=== PATIENT | male | born 1965 | race Caucasian/White ===

== ENCOUNTER 2019-12-24 10:10 | Observation (INO) ==
--- NOTE | 2019-12-24 10:23 | Emergency Department Note ---
Impression & Plan Unstable angina, Chest pain, exertional ED Provider Note NAME: AMEYA ARREOLA AGE: 53 SEX: M : 1965 ARRIVES VIA: Walk-In INFORMANT: Patient ED PROVIDER(S): Khurram Shin DO CHIEF COMPLAINT: Chest pain HPI: Patient is a 53-year-old gentleman with a past medical history of diabetes, hypertension, hyperlipidemia, obesity and multiple family members with MIs including a sister in her 40s who presented to the PCPs office today. He was having exertional chest pain which has been going off and on for the past 2 weeks. He associates this with shortness of breath and sweating. Yesterday he was raking the leaves and this occurred. It resolved with rest. He notes it is getting worse. No pain today. PCP referred him in for unstable angina. Denies any headache, change in vision, nausea vomiting or diarrhea. No dysuria urgency or frequency. When he gets the chest pain he describes as a tightness on the left side of his chest. Pain is currently a 0 out of 10. ROS: See above HPI for pertinent positives & negatives. A total of 10 systems reviewed and were otherwise negative. PAST MEDICAL HISTORY:See Below PAST SURGICAL HISTORY:See Below FAMILY HISTORY:See Below SOCIAL HISTORY:See Below HOME MEDICATIONS:See Below ALLERGIES:See Below VITALS:See Below PHYSICAL EXAMINATION: GENERAL: Sitting up in bed, alert, obese, nontoxic EYE EXAM: normal conjunctiva. OROPHARYNX: no exudate, no erythema, lips, buccal mucosa, and tongue normal and mucous membranes are moist LUNGS: Clear to auscultation. Normal chest wall mechanics HEART: no murmurs, S1 normal and S2 normal ABDOMEN: abdomen soft, non-tender, normo-active bowel sounds, no masses, no jennyfer ound or guarding. BACK: Back is symmetrical on inspection and there is no deformity, no midline tenderness, no CVA tenderness. SKIN: no rashes and no bruising UPPER EXTREMITIES: upper extremities are grossly normal. LOWER EXTREMITIES: No pitting edema. No calf are equal bilateral NEURO EXAM: Normal sensorium, cranial nerves II-XII grossly intact, normal speech, no gross weakness of arms, no gross weakness of legs. MEDICAL DECISION MAKING: Patient is a 53-year-old male with past medical history of diabetes, hypertension, hyperlipidemia and strong family history of CAD the presents ER for exertional chest pain and shortness of breath which has been worsening for the past 2 weeks. Left chest pain was yesterday while raking leaves. IV was status post orders obtained. He was referred in by PCP for unstable angina. Labs show no significant leukocytosis or anemia. INR was unremarkable. D-dimer was elevated CT angio of the chest shows no obvious PEs but was a poor study. BMP along with LFTs bilirubin troponin was negative. Lipase was unremarkable. EKG was nondiagnostic. He was given aspirin. Discussed with the hospitalist and updated bedside admitted for further work-up. Triage Nursing notes reviewed. Prior medical records reviewed Vital Signs: reviewed and remarkable for HTN and tachy Differential diagnosis: Differential diagnoses includes but is not limited to acute coronary syndrome, myocardial infarction, pericarditis, pulmonary embolus, aortic dissection, pneumonia, pneumothorax, musculoskeletal, shingles, esophageal. ER treatment provided: See below Diagnostics interpreted by me: ECG: Sinus tachycardia rate of 104 Normal axis No PVCs Normal QTC Cardiac Monitoring: An order was placed for continuous cardiac monitoring. The monitor shows a rate of 100 with sinus rhythm. Laboratory studies: As stated above and show below. Imaging studies: CT angio of the chest was unremarkable Portable AP upright 1 view of the chest shows no focal infiltrate or pneumothorax Consultation(s): Discussed with the hospitalist for further evaluation ED COURSE: Procedures: none Critical Care: None Past Med/Surg History Medical History Asthma Chronic lower back pain Diabetes 1.5, managed as type 2 Gout HTN (hypertension) Hyperlipidemia Insomnia Obesity (BMI 30-39.9) Restless leg syndrome Surgical History H/O hernia repair as a baby History of bilateral knee replacement (~2013) History of left hip replacement (~2018) Family History Father Heart disease Mother Heart disease Grandfather No problems noted. Grandfather (Maternal) Lung cancer Grandmother (Maternal) Lung cancer Grandfather (Paternal) Myocardial infarction Denies family history of Ovarian cancer Prostate cancer Breast cancer Colorectal cancer Social History Smoking Status: Never smoker Cigarettes Per Day: 1 can a week; Second Hand Exposure: No; Do You Dip or Chew Tobacco: Yes; Tobacco Cessation Education Requested by Patient: No Hx Alcohol Use: Yes Alcohol type: hard liquor Alcohol type Comment: 1 drink 4-5 times weekly Hx Substance Use: No Preferred Language: Yi Communication Ability: Effective Visual Impairment: Limited Hearing Ability: Normal Correctional Lieutenant Required: No Beliefs That Will Affect Care: None marital status: Current Living Situation: Family current occupational status: disabled 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, 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 How many Children do You have: 2 How many Children do You have Comment: 25 and 24 Other Information That Helps Us Care for You: No Feels Safe at Home: Yes Safety Concerns: Feels Safe At This Time Childhood Exposure to Second-Hand Smoke: Yes caffeine: Yes Dental Care, Regularly: Yes Physical Activity Frequency: Does not Exercise Seatbelt Use: always Sunscreen Use: Yes Assistive Devices: Glasses Allergies Allergies Allergy/AdvReac Type Severity Reaction Status Date / Time No Known Allergies Verified 12/24/19 12:06 Home Meds Home Medications Medication Instructions Recorded Confirmed cholecalciferol (vitamin D3) 50 50 mcg PO QAM 07/29/19 12/24/19 mcg (2,000 unit) capsule insulin glargine 100 unit/mL (3 15 units SQ QAM ml 07/29/19 12/24/19 mL) subcutaneous pen albuterol sulfate 90 mcg/actuation See Rx Instructions INH QID PRN g 11/26/19 12/24/19 aerosol inhaler allopurinol 300 mg PO QAM 12/24/19 12/24/19 atorvastatin 40 mg PO HS 12/24/19 12/24/19 duloxetine 60 mg PO QAM 12/24/19 12/24/19 fluticasone propion-salmeterol 1 inh INHALATION BID 12/24/19 12/24/19 [Wixela Inhub] lisinopril 40 mg PO QAM 12/24/19 12/24/19 ropinirole [Requip] 0.25 mg PO QAM 12/24/19 12/24/19 Previous Rx's Medication Instructions Recorded celecoxib 100 mg capsule 100 mg PO BID #180 cap 10/31/19 glipizide 10 mg tablet 10 mg PO BID #180 tab 10/31/19 trazodone 50 mg tablet 50 mg PO .qhs #30 tab 11/26/19 metformin 850 mg tablet 850 mg PO TID #270 tab 12/24/19 oxycodone-acetaminophen 5 mg-325 1 tab PO TID PRN 30 Days #90 tab 12/24/19 mg tablet Results & Data (ED) Vital Signs Vital Signs - 24 hr 12/24/19 10:15 12/24/19 10:32 12/24/19 11:33 Temperature 37.3 C Temperature Source Oral Pulse Rate 112 H Pulse Rate [Left Finger] 104 H Respiratory Rate 22 20 Respiratory Effort / Characteristics Non-Labored Respiratory Depth Normal Blood Pressure 146/80 H Blood Pressure [Left Arm] 94/35 L Blood Pressure Mean 102 Blood Pressure Mean [Left Arm] 54 Blood Pressure Position Sitting Pulse Oximetry 96 97 96 Oxygen Delivery Method Room Air Room Air Room Air Sepsis Recent Fever Within 48 Hours No Sepsis New/Unexplained Change in Mental Status No Sepsis Action Taken by Nursing No Action Required 12/24/19 12:46 Temperature Temperature Source Pulse Rate Pulse Rate [Left Finger] 101 H Respiratory Rate 20 Respiratory Effort / Characteristics Respiratory Depth Blood Pressure Blood Pressure [Left Arm] 138/79 Blood Pressure Mean Blood Pressure Mean [Left Arm] 98 Blood Pressure Position Pulse Oximetry 98 Oxygen Delivery Method Room Air Sepsis Recent Fever Within 48 Hours Sepsis New/Unexplained Change in Mental Status Sepsis Action Taken by Nursing Laboratory Data Result diagrams: 12/24/19 10:30 12/24/19 10:30 Lab Results 12/24/19 12/24/19 12/24/19 Range/Units 10:30 10:30 10:30 WBC 6.35 (4.8-10.8) K/uL RBC 3.78 L (4.7-6.1) M/uL Hgb 12.2 L (14.0-18.0) g/dL Hct 37.6 L (42-52) % MCV 99.5 (80-100) fL MCH 32.3 (25-34) pg MCHC 32.4 (32-36) g/dL RDW Std Deviation 50.4 H (36.4-46.3) fL RDW Coeff of Sunny 14.2 (11.5-14.5) % Plt Count 143 (130-400) K/uL MPV 11.1 H (7.4-10.4) fL Immature Gran % (Auto) 0.5 % Neut % (Auto) 61.4 % Lymph % (Auto) 25.0 % [place] % (Auto) 7.9 % Eos % (Auto) 4.9 % Baso % (Auto) 0.3 % Neut # (Auto) 3.90 (1.4-6.5) K/uL Lymph # (Auto) 1.59 (1.2-3.4) K/uL [place] # (Auto) 0.50 (0.11-0.59) K/uL Eos # (Auto) 0.31 (0-0.5) K/uL Baso # (Auto) 0.02 (0-0.2) K/uL Immature Gran # (Auto) 0.03 H (0.00-0.02) K/uL PT 10.4 (9.0-12.0) Seconds INR 1.0 (0.9-1.1) APTT 25.6 (21.0-31.0) Seconds PTT Ratio 0.9 D-Dimer 1360 H* (0-500) ug/L FEU Sodium 138 (136-145) mmol/L Potassium 4.5 (3.5-5.1) mmol/L Chloride 103 (98-107) mmol/L Carbon Dioxide 29 (21-32) mmol/L Anion Gap 6.0 (3-11) BUN 17 (7-18) mg/dl Creatinine 1.24 (0.6-1.4) mg/dl Est Cr Clr Drug Dosing 109.2 ml/min Est GFR ( Amer) 75.9 Est GFR (Non-Af Amer) 65.5 BUN/Creatinine Ratio 13.8 (10-20) Glucose 175 H (70-99) mg/dl Calcium 8.8 (8.5-10.1) mg/dl Total Bilirubin 0.4 (0.2-1) mg/dl AST 21 (15-37) U/L ALT 33 (12-78) U/L Alkaline Phosphatase 105 (45-117) U/L Troponin I < 0.015 (0-0.045) ng/ml Total Protein 6.8 (6.4-8.2) gm/dl Albumin 3.4 (3.4-5.0) gm/dl Globulin 3.4 (2.5-4.0) gm/dl Albumin/Globulin Ratio 1.0 (0.9-2) Lipase 66 L (73-393) U/L Administered Medications Ceftriaxone Sodium 2,000 mg/ (Dextrose) 70 mls @ 100 mls/hr IV Q24H [facility]; Protocol Stop: 12/31/19 15:59 Last Admin: 12/24/19 15:58 Dose: 100 mls/hr Documented by: [id number] Discontinued Medications Aspirin (Aspirin Chew 324 Mg) 324 mg PO NOW STA Stop: 12/24/19 10:31 Last Admin: 12/24/19 10:36 Dose: 324 mg Documented by: [id number] Ioversol (Optiray 320 125ml) 120 ml IV ONCE ONE Stop: 12/24/19 11:28 Last Admin: 12/24/19 11:27 Dose: 120 ml Documented by: [id number] Discharge Plan Visit Data Chief Complaint: Cardiac Assessment Stated Complaint: CHEST PAIN x COUPLE WEEKS,SWEATING,SOB ED Provider: Khurram Shin Discharge Problem: Unstable angina, Chest pain, exertional Patient Disposition: Admitted As Inpatient Discharge Instructions Interventions: ED Discharge Assessment Last Done: 12/24/19 14:08
[2019-12-24] MEDS ORDERED: ASPIRIN CHEW 324 MG PO STA (10:30)
[2019-12-24 10:40] LABS: Basophils # (auto) 0.02 K/uL (0-0.2); Basophils % (auto) 0.3 %; Eosinophils # (auto) 0.31 K/uL (0-0.5); Eosinophils % (auto) 4.9 %; Hematocrit (blood only) 37.6 % (42-52); Hemoglobin 12.2 g/dL (14.0-18.0); Immature Granulocytes # (auto) 0.03 K/uL (0.00-0.02); Immature Granulocytes % (auto) 0.5 %; Lymphocytes # (auto) 1.59 K/uL (1.2-3.4); Mean Corpuscular Hemoglobin 32.3 pg (25-34); Mean Corpuscular Hgb Conc 32.4 g/dL (32-36); Mean Corpuscular Volume 99.5 fL (80-100); Mean Platelet Volume 11.1 fL (7.4-10.4); Monocytes % (auto) 7.9 %; Neutrophils % (auto) 61.4 %; Platelet Count 143 K/uL (130-400); RDW Coefficient of Variation 14.2 % (11.5-14.5); RDW Standard Deviation 50.4 fL (36.4-46.3); Red Blood Count 3.78 M/uL (4.7-6.1); White Blood Count 6.35 K/uL (4.8-10.8)
--- NOTE | 2019-12-24 10:42 | XRay Report ---
XR chest 1V portable HISTORY: Atypical Chest Pain COMPARISON: Chest 08/26/2010. FINDINGS: No pneumothorax. No pleural effusions. The heart is mildly enlarged. This remains unchanged . No new focal lung consolidations to suggest pneumonia. No evidence for pulmonary edema. Old, healed left clavicle fracture. IMPRESSION: Stable mild cardiomegaly. No acute process within the chest. ACT 112: Negative or not required by law. Electronically signed by: Wm Nguyen M.D. 12/24/2019 10:41 AM
[2019-12-24 11:01] LABS: Alanine Aminotransferase 33 U/L (12-78); Albumin Level 3.4 gm/dl (3.4-5.0); Aspartate Aminotransferase 21 U/L (15-37); BUN Creatinine Ratio 13.8 (10-20); Blood Urea Nitrogen 17 mg/dl (7-18); Calcium 8.8 mg/dl (8.5-10.1); Carbon Dioxide 29 mmol/L (21-32); Chloride 103 mmol/L (98-107); Creatinine Clr Calc Pharmacy 109.2 ml/min; Est GFR (African American) 75.9; Est GFR (Non-African American) 65.5; Glucose 175 mg/dl (70-99); Lipase 66 U/L (73-393); Partial Thromboplastin Ratio 0.9; Partial Thromboplastin Time 25.6 Seconds (21.0-31.0); Potassium 4.5 mmol/L (3.5-5.1); Prothrombin Time 10.4 Seconds (9.0-12.0); Sodium 138 mmol/L (136-145)
[2019-12-24 11:04] LABS: D Dimer 1360 ug/L FEU (0-500)
[2019-12-24 11:06] LABS: Alkaline Phosphatase 105 U/L (45-117); Bilirubin,Total 0.4 mg/dl (0.2-1); Globulin 3.4 gm/dl (2.5-4.0); Total Protein 6.8 gm/dl (6.4-8.2); Troponin I < 0.015 ng/ml (0-0.045)
[2019-12-24] MEDS ORDERED: OPTIRAY 320 125ml IV ONE (11:27)
--- NOTE | 2019-12-24 11:52 | CT Scan Report ---
CT ANGIOGRAM OF THE CHEST CLINICAL HISTORY: Shortness of breath. Positive d-dimer. COMPARISON STUDY: No previous studies for comparison. TECHNIQUE: Following the IV administration of 120 mL of Optiray-320, CT angiogram of the thorax was p erformed from the thoracic inlet to the lung bases utilizing the pulmonary embolus protocol. Images a re reviewed in the axial, sagittal, and coronal planes. IV contrast was administered without complica tion. MIP imaging was performed. A dose lowering technique was utilized adhering to the principles o f ALARA. CT DOSE: 1216.58 mGy.cm FINDINGS: There is an 11 mm left lobe thyroid nodule. No pathologically enlarged axillary mediastinal or hilar lymph nodes were visualized. There was no evidence of thoracic aortic dilatation. There is suboptimal pulmonary to opacification during part to the patient's large body habitus. There are no pulmonary artery filling defects to indicate acute pulmonary embolism. If there is a strong c linical suspicion of the presence of acute pulmonary embolism, correlation with leg ultrasonography s hould be performed No pleural effusions are visualized. There is no acute parenchymal consolidation. There is a 5 mm pleural-based left apical pulmonary nodu le. There are scattered areas of presumed atelectasis. There are no areas of parenchymal consolidatio n to indicate a pneumonia. There is mild respiratory motion artifact. There are old right-sided rib fractures. IMPRESSION: 1. Suboptimal pulmonary arterial opacification, but no findings to indicate acute pulmonary embolism. Correlation with leg ultrasonography should be considered as deemed clinically appropriate 2. No evidence of focal pulmonary consolidation. 3. 5 mm pleural-based left apical pulmonary nodule. No further follow-up is indicated in a low-risk p atient. ACT 112: Negative or not required by law. Electronically signed by: Seven Mckeon M.D. 12/24/2019 11:51 AM
--- NOTE | 2019-12-24 13:03 | History & Physical Report ---
Date of Service December 24, 2019 Assessment & Plan (1) Unstable angina: Many risk factors exertional chest pain concerning for unstable angina. Heart healthy diet. ASA 324mg PO given in ER. Continue aspirin 81mg PO daily (he should continue this for primary prophylaxis regardless of cardiac workup. Start metoprolol 25mg PO BID Continue lisinopril 40 mg p.o. daily. Continue atorvastatin 40 mg p.o. at bedtime (recent lipid panel 5 days ago, no need to repeat this). Consult cardiology. Will defer dobutamine stress echo vs. cardiac cath decision to cardiology. (2) Left leg cellulitis: No WBC, fever or chills however immunosuppressed with T2DM. Follow up blood cultures Start Ceftriaxone 2g IV daily after blood cultures taken US left lower extremity venous doppler to r/o DVT (3) Hyperlipidemia: Triglycerides 353, LDL 33 (12/19/2019) - no need to repeat this Continue atorvastatin 40 mg p.o. at bedtime (4) HTN (hypertension): Continue lisinopril 40 mg p.o. every morning. Add metoprolol for antianginal effect as above and monitor blood pressure. (5) Diabetes 1.5, managed as type 2: HbA1c 7.1 (12/19/2019) - no need to repeat this T2DM diet Hold Metformin and glipizide during inpatient stay. Reports taking his usual Lantus 15 units this morning. Due to holding his oral medication above we will increase Lantus to 15 units twice daily with NovoLog sliding scale for correction and carb coverage (6) Gout: No acute flare. Continue allopurinol 300 mg daily. (7) Restless leg syndrome: Continue ropinirole 0.25 mg p.o. at bedtime. (8) Asthma: No acute exacerbation is suspected Continue Wixela Inhub 1 inhalation twice daily for hospital formulary equivalent if patient does not have access to exam Albuterol as needed for wheezing or shortness of breath (9) Chronic lumbar radiculopathy: Continue duloxetine 60 mg p.o. every morning (10) Insomnia: Continue trazodone 50 mg p.o. at bedtime (11) DVT prophylaxis: Lovenox 40 mg twice daily (hold prior to cardiac cath if this is planned for the morning) Admission and Anticipated Discharge Date Admission Date: 12/24/2019 History of Present Illness Chief Complaint: Chest tightness and shortness of breath on exertion Primary Care Provider: Cal Escobar, Wisam Copeland is a 83-year-old male with type 2 diabetes, hyperlipidemia, hypertension who presents to the ER with shortness of breath and chest tightness on exertion over last 3 weeks. He does note his daughter's wedding was approximately 3 weeks ago and his stress levels have been significantly high recently. The chest tightness and shortness of breath have come on intermittently and are not significantly worse now than 3 weeks ago however he had a significant episode yesterday with raking leaves which he discussed with his primary care physician and recommended he come to the ER for further evaluation. Associated diaphoresis. No nausea. Reports chest tightness problem a severity of pain on the left side of his anterior chest wall, no worse on palpation or inspiration, no relief with albuterol inhaler, no radiation (although difficult to tell with his multiple chronic joint pains). Despite his multiple risk factors he does not take an aspirin daily. He reports a remote stress test in the past but not within the last year. He has a significant family history of cardiovascular disease with his sister having a heart attack in her 40s and both parents having heart attacks in their 50s. Allergies Allergy/AdvReac Type Severity Reaction Status Date / Time No Known Allergies Verified 12/24/19 12:06 Home Medications Home Medications Medication Instructions Recorded Confirmed Type cholecalciferol (vitamin D3) 50 50 mcg PO QAM 07/29/19 12/24/19 History mcg (2,000 unit) capsule insulin glargine 100 unit/mL (3 15 units SQ QAM ml 07/29/19 12/24/19 History mL) subcutaneous pen celecoxib 100 mg capsule 100 mg PO BID #180 cap 10/31/19 12/24/19 Rx glipizide 10 mg tablet 10 mg PO BID #180 tab 10/31/19 12/24/19 Rx albuterol sulfate 90 mcg/actuation See Rx Instructions INH QID PRN g 11/26/19 12/24/19 History aerosol inhaler trazodone 50 mg tablet 50 mg PO .qhs #30 tab 11/26/19 12/24/19 Rx allopurinol 300 mg PO QAM 12/24/19 12/24/19 History atorvastatin 40 mg PO HS 12/24/19 12/24/19 History duloxetine 60 mg PO QAM 12/24/19 12/24/19 History fluticasone propion-salmeterol 1 inh INHALATION BID 12/24/19 12/24/19 History [Wixela Inhub] lisinopril 40 mg PO QAM 12/24/19 12/24/19 History metformin 850 mg tablet 850 mg PO TID #270 tab 12/24/19 12/24/19 Rx oxycodone-acetaminophen 5 mg-325 1 tab PO TID PRN 30 Days #90 tab 12/24/19 12/24/19 Rx mg tablet ropinirole [Requip] 0.25 mg PO QAM 12/24/19 12/24/19 History Past Med/Surg History Medical History Asthma Chronic lower back pain Diabetes 1.5, managed as type 2 Gout HTN (hypertension) Hyperlipidemia Insomnia Obesity (BMI 30-39.9) Restless leg syndrome Surgical History H/O hernia repair as a baby History of bilateral knee replacement (~2013) History of left hip replacement (~2017) Family History Father Heart disease Mother Heart disease Grandfather No problems noted. Grandfather (Maternal) Lung cancer Grandmother (Maternal) Lung cancer Grandfather (Paternal) Myocardial infarction Denies family history of Ovarian cancer Prostate cancer Breast cancer Colorectal cancer Social History Smoking Status: Never smoker Cigarettes Per Day: 1 can a week; Second Hand Exposure: No; Do You Dip or Chew Tobacco: Yes; Tobacco Cessation Education Requested by Patient: No Hx Alcohol Use: Yes Alcohol type: hard liquor Alcohol type Comment: 1 drink 4-5 times weekly Hx Substance Use: No Preferred Language: Maori Communication Ability: Effective Visual Impairment: Limited Hearing Ability: Normal Vehicle Monitor Technician Required: No Beliefs That Will Affect Care: None marital status: Current Living Situation: Family current occupational status: disabled 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, 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 Physical Exam Constitutional: well developed and + morbidly obese; + not well nourished and no acute distress Eyes: + anicteric sclerae; normal pupil size ENMT: Ears: no external ear abnormality Nose: no external nose abnormality Neck: trachea midline Respiratory: normal respiratory effort, lungs clear to auscultation Cardiovascular: Rate/Rhythm: regular rate and regular rhythm Heart Sounds: no murmur Vessels: dorsalis pedis pulses present and radial pulses present; no JVD Extremities: normal capillary refill and + pedal edema (1+ left lower extremity to knee, trace right lower extremity and ankle) Gastrointestinal (Abdomen): normal bowel sounds, soft, nontender, no hepatosplenomegaly Musculoskeletal: no cyanosis or clubbing, extremities motor strength 5/5 Skin: Multiple scabbed and open circular wounds 1mm=7mm. Mild surrounding erythema and papular rash surrounding all wounds. Significant bright erythema with associated swelling/warmth around distal medial, left extremity weakness. Neurologic: moves all extremities and awake; no focal motor deficits and not confused Speech / Cognition: normal speech Motor/Sensory: + sensory deficit (Bilateral lower extremity below knees); no tremor and no pronator drift Psychiatric: A+Ox3, euthymic affect Results & Data Results & Data ([facility]) Vital Signs (Past 12 Hours) Vital Signs Temp Pulse Pulse Resp BP BP Pulse Ox 12/24/19 12:46 101 H 20 138/79 98 12/24/19 11:33 104 H 20 94/35 L 96 12/24/19 10:32 97 12/24/19 10:15 37.3 C 112 H 22 146/80 H 96 Diagnostic Findings XR chest 1V portable IMPRESSION: Stable mild cardiomegaly. No acute process within the chest. CT ANGIOGRAM OF THE CHEST IMPRESSION: 1. Suboptimal pulmonary arterial opacification, but no findings to indicate acute pulmonary embolism. Correlation with leg ultrasonography should be considered as deemed clinically appropriate 2. No evidence of focal pulmonary consolidation. 3. 5 mm pleural-based left apical pulmonary nodule. No further follow-up is sunni cated in a low-risk patient. ECG Indication: chest pain Rate (beats per minute): 104 Rhythm: sinus tachycardia Comparison ECG Date: from (August 26, 2010) Change: no significant change Code Status & VTE Plan Code Status Full VTE Prophylaxis Plan VTE Prophylaxis will be ordered: Yes PG Care Time/CCT Total # of Minutes Spent Total Time Spent with Patient: Total time spent is greater than 50% in coordination of care (as documented) at patient's floor/unit and/or counseling patient: Coding Level of Care Code 18155 OBS Care - Level 3 Diagnoses Unstable angina I20.0 Left leg cellulitis L03.116 Hyperlipidemia E78.5 HTN (hypertension) I10 Diabetes 1.5, managed as type 2 E13.9 Gout M10.9 Restless leg syndrome G25.81 Asthma J45.909 Chronic lumbar radiculopathy M54.16 Insomnia G47.00 DVT prophylaxis Z29.9
[2019-12-24] MEDS ORDERED: GLUCOSE 40% GEL 15 GM TUBE PO PRN (14:43)
[2019-12-24] MEDS ORDERED: ACETAMINOPHEN 325 MG TAB PO PRN (14:43)
[2019-12-24] MEDS ORDERED: NITROGLYCERIN SL 0.4 MG/TAB TAB SL PRN (14:43)
[2019-12-24] MEDS ORDERED: DEXTROSE 50% 50 ML SYRINGE IV PRN (14:43)
[2019-12-24] MEDS ORDERED: GLUCAGON FOR INJ 1 MG VIAL SQ PRN (14:43)
[2019-12-24] MEDS ORDERED: CARBOHYDRATES FOR HYPOGLYCEMIA PO PRN (14:43)
[2019-12-24] MEDS ORDERED: GLUCOSE 10 TABS/TUBE PO PRN (14:43)
[2019-12-24] MEDS ORDERED: ALBUTEROL HFA 8 GM INHALER INH PRN (14:43)
[2019-12-24] MEDS: cefTRIAXone SODIUM 2,000 MG in DEXTROSE 5% 50 ML IV SCH (15:58)
[2019-12-24] MEDS: INSULIN ASPART 100 UNITS/ML 3 ML PEN SC SCH ×2 (17:05→21:37)
--- NOTE | 2019-12-24 18:35 | Ultrasound Report ---
US venous doppler LE LT HISTORY: 53 years-old Male r/o DVT acute pain and swelling of the left lower extremity COMPARISON: None TECHNIQUE: Multiple real-time sonographic images of the left lower extremity deep venous structures w ere obtained assessing grayscale appearance, color and spectral flow FINDINGS: Normal flow, compressibility, phasicity and augmentation of the left lower extremity deep venous stru ctures. IMPRESSION: No sonographic evidence of deep venous thrombosis. ACT 112: Negative or not required by law. The above report was generated using voice recognition software. It may contain grammatical, syntax o r spelling errors. Electronically signed by: Campbell Sloan M.D. 12/24/2019 6:34 PM
--- NOTE | 2019-12-24 19:11 | Cardiology Consultation ---
Date of Consultation December 24, 2019 Assessment & Plan (1) Exertional angina: (2) HTN (hypertension): (3) Hyperlipidemia: (4) Sinus tachycardia: (5) Murmur: ASSESSMENT/PLAN: 1. Exertional angina: His symptoms are concerning for angina, especially given his multiple risk factors for CAD. Symptoms are an abrupt manager of change the past few weeks and preceding that, had decreased exercise tolerance in general. We discussed evaluation possibilities such as stress testing versus cardiac catheterization. It is not unreasonable to proceed straight to cardiac catheterization given his high risk for CAD. He strongly prefers to proceed straight to cardiac catheterization. Risks and benefits were discussed with him in detail. He was made aware that CT surgery is not available at this facility. Would first like to undergo echocardiogram. He has blood cultures pending. Because he is chest pain-free, there is no urgency for coronary angiography at this time. Will continue to follow to help coordinate timing of cardiac catheterization. 2. Sinus tachycardia: He has had sinus tachycardia on outpatient visits as well. He was started on beta-abraham by primary service. Monitor closely given his history of asthma although he denies hospitalizations for asthma exacerbation. 3. Hypertension: Blood pressure elevated. Continue home medications. Beta- abraham started by primary service. 4. Dyslipidemia: Continue high-intensity statin therapy. LDL well controlled. 5. Murmur: Echocardiogram ordered to evaluate for valvular abnormalities. 6. Disposition: Cardiology will continue to follow. Plan of care discussed with Dr. Holm of the primary hospitalist service. Highly complex medical issues for which cardiac catheterization was considered and pending. Thank you for allowing me to participate in the care of your patient. Please call for any other questions or concerns. Sincerely, Yonatan Bennett M.D. History of Present Illness Reason for Consultation: Angina Requesting Physician: Kiel Holm MD Attending Physician: Kiel Holm MD History of Present Illness Mr. Copeland is a pleasant 53-year-old gentleman with history significant for hypertension, dyslipidemia, type 2 diabetes, and family history of CAD. He was hospitalized earlier today (12/24/2019) for chest discomfort concerning for unstable angina. Over the past few months, he has noted decreased exercise tolerance. His daughter got on 12/07/2019 and the week prior to that, he was more active than usual, helping get ready for the wedding including arranging tables and chairs. With this, he was experiencing chest discomfort described as a left-sided chest discomfort that would radiate to the center of his chest. It felt like a pulled muscle. It would typically resolve within 20-30 minutes of rest. Symptoms occurred only with exertion and they were associated with shortness of breath and diaphoresis. The symptoms were new to him and progressed throughout that week. After the wedding, he continues to experience the symptoms but not quite as often, admitting that he has not been as active as well. His most recent episode was yesterday when he was raking wet leaves in his yd. Symptoms resolved within 20 minutes. He is currently chest pain-free. He also has chronic dyspnea with exertion but the shortness of breath that he experienced with his chest discomfort was much worse than usual. He denies orthopnea, syncope, near-syncope, palpitations, edema, or bleeding such as melena, hematochezia, or hematuria. He has chronic back issues and because of this, he states that he has decreased feeling in his arms and legs. He states that his back pain is due to crushed vertebrae. He is being treated for cellulitis by the primary service due to erythema of his left lower extremity. He admits that he has dry skin on his legs and will commonly use a knife or straight blade to remove the dry skin. More recently however he used a serrated blade and has multiple healing superficial wounds which appear to be healing on his bilateral lower extremities. With his mild erythema of his left leg, he has not had any noted fevers and WBC is normal. Review of systems: As above and also admits to chronic diarrhea. Review of systems otherwise negative/unremarkable. Family history: Father had PCI in his 70s and follows with Dr. Marinelli. Mother had PCI near the age of 70 [address] Marinelli. Sister had PCI in her 40s. Paternal grandfather with NE at the age of 40. Social history: Denies tobacco abuse. 1-2 alcoholic beverages per day. No drugs. He lives with his mother and father. His mother is a retired nurse from Labor and delivery at [employer]. He has 2 daughters. He has grandchildren. He is . 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 He was unaccompanied. Allergies Allergy/AdvReac Type Severity Reaction Status Date / Time No Known Allergies Verified 12/24/19 12:06 Home Medications Home Medications Medication Instructions Recorded Confirmed Type cholecalciferol (vitamin D3) 50 50 mcg PO QAM 07/29/19 12/24/19 History mcg (2,000 unit) capsule insulin glargine 100 unit/mL (3 15 units SQ QAM ml 07/29/19 12/24/19 History mL) subcutaneous pen celecoxib 100 mg capsule 100 mg PO BID #180 cap 10/31/19 12/24/19 Rx glipizide 10 mg tablet 10 mg PO BID #180 tab 10/31/19 12/24/19 Rx albuterol sulfate 90 mcg/actuation See Rx Instructions INH QID PRN g 11/26/19 12/24/19 History aerosol inhaler trazodone 50 mg tablet 50 mg PO .qhs #30 tab 11/26/19 12/24/19 Rx allopurinol 300 mg PO QAM 12/24/19 12/24/19 History atorvastatin 40 mg PO HS 12/24/19 12/24/19 History duloxetine 60 mg PO QAM 12/24/19 12/24/19 History fluticasone propion-salmeterol 1 inh INHALATION BID 12/24/19 12/24/19 History [Wixela Inhub] lisinopril 40 mg PO QAM 12/24/19 12/24/19 History metformin 850 mg tablet 850 mg PO TID #270 tab 12/24/19 12/24/19 Rx oxycodone-acetaminophen 5 mg-325 1 tab PO TID PRN 30 Days #90 tab 12/24/19 12/24/19 Rx mg tablet ropinirole [Requip] 0.25 mg PO QAM 12/24/19 12/24/19 History Patient History Medical History Asthma Chronic lower back pain Diabetes 1.5, managed as type 2 Gout HTN (hypertension) Hyperlipidemia Insomnia Obesity (BMI 30-39.9) Restless leg syndrome Surgical History H/O hernia repair as a baby History of bilateral knee replacement (~2013) History of left hip replacement (~2017) Family History Father Heart disease Mother Heart disease Grandfather No problems noted. Grandfather (Maternal) Lung cancer Grandmother (Maternal) Lung cancer Grandfather (Paternal) Myocardial infarction Denies family history of Ovarian cancer Prostate cancer Breast cancer Colorectal cancer Social History Smoking Status: Never smoker Cigarettes Per Day: 1 can a week; Second Hand Exposure: No; Do You Dip or Chew Tobacco: Yes; Tobacco Cessation Education Requested by Patient: No Hx Alcohol Use: Yes Alcohol type: hard liquor Alcohol type Comment: 1 drink 4-5 times weekly Hx Substance Use: No Preferred Language: Barbadian Communication Ability: Effective Visual Impairment: Limited Hearing Ability: Normal Quality Control Director Required: No Beliefs That Will Affect Care: None marital status: Current Living Situation: Family current occupational status: disabled 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 Alert and oriented. HEENT: Anicteric sclera. Neck: Thick neck. No bruits. Normal carotid upstrokes bilaterally. Cardiac: PMI was nondisplaced. No ventricular heave. Regular rate and rhythm. Normal S1-S2. 2/6 mid-peaking systolic ejection murmur. No rubs, or gallops. Pulmonary: Clear to auscultation bilaterally without wheezes, rales, or rhonchi. Abdomen: Obese. Soft, nontender, nondistended, with normoactive bowel sounds. No bruits noted. Extremities: 2+ radial pulses bilaterally. 2+ posterior tibialis pulses bilaterally. Trace bilateral lower extremity edema. Erythema left lower extremity (not hot). No cyanosis. Psychiatric: Affect appears appropriate. Results & Data ([facility]) Vital Signs (Past 12 Hours) Vital Signs Temp Pulse Pulse Resp BP BP BP 12/24/19 15:43 36.8 C 98 H 17 143/88 H 12/24/19 14:43 37 C 99 H 20 133/75 12/24/19 13:58 101 H 18 150/79 H 12/24/19 12:46 101 H 20 138/79 12/24/19 11:33 104 H 20 94/35 L 12/24/19 10:32 12/24/19 10:15 37.3 C 112 H 22 146/80 H Pulse Ox 12/24/19 15:43 96 12/24/19 14:43 94 12/24/19 13:58 96 12/24/19 12:46 98 12/24/19 11:33 96 12/24/19 10:32 97 12/24/19 10:15 96 Laboratory Results Laboratory Results - last 24 hr 12/24/19 12/24/19 12/24/19 10:30 10:30 10:30 WBC 6.35 RBC 3.78 L Hgb 12.2 L Hct 37.6 L MCV 99.5 MCH 32.3 MCHC 32.4 RDW Std Deviation 50.4 H RDW Coeff of Sunny 14.2 Plt Count 143 MPV 11.1 H Immature Gran % (Auto) 0.5 Neut % (Auto) 61.4 Lymph % (Auto) 25.0 [place] % (Auto) 7.9 Eos % (Auto) 4.9 Baso % (Auto) 0.3 Neut # (Auto) 3.90 Lymph # (Auto) 1.59 [place] # (Auto) 0.50 Eos # (Auto) 0.31 Baso # (Auto) 0.02 Immature Gran # (Auto) 0.03 H PT 10.4 INR 1.0 APTT 25.6 PTT Ratio 0.9 D-Dimer 1360 H* Sodium 138 Potassium 4.5 Chloride 103 Carbon Dioxide 29 Anion Gap 6.0 BUN 17 Creatinine 1.24 Est Cr Clr Drug Dosing 109.2 Est GFR ( Amer) 75.9 Est GFR (Non-Af Amer) 65.5 BUN/Creatinine Ratio 13.8 Glucose 175 H POC Glucose Calcium 8.8 Total Bilirubin 0.4 AST 21 ALT 33 Alkaline Phosphatase 105 Troponin I < 0.015 Total Protein 6.8 Albumin 3.4 Globulin 3.4 Albumin/Globulin Ratio 1.0 Lipase 66 L 12/24/19 16:53 WBC RBC Hgb Hct MCV MCH MCHC RDW Std Deviation RDW Coeff of Sunny Plt Count MPV Immature Gran % (Auto) Neut % (Auto) Lymph % (Auto) [place] % (Auto) Eos % (Auto) Baso % (Auto) Neut # (Auto) Lymph # (Auto) [place] # (Auto) Eos # (Auto) Baso # (Auto) Immature Gran # (Auto) PT INR APTT PTT Ratio D-Dimer Sodium Potassium Chloride Carbon Dioxide Anion Gap BUN Creatinine Est Cr Clr Drug Dosing Est GFR ( Amer) Est GFR (Non-Af Amer) BUN/Creatinine Ratio Glucose POC Glucose 143 H Calcium Total Bilirubin AST ALT Alkaline Phosphatase Troponin I Total Protein Albumin Globulin Albumin/Globulin Ratio Lipase Diagnostic Findings Telemetry personally reviewed: Sinus rhythm. No arrhythmia. ECG personally reviewed: ECG 12/24/2019: Sinus tachycardia 104 beats per minute. CTA chest 12/24/2019: No findings to indicate acute PE. No focal pulmonary consolidation. 5 mm pleural based left apical pulmonary nodule. No follow-up necessary per Radiology. Venous Doppler 12/24/2019: No DVT of left leg. Medications Administered Current Inpatient Medications Acetaminophen (Acetaminophen 325 Mg Tab) 650 mg PO Q4H PRN PRN Reason: Pain or Fever Stop: 01/23/20 14:42 Albuterol (Albuterol Hfa 8 Gm Inhaler) 2 puffs INH QID PRN PRN Reason: shortness of breath or wheezing Stop: 01/23/20 14:42 Allopurinol (Allopurinol 300 Mg Tab) 300 mg PO QAM [facility] Stop: 01/24/20 08:59 Aspirin (Aspirin 81 Mg Ectab) 81 mg PO QAM [facility] Stop: 01/24/20 08:59 Atorvastatin Calcium (Atorvastatin 40 Mg Tab) 40 mg PO HS [facility] Stop: 01/23/20 20:59 Dextrose (Dextrose 50% 50 Ml Syringe) 25 - 50 ml IV UD PRN; Protocol PRN Reason: Hypoglycemia Protocol Stop: 01/23/20 14:42 Duloxetine HCl (Duloxetine Hcl 60 Mg Cap) 60 mg PO QAM [facility] Stop: 01/24/20 08:59 Enoxaparin Sodium (Enoxaparin Inj 40 Mg/0.4 Ml Syr) 40 mg SQ BID [facility] Stop: 01/23/20 20:59 Fluticasone/Vilanterol (Fluticasone/Vilanterol 100/25mcg 14 Puffs/Inhaler) 1 puffs INH DAILY [facility]; Protocol Stop: 01/24/20 08:59 Glucagon (Glucagon For Inj 1 Mg Vial) 1 mg SQ UD PRN; Protocol PRN Reason: Hypoglycemia Protocol Stop: 01/23/20 14:42 Glucose (Glucose 10 Tabs/Tube) 4 - 8 tabs PO UD PRN; Protocol PRN Reason: Hypoglycemia Protocol Stop: 01/23/20 14:42 Glucose (Glucose 40% Gel 15 Gm Tube) 15 - 30 gm PO UD PRN; Protocol PRN Reason: Hypoglycemia Protocol Stop: 01/23/20 14:42 Ceftriaxone Sodium 2,000 mg/ (Dextrose) 70 mls @ 100 mls/hr IV Q24H [facility]; Protocol Stop: 12/31/19 15:59 Last Infusion: 12/24/19 17:01 Dose: Infused Documented by: Insulin Aspart (Insulin Aspart 100 Units/Ml 3 Ml Pen) 0 units SC ACHS [facility] Stop: 01/23/20 16:29 Last Admin: 12/24/19 17:05 Dose: 9 units Documented by: Insulin Glargine (Insulin Glargine Solostar 100 Units/Ml 3 Ml Pen) 15 units SC BID [facility] Stop: 01/23/20 20:59 Lisinopril (Lisinopril 40 Mg Tab) 40 mg PO QAM [facility] Stop: 01/24/20 08:59 Metoprolol Tartrate (Metoprolol Tartrate 25 Mg Tab) 25 mg PO BID [facility] Stop: 01/23/20 20:59 Miscellaneous (Carbohydrates For Hypoglycemia ) 15 - 30 gm PO UD PRN PRN Reason: Hypoglycemia Protocol Stop: 01/23/20 14:42 Nitroglycerin (Nitroglycerin Sl 0.4 Mg/Tab Tab) 0.4 mg SL UD PRN PRN Reason: Chest Pain Stop: 01/23/20 14:42 Oxycodone/Acetaminophen (Oxycodone/Acetaminophen 5mg/325mg Tab) 1 tab PO TID PRN PRN Reason: pain Stop: 01/07/20 14:42 Ropinirole HCl (Ropinirole Hcl 0.25 Mg Tablet) 0.25 mg PO HS [facility] Stop: 01/23/20 20:59 Trazodone HCl (Trazodone Hcl 50 Mg Tab) 50 mg PO HS [facility] Stop: 01/23/20 20:59 Vitamin D (Cholecalciferol 1,000 Units 25 Mcg Tab) 2,000 units PO QAM [facility] Stop: 01/24/20 08:59 PG Care Time/CCT Total # of Minutes Spent Total Time Spent with Patient: Total time spent is greater than 50% in coordination of care (as documented) at patient's floor/unit and/or counseling patient: Coding Level of Care Code 85504 Initial Inpt Care Lvl 3 Diagnoses Exertional angina I20.8 HTN (hypertension) I10 Hyperlipidemia E78.5 Sinus tachycardia R00.0 Murmur R01.1
[2019-12-24] MEDS: INSULIN GLARGINE SOLOSTAR 100 UNITS/ML 3 ML PEN SC SCH ×2 (21:32→22:03)
[2019-12-24] MEDS: METOPROLOL TARTRATE 25 MG TAB PO SCH (21:36)
[2019-12-24] MEDS: ATORVASTATIN 40 MG TAB PO SCH (21:36)
[2019-12-24] MEDS: rOPINIRole HCL 0.25 MG TABLET PO SCH (21:36)
[2019-12-24] MEDS: ENOXAPARIN INJ 40 MG/0.4 ML SYR SQ SCH (21:36)
[2019-12-24] MEDS: traZODone HCL 50 MG TAB PO SCH (22:03)
[2019-12-25] MEDS: oxyCODONE/ACETAMINOPHEN 5mg/325mg TAB PO PRN ×3 (01:04→21:52)
--- NOTE | 2019-12-25 06:07 | Electrocardiogram Report ---
Test Reason : Blood Pressure : / mmHG Vent. Rate : 104 BPM Atrial Rate : 104 BPM P-R Int : 172 ms QRS Dur : 090 ms QT Int : 376 ms P-R-T Axes : 068 074 053 degrees QTc Int : 494 ms Sinus tachycardia Otherwise normal ECG When compared with ECG of 26-AUG-2010 13:51, No significant change was found Confirmed by Freddy Bennett ([id number]) on 12/25/2019 6:07:35 AM Referred By: REFERRED SELF Confirmed By:Freddy Bennett
[2019-12-25 06:22] LABS: Basophils # (auto) 0.05 K/uL (0-0.2); Basophils % (auto) 0.8 %; Eosinophils # (auto) 0.33 K/uL (0-0.5); Hematocrit (blood only) 37.1 % (42-52); Hemoglobin 11.9 g/dL (14.0-18.0); Immature Granulocytes # (auto) 0.02 K/uL (0.00-0.02); Immature Granulocytes % (auto) 0.3 %; Lymphocytes # (auto) 1.59 K/uL (1.2-3.4); Lymphocytes % (auto) 24.3 %; Mean Corpuscular Hemoglobin 32.6 pg (25-34); Mean Corpuscular Hgb Conc 32.1 g/dL (32-36); Mean Corpuscular Volume 101.6 fL (80-100); Mean Platelet Volume 11.5 fL (7.4-10.4); Monocytes # (auto) 0.44 K/uL (0.11-0.59); Monocytes % (auto) 6.7 %; Neutrophils # (auto) 4.11 K/uL (1.4-6.5); Neutrophils % (auto) 62.9 %; Platelet Count 153 K/uL (130-400); RDW Coefficient of Variation 14.2 % (11.5-14.5); RDW Standard Deviation 51.7 fL (36.4-46.3); Red Blood Count 3.65 M/uL (4.7-6.1); White Blood Count 6.54 K/uL (4.8-10.8)
[2019-12-25 06:55] LABS: BUN Creatinine Ratio 15.6 (10-20); Blood Urea Nitrogen 20 mg/dl (7-18); Calcium 8.5 mg/dl (8.5-10.1); Carbon Dioxide 31 mmol/L (21-32); Chloride 103 mmol/L (98-107); Creatinine Clr Calc Pharmacy 105.9 ml/min; Est GFR (African American) 73.7; Est GFR (Non-African American) 63.6; Glucose 169 mg/dl (70-99); Potassium 5.1 mmol/L (3.5-5.1); Sodium 137 mmol/L (136-145)
[2019-12-25 06:59] LABS: Troponin I < 0.015 ng/ml (0-0.045)
[2019-12-25] MEDS: CHOLECALCIFEROL 1,000 UNITS 25 MCG TAB PO SCH (08:11)
[2019-12-25] MEDS: ASPIRIN 81 MG ECTAB PO SCH (08:12)
[2019-12-25] MEDS: METOPROLOL TARTRATE 25 MG TAB PO SCH ×2 (08:12→21:37)
[2019-12-25] MEDS: lisinopril 40 MG TAB PO SCH (08:12)
[2019-12-25] MEDS: ENOXAPARIN INJ 40 MG/0.4 ML SYR SQ SCH ×2 (08:13→21:38)
[2019-12-25] MEDS: allopurinoL 300 MG TAB PO SCH (08:13)
[2019-12-25] MEDS: DULoxetine HCL 60 MG CAP PO SCH (08:13)
[2019-12-25] MEDS: FLUTICASONE/VILANTEROL 100/25MCG 14 PUFFS/INHALER INH SCH (08:14)
[2019-12-25] MEDS: INSULIN GLARGINE SOLOSTAR 100 UNITS/ML 3 ML PEN SC SCH ×2 (08:15→21:39)
[2019-12-25] MEDS: INSULIN ASPART 100 UNITS/ML 3 ML PEN SC SCH ×4 (08:16→21:38)
--- NOTE | 2019-12-25 10:48 | XCELERA ---
[id number]
--- NOTE | 2019-12-25 15:21 | Cardiology Progress Note ---
Date of Service December 25, 2019 Assessment & Plan (1) Exertional angina: (2) HTN (hypertension): (3) Hyperlipidemia: (4) Sinus tachycardia: (5) Aortic stenosis: ASSESSMENT/PLAN: 1. Angina: Presenting symptoms were concerning for angina. No further angina while hospitalized. Given elevated risk for CAD and concerning symptoms, with patient's strong preference to undergo angiography, cardiac catheterization will be performed. The risks and benefits had been discussed with him yesterday. Unfortunately, he ate on his own accord this morning in the cathead operator is not available at this time due to other scheduled cases. There is no urgency. NPO after midnight and cardiac catheterization will be performed tomorrow. COVID19 testing is pending. Continue aspirin, beta-abraham, statin therapy. 2. Hypertension: Blood pressure was initially elevated but now better controlled. Continue current regimen. 3. Dyslipidemia: Continue high-intensity statin therapy. LDL was well controlled. 4. Sinus tachycardia: Chronic issue. Heart rate has improved on metoprolol. 5. Aortic stenosis: Discussed the diagnosis. Non severe. Follow over time. 6. Disposition: Cardiology will continue to follow. NPO after midnight. Patient care communicated with Dr. Truong of the primary hospitalist service. Admission and Anticipated Discharge Date Admission Date: December 24, 2019 Subjective The patient was seen earlier today. He denies any chest discomfort, shortness of breath, orthopnea, syncope, near-syncope, palpitations, or edema. His mother was seated at the bedside. He had no particular complaints other than he wanted to eat. He was made NPO for possible cardiac catheterization. Because of a small breakfast that he was given this morning, he decided to walk to the [employer] machine and purchased a candy bar which he consumed mid morning. Review of systems: As above. Physical Exam Physical Exam: Gen.: No acute distress. Alert and oriented. HEENT: Anicteric sclera. Neck: Thick neck. Cardiac: PMI was nonpalpable. No ventricular heave. Regular rate and rhythm. Normal S1-S2. 2/6 early to mid peaking systolic ejection murmur. No rubs, or gallops. Pulmonary: Clear to auscultation bilaterally without wheezes, rales, or rhonchi. Abdomen: Obese. Soft, nontender, nondistended, with normoactive bowel sounds. No bruits noted. Extremities: 2+ radial pulses bilaterally. 2+ posterior tibialis pulses bilaterally. Trace bilateral lower extremity edema. No cyanosis. Psychiatric: Affect appears appropriate. Results & Data ([facility]) Vital Signs (Past 12 Hours) Vital Signs Temp Pulse Resp BP BP Pulse Ox 12/25/19 11:15 36.5 C 82 18 133/79 96 12/25/19 07:40 36.5 C 88 20 133/92 98 12/25/19 04:00 36.7 C 84 18 114/69 96 Laboratory Results Laboratory Results - last 24 hr 12/24/19 12/24/19 12/24/19 16:53 18:49 20:47 WBC RBC Hgb Hct MCV MCH MCHC RDW Std Deviation RDW Coeff of Sunny Plt Count MPV Immature Gran % (Auto) Neut % (Auto) Lymph % (Auto) [place] % (Auto) Eos % (Auto) Baso % (Auto) Neut # (Auto) Lymph # (Auto) [place] # (Auto) Eos # (Auto) Baso # (Auto) Immature Gran # (Auto) Sodium Potassium Chloride Carbon Dioxide Anion Gap BUN Creatinine Est Cr Clr Drug Dosing Est GFR ( Amer) Est GFR (Non-Af Amer) BUN/Creatinine Ratio Glucose POC Glucose 143 H 130 H Calcium Troponin I < 0.015 12/25/19 12/25/19 12/25/19 05:34 05:34 07:38 WBC 6.54 RBC 3.65 L Hgb 11.9 L Hct 37.1 L MCV 101.6 H MCH 32.6 MCHC 32.1 RDW Std Deviation 51.7 H RDW Coeff of Sunny 14.2 Plt Count 153 MPV 11.5 H Immature Gran % (Auto) 0.3 Neut % (Auto) 62.9 Lymph % (Auto) 24.3 [place] % (Auto) 6.7 Eos % (Auto) 5.0 Baso % (Auto) 0.8 Neut # (Auto) 4.11 Lymph # (Auto) 1.59 [place] # (Auto) 0.44 Eos # (Auto) 0.33 Baso # (Auto) 0.05 Immature Gran # (Auto) 0.02 Sodium 137 Potassium 5.1 Chloride 103 Carbon Dioxide 31 Anion Gap 3.0 BUN 20 H Creatinine 1.27 Est Cr Clr Drug Dosing 105.9 Est GFR ( Amer) 73.7 Est GFR (Non-Af Amer) 63.6 BUN/Creatinine Ratio 15.6 Glucose 169 H POC Glucose 171 H Calcium 8.5 Troponin I < 0.015 12/25/19 11:13 WBC RBC Hgb Hct MCV MCH MCHC RDW Std Deviation RDW Coeff of Sunny Plt Count MPV Immature Gran % (Auto) Neut % (Auto) Lymph % (Auto) [place] % (Auto) Eos % (Auto) Baso % (Auto) Neut # (Auto) Lymph # (Auto) [place] # (Auto) Eos # (Auto) Baso # (Auto) Immature Gran # (Auto) Sodium Potassium Chloride Carbon Dioxide Anion Gap BUN Creatinine Est Cr Clr Drug Dosing Est GFR ( Amer) Est GFR (Non-Af Amer) BUN/Creatinine Ratio Glucose POC Glucose 203 H Calcium Troponin I Diagnostic Findings Telemetry personally reviewed: Sinus rhythm. No arrhythmia. Echo 12/25/2019: Mildly dilated LV with normal systolic function. EF 65-70%. Normal wall motion. No LVH. Mild left atrial dilation. Mild . Severe MAC. Normal RVSP. Medications Administered Current Inpatient Medications Acetaminophen (Acetaminophen 325 Mg Tab) 650 mg PO Q4H PRN PRN Reason: Pain or Fever Stop: 01/23/20 14:42 Albuterol (Albuterol Hfa 8 Gm Inhaler) 2 puffs INH QID PRN PRN Reason: shortness of breath or wheezing Stop: 01/23/20 14:42 Allopurinol ([facility] 300 Mg Tab) [facility] [place] Stop: 01/24/20 08:59 Last Admin: 12/25/19 08:13 Dose: 300 mg Documented by: Aspirin (Aspirin 81 Mg Ectab) [facility] [place] Stop: 01/24/20 08:59 Last Admin: 12/25/19 08:12 Dose: 81 mg Documented by: Atorvastatin Calcium (Atorvastatin 40 Mg Tab) 40 mg PO [facility] Stop: 01/23/20 20:59 Last Admin: 12/24/19 21:36 Dose: 40 mg Documented by: Dextrose (Dextrose 50% 50 Ml Syringe) 25 - 50 ml IV UD PRN; Protocol PRN Reason: Hypoglycemia Protocol Stop: 01/23/20 14:42 Duloxetine HCl (Duloxetine Hcl 60 Mg Cap) 60 [facility] [place] Stop: 01/24/20 08:59 Last Admin: 12/25/19 08:13 Dose: 60 mg Documented by: Enoxaparin Sodium (Enoxaparin Inj 40 Mg/0.4 Ml Syr) 40 mg SQ BID [facility] Stop: 01/23/20 20:59 Last Admin: 12/25/19 08:13 Dose: 40 mg Documented by: Fluticasone/Vilanterol (Fluticasone/Vilanterol 100/25mcg 14 Puffs/Inhaler) 1 puffs INH DAILY [facility]; Protocol Stop: 01/24/20 08:59 Last Admin: 12/25/19 08:14 Dose: 1 puffs Documented by: Glucagon (Glucagon For Inj 1 Mg Vial) 1 mg SQ UD PRN; Protocol PRN Reason: Hypoglycemia Protocol Stop: 01/23/20 14:42 Glucose (Glucose 10 Tabs/Tube) 4 - 8 tabs PO UD PRN; Protocol PRN Reason: Hypoglycemia Protocol Stop: 01/23/20 14:42 Glucose (Glucose 40% Gel 15 Gm Tube) 15 - 30 gm PO UD PRN; Protocol PRN Reason: Hypoglycemia Protocol Stop: 01/23/20 14:42 Ceftriaxone Sodium 2,000 mg/ (Dextrose) 70 mls @ 100 mls/hr IV Q24H [facility]; Protocol Stop: 12/31/19 15:59 Last Infusion: 12/24/19 17:01 Dose: Infused Documented by: Insulin Aspart (Insulin Aspart 100 Units/Ml 3 Ml Pen) 0 units SC ACHS [facility] Stop: 01/23/20 16:29 Last Admin: 12/25/19 13:37 Dose: 10 units Documented by: Insulin Glargine (Insulin Glargine Solostar 100 Units/Ml 3 Ml Pen) 15 units SC BID [facility] Stop: 01/23/20 20:59 Last Admin: 12/25/19 08:15 Dose: 15 units Documented by: Lisinopril (Lisinopril 40 Mg Tab) 40 mg PO QAM [facility] Stop: 01/24/20 08:59 Last Admin: 12/25/19 08:12 Dose: 40 mg Documented by: Metoprolol Tartrate (Metoprolol Tartrate 25 Mg Tab) 25 mg PO BID [facility] Stop: 01/23/20 20:59 Last Admin: 12/25/19 08:12 Dose: 25 mg Documented by: Miscellaneous (Carbohydrates For Hypoglycemia ) 15 - 30 gm PO UD PRN PRN Reason: Hypoglycemia Protocol Stop: 01/23/20 14:42 Nitroglycerin (Nitroglycerin Sl 0.4 Mg/Tab Tab) 0.4 mg SL UD PRN PRN Reason: Chest Pain Stop: 01/23/20 14:42 Oxycodone/Acetaminophen (Oxycodone/Acetaminophen 5mg/325mg Tab) 1 tab PO TID PRN PRN Reason: pain Stop: 01/07/20 14:42 Last Admin: 12/25/19 01:04 Dose: 1 tab Documented by: Ropinirole HCl (Ropinirole Hcl 0.25 Mg Tablet) 0.25 mg PO HS [facility] Stop: 01/23/20 20:59 Last Admin: 12/24/19 21:36 Dose: 0.25 mg Documented by: Trazodone HCl (Trazodone Hcl 50 Mg Tab) 50 mg PO HS [facility] Stop: 01/23/20 20:59 Last Admin: 12/24/19 22:03 Dose: 50 mg Documented by: Vitamin D (Cholecalciferol 1,000 Units 25 Mcg Tab) 2,[facility] [place] Stop: 01/24/20 08:59 Last Admin: 12/25/19 08:11 Dose: 2,000 units Documented by: PG Care Time/CCT Total # of Minutes Spent Total Time Spent with Patient: Total time spent is greater than 50% in coordination of care (as documented) at patient's floor/unit and/or counseling patient: Coding Level of Care Code 85068 Subseq Hosp Care Lvl 3 Diagnoses Exertional angina I20.8 HTN (hypertension) I10 Hyperlipidemia E78.5 Sinus tachycardia R00.0 Aortic stenosis I35.0
[2019-12-25] MEDS: cefTRIAXone SODIUM 2,000 MG in DEXTROSE 5% 50 ML IV SCH (16:44)
--- NOTE | 2019-12-25 18:57 | Hospitalist Progress Note ---
Date of Service December 25, 2019 Assessment & Plan (1) Unstable angina: Many risk factors exertional chest pain concerning for unstable angina. Heart healthy diet. Continue aspirin 81mg PO daily (he should continue this for primary prophylaxis regardless of cardiac workup. Start metoprolol 25mg PO BID, HR and BP tolerating well Continue lisinopril 40 mg p.o. daily. Continue atorvastatin 40 mg p.o. at bedtime (recent lipid panel 5 days ago, no need to repeat this). Consult cardiology -- plan for left heart catheterization tomorrow morning, NPO after midnight (2) Left leg cellulitis: No WBC, fever or chills however immunosuppressed with T2DM. Follow up blood cultures Start Ceftriaxone 2g IV daily after blood cultures taken US left lower extremity venous doppler -- no DVT no evidence of Cellulitis, stop rocephin, this is ruled out (3) Hyperlipidemia: Triglycerides 353, LDL 33 (12/19/2019) - no need to repeat this Continue atorvastatin 40 mg p.o. at bedtime (4) HTN (hypertension): Continue lisinopril 40 mg p.o. every morning. Add metoprolol for antianginal effect as above and monitor blood pressure. HR and BP tolerating well (5) Diabetes 1.5, managed as type 2: HbA1c 7.1 (12/19/2019) - no need to repeat this T2DM diet Hold Metformin and glipizide during inpatient stay. Reports taking his usual Lantus 15 units this morning. Due to holding his oral medication above we will increase Lantus to 15 units twice daily with NovoLog sliding scale for correction and carb coverage (6) Gout: No acute flare. Continue allopurinol 300 mg daily. (7) Restless leg syndrome: Continue ropinirole 0.25 mg p.o. at bedtime. (8) Asthma: No acute exacerbation is suspected Continue Wixela Inhub 1 inhalation twice daily for hospital formulary equivalent if patient does not have access to exam Albuterol as needed for wheezing or shortness of breath (9) Chronic lumbar radiculopathy: Continue duloxetine 60 mg p.o. every morning (10) Insomnia: Continue trazodone 50 mg p.o. at bedtime (11) DVT prophylaxis: Lovenox 40 mg twice daily (hold prior to cardiac cath if this is planned for the morning) Admission and Anticipated Discharge Date Admission Date: December 24, 2019 Subjective patient doing okay, no further chest pain discussed going for heart cath, he is in agreement discussed with Dr. Bennett, no room in schedule today, will plan for [facility] tomorrow no fever/chills, no dyspnea, no cough, no abdominal pain, no N/V/D reviewed labs, troponin is negative, BMP stable Review of Systems Review of Systems: All systems reviewed & are unremarkable except as noted in Subjective Physical Exam Constitutional: WD/WN, vitals as above + obese; no acute distress Neck: trachea midline, no thyromegaly + thick neck Respiratory: normal respiratory effort, lungs clear to auscultation Cardiovascular: RRR, no murmur, no edema Gastrointestinal (Abdomen): normal bowel sounds, soft, nontender, no hepatosplenomegaly Musculoskeletal: no cyanosis or clubbing, extremities motor strength 5/5 Skin: no rashes, warm and dry + dry skin and + excoriations (left lower leg, no erythema, no cellulitis) Neurologic: patellar DTR's 2+ bilat, sensation intact and PERRL, EOMI, accommodation nl, no face palsy, no dysarthria Psychiatric: A+Ox3, euthymic affect Lymphatic: no cervical or axillary lymphadenopathy Results & Data Results & Data ([facility]) Vital Signs (Past 12 Hours) Vital Signs Temp Pulse Resp BP BP Pulse Ox 12/25/19 15:13 36.7 C 97 H 18 135/77 96 12/25/19 11:15 36.5 C 82 18 133/79 96 12/25/19 07:40 36.5 C 88 20 133/92 98 Laboratory Results Laboratory Results - last 24 hr 12/24/19 12/24/19 12/25/19 18:49 20:47 05:34 WBC 6.54 RBC 3.65 L Hgb 11.9 L Hct 37.1 L MCV 101.6 H MCH 32.6 MCHC 32.1 RDW Std Deviation 51.7 H RDW Coeff of Sunny 14.2 Plt Count 153 MPV 11.5 H Immature Gran % (Auto) 0.3 Neut % (Auto) 62.9 Lymph % (Auto) 24.3 Price % (Auto) 6.7 Eos % (Auto) 5.0 Baso % (Auto) 0.8 Neut # (Auto) 4.11 Lymph # (Auto) 1.59 Price # (Auto) 0.44 Eos # (Auto) 0.33 Baso # (Auto) 0.05 Immature Gran # (Auto) 0.02 Sodium Potassium Chloride Carbon Dioxide Anion Gap BUN Creatinine Est Cr Clr Drug Dosing Est GFR ( Amer) Est GFR (Non-Af Amer) BUN/Creatinine Ratio Glucose POC Glucose 130 H Calcium Troponin I < 0.015 COVID-19 Eval Order SARS-CoV-2, RNA, NAAT 12/25/19 12/25/19 12/25/19 05:34 07:38 11:13 WBC RBC Hgb Hct MCV MCH MCHC RDW Std Deviation RDW Coeff of Sunny Plt Count MPV Immature Gran % (Auto) Neut % (Auto) Lymph % (Auto) Price % (Auto) Eos % (Auto) Baso % (Auto) Neut # (Auto) Lymph # (Auto) Price # (Auto) Eos # (Auto) Baso # (Auto) Immature Gran # (Auto) Sodium 137 Potassium 5.1 Chloride 103 Carbon Dioxide 31 Anion Gap 3.0 BUN 20 H Creatinine 1.27 Est Cr Clr Drug Dosing 105.9 Est GFR ( Amer) 73.7 Est GFR (Non-Af Amer) 63.6 BUN/Creatinine Ratio 15.6 Glucose 169 H POC Glucose 171 H 203 H Calcium 8.5 Troponin I < 0.015 COVID-19 Eval Order SARS-CoV-2, RNA, NAAT 12/25/19 12/25/19 12/25/19 16:15 16:20 16:20 WBC RBC Hgb Hct MCV MCH MCHC RDW Std Deviation RDW Coeff of Sunny Plt Count MPV Immature Gran % (Auto) Neut % (Auto) Lymph % (Auto) Price % (Auto) Eos % (Auto) Baso % (Auto) Neut # (Auto) Lymph # (Auto) Price # (Auto) Eos # (Auto) Baso # (Auto) Immature Gran # (Auto) Sodium Potassium Chloride Carbon Dioxide Anion Gap BUN Creatinine Est Cr Clr Drug Dosing Est GFR ( Amer) Est GFR (Non-Af Amer) BUN/Creatinine Ratio Glucose POC Glucose 176 H Calcium Troponin I COVID-19 Eval [facility] SARS-CoV-2, RNA, NAAT NEGATIVE Medications Administered Current Inpatient Medications Acetaminophen (Acetaminophen 325 Mg Tab) 650 mg PO Q4H PRN PRN Reason: Pain or Fever Stop: 01/23/20 14:42 Albuterol (Albuterol Hfa 8 Gm Inhaler) 2 puffs INH QID PRN PRN Reason: shortness of breath or wheezing Stop: 01/23/20 14:42 Allopurinol (Allopurinol 300 Mg Tab) 300 mg PO QAM [facility] Stop: 01/24/20 08:59 Last Admin: 12/25/19 08:13 Dose: 300 mg Documented by: Aspirin (Aspirin 81 Mg Ectab) 81 mg PO QAM [facility] Stop: 01/24/20 08:59 Last Admin: 12/25/19 08:12 Dose: 81 mg Documented by: Atorvastatin Calcium (Atorvastatin 40 Mg Tab) 40 mg PO HS [facility] Stop: 01/23/20 20:59 Last Admin: 12/24/19 21:36 Dose: 40 mg Documented by: Dextrose (Dextrose 50% 50 Ml Syringe) 25 - 50 ml IV UD PRN; Protocol PRN Reason: Hypoglycemia Protocol Stop: 01/23/20 14:42 Duloxetine HCl (Duloxetine Hcl 60 Mg Cap) 60 mg PO QAM [facility] Stop: 01/24/20 08:59 Last Admin: 12/25/19 08:13 Dose: 60 mg Documented by: Enoxaparin Sodium (Enoxaparin Inj 40 Mg/0.4 Ml Syr) 40 mg SQ BID [facility] Stop: 01/23/20 20:59 Last Admin: 12/25/19 08:13 Dose: 40 mg Documented by: Fluticasone/Vilanterol (Fluticasone/Vilanterol 100/25mcg 14 Puffs/Inhaler) 1 puffs INH DAILY [facility]; Protocol Stop: 01/24/20 08:59 Last Admin: 12/25/19 08:14 Dose: 1 puffs Documented by: Glucagon (Glucagon For Inj 1 Mg Vial) 1 mg SQ UD PRN; Protocol PRN Reason: Hypoglycemia Protocol Stop: 01/23/20 14:42 Glucose (Glucose 10 Tabs/Tube) 4 - 8 tabs PO UD PRN; Protocol PRN Reason: Hypoglycemia Protocol Stop: 01/23/20 14:42 Glucose (Glucose 40% Gel 15 Gm Tube) 15 - 30 gm PO UD PRN; Protocol PRN Reason: Hypoglycemia Protocol Stop: 01/23/20 14:42 Ceftriaxone Sodium 2,000 mg/ (Dextrose) 70 mls @ 100 mls/hr IV Q24H [facility]; Protocol Stop: 12/31/19 15:59 Last Infusion: 12/25/19 17:41 Dose: Infused Documented by: Insulin Aspart (Insulin Aspart 100 Units/Ml 3 Ml Pen) 0 units SC ACHS [facility] Stop: 01/23/20 16:29 Last Admin: 12/25/19 16:44 Dose: 9 units Documented by: Insulin Glargine (Insulin Glargine Solostar 100 Units/Ml 3 Ml Pen) 15 units SC BID [facility] Stop: 01/23/20 20:59 Last Admin: 12/25/19 08:15 Dose: 15 units Documented by: Lisinopril (Lisinopril 40 Mg Tab) 40 mg PO QAM [facility] Stop: 01/24/20 08:59 Last Admin: 12/25/19 08:12 Dose: 40 mg Documented by: Metoprolol Tartrate (Metoprolol Tartrate 25 Mg Tab) 25 mg PO BID [facility] Stop: 01/23/20 20:59 Last Admin: 12/25/19 08:12 Dose: 25 mg Documented by: Miscellaneous (Carbohydrates For Hypoglycemia ) 15 - 30 gm PO UD PRN PRN Reason: Hypoglycemia Protocol Stop: 01/23/20 14:42 Nitroglycerin (Nitroglycerin Sl 0.4 Mg/Tab Tab) 0.4 mg SL UD PRN PRN Reason: Chest Pain Stop: 01/23/20 14:42 Oxycodone/Acetaminophen (Oxycodone/Acetaminophen 5mg/325mg Tab) 1 tab PO TID PRN PRN Reason: pain Stop: 01/07/20 14:42 Last Admin: 12/25/19 16:19 Dose: 1 tab Documented by: Ropinirole HCl (Ropinirole Hcl 0.25 Mg Tablet) 0.25 mg PO HS [facility] Stop: 01/23/20 20:59 Last Admin: 12/24/19 21:36 Dose: 0.25 mg Documented by: Trazodone HCl (Trazodone Hcl 50 Mg Tab) 50 mg PO HS [facility] Stop: 01/23/20 20:59 Last Admin: 12/24/19 22:03 Dose: 50 mg Documented by: Vitamin D (Cholecalciferol 1,000 Units 25 Mcg Tab) 2,000 units PO QAM [facility] Stop: 01/24/20 08:59 Last Admin: 12/25/19 08:11 Dose: 2,000 units Documented by: PG Care Time/CCT Total # of Minutes Spent Total Time Spent with Patient: Total time spent is greater than 50% in coordination of care (as documented) at patient's floor/unit and/or counseling patient: Coding Level of Care Code 58241 Subseq Hosp Care Lvl 2 Diagnoses Unstable angina I20.0 Left leg cellulitis L03.116 Hyperlipidemia E78.5 HTN (hypertension) I10 Diabetes 1.5, managed as type 2 E13.9 Gout M10.9 Restless leg syndrome G25.81 Asthma J45.909 Chronic lumbar radiculopathy M54.16 Insomnia G47.00 DVT prophylaxis Z29.9
[2019-12-25] MEDS: rOPINIRole HCL 0.25 MG TABLET PO SCH (21:37)
[2019-12-25] MEDS: ATORVASTATIN 40 MG TAB PO SCH (21:37)
[2019-12-25] MEDS: traZODone HCL 50 MG TAB PO SCH (21:52)
[2019-12-26] MEDS: INSULIN ASPART 100 UNITS/ML 3 ML PEN SC SCH ×4 (07:39→22:23)
[2019-12-26] MEDS ORDERED: ASPIRIN 81 MG CHEW ONE (07:54)
[2019-12-26] MEDS ORDERED: fentaNYL citrate 100 MCG/2 ML VIAL ONE ×3 (08:12→09:45)
[2019-12-26] MEDS ORDERED: HEPARIN (PORCINE) 1000 UNIT/ML 10 ML (CATH LAB USE ONLY) ONE ×2 (08:12→09:35)
[2019-12-26] MEDS ORDERED: niCARdipine HCL INJ 2.5 MG/ML 10 ML AMP ONE (08:12)
[2019-12-26] MEDS ORDERED: MIDAZOLAM HCL 1 MG/ML 2ML VIAL ONE ×3 (08:12→09:36)
[2019-12-26] MEDS ORDERED: NITROGLYCERIN/D5W 100MCG/ML 20ML SYR ONE (08:13)
--- NOTE | 2019-12-26 08:14 | Pre Anesthesia Assessment ---
Date of Service December 26, 2019 Pre Sedation Assessment Vital Signs Temp Pulse Pulse Resp BP BP Pulse Ox 12/26/19 07:24 36.8 C 83 18 136/96 94 12/26/19 07:18 83 12/26/19 03:07 36.7 C 77 18 136/90 96 12/26/19 00:20 36.5 C 85 16 154/87 H 96 12/25/19 19:34 36.5 C 81 14 155/84 H 96 12/25/19 15:13 36.7 C 97 H 18 135/77 96 12/25/19 11:15 36.5 C 82 18 133/79 96 Cardiovascular + murmur Respiratory normal respiratory effort, lungs clear to auscultation Pre-Sedation Airway Assessment Smoking Status: Never smoker Mallampati Class: III ASA: ASA3 NPO Status Date of Last Intake of Fluids: 12/25/19 Time of Last Intake of Fluids: 22:30 Date of Last Intake of Solid Food: 12/25/19 Time of Last Intake of Solid Foods: 22:30 Procedure Planning Contraindications for Sedation: none Current Medications Reviewed: Yes Notes The planned sedation has been discussed with the patient. Informed Consent was obtained. I have identified the patient, determined the appropriateness of sedation and have assessed the patient immediately prior to the procedure. All medicine(s) and interventions are by my order.
--- NOTE | 2019-12-26 08:57 | Cardiac Catheterization ---
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 Status Clinical evaluation leading to the procedure CAD Presenation: Stable angina Anginal Classification: CCS III Heart Failure: No Cardiogenic Shock within 24 Hours: No Cardiac Arrest within 24 Hours: No Imaging Studies Past 6 Months: Yes Stress Studies Past 6 Months: No Standard Exercise Test: No Stress Echocardiogram: No Stress Testing w/SPECT MPI: No Cardiac CTA: No Coronary Anatomy Dominant: Right Left Ventricular Angiography EF (%): n/a Diagnostic Physicians Name: Freddy Bennett MD Status: Elective Closure Device Percutaneous Entry Location: Radial Closure Device: Radial Band Recommendations: PCI without planned CABG Cardiac Cath Procedure Full Procedure Date December 26, 2019 Pre-Procedure Diagnosis Pre-Procedure Diagnosis: Angina AUC Score AUC Score: 7 Post-Procedure Diagnosis Post-Procedure Diagnosis: Severe CAD and Elevated Intracardiac Pressures Procedure(s) Performed Procedure(s) Performed: Coronary Angiography and Left Heart Cath [employer] Operations Manager Freddy Bennett MD Screen Roller(s) Kelsey Kaye Estimated Blood Loss Estimated Blood Loss: < 25 ml Medication(s) Medication(s): Fentanyl, Heparin, Lidocaine 1%, Nicardipine and Versed Summary of Findings Procedures: 1. Coronary angiography 2. Left heart catheterization 3. Moderate sedation Coronary angiography: 1. Left main coronary artery: LMCA is large in caliber. No CAD. 2. Left anterior descending: LAD is a large-caliber vessel proximally to mid vessel. Proximal LAD 30% followed by 50 to 70% stenosis. Distal LAD 50 to 70% (small caliber). OSCAR-3 flow. Large D1 without significant CAD.. 3. Circumflex: Circumflex is large in caliber proximally and continues distally as a small AV groove vessel. Large OM1. No significant CAD. 4. Right coronary artery: RCA is large and dominant. Proximal RCA 20%. Mid RCA 20%. Distal RCA 80 to 90% with OSCAR-[address] branch and large PDA without significant CAD. 5. Ramus intermedius: Small caliber ramus vessel without significant CAD. Left heart catheterization: 1. Left ventriculography was not performed. 2. Mild aortic stenosis. Peak to peak gradient across the aortic valve was 10 to 15 mmHg. 3. Moderately elevated LVEDP; LVEDP 24 mmHg. Moderate sedation: 1. Sedation start time: 8:30 AM 2. Sedation end time: Impression: 1. Severe CAD involving the distal RCA. 2. Moderate to severe CAD involving the LAD. 3. Otherwise, nonobstructive CAD. 4. Moderately elevated left-sided filling pressure. 5. Mild aortic stenosis. Plan: 1. Dr. Jara of interventional cardiology was asked to review images and plans on performing PCI of distal RCA with consideration of FFR of proximal LAD. 2. Continue risk factor modification. Hemodynamics Rest Ao:: 139/87 Final Ao: 145/83 LV: 152/8/24 Recommendations Recommendations: PCI without planned CABG Specimens Specimens: None Radiation Exposure (mGy) 1333 mGy. Fluoro time 5.4 min. Contrast (mls) 60 ml Procedural Complication(s) None Disposition remains in manager laboratory for PCI I attest to the content of the Intraoperative Record and any orders documented therein. Any exceptions are noted below. [facility] Card Cath Procedure Codes Cardiac Catheterization Procedure 1: Cardiovascular Cath Procedures: 17400 Coronaries and LHC (+/-LV) Moderate Sedation Procedure 1: Sedation/Anesthesia: 50698 Mod Sedation by the same physician;Init15 Min Child Age 5 & Up Procedure 2: Sedation/Anesthesia: 26465 Mod Sedation by the same physician; Ea [id number] Minutes PG Care Time/CCT Total # of Minutes Spent Total Time Spent with Patient: Total time spent is greater than 50% in coordination of care (as documented) at patient's floor/unit and/or counseling patient:
[2019-12-26] MEDS ORDERED: ADENOSINE IV SOLN 3 MG/ML 20 ML VIAL IV ONE (09:16)
[2019-12-26] MEDS ORDERED: CLOPIDOGREL BISULFATE 300 MG TAB ONE (10:09)
--- NOTE | 2019-12-26 10:22 | Post Anesthesia Assessment ---
Date of Service December 26, 2019 Post Sedation Assessment Vital Signs Temp Pulse Pulse Resp BP BP Pulse Ox 12/26/19 07:24 98.2 F 83 18 136/96 94 12/26/19 07:18 83 12/26/19 03:07 98.1 F 77 18 136/90 96 12/26/19 00:20 97.7 F 85 16 154/87 H 96 12/25/19 19:34 97.7 F 81 14 155/84 H 96 12/25/19 15:13 98.1 F 97 H 18 135/77 96 12/25/19 11:15 97.7 F 82 18 133/79 96 Recovery Score Activity: Moves 4 extremities Respiration: Deep Breath/Cough Circulation: +/-20% PreAnes Value Consciousness: Fully Awake Oxygen Saturation: O2 needed for >90% Discharge Sedation Level of Care: Fast Track Phase II Post Sedation Plan On clinical assessment, the patient appears to have tolerated the sedation without complications. Patient is recovering as anticipated. Patient will continue to be monitored by nursing and may be discharged when sedation discharge criteria are met per below protocol. Upon Completions of procedure up to 15 minutes continue every 5 minute vital signs and the P.A.R. score; then discharge to a Phase I or Fast Track to Phase II per the following guidelines: * Discharge Patient to appropriate Phase II area if PAR is 8 or greater or return to pre- procedure baseline. The post - procedure orders will be as directed. * If PAR score is less than 8 or not return to pre-procedure baseline then patient will follow Phase I monitoring till PAR is reached for Phase II. The Phase I may be done in procedure room or may call to secure a Phase I area. * If naloxone or flumazenil are used for reversal, hold in Phase I for continued monitoring from when last reversal dose was given for a minimum of 60 minutes or longer pending the nurse and/or physician discretion of patient condition before discharge to Phase II. Please call the Sedation Physician to re-evaluate and complete post-note for discharge to Phase II area. Do NOT discharge from procedure sedation or Phase 1 until post- sedation evaluation note is complete by procedure /sedation MD Sedation Discharge Instructions to be given to the patient at discharge to home.
--- NOTE | 2019-12-26 10:31 | Cardiac Catheterization ---
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 Cardiac Status Clinical evaluation leading to the procedure CAD Presenation: Unstable angina Anginal Classification: CCS III Heart Failure: No Cardiogenic Shock within 24 Hours: No Cardiac Arrest within 24 Hours: No Imaging Studies Past 6 Months: Yes Stress Studies Past 6 Months: No Diagnostic Physicians Name: Mark Jara MD Closure Device Percutaneous Entry Location: Radial Recommendations: PCI without planned CABG PCI Indication: Unstable Angina Lesion Segment Name: Distal RCA Culprit Artery: Yes Stenosis Prior to Rx (%): 90 Chronic Total Occlusion: No IVUS: No FFR: No Pre-Procedure OSCAR Flow: 3 Previously Treated Lesion: No Lesion Complexity: Non-High/Non-C Lesion Length (mm): 12 Thrombus Present: No Bifurcation Lesion: No Guidewire Across Lesion: Stenosis Post-Procedure (%): 0 Post-Procedure OSCAR Flow: 3 Devices(s) Deployed: No Yes Lesion #2 Segment Name: proximal LAD Culprit Artery: No Stenosis Prior to Rx (%): 70 Chronic Total Occlusion: No IVUS: Yes FFR: Yes Ratio: less than or equal to 0.75% Pre-Procedure OSCAR Flow: 3 Previously Treated Lesion: No Lesion Complexity: Non-High/Non-C Lesion Length (mm): 20 Thrombus Present: No Bifurcation Lesion: No Guidewire Across Lesion: Yes Stenosis Post-Procedure (%): 0 Post-Procedure OSCAR Flow: 3 Devices(s) Deployed: Yes Intraprocedure Events Significant Disection: No Perforation: No Cardiac Cath Procedure Full Procedure Date December 26, 2019 Pre-Procedure Diagnosis Pre-Procedure Diagnosis: Angina AUC Score AUC Score: 7 Post-Procedure Diagnosis Post-Procedure Diagnosis: Severe CAD and Successful PCI Procedure(s) Performed Procedure(s) Performed: Coronary Angiography, Drug Eluting Stent, IVUS and Fractional Flow [place] Insecticide Supervisor Mark Jara MD Lockstitch Collar Setter(s) Kelsey Kaye Estimated Blood Loss Estimated Blood Loss: < 25 ml Medication(s) Medication(s): Adenosine, Clopidogrel, Fentanyl, Heparin, Lidocaine 1%, Nicardipine, Nitroglycerin and Versed Summary of Findings Indication: Unstable angina Access: 6 Fr right radial artery Catheters: Ikari left 3.5 guide Findings: For full details of patient's coronary angiography please see cath report dictated by Dr. Bennett. Briefly, patient found to have multivessel coronary artery disease with a 90% distal RCA stenosis and a 60 to 70% proximal LAD stenosis Decision to proceed with PCI of RCA and FFR of LAD. -- PCI -- Antithrombotic therapy: Heparin, clopidogrel Procedure: RCA cannulated with IKari left 3.5 guide BMW wire passed across lesion into distal vessel Distal RCA lesion predilated with 2.5 compliant balloon Dilated lesion stented with 3.5 x 18 mm [place] drug-eluting stent Stent post-dilated with 3.75 noncompliant balloon IC vasodilators administered for spasm Post procedure OSCAR 3 flow, stent well expanded with minimal residual stenosis and no apparent cardiac complications. Ikari guide then used to cannulate left main BMW wire placed into distal LAD ACIST FFR catheter placed into mid LAD Pd/Pa 0.88 FFR 0.72 IVUS used to assess length of disease, extent of calcification and for PCI planning. Noted to have severe diffuse disease extending from first septal back to ostium of LAD with mild to moderate circumferential calcium. Proximal LAD stented from ostium with 3.0 x 22 mm Tony AMIRAH Stent postdilated with 3.5 NC IC vasodilators administered for spasm Post procedure OSCAR 3 flow, stent well expanded with minimal residual stenosis and no apparent cardiac complications. Residual disease in small distal LAD. Arterial Closure: TR band Summary: 1. Severe multivessel coronary artery disease -90% distal RCA 60 to 70% proximal to mid LAD (FFR 0.72) 2. Successful PCI of distal RCA with single drug-eluting stent (3.5 x 18 mm [place]; postdilated with 3.75 NC). 3. Successful PCI of proximal LAD with single drug-eluting stent (3.0 x 22 mm Tony; postdilated with 3.5 NC). Recommendations: To PCU for continued monitoring Loaded with clopidogrel 600 mg in Die Inspector Continue dual-antiplatelet therapy for at least 1 year Continue statin, and ASCVD risk factor modification Consult cardiac Rehab Hemodynamics Rest Ao:: 155/91/120 Final Ao: 145/84/113 LV: -- Recommendations Recommendations: PCI without planned CABG Specimens Specimens: None Radiation Exposure (mGy) 4586 Contrast (mls) 160 Fluids (cc crystalloids) Fluids (cc crystalloids): 280 Drains Drains: none Anesthesia moderate Procedural Complication(s) None Disposition PCU I attest to the content of the Intraoperative Record and any orders documented therein. Any exceptions are noted below. [facility] Card Cath Procedure Codes Cardiac Catheterization Procedure 1: Cardiovascular Cath Procedures: 07259 (Doppler) Pressure Wire Therapeutic Services & Ancillary Proc Procedure 1: Cardiovascular Tx and Anc Procedures: 25833 IV Ultrasound (Coronary or Graft) Moderate Sedation Procedure 1: Sedation/Anesthesia: 38581 Mod Sedation by the same physician; Ea [id number] Minutes Stenting Procedure 1: Cardiovascular Stent Procedures: 86964 Perc transcatheter placement of intracoronary stent(s), with ang Procedure 2: Cardiovascular Stent Procedures: 65471 Ea addl branch of a major coronary artery PG Care Time/CCT Total # of Minutes Spent Total Time Spent with Patient: Total time spent is greater than 50% in coordination of care (as documented) at patient's floor/unit and/or counseling patient:
[2019-12-26] MEDS: METOPROLOL TARTRATE 25 MG TAB PO SCH ×2 (11:19→20:41)
[2019-12-26] MEDS: ENOXAPARIN INJ 40 MG/0.4 ML SYR SQ SCH ×2 (11:20→20:39)
[2019-12-26] MEDS: allopurinoL 300 MG TAB PO SCH (11:20)
[2019-12-26] MEDS: lisinopril 40 MG TAB PO SCH (11:20)
[2019-12-26] MEDS: DULoxetine HCL 60 MG CAP PO SCH (11:20)
[2019-12-26] MEDS: ASPIRIN 81 MG ECTAB PO SCH (11:20)
[2019-12-26] MEDS: FLUTICASONE/VILANTEROL 100/25MCG 14 PUFFS/INHALER INH SCH (11:21)
[2019-12-26] MEDS: CHOLECALCIFEROL 1,000 UNITS 25 MCG TAB PO SCH (11:21)
[2019-12-26] MEDS: INSULIN GLARGINE SOLOSTAR 100 UNITS/ML 3 ML PEN SC SCH ×2 (11:22→20:20)
[2019-12-26] MEDS: oxyCODONE/ACETAMINOPHEN 5mg/325mg TAB PO PRN (11:28)
[2019-12-26] MEDS ORDERED: LORazepam 1 MG/2 ML VIAL IV PRN (13:30)
[2019-12-26] MEDS ORDERED: GABAPENTIN 1200MG ALCOHOL WITHDRAWAL LOAD PO ONE (13:30)
[2019-12-26] MEDS ORDERED: LORazepam 1 MG TAB PO PRN (13:30)
--- NOTE | 2019-12-26 13:35 | Hospitalist Progress Note ---
Date of Service December 26, 2019 Assessment & Plan (1) CAD (coronary artery disease): severe disease in RCA and proximal LAD, drug eluting stents placed on 12/25 tolerated well, vitals stable continue Lipitor 40mg daily, lisinopril, metoprolol on DAPT for a year with aspirin 81mg and Plavix 75mg daily likely for discharge tomorrow (2) S/P coronary artery stent placement: DAPT with aspirin and Plavix Lipitor 40mg daily (3) Unstable angina: Many risk factors exertional chest pain concerning for unstable angina. heart cath on 12/25 with severe disease in RCA and proximal LAD explaining symptoms (4) Hyperlipidemia: Triglycerides 353, LDL 33 (12/19/2019) - no need to repeat this Continue atorvastatin 40 mg p.o. at bedtime (5) Alcohol abuse: drinks half a bottle of whiskey a day no signs of withdrawal, three days out from last drink will add Gabapentin taper and Ativan withdrawal protocol (6) HTN (hypertension): Continue lisinopril 40 mg p.o. every morning. Add metoprolol for antianginal effect as above and monitor blood pressure. HR and BP tolerating well (7) Diabetes 1.5, managed as type 2: HbA1c 7.1 (12/19/2019) - no need to repeat this T2DM diet Hold Metformin and glipizide during inpatient stay. Due to holding his oral medication above we will increase Lantus to 15 units twice daily with NovoLog sliding scale for correction and carb coverage (8) Gout: No acute flare. Continue allopurinol 300 mg daily. (9) Restless leg syndrome: Continue ropinirole 0.25 mg p.o. at bedtime. (10) Asthma: No acute exacerbation is suspected Continue Wixela Inhub 1 inhalation twice daily for hospital formulary equivalent if patient does not have access to exam Albuterol as needed for wheezing or shortness of breath (11) Chronic lumbar radiculopathy: Continue duloxetine 60 mg p.o. every morning (12) Insomnia: Continue trazodone 50 mg p.o. at bedtime (13) Aortic stenosis: (14) DVT prophylaxis: Lovenox 40 mg twice daily (hold prior to cardiac cath if this is planned for the morning) Admission and Anticipated Discharge Date Admission Date: December 24, 2019 Subjective patient had heart cath today, with severe disease in RCA and proximal LAD received AMIRAH to both vessels tolerated well, no chest pain, no dyspnea, no fever/chills he admits to drinking heavily, whiskey every day, no withdrawal symptoms currently discussed with cardiology, appreciate their input Review of Systems Review of Systems: All systems reviewed & are unremarkable except as noted in Subjective Constitutional: no fever, no chills, no sweats, no fatigue and no weakness Respiratory: no cough and no dyspnea Cardiovascular: no chest pain, no syncope and no edema Gastrointestinal: no abdominal pain, no nausea, no vomiting, no constipation and no diarrhea/loose stools Physical Exam Constitutional: WD/WN, vitals as above + obese; no acute distress Neck: trachea midline, no thyromegaly + thick neck Respiratory: normal respiratory effort, lungs clear to auscultation Cardiovascular: RRR, no murmur, no edema Gastrointestinal (Abdomen): normal bowel sounds, soft, nontender, no hepatosplenomegaly Musculoskeletal: no cyanosis or clubbing, extremities motor strength 5/5 Skin: no rashes, warm and dry + dry skin and + excoriations (left lower leg, no erythema, no cellulitis) Neurologic: patellar DTR's 2+ bilat, sensation intact and PERRL, EOMI, accommodation nl, no face palsy, no dysarthria Psychiatric: A+Ox3, euthymic affect Lymphatic: no cervical or axillary lymphadenopathy Results & Data Results & Data ([facility]) Vital Signs (Past 12 Hours) Vital Signs Temp Pulse Pulse Resp BP BP BP 12/26/19 11:30 85 19 142/80 H 12/26/19 11:15 84 20 116/73 12/26/19 11:00 85 16 124/71 12/26/19 10:45 83 18 159/75 H 12/26/19 10:42 12/26/19 10:41 149/74 H 12/26/19 10:35 85 18 174/97 H 12/26/19 10:20 86 18 149/102 H 12/26/19 07:24 36.8 C 83 18 136/96 12/26/19 07:23 136/96 12/26/19 07:18 83 12/26/19 07:15 87 13 12/26/19 07:10 87 14 12/26/19 06:45 82 18 12/26/19 06:30 82 19 12/26/19 06:15 82 18 12/26/19 06:01 91 H 21 12/26/19 05:30 80 18 12/26/19 05:15 87 15 12/26/19 05:00 82 20 12/26/19 04:45 80 17 12/26/19 04:30 84 17 12/26/19 04:15 80 15 12/26/19 04:00 81 20 12/26/19 03:45 80 29 H 12/26/19 03:30 81 28 H 12/26/19 03:16 93 H 19 12/26/19 03:07 36.7 C 77 18 136/90 12/26/19 03:06 80 15 136/90 12/26/19 03:00 78 17 12/26/19 02:45 80 17 12/26/19 02:30 89 13 12/26/19 02:15 80 19 12/26/19 02:00 81 18 12/26/19 01:45 79 19 Pulse Ox 12/26/19 11:30 12/26/19 11:15 97 12/26/19 11:00 97 12/26/19 10:45 97 12/26/19 10:42 97 12/26/19 10:41 97 12/26/19 10:35 96 12/26/19 10:20 96 12/26/19 07:24 94 12/26/19 07:23 95 12/26/19 07:18 12/26/19 07:15 12/26/19 07:10 12/26/19 06:45 12/26/19 06:30 12/26/19 06:15 12/26/19 06:01 12/26/19 05:30 12/26/19 05:15 12/26/19 05:00 12/26/19 04:45 12/26/19 04:30 12/26/19 04:15 12/26/19 04:00 12/26/19 03:45 12/26/19 03:30 12/26/19 03:16 12/26/19 03:07 96 12/26/19 03:06 12/26/19 03:00 12/26/19 02:45 12/26/19 02:30 12/26/19 02:15 12/26/19 02:00 12/26/19 01:45 Laboratory Results Laboratory Results - last 24 hr 12/26/19 12/26/19 12/26/19 07:22 09:32 09:48 Activ Coag Time Kaolin 186 H 219 H POC Glucose 126 H Folate 12/26/19 12/26/19 12/26/19 11:25 13:50 16:14 Activ Coag Time Kaolin POC Glucose 144 H 124 H Folate 18.01 12/26/19 20:18 Activ Coag Time Kaolin POC Glucose 137 H Folate Medications Administered Current Inpatient Medications Acetaminophen (Acetaminophen 325 Mg Tab) 650 mg PO Q4H PRN PRN Reason: Pain or Fever Stop: 01/23/20 14:42 Albuterol (Albuterol Hfa 8 Gm Inhaler) 2 puffs INH QID PRN PRN Reason: shortness of breath or wheezing Stop: 01/23/20 14:42 Allopurinol (Allopurinol 300 Mg Tab) [address] [facility] Stop: 01/24/20 08:59 Last Admin: 12/26/19 11:20 Dose: 300 mg Documented by: Aspirin (Aspirin 81 Mg Ectab) [address] [facility] Stop: 01/24/20 08:59 Last Admin: 12/26/19 11:20 Dose: 81 mg Documented by: Atorvastatin Calcium (Atorvastatin 40 Mg Tab) 40 mg PO [facility] Stop: 01/23/20 20:59 Last Admin: 12/26/19 20:41 Dose: 40 mg Documented by: Clopidogrel Bisulfate (Clopidogrel Bisulfate 75 Mg Tab) [address] [facility] Stop: 01/26/20 08:59 Dextrose (Dextrose 50% 50 Ml Syringe) 25 - 50 ml IV UD PRN; Protocol PRN Reason: Hypoglycemia Protocol Stop: 01/23/20 14:42 Duloxetine HCl (Duloxetine Hcl 60 Mg Cap) [address] [facility] Stop: 01/24/20 08:59 Last Admin: 12/26/19 11:20 Dose: 60 mg Documented by: Enoxaparin Sodium (Enoxaparin Inj 40 Mg/0.4 Ml Syr) 40 mg SQ BID [facility] Stop: 01/23/20 20:59 Last Admin: 12/26/19 20:39 Dose: 40 mg Documented by: Fluticasone/Vilanterol (Fluticasone/Vilanterol 100/25mcg 14 Puffs/Inhaler) 1 puffs INH DAILY [facility]; Protocol Stop: 01/24/20 08:59 Last Admin: 12/26/19 11:21 Dose: 1 puffs Documented by: Gabapentin (Gabapentin 600 Mg Tab) 600 mg PO BID@0600,2000 [facility] Stop: 12/27/19 06:01 Last Admin: 12/26/19 19:48 Dose: 600 mg Documented by: Gabapentin (Gabapentin 600 Mg Tab) 600 mg PO Q8H [facility] Stop: 12/28/19 06:01 Gabapentin (Gabapentin 600 Mg Tab) 600 mg PO Q12H [facility] Stop: 12/29/19 06:01 Gabapentin (Gabapentin 600 Mg Tab) 600 mg PO Q24H [facility] Stop: 12/30/19 06:01 Glucagon (Glucagon For Inj 1 Mg Vial) 1 mg SQ UD PRN; Protocol PRN Reason: Hypoglycemia Protocol Stop: 01/23/20 14:42 Glucose (Glucose 10 Tabs/Tube) 4 - 8 tabs PO UD PRN; Protocol PRN Reason: Hypoglycemia Protocol Stop: 01/23/20 14:42 Glucose (Glucose 40% Gel 15 Gm Tube) 15 - 30 gm PO UD PRN; Protocol PRN Reason: Hypoglycemia Protocol Stop: 01/23/20 14:42 Lorazepam (Ativan) 1 mg in 2 mls @ 2 mls/min IV ONE PRN; Protocol PRN Reason: EtoH Withdrawal AWSS 6-10 Stop: 01/25/20 13:29 Insulin Aspart (Insulin Aspart 100 Units/Ml 3 Ml Pen) 0 units SC ACHS [facility] Stop: 01/23/20 16:29 Last Admin: 12/26/19 16:46 Dose: 11 units Documented by: Insulin Glargine (Insulin Glargine Solostar 100 Units/Ml 3 Ml Pen) 15 units SC BID [facility] Stop: 01/23/20 20:59 Last Admin: 12/26/19 20:20 Dose: 15 units Documented by: Lisinopril (Lisinopril 40 Mg Tab) 40 mg PO QAM [facility] Stop: 01/24/20 08:59 Last Admin: 12/26/19 11:20 Dose: 40 mg Documented by: Lorazepam (Lorazepam 1 Mg Tab) 1 mg PO ONE PRN; Protocol PRN Reason: EtoH Withdrawal AWSS 6-10 Metoprolol Tartrate (Metoprolol Tartrate 25 Mg Tab) 25 mg PO BID [facility] Stop: 01/23/20 20:59 Last Admin: 12/26/19 20:41 Dose: 25 mg Documented by: Miscellaneous (Carbohydrates For Hypoglycemia ) 15 - 30 gm PO UD PRN PRN Reason: Hypoglycemia Protocol Stop: 01/23/20 14:42 Nitroglycerin (Nitroglycerin Sl 0.4 Mg/Tab Tab) 0.4 mg SL UD PRN PRN Reason: Chest Pain Stop: 01/23/20 14:42 Oxycodone/Acetaminophen (Oxycodone/Acetaminophen 5mg/325mg Tab) 1 tab PO TID PRN PRN Reason: pain Stop: 01/07/20 14:42 Last Admin: 12/26/19 11:28 Dose: 1 tab Documented by: Ropinirole HCl (Ropinirole Hcl 0.25 Mg Tablet) 0.25 mg PO HS [facility] Stop: 01/23/20 20:59 Last Admin: 12/26/19 20:41 Dose: 0.25 mg Documented by: Trazodone HCl (Trazodone Hcl 50 Mg Tab) 50 mg PO HS [facility] Stop: 01/23/20 20:59 Last Admin: 12/26/19 20:44 Dose: 50 mg Documented by: Vitamin D (Cholecalciferol 1,000 Units 25 Mcg Tab) 2,000 units PO QAM [facility] Stop: 01/24/20 08:59 Last Admin: 12/26/19 11:21 Dose: 2,000 units Documented by: PG Care Time/CCT Total # of Minutes Spent Total Time Spent with Patient: Total time spent is greater than 50% in coordination of care (as documented) at patient's floor/unit and/or counseling patient: Coding Level of Care Code 46166 Subseq Hosp Care Lvl 3 Diagnoses CAD (coronary artery disease) I25.10 S/P coronary artery stent placement Z95.5 Unstable angina I20.0 Hyperlipidemia E78.5 Alcohol abuse F10.10 HTN (hypertension) I10 Diabetes 1.5, managed as type 2 E13.9 Gout M10.9 Restless leg syndrome G25.81 Asthma J45.909 Chronic lumbar radiculopathy M54.16 Insomnia G47.00 Aortic stenosis I35.0 DVT prophylaxis Z29.9
[2019-12-26] MEDS ORDERED: GABAPENTIN 600 MG TAB PO ONE (14:00)
--- NOTE | 2019-12-26 14:23 | Cardiology Progress Note ---
Date of Service December 26, 2019 Assessment & Plan (1) CAD (coronary artery disease): (2) S/P coronary artery stent placement: (3) Aortic stenosis: (4) HTN (hypertension): (5) Hyperlipidemia: (6) SOB (shortness of breath) on exertion: ASSESSMENT/PLAN: 1. CAD s/p LAD and RCA PCI: No further angina. Continue aspirin 81 mg daily indefinitely. Continue Plavix 75 mg daily. Continue beta-abraham. Continue high-intensity statin therapy. Consider cardiac rehab. 2. Dyspnea with exertion: Hopefully this improves following PCI. LVEDP was moderately elevated. Will give Lasix 40 mg IV x1. Exam difficult in regards to volume status. 3. Aortic stenosis: Non severe, appearing mild on echo and left heart catheterization. Monitor over time. Discussed once again with patient and family as they did have questions. 4. Hypertension: Blood pressure has been normotensive to mildly hypertensive. Continue current regimen. Lasix ordered as above. 5. Dyslipidemia: Continue high-intensity statin therapy. 6. Disposition: Probable discharge from a cardiac perspective tomorrow, barring any issues for night. Follow-up in cardiology office in 1-2 weeks. Cardiology office will be contacted to make this appointment prior to discharge. Admission and Anticipated Discharge Date Admission Date: December 24, 2019 Subjective Patient was seen earlier this morning and then after cardiac catheterization. He denies angina, shortness of breath, syncope, near-syncope, palpitations, or edema. He was found to have severe CAD involving the RCA and LAD. He underwent PCI tolerated the procedure well. He was alone in his hospital room. Review of systems: As above. Physical Exam Physical Exam: Gen.: No acute distress. Alert and oriented. HEENT: Anicteric sclera. Neck: Thick neck. Cardiac: PMI was nonpalpable. No ventricular heave. Regular. No ectopy. Normal S1-S2. 2/6 early to mid peaking systolic ejection murmur. No rubs, or gallops. Pulmonary: Clear to auscultation bilaterally without wheezes, rales, or rhonchi. Abdomen: Obese. Soft, nontender, nondistended, with normoactive bowel sounds. No bruits noted. Extremities: 2+ radial pulses bilaterally. Right radial cath site was clean, dry, and intact without erythema or discharge. 2+ posterior tibialis pulses bilaterally. Trace bilateral lower extremity edema. No cyanosis. Psychiatric: Affect appears appropriate. Results & Data ([facility]) Vital Signs (Past 12 Hours) Vital Signs Temp Pulse Pulse Resp BP BP BP 12/26/19 11:30 85 19 142/80 H 12/26/19 11:15 84 20 116/73 12/26/19 11:00 85 16 124/71 12/26/19 10:45 83 18 159/75 H 12/26/19 10:42 12/26/19 10:41 149/74 H 12/26/19 10:35 85 18 174/97 H 12/26/19 10:20 86 18 149/102 H 12/26/19 07:24 36.8 C 83 18 136/96 12/26/19 07:23 136/96 12/26/19 07:18 83 12/26/19 07:15 87 13 12/26/19 07:10 87 14 12/26/19 06:45 82 18 12/26/19 06:30 82 19 12/26/19 06:15 82 18 12/26/19 06:01 91 H 21 12/26/19 05:30 80 18 12/26/19 05:15 87 15 12/26/19 05:00 82 20 12/26/19 04:45 80 17 12/26/19 04:30 84 17 12/26/19 04:15 80 15 12/26/19 04:00 81 20 12/26/19 03:45 80 29 H 12/26/19 03:30 81 28 H 12/26/19 03:16 93 H 19 12/26/19 03:07 36.7 C 77 18 136/90 12/26/19 03:06 80 15 136/90 12/26/19 03:00 78 17 12/26/19 02:45 80 17 12/26/19 02:30 89 13 Pulse Ox 12/26/19 11:30 12/26/19 11:15 97 12/26/19 11:00 97 12/26/19 10:45 97 12/26/19 10:42 97 12/26/19 10:41 97 12/26/19 10:35 96 12/26/19 10:20 96 12/26/19 07:24 94 12/26/19 07:23 95 12/26/19 07:18 12/26/19 07:15 12/26/19 07:10 12/26/19 06:45 12/26/19 06:30 12/26/19 06:15 12/26/19 06:01 12/26/19 05:30 12/26/19 05:15 12/26/19 05:00 12/26/19 04:45 12/26/19 04:30 12/26/19 04:15 12/26/19 04:00 12/26/19 03:45 12/26/19 03:30 12/26/19 03:16 12/26/19 03:07 96 12/26/19 03:06 12/26/19 03:00 12/26/19 02:45 12/26/19 02:30 Intake & Output 12/24/19 12/25/19 12/26/19 12/27/19 06:59 06:59 06:59 06:59 Intake Total 1320 / 1320 470 / 470 400 / 400 Output Total 1525 / 1525 701 / 701 700 / 700 Balance -205 / -205 -231 / -231 -300 / -300 Weight 158.2 kg 157.2 kg Laboratory Results Laboratory Results - last 24 hr 12/25/19 12/26/19 12/26/19 20:42 07:22 09:32 Activ Coag Time Kaolin 186 H POC Glucose 133 H 126 H Folate 12/26/19 12/26/19 12/26/19 09:48 11:25 13:50 Activ Coag Time Kaolin 219 H POC Glucose 144 H Folate 18.01 12/26/19 16:14 Activ Coag Time Kaolin POC Glucose 124 H Folate Diagnostic Findings Coronary angiography: 1. Left main coronary artery: LMCA is large in caliber. No CAD. 2. Left anterior descending: LAD is a large-caliber vessel proximally to mid vessel. Proximal LAD 30% followed by 50 to 70% stenosis. Distal LAD 50 to 70% (small caliber). OSCAR-3 flow. Large D1 without significant CAD.. 3. Circumflex: Circumflex is large in caliber proximally and continues distally as a small AV groove vessel. Large OM1. No significant CAD. 4. Right coronary artery: RCA is large and dominant. Proximal RCA 20%. Mid RCA 20%. Distal RCA 80 to 90% with OSCAR-[address] branch and large PDA without significant CAD. 5. Ramus intermedius: Small caliber ramus vessel without significant CAD. Left heart catheterization: 1. Left ventriculography was not performed. 2. Mild aortic stenosis. Peak to peak gradient across the aortic valve was 10 to 15 mmHg. 3. Moderately elevated LVEDP; LVEDP 24 mmHg. Interventional Summary: 1. Severe multivessel coronary artery disease -90% distal RCA 60 to 70% proximal to mid LAD (FFR 0.72) 2. Successful PCI of distal RCA with single drug-eluting stent (3.5 x 18 mm On yx; postdilated with 3.75 NC). 3. Successful PCI of proximal LAD with single drug-eluting stent (3.0 x 22 mm Tony; postdilated with 3.5 NC). Medications Administered Current Inpatient Medications Acetaminophen (Acetaminophen 325 Mg Tab) 650 mg PO Q4H PRN PRN Reason: Pain or Fever Stop: 01/23/20 14:42 Albuterol (Albuterol Hfa 8 Gm Inhaler) 2 puffs INH QID PRN PRN Reason: shortness of breath or wheezing Stop: 01/23/20 14:42 Allopurinol (Allopurinol 300 Mg Tab) 300 mg PO QAM [facility] Stop: 01/24/20 08:59 Last Admin: 12/26/19 11:20 Dose: 300 mg Documented by: Aspirin (Aspirin 81 Mg Ectab) 81 mg PO QAM [facility] Stop: 01/24/20 08:59 Last Admin: 12/26/19 11:20 Dose: 81 mg Documented by: Atorvastatin Calcium (Atorvastatin 40 Mg Tab) 40 mg PO HS [facility] Stop: 01/23/20 20:59 Last Admin: 12/25/19 21:37 Dose: 40 mg Documented by: Clopidogrel Bisulfate (Clopidogrel Bisulfate 75 Mg Tab) 75 mg PO QAM [facility] Stop: 01/26/20 08:59 Dextrose (Dextrose 50% 50 Ml Syringe) 25 - 50 ml IV UD PRN; Protocol PRN Reason: Hypoglycemia Protocol Stop: 01/23/20 14:42 Duloxetine HCl (Duloxetine Hcl 60 Mg Cap) 60 mg PO QAM [facility] Stop: 01/24/20 08:59 Last Admin: 12/26/19 11:20 Dose: 60 mg Documented by: Enoxaparin Sodium (Enoxaparin Inj 40 Mg/0.4 Ml Syr) 40 mg SQ BID [facility] Stop: 01/23/20 20:59 Last Admin: 12/26/19 11:20 Dose: Not Given Documented by: Fluticasone/Vilanterol (Fluticasone/Vilanterol 100/25mcg 14 Puffs/Inhaler) 1 puffs INH DAILY [facility]; Protocol Stop: 01/24/20 08:59 Last Admin: 12/26/19 11:21 Dose: 1 puffs Documented by: Gabapentin (Gabapentin 600 Mg Tab) 600 mg PO BID@0600,2000 [facility] Stop: 12/27/19 06:01 Gabapentin (Gabapentin 600 Mg Tab) 600 mg PO Q8H [facility] Stop: 12/28/19 06:01 Gabapentin (Gabapentin 600 Mg Tab) 600 mg PO Q12H [facility] Stop: 12/29/19 06:01 Gabapentin (Gabapentin 600 Mg Tab) 600 mg PO Q24H [facility] Stop: 12/30/19 06:01 Glucagon (Glucagon For Inj 1 Mg Vial) 1 mg SQ UD PRN; Protocol PRN Reason: Hypoglycemia Protocol Stop: 01/23/20 14:42 Glucose (Glucose 10 Tabs/Tube) 4 - 8 tabs PO UD PRN; Protocol PRN Reason: Hypoglycemia Protocol Stop: 01/23/20 14:42 Glucose (Glucose 40% Gel 15 Gm Tube) 15 - 30 gm PO UD PRN; Protocol PRN Reason: Hypoglycemia Protocol Stop: 01/23/20 14:42 Lorazepam (Ativan) 1 mg in 2 mls @ 2 mls/min IV ONE PRN; Protocol PRN Reason: EtoH Withdrawal AWSS 6-10 Stop: 01/25/20 13:29 Insulin Aspart (Insulin Aspart 100 Units/Ml 3 Ml Pen) 0 units SC ACHS [facility] Stop: 01/23/20 16:29 Last Admin: 12/26/19 16:46 Dose: 11 units Documented by: Insulin Glargine (Insulin Glargine Solostar 100 Units/Ml 3 Ml Pen) 15 units SC BID [facility] Stop: 01/23/20 20:59 Last Admin: 12/26/19 11:22 Dose: 15 units Documented by: Lisinopril (Lisinopril 40 Mg Tab) 40 mg PO QAM [facility] Stop: 01/24/20 08:59 Last Admin: 12/26/19 11:20 Dose: 40 mg Documented by: Lorazepam (Lorazepam 1 Mg Tab) 1 mg PO ONE PRN; Protocol PRN Reason: EtoH Withdrawal AWSS 6-10 Metoprolol Tartrate (Metoprolol Tartrate 25 Mg Tab) 25 mg PO BID [facility] Stop: 01/23/20 20:59 Last Admin: 12/26/19 11:19 Dose: 25 mg Documented by: Miscellaneous (Carbohydrates For Hypoglycemia ) 15 - 30 gm PO UD PRN PRN Reason: Hypoglycemia Protocol Stop: 01/23/20 14:42 Nitroglycerin (Nitroglycerin Sl 0.4 Mg/Tab Tab) 0.4 mg SL UD PRN PRN Reason: Chest Pain Stop: 01/23/20 14:42 Oxycodone/Acetaminophen (Oxycodone/Acetaminophen 5mg/325mg Tab) 1 tab PO TID PRN PRN Reason: pain Stop: 01/07/20 14:42 Last Admin: 12/26/19 11:28 Dose: 1 tab Documented by: Ropinirole HCl (Ropinirole Hcl 0.25 Mg Tablet) 0.25 mg PO [facility] Stop: 01/23/20 20:59 Last Admin: 12/25/19 21:37 Dose: 0.25 mg Documented by: Trazodone HCl (Trazodone Hcl 50 Mg Tab) 50 mg PO [facility] Stop: 01/23/20 20:59 Last Admin: 12/25/19 21:52 Dose: 50 mg Documented by: Vitamin D (Cholecalciferol 1,000 Units 25 Mcg Tab) 2,000 units PO QAM [facility] Stop: 01/24/20 08:59 Last Admin: 12/26/19 11:21 Dose: 2,000 units Documented by: PG Care Time/CCT Total # of Minutes Spent Total Time Spent with Patient: Total time spent is greater than 50% in coordination of care (as documented) at patient's floor/unit and/or counseling patient: Coding Level of Care Code 21101 Subseq Hosp Care Lvl 3 Diagnoses CAD (coronary artery disease) I25.10 S/P coronary artery stent placement Z95.5 Aortic stenosis I35.0 HTN (hypertension) I10 Hyperlipidemia E78.5 SOB (shortness of breath) on exertion R06.02
[2019-12-26] MEDS ORDERED: FUROSEMIDE 40 MG in SYRINGE 0 ML IV ONE (19:00)
[2019-12-26] MEDS: GABAPENTIN 600 MG TAB PO SCH (19:48)
[2019-12-26] MEDS: ATORVASTATIN 40 MG TAB PO SCH (20:41)
[2019-12-26] MEDS: rOPINIRole HCL 0.25 MG TABLET PO SCH (20:41)
[2019-12-26] MEDS: traZODone HCL 50 MG TAB PO SCH (20:44)
[2019-12-27] MEDS: oxyCODONE/ACETAMINOPHEN 5mg/325mg TAB PO PRN ×2 (00:50→08:44)
--- NOTE | 2019-12-27 05:19 | Electrocardiogram Report ---
Test Reason : Blood Pressure : / mmHG Vent. Rate : 085 BPM Atrial Rate : 085 BPM P-R Int : 196 ms QRS Dur : 094 ms QT Int : 404 ms P-R-T Axes : 069 076 079 degrees QTc Int : 480 ms Normal sinus rhythm Prolonged QT Abnormal ECG When compared with ECG of 24-DEC-2019 10:19, No significant change was found Confirmed by Freddy Bennett ([id number] on 12/27/2019 5:19:36 AM Referred By: REFERRED SELF Confirmed By:Freddy Bennett
[2019-12-27] MEDS: GABAPENTIN 600 MG TAB PO SCH (05:39)
[2019-12-27] MEDS: ASPIRIN 81 MG ECTAB PO SCH (08:27)
[2019-12-27] MEDS: METOPROLOL TARTRATE 25 MG TAB PO SCH (08:27)
[2019-12-27] MEDS: allopurinoL 300 MG TAB PO SCH (08:27)
[2019-12-27] MEDS: CHOLECALCIFEROL 1,000 UNITS 25 MCG TAB PO SCH (08:28)
[2019-12-27] MEDS: lisinopril 40 MG TAB PO SCH (08:28)
[2019-12-27] MEDS: ENOXAPARIN INJ 40 MG/0.4 ML SYR SQ SCH (08:28)
[2019-12-27] MEDS: DULoxetine HCL 60 MG CAP PO SCH (08:28)
[2019-12-27] MEDS: INSULIN GLARGINE SOLOSTAR 100 UNITS/ML 3 ML PEN SC SCH (08:29)
[2019-12-27] MEDS: INSULIN ASPART 100 UNITS/ML 3 ML PEN SC SCH (08:30)
[2019-12-27] MEDS: FLUTICASONE/VILANTEROL 100/25MCG 14 PUFFS/INHALER INH SCH (08:33)
[2019-12-27] MEDS ORDERED: CLOPIDOGREL BISULFATE 75 MG TAB PO SCH (09:00)
--- NOTE | 2019-12-27 10:07 | Discharge Summary ---
Date of Service December 27, 2019 Admission HPI Per Admitting Provider Wisam Copeland is a 83-year-old male with type 2 diabetes, hyperlipidemia, hypertension who presents to the ER with shortness of breath and chest tightness on exertion over last 3 weeks. He does note his daughter's wedding was approximately 3 weeks ago and his stress levels have been significantly high recently. The chest tightness and shortness of breath have come on intermittently and are not significantly worse now than 3 weeks ago however he had a significant episode yesterday with raking leaves which he discussed with his primary care physician and recommended he come to the ER for further evaluation. Associated diaphoresis. No nausea. Reports chest tightness problem a severity of pain on the left side of his anterior chest wall, no worse on palpation or inspiration, no relief with albuterol inhaler, no radiation (although difficult to tell with his multiple chronic joint pains). Despite his multiple risk factors he does not take an aspirin daily. He reports a remote stress test in the past but not within the last year. He has a significant family history of cardiovascular disease with his sister having a heart attack in her 40s and both parents having heart attacks in their 50s. Principal Diagnosis Unstable angina due to severe coronary disease Discharge Exam Constitutional WD/WN, vitals as above + obese; no acute distress Neck trachea midline, no thyromegaly + thick neck Respiratory normal respiratory effort, lungs clear to auscultation Cardiovascular RRR, no murmur, no edema Gastrointestinal (Abdomen) normal bowel sounds, soft, nontender, no hepatosplenomegaly Musculoskeletal no cyanosis or clubbing, extremities motor strength 5/5 Skin no rashes, warm and dry + dry skin and + excoriations (left lower leg, no erythema, no cellulitis) Neurologic patellar DTR's 2+ bilat, sensation intact and PERRL, EOMI, accommodation nl, no face palsy, no dysarthria Psychiatric A+Ox3, euthymic affect Lymphatic no cervical or axillary lymphadenopathy Discharge Data Allergies Allergy/AdvReac Type Severity Reaction Status Date / Time No Known Allergies Verified 12/24/19 12:06 Consultations 12/24/19 12:11 ED Decision to Admit Stat 12/24/19 14:43 Consult Cardiology Routine 12/26/19 10:20 Consult Cardiac Rehabilitation Routine Procedures Performed Operation Date: 12/26/19 08:00 Actual Procedures p Cath, Left with Cors and Vent - Freddy W. Sabrina, MD s Cineradiography w/Routine Exam - Freddy Bennett MD s Drug Eluting Stent SGl Vessel - Benji Jara MD s Drug Eluting Stent each ADDTL Vessel - Benji Jara MD s Fraction Flow [place] SGL Ves - Benji Jara MD s IVUS Coronary Single Vessel - Benji Jara MD Ordered Studies 12/24/19 11:04 CT angio chest PE protocol Stat 12/24/19 14:43 US venous doppler LE LT Stat 12/26/19 07:39 CL Cath Imgs for PACS use only Routine 12/26/19 10:59 CL IVUS Coronary Single Vessel Routine Hospital Course (1) CAD (coronary artery disease): severe disease in RCA and proximal LAD, drug eluting stents placed on 12/25 tolerated well, vitals stable continue Lipitor 40mg daily, lisinopril, metoprolol on DAPT for a year with aspirin 81mg and Plavix 75mg daily no chest pain today, ambulated in the halls, several laps, no angina, no dyspnea will follow up with Dr. Bennett in a few weeks (2) S/P coronary artery stent placement: DAPT with aspirin and Plavix Lipitor 40mg daily (3) Unstable angina: Many risk factors exertional chest pain concerning for unstable angina. heart cath on 12/25 with severe disease in RCA and proximal LAD explaining symptoms (4) Hyperlipidemia: Triglycerides 353, LDL 33 (12/19/2019) - no need to repeat this Continue atorvastatin 40 mg p.o. at bedtime (5) Alcohol abuse: drinks half a bottle of whiskey a day no signs of withdrawal, three days out from last drink will add Gabapentin taper and Ativan withdrawal protocol while here (6) HTN (hypertension): Continue lisinopril 40 mg p.o. every morning. Add metoprolol for antianginal effect as above and monitor blood pressure. HR and BP tolerating well (7) Diabetes 1.5, managed as type 2: HbA1c 7.1 (12/19/2019) - no need to repeat this T2DM diet Hold Metformin and glipizide during inpatient stay. resume on discharge (8) Gout: No acute flare. Continue allopurinol 300 mg daily. (9) Restless leg syndrome: Continue ropinirole 0.25 mg p.o. at bedtime. (10) Asthma: No acute exacerbation is suspected Continue Wixela Inhub 1 inhalation twice daily for hospital formulary equivalent if patient does not have access to exam Albuterol as needed for wheezing or shortness of breath (11) Chronic lumbar radiculopathy: Continue duloxetine 60 mg p.o. every morning (12) Insomnia: Continue trazodone 50 mg p.o. at bedtime (13) Aortic stenosis: Total Time Total Time Spent Total Time Spent (In Minutes): 32 minutes Total Time Includes: Examination of the Patient, Discharge Planning, Medication Reconciliation and Communication With Other Providers (Dr. Bennett) Discharge Plan Discharge Items Patient Disposition: Home - Self-Care Reason For Visit: SHORTNESS OF BREATH/CHEST PAIN R/O PA Discharge Diagnosis: Severe coronary disease status post drug eluting stent to the right coronary artery and left anterior descending artery Hypertension Dyslipidemia Alcohol abuse Activity: Per Instructions section Lifting: None Bathing: No limitations Sexual Activity: Wait until after follow-up appointment Exercise/Sports: Wait until after follow-up appointment Driving/Machine Use: Resume 1 day after discharge Weightbearing: Full weightbearing Non-emergency contact: Primary Care Provider and Wel[employer] Apprentice Combination Call non-emergency contact if: you have any medication questions and your symptoms worsen Follow-up/Referrals: Freddy Bennett MD [Physician] - 01/10/20 9:15 am Cal Escobar DO [Primary Care Provider] - (next week) Diet: Carb Consistent or DM2 and Heart Healthy Addtl Attending Provider Instructions: Medications: - ASPIRIN: 81mg daily, take every day to keep stent open - PLAVIX: 75mg daily, take every day to keep stent open, will need to take this for one year - METOPROLOL: 25mg twice a day, this reduces strain on heart by controlling blood pressure and heart rate - NITROGLYCERIN: sublingual tablet, take as needed for chest pain/pressure, can take every 15 minutes as needed, if you need three doses and still have pain, go to emergency room ACTIVITY RECOMMENDATIONS: Excess manipulation of the wrist should be avoided for the next 24-48 hours. * No lifting over 2 pounds (approximately a 1/2 gallon of milk) with the utilized arm for 24 hours. * No strenuous activity such as bowling or tennis for 3 days. * Keep the site of the procedure covered with a bandage for 24 hours. *You may shower the day after the procedure. Do not take a tub bath or submerge the puncture site in water for the next 3 days. *Do not operate any motorized equipment for 3 days. SPECIAL CARE INSTRUCTIONS: The site may be slightly bruised and sore following your procedure. Should any of the following occur, contact the Dr. who performed your procedure. 1. Redness/inflammation, swelling, chills, or fever, or colored drainage at procedure site within 3-7 days after your procedure. 2. Coldness, discoloration, ongoing numbness, severe pain, or swelling. Expect mild tingling of hand and tenderness at the puncture site for up to three days. If this persists beyond three days, or other symptoms develop, notify the Dr. who performed your procedure. BLEEDING: If the procedure site on your wrist begins to bleed, do not panic 1. Place 1 or 2 fingers firmly just slightly above the insertion site to stop the bleeding. You may be able to feel your pulse as you hold pressure. 2. Lift your finger after 5 minutes to see if the bleeding has stopped. 3. Once the bleeding has stopped, gently wipe the wrist area clean with a bandage. * If the bleeding from your wrist does not stop after 10 minutes, or if there is a large amount of bleeding or spurting, call 911 (do not drive yourself to the hospital). SKIN IRRITATION: * You may experience some redness and/or swelling in the area where radiation was administered. If any skin irritation occurs, please contact your family physician. FOLLOW UP VISIT: 1. Follow up in Dr. Bennett's office in 1-2 weeks. ([phone]). Pending Studies at Discharge: No Stand-Alone Forms: [employer], Smoking Cessation Medications and DC Order Prescriptions: New clopidogrel 75 mg Tablet 75 mg PO QAM 30 Days Qty: 30 RF: 4 aspirin 81 mg Tablet,Delayed Release (Dr/Ec) 81 mg PO QAM 30 Days Qty: 30 RF: 4 nitroglycerin [Nitrostat] 0.4 mg Tablet, Sublingual 0.4 mg sublingual UD PRN (Reason: chest pain) 30 Days Qty: 60 RF: 1 metoprolol tartrate 25 mg Tablet 25 mg PO BID 30 Days Qty: 60 RF: 4 Continued glipizide 10 mg tablet 10 mg PO BID Qty: 180 RF: 1 metformin 850 mg tablet 850 mg PO TID Qty: 270 RF: 3 Lantus Solostar U-100 Insulin 100 unit/mL (3 mL) insulin pen 15 units SQ QAM RF: 0 cholecalciferol (vitamin D3) 50 mcg (2,000 unit) capsule 50 mcg PO QAM RF: 0 albuterol sulfate [Proventil HFA] 90 mcg/actuation HFA aerosol inhaler See Rx Instructions INH QID PRN (Reason: shortness of breath or wheezing) RF: 0 trazodone 50 mg tablet 50 mg PO .qhs Qty: 30 RF: 2 oxycodone-acetaminophen 5-325 mg tablet 1 tab PO TID PRN (Reason: pain) 30 Days Qty: 90 RF: 0 atorvastatin 40 mg tablet 40 mg PO HS RF: 0 ropinirole [Requip] 0.25 mg tablet 0.25 mg PO QAM RF: 0 allopurinol 300 mg tablet 300 mg PO QAM RF: 0 fluticasone propion-salmeterol [Wixela Inhub] 100-50 mcg/dose blister with device 1 inh inhalation BID RF: 0 lisinopril 40 mg tablet 40 mg PO QAM RF: 0 duloxetine 60 mg capsule,delayed release(DR/EC) 60 mg PO QAM RF: 0 Discontinued celecoxib 100 mg capsule 100 mg PO BID Qty: 180 RF: 1 Discharge Orders: Discharge Order (Routine); Ordered 12/27/19 Ordered By: Matias Truong Admission Data Admit Date/Time: 12/24/19 13:14 Attending Provider: Matias Truong Admit Provider: Kiel Holm Primary Care Provider: Cal Escobar Other Providers: Kiel Holm ; Freddy Bennett Other Interventions: Discharge Summary Assessment (RN) Last Done: 12/27/19 11:19 Coding Level of Care Code D/C Day Management >30 mins Diagnoses CAD (coronary artery disease) I25.10 S/P coronary artery stent placement Z95.5 Unstable angina I20.0 Hyperlipidemia E78.5 Alcohol abuse F10.10 HTN (hypertension) I10 Diabetes 1.5, managed as type 2 E13.9 Gout M10.9 Restless leg syndrome G25.81 Asthma J45.909 Chronic lumbar radiculopathy M54.16 Insomnia G47.00 Aortic stenosis I35.0
--- NOTE | 2019-12-27 11:23 | Cardiology Progress Note ---
Date of Service December 27, 2019 Assessment & Plan (1) CAD (coronary artery disease): (2) HTN (hypertension): (3) Hyperlipidemia: (4) Aortic stenosis: (5) S/P coronary artery stent placement: ASSESSMENT/PLAN: 1. CAD s/p LAD and RCA PCI: He has had no further angina following PCI and geovany athing has improved. Continue aspirin and Plavix. Continue beta abraham and high intensity statin therapy. Recommend cardiac rehab. 2. Dyspnea with exertion: His breathing has greatly improved following PCI and with diuresis. 3. Aortic stenosis: Mild on echo and left heart cath. Can monitor over time. 4. Hypertension: BP is elevated. Recommend increasing his metoprolol to 50 mg BID upon discharge for better BP control. 5. Dyslipidemia: Continue high intensity statin therapy. 6. Disposition: Safe for discharge from a cardiac standpoint. He is scheduled outpatient follow-up in the office on 01/10/20. Admission and Anticipated Discharge Date Admission Date: December 24, 2019 Subjective He is feeling well this morning. He ambulated 2 laps around the hallway today. His breathing has greatly improved; he states that his breathing is the best that it has been in the last 1-2 years. He chest pain, lightheadedness, or edema. Review of Systems Review of Systems: All systems reviewed & are unremarkable except as noted in Subjective Physical Exam Physical Exam: Constitutional: Alert, oriented, in no acute distress HEENT: Head is atraumatic and normocephalic. EOMs intact. Sclera non-icteric. Face is symmetric. No perioral cyanosis. Mucous membranes moist Neck: Supple, no appreciable JVD but difficult exam Pulmonary: Normal respiratory effort, clear to auscultation throughout Cardiac: Regular rate and rhythm, normal S1 and S2, no gallops, no rubs, 2/6 systolic murmur Extremities: No edema. No clubbing or cyanosis. Pulses intact Abdomen: Normal bowel sounds, soft, non-tender, no abdominal masses palpated Skin: Normal skin color, turgor, and pigmentation. No rash or skin lesions Neurological: Oriented to person, place, and time Results & Data ([facility]) Vital Signs (Past 12 Hours) Vital Signs Temp Pulse Pulse Resp BP Pulse Ox 12/27/19 07:30 97.5 F L 77 18 148/89 H 96 12/27/19 07:24 81 12/27/19 05:26 87 12/27/19 04:00 98.8 F 77 20 148/81 H 96 12/26/19 23:38 98.1 F 80 19 126/82 96 PG Care Time/CCT Total # of Minutes Spent Total Time Spent with Patient: Total time spent is greater than 50% in coordination of care (as documented) at patient's floor/unit and/or counseling patient: Coding Level of Care Code 33812 Subseq Hosp Care Lvl 3 Diagnoses CAD (coronary artery disease) I25.10 HTN (hypertension) I10 Hyperlipidemia E78.5 Aortic stenosis I35.0 S/P coronary artery stent placement Z95.5
[2019-12-27] MEDS ORDERED: GABAPENTIN 600 MG TAB PO SCH (14:00)
[2019-12-28] MEDS ORDERED: GABAPENTIN 600 MG TAB PO SCH (18:00)
[2019-12-30] MEDS ORDERED: GABAPENTIN 600 MG TAB PO SCH (06:00)
== END 2019-12-27 11:52 | disposition home or self-care (01) ==
LOC: 2E 10:10 → ED 10:10 → SUATTDRO 13:14 → 2E 14:08 → 2W 12-27 05:25

== ENCOUNTER 2022-07-12 15:38 | Inpatient (IN) ==
[2022-07-12] MEDS ORDERED: cefTRIAXone SODIUM 2,000 MG/70 ML BAG IV STA (15:57)
[2022-07-12] MEDS ORDERED: KETOROLAC TROMETHAMINE 15 MG/ML VIAL IV ONE (15:57)
--- NOTE | 2022-07-12 16:01 | Emergency Department Note ---
Impression & Plan Cellulitis, ADAM (acute kidney injury), Leukocytosis ED Provider Note NAME: AMEYA ARREOLA AGE: 56 SEX: M : 1965 ARRIVES VIA: Ambulance INFORMANT: Patient ED PROVIDER(S): Khurram Shin DO CHIEF COMPLAINT: left leg redness and knee pain HPI: Patient is a 56-year-old male with past medical history of uncontrolled diabetes, hypertension, CAD, aortic stenosis, and alcohol abuse who presents the ER as he could not get out of bed this morning. He consequently slid down in bed and was unable to get up off the floor. He denies hitting his head or neck pain. no chest pain or shortness of breath. He admits to redness on the left leg which is present for the past 3 days. He has an open wound which has been present for about a week as well. He denies any dysuria, urgency, or frequency. He notes that he did slide out of bed as he was having trouble getting up. He did not hit his head and is very adamant. He is having left knee pain and swelling which has been present for 24 hours. He does not believe he fell and hit the knee. PAST MEDICAL HISTORY:See Below PAST SURGICAL HISTORY:See Below FAMILY HISTORY:See Below SOCIAL HISTORY:See Below HOME MEDICATIONS:See Below ALLERGIES:See Below VITALS:See Below PHYSICAL EXAMINATION: GENERAL: Sitting up in bed, alert, obese, chronically ill-appearing, disheveled EYE EXAM: normal conjunctiva. HEAD: NC/AT OROPHARYNX: no exudate, no erythema, lips, buccal mucosa, and tongue normal and mucous membranes are moist NECK: supple, no nuchal rigidity, no adenopathy, non-tender LUNGS: Clear to auscultation. Normal chest wall mechanics HEART: no murmurs, S1 normal and S2 normal ABDOMEN: abdomen soft, non-tender, normo-active bowel sounds, no masses, no rebound or guarding. UPPER EXTREMITIES: upper extremities are grossly normal. LOWER EXTREMITIES: Flexion-extension of the right knee hip and ankle intact. Left hip without tenderness but fair amount of prepatellar swelling and tenderness. Erythema circumferentially from the left ankle tracking up to the mid enciso with streaking going up to the left groin. Pitting edema in the left leg. Left calf larger than right. Unable to appreciate DP and PT on the left. NEURO EXAM: Normal sensorium, cranial nerves II-XII grossly intact, normal speech, no gross weakness of arms, no gross weakness of legs. MEDICAL DECISION MAKING: Patient is a 56-year-old male who presents ER for above-stated complaint. IV was established blood work was obtained. External records were reviewed. Labs show leukocytosis of 20,000. Mild anemia 11.6 consistent with previous. BMP with hyponatremia at 123. Creatinine at 2.1 up from baseline of about 1. Lipase was normal. LFTs were unremarkable. Bilirubin was normal. Alcohol negative. COVID-negative. CK slightly up at 1100. Patient was given 2 L of IV fluids. Blood pressure slightly marginal. He was given IV Rocephin and IV vancomycin. Blood pressures did respond. He was updated bedside discussed with hospitalist admitted for further work-up. Discussed with vascular who recommends no anticoagulation at this time as well as patient has flow in the AT and PT which is present. Triage Nursing notes reviewed. Limited review of prior medical records performed Vital Signs: reviewed and remarkable for no significant abnormalities Differential diagnosis: Cellulitis, abscess, MRSA infection, DVT, necrotizing fasciitis, dermatitis, drug eruption, allergic reaction, as well as other pathologies. ER treatment provided: See below Diagnostics interpreted by me include EKG and cardiac monitoring as listed below: -Cardiac Monitoring: An order was placed for continuous cardiac monitoring. The monitor shows a rate of 90 with sinus rhythm. -ECG: Sinus rhythm rate of 101 Normal axis No PVCs QTc 446 -Laboratory studies:Interpreted by me as stated above in MDM and shown below. Imaging studies: Xrays: As interpreted by me: X-ray of the left knee shows no acute fracture CTs show: none Venous duplex shows no DVT Arterial Doppler shows no flow in the mid to proximal portion of the popliteal artery Consultation(s): Discussed with Dr. Rendon for further management and evaluation Discussed with Dr. Mcmanus he notes at this time no need to anticoagulate as well as AT and PT flow which they do. Procedures:none Critical Care: None Past Med/Surg History Medical History (Updated 07/12/22 @ 20:34 by Khurram Shin DO) Aortic stenosis Asthma inhaler daily/prn CAD (coronary artery disease) Chronic lower back pain Diabetes mellitus, type 2 Diabetic neuropathy Exertional angina Gout HTN (hypertension) Hyperlipidemia Insomnia Morbid obesity with BMI of 40.0-44.9, adult Osteoarthritis Restless leg syndrome Sinus tachycardia Sleep apnea mild; no device SOB (shortness of breath) on exertion Vitamin D deficiency Surgical History H/O hernia repair as a baby History of cardiac cath 12/26/19 @ [facility] with 2 stents placed History of colonoscopy 06/2021, poor prep per report History of ear surgery History of esophagogastroduodenoscopy (EGD) 07/2021 History of left hip replacement (~2018) History of total left knee replacement (TKR) History of total right knee replacement (TKR) History of wisdom tooth extraction S/P coronary artery stent placement 2 stents placed 12/26/19 @ [facility] Family History Father Heart disease Mother Heart disease Diabetes Grandfather No problems noted. Grandfather (Maternal) Lung cancer Grandmother (Maternal) Lung cancer Grandfather (Paternal) Myocardial infarction Grandmother (Paternal) Stroke Other No family history of adverse response to anesthesia Denies family history of Ovarian cancer Prostate cancer Breast cancer Colorectal cancer Social History Smoking Status: Current every day smoker Tobacco Type: Smokeless Tobacco (Dip or Chew) Cigarettes Per Day: 1 can a week; Second Hand Exposure: No; Do You Dip or Chew Tobacco: Yes; Hx Alcohol Use: Yes Alcohol type: hard liquor Alcohol type Comment: 1 drink 4-5 times weekly Hx Substance Use: No Preferred Language: Spanish Communication Ability: Effective Visual Impairment: Limited Hearing Ability: Normal Business Economist Required: No Beliefs That Will Affect Care: None marital status: Current Living Situation: Parent current occupational status: disabled 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, 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 How many Children do You have: 2 How many Children do You have Comment: 25 and 24 Feels Safe at Home: Yes Childhood Exposure to Second-Hand Smoke: Yes Diet: regular caffeine: Yes Dental Care, Regularly: Yes Physical Activity Frequency: Does not Exercise Seatbelt Use: always Sunscreen Use: Yes Assistive Devices: Glasses Allergies Allergies Allergy/AdvReac Type Severity Reaction Status Date / Time Enivronmental Allergy itchy Uncoded 07/12/22 21:15 eyes, sneeze Home Meds Home Medications Medication Instructions Recorded Confirmed cholecalciferol (vitamin D3) 50 50 mcg PO QAM 07/29/19 07/12/22 mcg (2,000 unit) capsule lisinopril 20 mg tablet 20 mg PO DAILY 04/14/22 07/12/22 fluticasone 100 mcg-salmeterol 50 1 inh inhalation BID shortness of 04/21/22 07/12/22 mcg/dose blistr powdr for breath inhalation (Wixela Inhub) allopurinol 300 mg tablet 300 mg PO QAM 07/12/22 07/12/22 hydrochlorothiazide 12.5 mg tablet 12.5 mg PO DAILY 07/12/22 07/12/22 ropinirole 1 mg tablet 1 mg PO QPM 07/12/22 07/12/22 Previous Rx's Medication Instructions Recorded aspirin 81 mg tablet,delayed 81 mg PO QAM 30 days #30 tabs 12/27/19 release metformin 1,000 mg tablet 1,000 mg PO BID #180 tabs 08/06/21 atorvastatin 80 mg tablet 80 mg PO QAM #90 tabs 12/17/21 nitroglycerin 0.4 mg sublingual 0.4 mg sublingual UD PRN chest 02/23/22 tablet (Nitrostat) pain 30 days #60 tabs glipizide 5 mg tablet 5 mg PO QPM #90 tabs 04/21/22 trazodone 50 mg tablet 100 mg PO HS insomnia #180 tabs 04/28/22 duloxetine 60 mg capsule,delayed 60 mg PO QAM #90 caps 05/03/22 release insulin glargine 100 unit/mL (3 15 unit (0.15 mL) subcut QAM #15 mL 05/03/22 mL) subcutaneous pen (Lantus Solostar U-100 Insulin) famotidine 20 mg tablet 20 mg PO BID PRN heartburn 90 days 05/13/22 #180 tabs tirzepatide 5 mg/0.5 mL 5 mg (0.5 mL) subcut WK #2 mL 05/16/22 subcutaneous pen injector (Ramirez) oxycodone-acetaminophen 5 mg-325 1 tab PO BID PRN pain 30 days #60 06/02/22 mg tablet tabs albuterol sulfate 90 mcg/actuation See Rx Instructions inhalation QID 07/02/22 aerosol inhaler (Proventil HFA) PRN shortness of breath or wheezing #18 grams metoprolol tartrate 50 mg tablet 50 mg PO BID #180 tabs 07/04/22 Results & Data (ED) Vital Signs Vital Signs - 24 hr 07/12/22 15:47 07/12/22 16:17 07/12/22 16:17 Temperature 36.8 C Temperature Source Oral Pulse Rate 98 H 92 H 97 H Pulse Rate [Apical] Pulse Rhythm Regular Regular Pulse Strength Normal Respiratory Rate 20 Respiratory Effort / Characteristics Non-Labored Spontaneous Respiratory Depth Normal Respiratory Pattern Regular Blood Pressure 112/74 Blood Pressure [Right Arm] Blood Pressure Mean 86 Blood Pressure Mean [Right Arm] Pulse Oximetry 92 98 Oxygen Delivery Method Room Air Room Air Sepsis Recent Fever Within 48 Hours No Sepsis New/Unexplained Change in Mental Status No Sepsis Action Taken by Nursing No Action Required 07/12/22 17:00 07/12/22 19:05 07/12/22 19:09 Temperature Temperature Source Pulse Rate 95 H Pulse Rate [Apical] 84 80 Pulse Rhythm Pulse Strength Respiratory Rate 24 20 Respiratory Effort / Characteristics Respiratory Depth Respiratory Pattern Blood Pressure 97/58 L Blood Pressure [Right Arm] 78/50 L 96/53 L Blood Pressure Mean 71 Blood Pressure Mean [Right Arm] 59 67 Pulse Oximetry 97 95 Oxygen Delivery Method Room Air Sepsis Recent Fever Within 48 Hours Sepsis New/Unexplained Change in Mental Status Sepsis Action Taken by Nursing 07/12/22 19:45 07/12/22 19:48 07/12/22 21:00 Temperature Temperature Source Pulse Rate 91 H Pulse Rate [Apical] 92 H 94 H Pulse Rhythm Pulse Strength Respiratory Rate 20 20 Respiratory Effort / Characteristics Respiratory Depth Respiratory Pattern Blood Pressure Blood Pressure [Right Arm] 103/61 118/63 Blood Pressure Mean Blood Pressure Mean [Right Arm] 75 81 Pulse Oximetry 94 Oxygen Delivery Method Room Air Sepsis Recent Fever Within 48 Hours Sepsis New/Unexplained Change in Mental Status Sepsis Action Taken by Nursing Laboratory Data 07/12/22 16:35 07/12/22 16:35 Lab Results 07/12/22 07/12/22 07/12/22 Range/Units 16:15 16:35 16:35 WBC 20.62 H (4.8-10.8) K/ul RBC 3.75 L (4.70-6.10) M/uL Hgb 11.6 L (14.0-18.0) g/dl Hct 34.6 L (42.0-52.0) % MCV 92.3 (80.0-100.0) fL MCH 30.9 (25.0-34.0) pg MCHC 33.5 (32.0-36.0) g/dL RDW Std Deviation 45.2 (36.4-46.3) fL RDW Coeff of Sunny 13.3 (11.5-14.5) % Plt Count 279 (130-400) K/uL MPV 11.6 (9.4-12.4) fL Immature Gran % (Auto) 1.6 % Neut % (Auto) 91.8 % Lymph % (Auto) 1.6 % [place] % (Auto) 4.6 % Eos % (Auto) 0.0 % Baso % (Auto) 0.4 % Neut # (Auto) 18.93 H (1.40-6.50) K/uL Lymph # (Auto) 0.33 L (1.2-3.4) K/uL [place] # (Auto) 0.95 H (0.11-0.59) K/uL Eos # (Auto) 0.00 (0-0.50) K/uL Baso # (Auto) 0.08 (0-0.2) K/uL Immature Gran # (Auto) 0.33 H (0.01-0.20) K/uL Dohle Bodies 1+ Sodium 123 L (136-145) mmol/L Potassium 5.1 (3.5-5.1) mmol/L Chloride 88 L (98-107) mmol/L Carbon Dioxide 24 (21-32) mmol/L Anion Gap 11 (3-11) BUN 55 H (6-23) mg/dl Creatinine 2.13 H (0.6-1.4) mg/dl Est Cr Clr Drug Dosing 58.3 ml/min Est GFR ( Amer) 38.6 ml/min Est GFR (Non-Af Amer) 33.3 ml/min BUN/Creatinine Ratio 25.8 H (10-20) Glucose 100 H (70-99(Fasting)) mg/dl Calcium 8.6 (8.6-10.3) mg/dl Magnesium 1.7 (1.7-2.4) mg/dl Total Bilirubin 1.0 (0.2-1.0) mg/dl AST 46 H (13-39) U/L ALT 16 (7-52) U/L Alkaline Phosphatase 150 H (34-104) U/L Total Creatine Kinase 1164 H (30-223) U/L Total Protein 8.0 (6.0-8.3) gm/dl Albumin 2.8 L (3.4-5.0) gm/dl Globulin 5.2 H (2.5-4.0) gm/dl Albumin/Globulin Ratio 0.5 L (0.9-2) Lipase 27 (11-82) U/L Ethyl Alcohol mg/dL (<10.0) mg/dl SARS-CoV-2, RNA, NAAT NEGATIVE (NEGATIVE) 07/12/22 Range/Units 19:30 WBC (4.8-10.8) K/ul RBC (4.70-6.10) M/uL Hgb (14.0-18.0) g/dl Hct (42.0-52.0) % MCV (80.0-100.0) fL MCH (25.0-34.0) pg MCHC (32.0-36.0) g/dL RDW Std Deviation (36.4-46.3) fL RDW Coeff of Sunny (11.5-14.5) % Plt Count (130-400) K/uL MPV (9.4-12.4) fL Immature Gran % (Auto) % Neut % (Auto) % Lymph % (Auto) % [place] % (Auto) % Eos % (Auto) % Baso % (Auto) % Neut # (Auto) (1.40-6.50) K/uL Lymph # (Auto) (1.2-3.4) K/uL [place] # (Auto) (0.11-0.59) K/uL Eos # (Auto) (0-0.50) K/uL Baso # (Auto) (0-0.2) K/uL Immature Gran # (Auto) (0.01-0.20) K/uL Dohle Bodies Sodium (136-145) mmol/L Potassium (3.5-5.1) mmol/L Chloride (98-107) mmol/L Carbon Dioxide (21-32) mmol/L Anion Gap (3-11) BUN (6-23) mg/dl Creatinine (0.6-1.4) mg/dl Est Cr Clr Drug Dosing ml/min Est GFR ( Amer) ml/min Est GFR (Non-Af Amer) ml/min BUN/Creatinine Ratio (10-20) Glucose (70-99(Fasting)) mg/dl Calcium (8.6-10.3) mg/dl Magnesium (1.7-2.4) mg/dl Total Bilirubin (0.2-1.0) mg/dl AST (13-39) U/L ALT (7-52) U/L Alkaline Phosphatase (34-104) U/L Total Creatine Kinase (30-223) U/L Total Protein (6.0-8.3) gm/dl Albumin (3.4-5.0) gm/dl Globulin (2.5-4.0) gm/dl Albumin/Globulin Ratio (0.9-2) Lipase (11-82) U/L Ethyl Alcohol mg/dL < 10.0 (<10.0) mg/dl SARS-CoV-2, RNA, NAAT (NEGATIVE) Administered Medications Sodium Chloride (Nss 1000ml) 1,000 mls @ 150 mls/hr IV .Q6H40M ELVIS Stop: 08/11/22 21:29 Last Admin: 07/12/22 22:00 Dose: 150 mls/hr Documented By: YURI Discontinued Medications Ceftriaxone Sodium (Rocephin) 2,000 mg in 70 mls @ 140 mls/hr IV NOW STA Stop: 07/12/22 16:26 Last Infusion: 07/12/22 18:01 Dose: 0 mls/hr Documented By: Admin: 07/12/22 16:42 Dose: 140 mls/hr Documented By: ANGELA Vancomycin HCl 2,750 mg/ (Sodium Chloride) 555 mls @ 200 mls/hr IV NOW ONE Stop: 07/12/22 20:43 Last Admin: 07/12/22 20:37 Dose: 200 mls/hr Documented By: BALWINDER Sodium Chloride (Nss 1000ml) 2,000 mls @ 999 mls/hr IV .Q2H1M ONE Stop: 07/12/22 20:17 Last Infusion: 07/12/22 21:02 Dose: 0 mls/hr Documented By: Admin: 07/12/22 19:00 Dose: 999 mls/hr Documented By: YURI Ketorolac Tromethamine (Ketorolac Tromethamine 15 Mg/Ml Vial) 15 mg IV NOW ONE Stop: 07/12/22 15:58 Last Admin: 07/12/22 16:42 Dose: 15 mg Documented By: ANGELA Imaging Data Radiologist's Impression: Knee X-Ray 07/12/22 15:55 LEFT KNEE 3 VIEWS CLINICAL HISTORY: Left knee pain. FINDINGS: AP, crosstable lateral, and sunrise views of the left knee are compared to study dated 07/29/2009. The skeletal structures are osteopenic. No fracture is seen. A left knee arthroplasty is in near anatomic alignment. There has been undersurface remodeling of the patella. No periprosthetic lucency is seen. There is a joint effusion. Soft tissue swelling seen around the knee. Tiny joint bodies are suspected posteriorly. There is atherosclerotic calcification of the popliteal artery. IMPRESSION: 1. Soft tissue swelling and joint effusion with no acute bony abnormality identified. 2. A left knee arthroplasty is in near anatomic alignment. Electronically signed by: Ambrose Lopez M.D. 07/12/2022 5:32 PM Venous Doppler Study 07/12/22 15:55 ULTRASOUND LEFT LOWER EXTREMITY VENOUS CLINICAL HISTORY: Left leg pain and swelling. COMPARISON STUDY: Left lower extremity venous ultrasound dated 12/24/2019. TECHNIQUE: Real-time, grayscale, and color Doppler sonography of the deep veins of the left lower extremity was performed from the inguinal crease to the calf. Compression and augmentation were utilized. FINDINGS: There is no sonographic evidence of deep venous thrombosis identified in the left lower extremity. The common femoral, superficial femoral, and p opliteal veins are patent and normally compressible. The greater saphenous vein and the profunda femoris vein at the junction with the common femoral vein are clear. The visualized calf veins are patent. Soft tissue edema is noted in the left leg. IMPRESSION: There is no sonographic evidence of deep venous thrombosis identified in the left lower extremity. ACT 112: Negative or not required by law. Electronically signed by: Ambrose Lopez M.D. 07/12/2022 6:43 PM Duplex Scan Lower Extremity Artery 07/12/22 16:23 ULTRASOUND LEFT LOWER EXTREMITY ARTERIAL CLINICAL HISTORY: Left leg swelling. Diminished pulses. COMPARISON STUDY: No priors. TECHNIQUE: Real-time grayscale and color Doppler sonography of the arteries of the left lower extremity is performed from the inguinal crease to the foot. Ankle-brachial indices were not assessed on this portable examination. FINDINGS: Atherosclerotic plaque and irregularity is seen throughout the arteries of the left lower extremity. There are biphasic arterial waveforms in the common femoral artery with velocities measuring up to 86 cm/s. The profunda femoris artery is patent with velocities measuring up to 50 cm/s. There are biphasic to triphasic waveforms throughout the superficial femoral artery with velocities measuring up to 138 cm/s. There are biphasic waveforms in the popliteal artery with velocities measuring up to 95 cm/s. There is two-vessel runoff to the foot. Biphasic waveforms are seen throughout the calf arteries. The anterior tibial and posterior tibial arteries are patent with velocities measuring up to 66 cm/s. The dorsalis pedis artery is patent with velocities measuring up to 63 cm/s. The proximal to mid portions of the peroneal artery are not visualized. The distal peroneal artery is patent with velocities measuring up to 42 cm/s. Soft tissue edema is present in the left leg. IMPRESSION: 1. No flow is shown within the proximal to midportion of the peroneal artery. This may be occluded. 2. The remaining arteries of the left lower extremity are patent. 3. No elevated velocities are seen to suggest high-grade stenosis. Dictated: 07/12/2022 6:44 PM Transcribed: 07/12/2022 7:01 PM Tawanda [id number] [email or web address] [id number] Electronically signed by: Ambrose Lopez M.D. 07/12/2022 7:29 PM Foot X-Ray 07/12/22 21:18 LEFT FOOT 2 VIEWS CLINICAL HISTORY: Left foot infection. FINDINGS: AP and lateral views of the left foot are obtained. No prior studies are available for comparison at the time of dictation. The skeletal structures are heterogeneously osteopenic. No acute fracture seen. Moderate osteoarthritic change is seen throughout the foot, greatest at the first metatarsophalangeal joint and at the tarsometatarsal articulations. An os trigonum and an os navicu carolyn are incidentally noted. Suspect chronic posttraumatic deformity of the distal tibia and fibula. Degenerative spurring is seen along the dorsal aspect of the tarsal bones. No bony erosion or periostitis is identified. Soft tissue edema is present throughout the foot. No radiodense foreign body is identified. IMPRESSION: 1. Soft tissue swelling with no acute bony abnormality identified. 2. Osteopenia and arthritic change as above. Electronically signed by: Ambrose Lopez M.D. 07/12/2022 10:07 PM Discharge Plan Visit Data Chief Complaint: Fall ED Provider: Khurram Shin Discharge Problem: Cellulitis, ADAM (acute kidney injury), Leukocytosis Forms Stand Alone Forms: [facility] Prescriptions Prescriptions: No Action metformin 1,000 mg tablet 1,000 mg PO BID Qty: 180 3RF atorvastatin 80 mg tablet 80 mg PO QAM Qty: 90 3RF nitroglycerin [Nitrostat] 0.4 mg tablet, sublingual 0.4 mg sublingual UD PRN (Reason: chest pain) 30 Days Qty: 60 1RF trazodone 50 mg tablet 100 mg PO HS Qty: 180 3RF insulin glargine [Lantus Solostar U-100 Insulin] 100 unit/mL (3 mL) insulin p en 15 unit SQ QAM Qty: 15 2RF duloxetine 60 mg capsule,delayed release(DR/EC) 60 mg PO QAM Qty: 90 3RF famotidine 20 mg tablet 20 mg PO BID PRN (Reason: heartburn) 90 Days Qty: 180 3RF Mounjaro 5 mg/0.5 mL pen injector 5 mg subcut WK Qty: 2 1RF Rx Instructions: Replaces TrulicityEvery monday. Ran out oxycodone-acetaminophen 5-325 mg tablet 1 tab PO BID PRN (Reason: pain) 30 Days Qty: 60 0RF Rx Instructions: ONGOING THERAPY CAL ESCOBAR DO KARLENE# [id number] albuterol sulfate [Proventil HFA] 90 mcg/actuation HFA aerosol inhaler See Rx Instructions INH QID PRN (Reason: shortness of breath or wheezing) Qty: 18 5RF Rx Instructions: 2-3 inhalation four times daily PRN; metoprolol tartrate 50 mg tablet 50 mg PO BID Qty: 180 3RF cholecalciferol (vitamin D3) 50 mcg (2,000 unit) capsule 50 mcg PO QAM fluticasone propion-salmeterol [Wixela Inhub] 100-50 mcg/dose blister with device 1 inh inhalation BID glipizide 5 mg tablet 5 mg PO QPM Qty: 90 1RF Rx Instructions: before dinner lisinopril 20 mg tablet 20 mg PO DAILY aspirin 81 mg Tablet,Delayed Release (Dr/Ec) 81 mg PO QAM 30 Days Qty: 30 4RF ropinirole 1 mg tablet 1 mg PO QPM allopurinol 300 mg tablet 300 mg PO QAM Rx Instructions: TAKE 1 TABLET BY MOUTH EVERY MORNING hydrochlorothiazide 12.5 mg tablet 12.5 mg PO DAILY Referrals Referrals: Cal Escobar, [Primary Care Provider] -
[2022-07-12 17:31] LABS: Hematocrit (blood only) 34.6 % (42.0-52.0); Hemoglobin 11.6 g/dl (14.0-18.0); Mean Corpuscular Hemoglobin 30.9 pg (25.0-34.0); Mean Corpuscular Hgb Conc 33.5 g/dL (32.0-36.0); Mean Corpuscular Volume 92.3 fL (80.0-100.0); Mean Platelet Volume 11.6 fL (9.4-12.4); Platelet Count 279 K/uL (130-400); RDW Coefficient of Variation 13.3 % (11.5-14.5); RDW Standard Deviation 45.2 fL (36.4-46.3); Red Blood Count 3.75 M/uL (4.70-6.10); White Blood Count 20.62 K/ul (4.8-10.8)
--- NOTE | 2022-07-12 17:34 | XRay Report ---
LEFT KNEE 3 VIEWS CLINICAL HISTORY: Left knee pain. FINDINGS: AP, crosstable lateral, and sunrise views of the left knee are compared to study dated 2009. The skeletal structures are osteopenic. No fracture is seen. A left knee arthroplasty is in wale r anatomic alignment. There has been undersurface remodeling of the patella. No periprosthetic lucenc y is seen. There is a joint effusion. Soft tissue swelling seen around the knee. Tiny joint bodies ar e suspected posteriorly. There is atherosclerotic calcification of the popliteal artery. IMPRESSION: 1. Soft tissue swelling and joint effusion with no acute bony abnormality identified. 2. A left knee arthroplasty is in near anatomic alignment. Electronically signed by: Ambrose Lopez M.D. 07/12/2022 5:32 PM
[2022-07-12 17:51] LABS: Basophils # (auto) 0.08 K/uL (0-0.2); Basophils % (auto) 0.4 %; Dohle Bodies 1+; Immature Granulocytes # (auto) 0.33 K/uL (0.01-0.20); Immature Granulocytes % (auto) 1.6 %; Lymphocytes # (auto) 0.33 K/uL (1.2-3.4); Lymphocytes % (auto) 1.6 %; Monocytes # (auto) 0.95 K/uL (0.11-0.59); Monocytes % (auto) 4.6 %; Neutrophils # (auto) 18.93 K/uL (1.40-6.50); Neutrophils % (auto) 91.8 %
[2022-07-12 17:53] LABS: Albumin Globulin Ratio 0.5 (0.9-2); Albumin Level 2.8 gm/dl (3.4-5.0); BUN Creatinine Ratio 25.8 (10-20); Calcium 8.6 mg/dl (8.6-10.3); Creatinine Clr Calc Pharmacy 58.3 ml/min; Est GFR (African American) 38.6 ml/min; Est GFR (Non-African American) 33.3 ml/min; Globulin 5.2 gm/dl (2.5-4.0); Potassium 5.1 mmol/L (3.5-5.1)
[2022-07-12] MEDS ORDERED: VANCOMYCIN HCL 2,750 MG in SODIUM CHLORIDE 0.9% 500 ML IV ONE (17:57)
[2022-07-12] MEDS ORDERED: VANCOMYCIN CONSULT ACTIVE PRN ×2 (17:57→22:13)
[2022-07-12] MEDS ORDERED: SODIUM CHLORIDE 0.9% 1000ML 2,000 ML IV ONE (18:17)
--- NOTE | 2022-07-12 18:46 | Ultrasound Report ---
ULTRASOUND LEFT LOWER EXTREMITY VENOUS CLINICAL HISTORY: Left leg pain and swelling. COMPARISON STUDY: Left lower extremity venous ultrasound dated 12/24/2019. TECHNIQUE: Real-time, grayscale, and color Doppler sonography of the deep veins of the left lower ext remity was performed from the inguinal crease to the calf. Compression and augmentation were utilized . FINDINGS: There is no sonographic evidence of deep venous thrombosis identified in the left lower ext remity. The common femoral, superficial femoral, and popliteal veins are patent and normally compress ible. The greater saphenous vein and the profunda femoris vein at the junction with the common femora l vein are clear. The visualized calf veins are patent. Soft tissue edema is noted in the left leg. IMPRESSION: There is no sonographic evidence of deep venous thrombosis identified in the left lower e xtremity. ACT 112: Negative or not required by law. Electronically signed by: Ambrose Lopez M.D. 07/12/2022 6:43 PM
--- NOTE | 2022-07-12 18:55 | History & Physical Report ---
Date of Service July 12, 2022 Assessment & Plan (1) Cellulitis: (2) ADAM (acute kidney injury): (3) Leukocytosis: (4) Restless leg syndrome: (5) Splenomegaly: (6) Hepatic steatosis: (7) Uncontrolled hypertension: (8) Proteinuria due to type 2 diabetes mellitus: (9) HTN (hypertension): (10) CAD (coronary artery disease): (11) Aortic stenosis: Plan Wisam Copeland is a 56 year old male with past medical history of T2DM, diabetic neuropathy, obesity, asthma, HTN, Alcohol Use Disorder, CAD, hepatic steatosis, left knee arthroplasty who presented to the ED with left knee pain and inability to ambulate. Left Lower Extremity Cellulitis, Sepsis -Etiology possibly secondary to left plantar surface wound -Currently meeting SIRS criteria with HR >90 and WBC >12k -L Knee XR: soft tissue swelling/joint effusion -Will consult Ortho, appreciate recommendations -Duplex L LE Arterial Scan: "No flow is shown within the proximal to midportion of the peroneal artery. This may be occluded." -Distal portion of peroneal artery with good flow, per Dr. Mcmanus no need for anticoagulation with the above finding -LE Duplex: negative for DVT -WBC 20.62 with left shift, tachycardic, afebrile -Will order CRP. Repeat CBC in a.m. -Order Plain film L Foot XR to help rule out osteomyelitis -Received Vancomycin, Ceftriaxone in ED -Blood culture deferred as pt already received antibiotics -Continue antibiotic coverage with: Zosyn and Vancomycin -Will order MRSA nares Facial Cellulitis -Will order head CT to rule out periorbital cellulitis, mucormycoses -Per patient symptoms have improved, but still erythematous Rhabdomyolysis -CK 1164 -Recheck CK in a.m. -Start IV NSS at 150mL/hr -UA ordered Acute Kidney Injury -Cr 2.13, BUN 55 -Suspect secondary to hypovolemia from poor PO intake and ongoing diarrhea -IVF as above -Renal dosing of medications Electrolyte Abnormalities: Hyponatremia -Na 123 on admission -Suspect due to hypovolemia as above -Monitor BMP daily -Urine random creatinine, sodium ordered Type 2 Diabetes Mellitus -Home meds include Mounjaro, Glipizide, Metformin, Insulin -Most recent A1C: 7.8% -Sliding scale insulin while admitted Alcohol Use Disorder -Patient reports 2+ drinks per day of hard liquor, last drink 2 days ago -No prior history of withdrawal -AWSS at risk Hypertension -Hold home Lisinopril due to ADAM -Normotensive/hypotensive on admission Hyperlipidemia -Holding home statin Insomnia -Continue home Trazodone Restless Leg Syndrome -Continue home Ropinirole Diabetic Neuropathy/Chronic Pain -Continue home Duloxetine, Percocet Gout -Continue home Allopurinol, renally adjusted Diet: Carb consistent DVT Prophylaxis: Heparin 5000u q8h Dispo: Med/Surg Code Status: Full Code History of Present Illness Primary Care Provider: Cal Escobar DO Wisam Copeland is a 56 year old male with past medical history of T2DM, diabetic neuropathy, obesity, asthma, HTN, Alcohol Use Disorder, CAD, hepatic steatosis, left knee arthroplasty who presented to the ED with left knee pain and inability to ambulate. He tried to get out of his bed overnight to get a drink of water but was unable to stand up/get back into bed due to the knee pain. He sat on the floor for approximately 12 hours until his parents (whom he lives with) returned home. He recalls that about 1 week ago he started having redness and swelling around his face, neck, and eyelids (+inner eye discharge)- painful but denies itchiness. This lasted for several days but then improved. Around the time his facial symptoms started to resolve, he began having left knee pain, swelling and redness. The redness also extended to his left foot- he notes that about 2 weeks ago he slipped and cut the bottom of his left foot. Since that injury he has had some drainage (pus, blood), but does not feel pain in that area due to his diabetic neuropathy. He states that he has had "fluid drained" from his left knee in the past and feels that if the fluid decreased his pain would improve. Since the onset of his symptoms, Wisam has had a decreased appetite and is eating only about 1/3 of the volume of food he would typically eat. Due to his limited mobility secondary to his pain, he also has had decreased fluid intake. Patient endorses diarrhea x5 days as well, denies blood or change in stool color. He has a history of alcohol use disorder, typically drinks at least 2 "generous" glasses of whiskey/bourbon per night, although has been drinking "less" in the past few days due to his symptoms. States that his last drink was 2 days ago and denies any history of withdrawal. He denies any chest pain, shortness of breath, dizziness/lightheadedness. Allergies Allergy/AdvReac Type Severity Reaction Status Date / Time Enivronmental Allergy itchy Uncoded 07/12/22 21:15 eyes, sneeze Home Medications Medication Instructions Recorded Confirmed Type cholecalciferol (vitamin D3) 50 50 mcg PO QAM 07/29/19 07/12/22 History mcg (2,000 unit) capsule aspirin 81 mg tablet,delayed 81 mg PO QAM 30 days #30 tabs 12/27/19 07/12/22 Rx release metformin 1,000 mg tablet 1,000 mg PO BID #180 tabs 08/06/21 07/12/22 Rx atorvastatin 80 mg tablet 80 mg PO QAM #90 tabs 12/17/21 07/12/22 Rx nitroglycerin 0.4 mg sublingual 0.4 mg sublingual UD PRN chest 02/23/22 07/12/22 Rx tablet (Nitrostat) pain 30 days #60 tabs lisinopril 20 mg tablet 20 mg PO DAILY 04/14/22 07/12/22 History fluticasone 100 mcg-salmeterol 50 1 inh inhalation BID shortness of 04/21/22 07/12/22 History mcg/dose blistr powdr for breath inhalation (Wixela Inhub) glipizide 5 mg tablet 5 mg PO QPM #90 tabs 04/21/22 07/12/22 Rx trazodone 50 mg tablet 100 mg PO HS insomnia #180 tabs 04/28/22 07/12/22 Rx duloxetine 60 mg capsule,delayed 60 mg PO QAM #90 caps 05/03/22 07/12/22 Rx release insulin glargine 100 unit/mL (3 15 unit (0.15 mL) subcut QAM #15 mL 05/03/22 07/12/22 Rx mL) subcutaneous pen (Lantus Solostar U-100 Insulin) famotidine 20 mg tablet 20 mg PO BID PRN heartburn 90 days 05/13/22 07/12/22 Rx #180 tabs tirzepatide 5 mg/0.5 mL 5 mg (0.5 mL) subcut WK #2 mL 05/16/22 07/12/22 Rx subcutaneous pen injector (Ramirez) oxycodone-acetaminophen 5 mg-325 1 tab PO BID PRN pain 30 days #60 06/02/22 07/12/22 Rx mg tablet tabs albuterol sulfate 90 mcg/actuation See Rx Instructions inhalation QID 07/02/22 07/12/22 Rx aerosol inhaler (Proventil HFA) PRN shortness of breath or wheezing #18 grams metoprolol tartrate 50 mg tablet 50 mg PO BID #180 tabs 07/04/22 07/12/22 Rx allopurinol 300 mg tablet 300 mg PO QAM 07/12/22 07/12/22 History hydrochlorothiazide 12.5 mg tablet 12.5 mg PO DAILY 07/12/22 07/12/22 History ropinirole 1 mg tablet 1 mg PO QPM 07/12/22 07/12/22 History Past Med/Surg History Medical History (Updated 07/12/22 @ 20:34 by Khurram Shin DO) Aortic stenosis Asthma inhaler daily/prn CAD (coronary artery disease) Chronic lower back pain Diabetes mellitus, type 2 Diabetic neuropathy Exertional angina Gout HTN (hypertension) Hyperlipidemia Insomnia Morbid obesity with BMI of 40.0-44.9, adult Osteoarthritis Restless leg syndrome Sinus tachycardia Sleep apnea mild; no device SOB (shortness of breath) on exertion Vitamin D deficiency Surgical History H/O hernia repair as a baby History of cardiac cath 12/26/19 @ [facility] with 2 stents placed History of colonoscopy 06/2021, poor prep per report History of ear surgery History of esophagogastroduodenoscopy (EGD) 07/2021 History of left hip replacement (~2018) History of total left knee replacement (TKR) History of total right knee replacement (TKR) History of wisdom tooth extraction S/P coronary artery stent placement 2 stents placed 12/26/19 @ [facility] Family History Father Heart disease Mother Heart disease Diabetes Grandfather No problems noted. Grandfather (Maternal) Lung cancer Grandmother (Maternal) Lung cancer Grandfather (Paternal) Myocardial infarction Grandmother (Paternal) Stroke Other No family history of adverse response to anesthesia Denies family history of Ovarian cancer Prostate cancer Breast cancer Colorectal cancer Social History Smoking Status: Never smoker Tobacco Type: Smokeless Tobacco (Dip or Chew) Cigarettes Per Day: 1 can a week; Second Hand Exposure: No; Do You Dip or Chew Tobacco: Yes; Hx Alcohol Use: Yes Alcohol type: beer, wine and hard liquor Alcohol type Comment: 1 drink 4-5 times weekly Hx Substance Use: No Preferred Language: American Communication Ability: Effective Visual Impairment: Limited Hearing Ability: Normal Corner Bead Operator Required: No Beliefs That Will Affect Care: None marital status: Current Living Situation: Family current occupational status: disabled 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 PEERLA. ENMT: Erythema diffusely across face, some peeling of skin. Neck: trachea midline, no thyromegaly Respiratory: normal respiratory effort; no respiratory distress Anterior lung de souza clear to auscultation bilaterally. Cardiovascular: Rate/Rhythm: regular rhythm and + tachycardic Gastrointestinal (Abdomen): Inspection/Auscultation: abdomen normal to inspection and normal bowel sounds Percussion/Palpation: abdomen soft; abdomen nontender Musculoskeletal: Tenderness of left knee to light touch, effusion of left knee. Skin: Erythema extending from left knee to foot. 3in wound of left plantar surface, no visible drainage. Clear weeping fluid from between 2nd and 3rd digits. +2 pitting edema of left lower extremity, decreased dorsalis pedis pulse of left LE . Neurologic: moves all extremities Decreased sensation to touch, pain, proprioception of bilateral lower extremities below knees. Psychiatric: A+Ox3, euthymic affect Results & Data Results & Data Vital Signs (Past 12 Hours) Vital Signs Temp Pulse Resp BP Pulse Ox O2 Del Method 07/12/22 17:00 95 H 24 97/58 L 97 07/12/22 16:17 97 H 07/12/22 16:17 92 H 98 Room Air 07/12/22 15:47 36.8 C 98 H 20 112/74 92 Room Air Laboratory Results 07/12/22 07/12/22 07/12/22 Range/Units 16:35 16:35 16:15 WBC 20.62 H (4.8-10.8) K/ul RBC 3.75 L (4.70-6.10) M/uL Hgb 11.6 L (14.0-18.0) g/dl Hct 34.6 L (42.0-52.0) % MCV 92.3 (80.0-100.0) fL MCH 30.9 (25.0-34.0) pg MCHC 33.5 (32.0-36.0) g/dL RDW Std Deviation 45.2 (36.4-46.3) fL RDW Coeff of Sunny 13.3 (11.5-14.5) % Plt Count 279 (130-400) K/uL MPV 11.6 (9.4-12.4) fL Immature Gran % (Auto) 1.6 % Neut % (Auto) 91.8 % Lymph % (Auto) 1.6 % [place] % (Auto) 4.6 % Eos % (Auto) 0.0 % Baso % (Auto) 0.4 % Neut # (Auto) 18.93 H (1.40-6.50) K/uL Lymph # (Auto) 0.33 L (1.2-3.4) K/uL [place] # (Auto) 0.95 H (0.11-0.59) K/uL Eos # (Auto) 0.00 (0-0.50) K/uL Baso # (Auto) 0.08 (0-0.2) K/uL Immature Gran # (Auto) 0.33 H (0.01-0.20) K/uL Dohle Bodies 1+ Sodium 123 L (136-145) mmol/L Potassium 5.1 (3.5-5.1) mmol/L Chloride 88 L (98-107) mmol/L Carbon Dioxide 24 (21-32) mmol/L Anion Gap 11 (3-11) BUN 55 H (6-23) mg/dl Creatinine 2.13 H (0.6-1.4) mg/dl Est Cr Clr Drug Dosing 58.3 ml/min Est GFR ( Amer) 38.6 ml/min Est GFR (Non-Af Amer) 33.3 ml/min BUN/Creatinine Ratio 25.8 H (10-20) Glucose 100 H (70-99(Fasting)) mg/dl Calcium 8.6 (8.6-10.3) mg/dl Total Bilirubin 1.0 (0.2-1.0) mg/dl AST 46 H (13-39) U/L ALT 16 (7-52) U/L Alkaline Phosphatase 150 H (34-104) U/L Total Creatine Kinase 1164 H (30-223) U/L Total Protein 8.0 (6.0-8.3) gm/dl Albumin 2.8 L (3.4-5.0) gm/dl Globulin 5.2 H (2.5-4.0) gm/dl Albumin/Globulin Ratio 0.5 L (0.9-2) Lipase 27 (11-82) U/L SARS-CoV-2, RNA, NAAT NEGATIVE (NEGATIVE) Diagnostic Findings Knee X-Ray 07/12/22 15:55 LEFT KNEE 3 VIEWS CLINICAL HISTORY: Left knee pain. FINDINGS: AP, crosstable lateral, and sunrise views of the left knee are compared to study dated 07/29/2009. The skeletal structures are osteopenic. No fracture is seen. A left knee arthroplasty is in near anatomic alignment. There has been undersurface remodeling of the patella. No periprosthetic lucency is seen. There is a joint effusion. Soft tissue swelling seen around the knee. Tiny joint bodies are suspected posteriorly. There is atherosclerotic calcification of the popliteal artery. IMPRESSION: 1. Soft tissue swelling and joint effusion with no acute bony abnormality identified. 2. A left knee arthroplasty is in near anatomic alignment. Electronically signed by: Ambrose Lopez M.D. 07/12/2022 5:32 PM Venous Doppler Study 07/12/22 15:55 ULTRASOUND LEFT LOWER EXTREMITY VENOUS CLINICAL HISTORY: Left leg pain and swelling. COMPARISON STUDY: Left lower extremity venous ultrasound dated 12/24/2019. TECHNIQUE: Real-time, grayscale, and color Doppler sonography of the deep veins of the left lower extremity was performed from the inguinal crease to the calf. Compression and augmentation were utilized. FINDINGS: There is no sonographic evidence of deep venous thrombosis identified in the left lower extremity. The common femoral, superficial femoral, and popliteal veins are patent and normally compressible. The greater saphenous vein and the profunda femoris vein at the junction with the common femoral vein are clear. The visualized calf veins are patent. Soft tissue edema is noted in the left leg. IMPRESSION: There is no sonographic evidence of deep venous thrombosis identified in the left lower extremity. ACT 112: Negative or not required by law. Electronically signed by: Ambrose Lopez M.D. 07/12/2022 6:43 PM Duplex Scan Lower Extremity Artery 07/12/22 16:23 ULTRASOUND LEFT LOWER EXTREMITY ARTERIAL CLINICAL HISTORY: Left leg swelling. Diminished pulses. COMPARISON STUDY: No priors. TECHNIQUE: Real-time grayscale and color Doppler sonography of the arteries of the left lower extremity is performed from the inguinal crease to the foot. Ankle-brachial indices were not assessed on this portable examination. FINDINGS: Atherosclerotic plaque and irregularity is seen throughout the arteries of the left lower extremity. There are biphasic arterial waveforms in the common femoral artery with velocities measuring up to 86 cm/s. The profunda femoris artery is patent with velocities measuring up to 50 cm/s. There are biphasic to triphasic waveforms throughout the superficial femoral artery with velocities measuring up to 138 cm/s. There are biphasic waveforms in the popliteal artery with velocities measuring up to 95 cm/s. There is two-vessel runoff to the foot. Biphasic waveforms are seen throughout the calf arteries. The anterior tibial and posterior tibial arteries are patent with velocities measuring up to 66 cm/s. The dorsalis pedis artery is patent with velocities measuring up to 63 cm/s. The proximal to mid portions of the peroneal artery are not visualized. The distal peroneal artery is patent with velocities measuring up to 42 cm/s. Soft tissue edema is present in the left leg. IMPRESSION: 1. No flow is shown within the proximal to midportion of the peroneal artery. This may be occluded. 2. The remaining arteries of the left lower extremity are patent. 3. No elevated velocities are seen to suggest high-grade stenosis. Dictated: 07/12/2022 6:44 PM Transcribed: 07/12/2022 7:01 PM Tawanda [id number] Iza [id number] Electronically signed by: Ambrose Lopez M.D. 07/12/2022 7:29 PM Supervising Physician Co-Signing Physician Notes Patient seen and examined, chart reviewed, case discussed with Dr. Kevin and I agree with the assessment and plan as above. In brief, patient is a 56yo male with history of DM with neuropathy, HTN, HLP, CAD and daily EtOH use presenting with LLE cellulitis and sepsis. Patient with recent wound to left foot. He has had worsening redness, swelling and edema and increased pain in his left knee. He slid out of bed and was unable to get up - down x 12 hours. As above - patient meets sepsis criteria with elevated HR and WBC with LLE cellulitis as likely source of infection. He has ADAM with Cr of 2.13 from baseline of appx 1.33. Patient reports facial cellulitis/redness/swelling last week with headache, painful movement of his eyes. On exam he is afebrile, tachycardic, borderline low blood pressure in the ER Appears ill but non-toxic LLE with erythema of LLE, foot, into thigh, some serous drainage, 2+ pitting edema, effusion of left knee +S1/S2, regular, tachycardic, 2/6 AMNA at 2nd right ICS Lungs CTA, no rales/rhonchi/wheezes Abd soft, NT/ND Ext - LLE as above Labs and images reviewed Assessment/Plan Sepsis - likely secondary to LLE cellulitis. Concern over left knee effusion as well. Patient reports significant pain and difficulty with ambulation. Will treat with broad spectrum antibiotics as above - Vancomycin and Cefepime Ortho consultation for possible aspiration left knee Rhabdomyolysis - UA pending Aggressive IVF. Monitor I/Os. Repeat chemistry and CK in AM Facial cellulitis - uncertain significance. Patient reports significant improvement over the last week. Normal mucus membranes with no evidence of ulceration or infeciton CT Head is WNL Continue monitoring EtOH daily use - no report of withdrawal AWSS at risk Remainder of plan as above Resident Activity Tracking Resident Involvement: Resident Care Provided Care Provided: [facility]
--- NOTE | 2022-07-12 19:30 | Ultrasound Report ---
ULTRASOUND LEFT LOWER EXTREMITY ARTERIAL CLINICAL HISTORY: Left leg swelling. Diminished pulses. COMPARISON STUDY: No priors. TECHNIQUE: Real-time grayscale and color Doppler sonography of the arteries of the left lower extremi ty is performed from the inguinal crease to the foot. Ankle-brachial indices were not assessed on thi s portable examination. FINDINGS: Atherosclerotic plaque and irregularity is seen throughout the arteries of the left lower e xtremity. There are biphasic arterial waveforms in the common femoral artery with velocities measurin g up to 86 cm/s. The profunda femoris artery is patent with velocities measuring up to 50 cm/s. There are biphasic to triphasic waveforms throughout the superficial femoral artery with velocities measur ing up to 138 cm/s. There are biphasic waveforms in the popliteal artery with velocities measuring up to 95 cm/s. There is two-vessel runoff to the foot. Biphasic waveforms are seen throughout the calf arteries. The anterior tibial and posterior tibial arteries are patent with velocities measuring up t o 66 cm/s. The dorsalis pedis artery is patent with velocities measuring up to 63 cm/s. The proximal to mid portions of the peroneal artery are not visualized. The distal peroneal artery is patent with velocities measuring up to 42 cm/s. Soft tissue edema is present in the left leg. IMPRESSION: 1. No flow is shown within the proximal to midportion of the peroneal artery. This may be occluded. 2. The remaining arteries of the left lower extremity are patent. 3. No elevated velocities are seen to suggest high-grade stenosis. Dictated: 07/12/2022 6:44 PM Transcribed: 07/12/2022 7:01 PM Tawanda [id number] Iza [id number] Electronically signed by: Ambrose Lopez M.D. 07/12/2022 7:29 PM
[2022-07-12] MEDS ORDERED: ACETAMINOPHEN 325 MG TAB PO PRN (21:24)
[2022-07-12] MEDS ORDERED: ALBUTEROL HFA 8 GM INHALER INH PRN (21:32)
[2022-07-12] MEDS ORDERED: oxyCODONE/ACETAMINOPHEN 5mg/325mg TAB PO PRN (21:32)
[2022-07-12] MEDS ORDERED: NITROGLYCERIN SL 0.4 MG/TAB TAB SL PRN (21:32)
[2022-07-12] MEDS ORDERED: FAMOTIDINE 20 MG TAB PO PRN (21:32)
[2022-07-12] MEDS ORDERED: GLUCAGON FOR INJ 1 MG VIAL SQ PRN (21:39)
[2022-07-12] MEDS ORDERED: GLUCOSE 10 TAB/TUBE PO PRN (21:39)
[2022-07-12] MEDS ORDERED: CARBOHYDRATES FOR HYPOGLYCEMIA PO PRN (21:39)
[2022-07-12 21:48] LABS: Magnesium 1.7 mg/dl (1.7-2.4)
[2022-07-12] MEDS ORDERED: PIPERACILLIN/TAZOBACTAM 4.5 GM in DEXTROSE 5% 100 ML IV ONE (22:00)
[2022-07-12] MEDS: SODIUM CHLORIDE 0.9% 1000ML 1,000 ML IV SCH (22:00)
[2022-07-12] MEDS ORDERED: DAPTOmycin 650 MG in SYRINGE 0 ML IV SCH (22:00)
--- NOTE | 2022-07-12 22:08 | XRay Report ---
LEFT FOOT 2 VIEWS CLINICAL HISTORY: Left foot infection. FINDINGS: AP and lateral views of the left foot are obtained. No prior studies are available for wolfgang freire at the time of dictation. The skeletal structures are heterogeneously osteopenic. No acute fra cture seen. Moderate osteoarthritic change is seen throughout the foot, greatest at the first metatar sophalangeal joint and at the tarsometatarsal articulations. An os trigonum and an os navicularis are incidentally noted. Suspect chronic posttraumatic deformity of the distal tibia and fibula. Degenera tive spurring is seen along the dorsal aspect of the tarsal bones. No bony erosion or periostitis is identified. Soft tissue edema is present throughout the foot. No radiodense foreign body is identifie d. IMPRESSION: 1. Soft tissue swelling with no acute bony abnormality identified. 2. Osteopenia and arthritic change as above. Electronically signed by: Ambrose Lopez M.D. 07/12/2022 10:07 PM
--- NOTE | 2022-07-12 22:28 | CT Scan Report ---
Exam(s): CT HEAD Without Contrast EXAM: CT Head Without Intravenous Contrast CLINICAL HISTORY: Reason for exam: facial swelling. TECHNIQUE: Axial computed tomography images of the head/brain without intravenous contrast. CTDI is 38.3 mGy and DLP is 625.8 mGy-cm. Automated exposure control was utilized for the study. A dose lowering technique was utilized adhering to the principles of ALARA. COMPARISON: No relevant prior studies available. FINDINGS: Brain: See below. Ventricles: Unremarkable. No ventriculomegaly. Bones/joints: Unremarkable. No acute fracture. Soft tissues: Unremarkable. Lymph nodes: Trace amount of periventricular white matter lymphadenopathy consistent with early chronic small vessel disease. The brain is otherwise unremarkable. No acute large vessel infarct or intracranial hemorrhage is seen. Sinuses: Unremarkable as visualized. No acute sinusitis. Mastoid air cells: Unremarkable as visualized. No mastoid effusion. IMPRESSION: No acute findings in the head/brain. Electronically signed by: Bandar Copeland MD 07/12/22 22:27 PM
[2022-07-12] MEDS ORDERED: PIPERACILLIN/TAZOBACTAM 4.5 GM/120ML D5W IV ONE (23:40)
[2022-07-13] MEDS ORDERED: LORazepam 2 MG/1 ML VIAL IV PRN (00:38)
[2022-07-13] MEDS: DEXTROSE 50% 50 ML SYRINGE IV PRN ×2 (00:41→13:15)
[2022-07-13] MEDS: HEPARIN SOD 5,000 UNIT/0.5 ML VIAL SQ SCH ×4 (01:32→23:50)
[2022-07-13 02:03] LABS: Appearance Urine Turbid (Clear); Bacteria Urine Automated Negative (Negative); Bilirubin Urine 1+ (Negative); Blood Urine Trace (Negative); Color Urine Dark Yellow; Epithelial Cell Urine Auto >30 /lpf (0-5); Glucose Urine UA Negative (Negative); Ketones Urine Trace (Negative); Leukocyte Esterase Urine 1+ (Negative); Nitrite Urine Positive (Negative); Protein Urine Trace (Negative); Specific Gravity Urine 1.026 (1.000-1.030); Urobilinogen Urine Negative (Negative)
[2022-07-13 02:14] LABS: Cast Urine Automated 0 /lpf (0-5); RBC Urine Automated 0-4 /hpf (0-4)
--- NOTE | 2022-07-13 02:14 | Billing Data ---
Date of Service July 12, 2022 Coding Level of Care Code 40560 INT INP/OBS CARE
[2022-07-13 02:26] LABS: Creatinine Urine Random 240.1 mg/dl
[2022-07-13] MEDS: CEFEPIME 2,000 MG in SYRINGE 0 ML IV SCH ×2 (03:20→13:38)
[2022-07-13] MEDS ORDERED: PIPERACILLIN/TAZOBACTAM 4.5 GM in DEXTROSE 5% 100 ML IV SCH (04:00)
[2022-07-13] MEDS: SODIUM CHLORIDE 0.9% 1000ML 1,000 ML IV SCH ×2 (04:59→11:20)
[2022-07-13 07:30] LABS: Hematocrit (blood only) 28.2 % (42.0-52.0); Hemoglobin 9.7 g/dl (14.0-18.0); Mean Corpuscular Hemoglobin 31.1 pg (25.0-34.0); Mean Corpuscular Hgb Conc 34.4 g/dL (32.0-36.0); Mean Corpuscular Volume 90.4 fL (80.0-100.0); Mean Platelet Volume 11.6 fL (9.4-12.4); Platelet Count 225 K/uL (130-400); RDW Coefficient of Variation 13.5 % (11.5-14.5); RDW Standard Deviation 44.2 fL (36.4-46.3); Red Blood Count 3.12 M/uL (4.70-6.10); White Blood Count 15.83 K/ul (4.8-10.8)
[2022-07-13 07:43] LABS: BUN Creatinine Ratio 27.5 (10-20); Calcium 7.7 mg/dl (8.6-10.3); Creatinine Clr Calc Pharmacy 59.8 ml/min; Est GFR (African American) 39.1 ml/min; Est GFR (Non-African American) 33.7 ml/min; Potassium 4.5 mmol/L (3.5-5.1)
[2022-07-13] MEDS: FLUTICASONE/VILANTEROL 100/25MCG 14 PUFFS/INHALER INH SCH (07:54)
[2022-07-13] MEDS: DULoxetine HCL 60 MG CAP PO SCH (07:55)
[2022-07-13] MEDS: METOPROLOL TARTRATE 50 MG TAB PO SCH ×2 (07:55→21:00)
[2022-07-13] MEDS: allopurinoL 100 MG TAB PO SCH (07:55)
[2022-07-13 07:58] LABS: Basophils # (auto) 0.08 K/uL (0-0.2); Basophils % (auto) 0.5 %; Eosinophils # (auto) 0.02 K/uL (0-0.50); Eosinophils % (auto) 0.1 %; Immature Granulocytes # (auto) 0.31 K/uL (0.01-0.20); Lymphocytes # (auto) 0.24 K/uL (1.2-3.4); Lymphocytes % (auto) 1.5 %; Monocytes # (auto) 0.43 K/uL (0.11-0.59); Monocytes % (auto) 2.7 %; Neutrophils # (auto) 14.75 K/uL (1.40-6.50); Neutrophils % (auto) 93.2 %; Toxic Vacuolation 3+
--- NOTE | 2022-07-13 08:04 | Hospitalist Progress Note ---
Date of Service July 13, 2022 Assessment & Plan (1) Cellulitis: Plan: Wisam Copeland is a 56 year old male with past medical history of T2DM, diabetic neuropathy, obesity, asthma, HTN, Alcohol Use Disorder, CAD, hepatic steatosis, left knee arthroplasty who presented to the ED with left knee pain and inability to ambulate. Found to have LLE Cellulitis/Sepsis 2nd to infection L foot/knee possibly. Had not been able to get up/down x 12 hrs, CK elevated on admission to 1164 Left Lower Extremity Cellulitis, Sepsis Etiology possibly secondary to left plantar surface wound Currently meeting SIRS criteria with HR >90 and WBC >12k L Knee XR: soft tissue swelling/joint effusion Duplex L LE Arterial Scan: "No flow is shown within the proximal to midportion of the peroneal artery. This may be occluded." -->Distal portion of peroneal artery with good flow, per Dr. Mcmanus no need for anticoagulation with the above finding LE Duplex: negative for DVT WBC 20.62k on admission, CRP elevated 52.9 --> WBC 15.8k Xray w/o evidence for osteomyelitis Orthopedic consult pending -- appreciate recs Blood cultures pending (patient already received IV abx prior to draw). Temp 38C at 1am 07/13 Continue Zosyn, Vancomycin. MRSA nares negative Elevate extremity, Wound Rn consulted Pain control -- PO percocet, IV dilaudid added PRN. Antiemetics prn Check CXR given O2 use, suspect patient w/ underlying KAMLESH however. Can check overnight pulse ox if CXR normal and able to titrate to room air today. Could also be from pain medication use PT/OT DVT Prophylaxis: Heparin 5000u q8h Monitor labs in AM Of note, did check Lyme given effusion as well -- initial IgG positive, IgM negative. WB pending. Denied any recent tick bites, however does have scab/effusion. Did get dose of Ceftriaxone as well in the ER. Monitor WB for now but given improvement will continue to monitor for now Facial cellulitis also improving on current regimen. ?petar syndrome (2) ADAM (acute kidney injury): Plan: BUN/Cr elevated on admission 55/2.13. Suspect 2nd to poor PO intake/diarrhea Given IVF on admission for rhabdomyolysis as well. CK improving. Renal dose meds/avoid nephrotoxins as able Holding lisinopril/HCTZ NA 123--> 124 Will also check TSH given prior low sodium levels, BNP given LE edema. Prior ECHO Nov 2019 w/ mild , EF 65-70% Remains on IVF for elevated CK, holding statin at present Electrolyte Abnormalities: Hyponatremia -Na 123 on admission, suspected 2nd to hypovolemia. Also on HCTZ 12.mg daily. Also etoh use Only improved to 124 at present, continues on IVF Repeat levels for this afternoon Also reported alcohol use (last drink ~ 2 days ago), no evidence for DT at present but could have been cause for recent diarrhea if not drinking Checking TSH/BNP for further info, BMP this afternoon on continuos IVF Urine Na only 25, no salt wasting suspected ?beer potomania Monitor levels on repeat Alcohol Use Disorder Patient reports 2+ drinks per day of hard liquor, last drink 2 days ago No prior history of withdrawal AWSS at risk Also, prior B12 level low normal and hx restless legs Will check B12/folate. start empiric thiamine (3) Rhabdomyolysis: Plan: was down for ~12 hours -CK 1164 --> 452. W/ ADAM Continue IVF holding lisinopril/HCTZ given ADAM Checking CXR given hypoxia/possible volume overload state no evidence for compartment syndrome at present (4) Proteinuria due to type 2 diabetes mellitus: Plan: Most recent A1C: 7.8% Home meds include Mounjaro (recently started), Glipizide, Metformin, Insulin Sliding scale insulin while admitted --> BSGs dropped this afternoon to 50/60s, asymptomatic. Glucose w/ lab x 1 now. Loosened SSI parameters for CF to 45, CR to 15 Decreased long acting to 10u BID and will monitor Mag checked -- low 1.6, 2gm IV ordered also w/ diabetic neuropathy/chronic pain -Continue home Duloxetine, Percocet -Check b12 w/ next labs (5) HTN (hypertension): Plan: Hold home Lisinopril due to ADAM BP 121/66 at present -- monitor Holding home statin given elevated CK on admission (6) Aortic stenosis: Plan: noted, mild on exam consider dose lasix to assist w/ edema Electrolyte Abnormalities: Hyponatremia -Na 123 on admission, suspected 2nd to hypovolemia Only improved to 124 at present, continues on IVF Repeat levels for this afternoon Also reported alcohol use (last drink ~ 2 days ago), no evidence for DT at present but could have been cause for recent diarrhea if not drinking Also on HCTZ 12.5mg daily -- consider discontinuing this at d/c pending further testing Checking TSH/BNP for further info, BMP this afternoon on continuos IVF Urine Na only 25, no salt wasting suspected ?beer potomania Monitor levels on repeat Alcohol Use Disorder Patient reports 2+ drinks per day of hard liquor, last drink 2 days ago No prior history of withdrawal AWSS at risk Also, prior B12 level low normal and hx restless legs Will check B12/folate. start empiric thiamine (7) Leukocytosis: Plan: improving w/ abx. monitor on repeat. temp this am 38C (8) Restless leg syndrome: Plan: Continue home Ropinirole (9) Splenomegaly: Plan: noted. ?lyme -- monitor WB, consider changing abx to include ceftriaxone vs doxy for MRSA coverage in place of Vanco but will monitor for now (avoiding dapto given elevated CK) (10) Hepatic steatosis: Plan: noted. likley from alcohol use (11) Uncontrolled hypertension: (12) CAD (coronary artery disease): Plan continued inpatient stay on abx ortho consulted monitor blood cultures f/u WB testing for Lyme Admission and Anticipated Discharge Date Admission Date: July 12, 2022 Supervising Physician Co-Signing Physician Notes The patient was not seen by me. The chart was reviewed. Case discussed with RAJI Esquivel. Agree with assessment and plan Subjective eval this morning around 11am. Pain ok at present but not fully controlled with ordered medications. Noted cutting his foot several weeks ago, but acute onset of redness/swelling/pain and inability to ambulate. Redness signifciantly improving within markings, further elevated extremity on pillow. Not yet seen by orthopedics yet this morning, but discussed consult placed. No recent tick bites that he is aware of, no prior tx for Lyme and discussed initial testing and WB send out but will continue current abx given improvement of erythema on examination. Will adjust pain medication. On 2L, no history of KAMLESH or shortness of breath reported. Physical Exam Physical Exam: General: morbidly obese male resting in bed, mildly uncomfortable appearing w/ movements HEENT: head normocephalic, thick neck, mmm, trachea midline facial cellulitis resolving Resp: CTA, diminished in the bases, no w/c, on 2L NC CV: regular rate/rhythm, no significant m/r/g, pitting edema 2+ b/l LE (slightly worse w/ erythema to LLE) GI: +BS, soft/NT : no perea MSK/Neuro: erythema from left foot to knee, 3inch wound LEFT plantar surface without active drainage, dressing c/d/i clear/yellow weeping fluid present to anterior enciso. 2+ pitting edema, decreased pulse but palpable, significant tenderness to palpation/movement of his leg. cap refill wnl no focal deficit RIGHT leg, medial thigh w/ scab present Psych: AOx3 , cooperative with exam Musculoskeletal: Tenderness of left knee to light touch, effusion of left knee. Results & Data Results & Data Vital Signs (Past 12 Hours) Vital Signs Temp Pulse Resp BP Pulse Ox O2 Del Method O2 Flow Rate 07/13/22 07:56 36.7 C 107 H 24 121/66 94 Nasal Cannula 2 07/13/22 01:57 36.9 C 96 Nasal Cannula 2 07/13/22 01:41 38.0 C H 102 H 18 110/63 90 Room Air 07/13/22 01:14 Room Air 07/13/22 01:14 37.4 C 110 H 20 147/75 H 96 Room Air 07/12/22 23:31 105 H 18 115/65 07/12/22 21:00 94 H 20 118/63 94 Room Air Laboratory Results 07/13/22 07/13/22 07/13/22 Range/Units 08:21 08:21 08:00 WBC (4.8-10.8) K/ul RBC (4.70-6.10) M/uL Hgb (14.0-18.0) g/dl Hct (42.0-52.0) % MCV (80.0-100.0) fL MCH (25.0-34.0) pg MCHC (32.0-36.0) g/dL RDW Std Deviation (36.4-46.3) fL RDW Coeff of Sunny (11.5-14.5) % Plt Count (130-400) K/uL MPV (9.4-12.4) fL Immature Gran % (Auto) % Neut % (Auto) % Lymph % (Auto) % Wayne % (Auto) % Eos % (Auto) % Baso % (Auto) % Neut # (Auto) (1.40-6.50) K/uL Lymph # (Auto) (1.2-3.4) K/uL Wayne # (Auto) (0.11-0.59) K/uL Eos # (Auto) (0-0.50) K/uL Baso # (Auto) (0-0.2) K/uL Immature Gran # (Auto) (0.01-0.20) K/uL Toxic Vacuolation Dohle Bodies Sodium (136-145) mmol/L Potassium (3.5-5.1) mmol/L Chloride (98-107) mmol/L Carbon Dioxide (21-32) mmol/L Anion Gap (3-11) BUN (6-23) mg/dl Creatinine (0.6-1.4) mg/dl Est Cr Clr Drug Dosing ml/min Est GFR ( Amer) ml/min Est GFR (Non-Af Amer) ml/min BUN/Creatinine Ratio (10-20) Glucose (70-99(Fasting)) mg/dl POC Glucose 90 (70-99) mg/dl Lactate (0.4-2.0) mmol/L Calcium (8.6-10.3) mg/dl Magnesium (1.7-2.4) mg/dl Total Bilirubin (0.2-1.0) mg/dl AST (13-39) U/L ALT (7-52) U/L Alkaline Phosphatase (34-104) U/L Total Creatine Kinase (30-223) U/L C-Reactive Protein (0-0.5) mg/dl Total Protein (6.0-8.3) gm/dl Albumin (3.4-5.0) gm/dl Globulin (2.5-4.0) gm/dl Albumin/Globulin Ratio (0.9-2) Lipase (11-82) U/L Urine Color Urine Appearance (Clear) Urine pH (4.5-7.5) Ur Specific [place] (1.000-1.030) Urine Protein (Negative) Urine Glucose (UA) (Negative) Urine Ketones (Negative) Urine Blood (Negative) Urine Nitrite (Negative) Urine Bilirubin (Negative) Urine Urobilinogen (Negative) Ur Leukocyte Esterase (Negative) Urine WBC (Auto) (0-5) /hpf Urine RBC (Auto) (0-4) /hpf U Hyaline Cast (Auto) (0-5) /lpf U Epithel Cells (Auto) (0-5) /lpf Urine Bacteria (Auto) (Negative) Urine Yeast Ur Random Creatinine mg/dl Ur Random Sodium mmol/L Nasal Screen MRSA (PCR) (Negative) Ethyl Alcohol mg/dL (<10.0) mg/dl Lyme Disease IgG Ab Negative (Negative) Lyme IgG (Western Blot) Pending Lyme IgG 18 kDa Band Pending Lyme IgG 23 kDa Band Pending Lyme IgG 28 kDa Band Pending Lyme IgG 30 kDa Band Pending Lyme IgG 39 kDa Band Pending Lyme IgG 41 kDa Band Pending Lyme IgG 45 kDa Band Pending Lyme IgG 58 kDa Band Pending Lyme IgG 66 kDa Band Pending Lyme IgG 93 kDa Band Pending Lyme IgM Ab (WB) Pending Lyme Disease IgM Ab Positive A (Negative) Lyme IgM 23 kDa Band Pending Lyme IgM 39 kDa Band Pending Lyme IgM 41 kDa Band Pending SARS-CoV-2, RNA, NAAT (NEGATIVE) 07/13/22 07/13/22 07/13/22 Range/Units 06:49 06:49 04:59 WBC 15.83 H (4.8-10.8) K/ul RBC 3.12 L (4.70-6.10) M/uL Hgb 9.7 L (14.0-18.0) g/dl Hct 28.2 L (42.0-52.0) % MCV 90.4 (80.0-100.0) fL MCH 31.1 (25.0-34.0) pg MCHC 34.4 (32.0-36.0) g/dL RDW Std Deviation 44.2 (36.4-46.3) fL RDW Coeff of Sunny 13.5 (11.5-14.5) % Plt Count 225 (130-400) K/uL MPV 11.6 (9.4-12.4) fL Immature Gran % (Auto) 2.0 % Neut % (Auto) 93.2 % Lymph % (Auto) 1.5 % Wayne % (Auto) 2.7 % Eos % (Auto) 0.1 % Baso % (Auto) 0.5 % Neut # (Auto) 14.75 H (1.40-6.50) K/uL Lymph # (Auto) 0.24 L (1.2-3.4) K/uL Wayne # (Auto) 0.43 (0.11-0.59) K/uL Eos # (Auto) 0.02 (0-0.50) K/uL Baso # (Auto) 0.08 (0-0.2) K/uL Immature Gran # (Auto) 0.31 H (0.01-0.20) K/uL Toxic Vacuolation 3+ Dohle Bodies Sodium 124 L (136-145) mmol/L Potassium 4.5 (3.5-5.1) mmol/L Chloride 94 L (98-107) mmol/L Carbon Dioxide 21 (21-32) mmol/L Anion Gap 9 (3-11) BUN 58 H (6-23) mg/dl Creatinine 2.11 H (0.6-1.4) mg/dl Est Cr Clr Drug Dosing 59.8 ml/min Est GFR ( Amer) 39.1 ml/min Est GFR (Non-Af Amer) 33.7 ml/min BUN/Creatinine Ratio 27.5 H (10-20) Glucose 78 (70-99(Fasting)) mg/dl POC Glucose 75 (70-99) mg/dl Lactate (0.4-2.0) mmol/L Calcium 7.7 L (8.6-10.3) mg/dl Magnesium (1.7-2.4) mg/dl Total Bilirubin (0.2-1.0) mg/dl AST (13-39) U/L ALT (7-52) U/L Alkaline Phosphatase (34-104) U/L Total Creatine Kinase 452 H (30-223) U/L C-Reactive Protein 52.95 H (0-0.5) mg/dl Total Protein (6.0-8.3) gm/dl Albumin (3.4-5.0) gm/dl Globulin (2.5-4.0) gm/dl Albumin/Globulin Ratio (0.9-2) Lipase (11-82) U/L Urine Color Urine Appearance (Clear) Urine pH (4.5-7.5) Ur Specific [place] (1.000-1.030) Urine Protein (Negative) Urine Glucose (UA) (Negative) Urine Ketones (Negative) Urine Blood (Negative) Urine Nitrite (Negative) Urine Bilirubin (Negative) Urine Urobilinogen (Negative) Ur Leukocyte Esterase (Negative) Urine WBC (Auto) (0-5) /hpf Urine RBC (Auto) (0-4) /hpf U Hyaline Cast (Auto) (0-5) /lpf U Epithel Cells (Auto) (0-5) /lpf Urine Bacteria (Auto) (Negative) Urine Yeast Ur Random Creatinine mg/dl Ur Random Sodium mmol/L Nasal Screen MRSA (PCR) (Negative) Ethyl Alcohol mg/dL (<10.0) mg/dl Lyme Disease IgG Ab (Negative) Lyme IgG (Western Blot) Lyme IgG 18 kDa Band Lyme IgG 23 kDa Band Lyme IgG 28 kDa Band Lyme IgG 30 kDa Band Lyme IgG 39 kDa Band Lyme IgG 41 kDa Band Lyme IgG 45 kDa Band Lyme IgG 58 kDa Band Lyme IgG 66 kDa Band Lyme IgG 93 kDa Band Lyme IgM Ab (WB) Lyme Disease IgM Ab (Negative) Lyme IgM 23 kDa Band Lyme IgM 39 kDa Band Lyme IgM 41 kDa Band SARS-CoV-2, RNA, NAAT (NEGATIVE) 07/13/22 07/13/22 07/13/22 Range/Units 01:49 01:49 01:42 WBC (4.8-10.8) K/ul RBC (4.70-6.10) M/uL Hgb (14.0-18.0) g/dl Hct (42.0-52.0) % MCV (80.0-100.0) fL MCH (25.0-34.0) pg MCHC (32.0-36.0) g/dL RDW Std Deviation (36.4-46.3) fL RDW Coeff of Sunny (11.5-14.5) % Plt Count (130-400) K/uL MPV (9.4-12.4) fL Immature Gran % (Auto) % Neut % (Auto) % Lymph % (Auto) % Wayne % (Auto) % Eos % (Auto) % Baso % (Auto) % Neut # (Auto) (1.40-6.50) K/uL Lymph # (Auto) (1.2-3.4) K/uL Wayne # (Auto) (0.11-0.59) K/uL Eos # (Auto) (0-0.50) K/uL Baso # (Auto) (0-0.2) K/uL Immature Gran # (Auto) (0.01-0.20) K/uL Toxic Vacuolation Dohle Bodies Sodium (136-145) mmol/L Potassium (3.5-5.1) mmol/L Chloride (98-107) mmol/L Carbon Dioxide (21-32) mmol/L Anion Gap (3-11) BUN (6-23) mg/dl Creatinine (0.6-1.4) mg/dl Est Cr Clr Drug Dosing ml/min Est GFR ( Amer) ml/min Est GFR (Non-Af Amer) ml/min BUN/Creatinine Ratio (10-20) Glucose (70-99(Fasting)) mg/dl POC Glucose (70-99) mg/dl Lactate (0.4-2.0) mmol/L Calcium (8.6-10.3) mg/dl Magnesium (1.7-2.4) mg/dl Total Bilirubin (0.2-1.0) mg/dl AST (13-39) U/L ALT (7-52) U/L Alkaline Phosphatase (34-104) U/L Total Creatine Kinase (30-223) U/L C-Reactive Protein (0-0.5) mg/dl Total Protein (6.0-8.3) gm/dl Albumin (3.4-5.0) gm/dl Globulin (2.5-4.0) gm/dl Albumin/Globulin Ratio (0.9-2) Lipase (11-82) U/L Urine Color Dark Yellow Urine Appearance Turbid A (Clear) Urine pH 5.0 (4.5-7.5) Ur Specific [place] 1.026 (1.000-1.030) Urine Protein Trace H (Negative) Urine Glucose (UA) Negative (Negative) Urine Ketones Trace H (Negative) Urine Blood Trace H (Negative) Urine Nitrite Positive A (Negative) Urine Bilirubin 1+ H (Negative) Urine Urobilinogen Negative (Negative) Ur Leukocyte Esterase 1+ H (Negative) Urine WBC (Auto) 10-30 H (0-5) /hpf Urine RBC (Auto) 0-4 (0-4) /hpf U Hyaline Cast (Auto) 0 (0-5) /lpf U Epithel Cells (Auto) >30 H (0-5) /lpf Urine Bacteria (Auto) Negative (Negative) Urine Yeast Not Reportable Ur Random Creatinine 240.1 mg/dl Ur Random Sodium 25 mmol/L Nasal Screen MRSA (PCR) Negative (Negative) Ethyl Alcohol mg/dL (<10.0) mg/dl Lyme Disease IgG Ab (Negative) Lyme IgG (Western Blot) Lyme IgG 18 kDa Band Lyme IgG 23 kDa Band Lyme IgG 28 kDa Band Lyme IgG 30 kDa Band Lyme IgG 39 kDa Band Lyme IgG 41 kDa Band Lyme IgG 45 kDa Band Lyme IgG 58 kDa Band Lyme IgG 66 kDa Band Lyme IgG 93 kDa Band Lyme IgM Ab (WB) Lyme Disease IgM Ab (Negative) Lyme IgM 23 kDa Band Lyme IgM 39 kDa Band Lyme IgM 41 kDa Band SARS-CoV-2, RNA, NAAT (NEGATIVE) 07/13/22 07/13/22 07/13/22 Range/Units 01:00 00:56 00:39 WBC (4.8-10.8) K/ul RBC (4.70-6.10) M/uL Hgb (14.0-18.0) g/dl Hct (42.0-52.0) % MCV (80.0-100.0) fL MCH (25.0-34.0) pg MCHC (32.0-36.0) g/dL RDW Std Deviation (36.4-46.3) fL RDW Coeff of Sunny (11.5-14.5) % Plt Count (130-400) K/uL MPV (9.4-12.4) fL Immature Gran % (Auto) % Neut % (Auto) % Lymph % (Auto) % Wayne % (Auto) % Eos % (Auto) % Baso % (Auto) % Neut # (Auto) (1.40-6.50) K/uL Lymph # (Auto) (1.2-3.4) K/uL Wayne # (Auto) (0.11-0.59) K/uL Eos # (Auto) (0-0.50) K/uL Baso # (Auto) (0-0.2) K/uL Immature Gran # (Auto) (0.01-0.20) K/uL Toxic Vacuolation Dohle Bodies Sodium (136-145) mmol/L Potassium (3.5-5.1) mmol/L Chloride (98-107) mmol/L Carbon Dioxide (21-32) mmol/L Anion Gap (3-11) BUN (6-23) mg/dl Creatinine (0.6-1.4) mg/dl Est Cr Clr Drug Dosing ml/min Est GFR ( Amer) ml/min Est GFR (Non-Af Amer) ml/min BUN/Creatinine Ratio (10-20) Glucose (70-99(Fasting)) mg/dl POC Glucose 90 41 L* (70-99) mg/dl Lactate 1.7 (0.4-2.0) mmol/L Calcium (8.6-10.3) mg/dl Magnesium (1.7-2.4) mg/dl Total Bilirubin (0.2-1.0) mg/dl AST (13-39) U/L ALT (7-52) U/L Alkaline Phosphatase (34-104) U/L Total Creatine Kinase (30-223) U/L C-Reactive Protein (0-0.5) mg/dl Total Protein (6.0-8.3) gm/dl Albumin (3.4-5.0) gm/dl Globulin (2.5-4.0) gm/dl Albumin/Globulin Ratio (0.9-2) Lipase (11-82) U/L Urine Color Urine Appearance (Clear) Urine pH (4.5-7.5) Ur Specific [place] (1.000-1.030) Urine Protein (Negative) Urine Glucose (UA) (Negative) Urine Ketones (Negative) Urine Blood (Negative) Urine Nitrite (Negative) Urine Bilirubin (Negative) Urine Urobilinogen (Negative) Ur Leukocyte Esterase (Negative) Urine WBC (Auto) (0-5) /hpf Urine RBC (Auto) (0-4) /hpf U Hyaline Cast (Auto) (0-5) /lpf U Epithel Cells (Auto) (0-5) /lpf Urine Bacteria (Auto) (Negative) Urine Yeast Ur Random Creatinine mg/dl Ur Random Sodium mmol/L Nasal Screen MRSA (PCR) (Negative) Ethyl Alcohol mg/dL (<10.0) mg/dl Lyme Disease IgG Ab (Negative) Lyme IgG (Western Blot) Lyme IgG 18 kDa Band Lyme IgG 23 kDa Band Lyme IgG 28 kDa Band Lyme IgG 30 kDa Band Lyme IgG 39 kDa Band Lyme IgG 41 kDa Band Lyme IgG 45 kDa Band Lyme IgG 58 kDa Band Lyme IgG 66 kDa Band Lyme IgG 93 kDa Band Lyme IgM Ab (WB) Lyme Disease IgM Ab (Negative) Lyme IgM 23 kDa Band Lyme IgM 39 kDa Band Lyme IgM 41 kDa Band SARS-CoV-2, RNA, NAAT (NEGATIVE) 07/13/22 07/12/22 07/12/22 Range/Units 00:37 19:30 16:35 WBC (4.8-10.8) K/ul RBC (4.70-6.10) M/uL Hgb (14.0-18.0) g/dl Hct (42.0-52.0) % MCV (80.0-100.0) fL MCH (25.0-34.0) pg MCHC (32.0-36.0) g/dL RDW Std Deviation (36.4-46.3) fL RDW Coeff of Sunny (11.5-14.5) % Plt Count (130-400) K/uL MPV (9.4-12.4) fL Immature Gran % (Auto) % Neut % (Auto) % Lymph % (Auto) % Wayne % (Auto) % Eos % (Auto) % Baso % (Auto) % Neut # (Auto) (1.40-6.50) K/uL Lymph # (Auto) (1.2-3.4) K/uL Wayne # (Auto) (0.11-0.59) K/uL Eos # (Auto) (0-0.50) K/uL Baso # (Auto) (0-0.2) K/uL Immature Gran # (Auto) (0.01-0.20) K/uL Toxic Vacuolation Dohle Bodies Sodium 123 L (136-145) mmol/L Potassium 5.1 (3.5-5.1) mmol/L Chloride 88 L (98-107) mmol/L Carbon Dioxide 24 (21-32) mmol/L Anion Gap 11 (3-11) BUN 55 H (6-23) mg/dl Creatinine 2.13 H (0.6-1.4) mg/dl Est Cr Clr Drug Dosing 58.3 ml/min Est GFR ( Amer) 38.6 ml/min Est GFR (Non-Af Amer) 33.3 ml/min BUN/Creatinine Ratio 25.8 H (10-20) Glucose 100 H (70-99(Fasting)) mg/dl POC Glucose 41 L* (70-99) mg/dl Lactate (0.4-2.0) mmol/L Calcium 8.6 (8.6-10.3) mg/dl Magnesium 1.7 (1.7-2.4) mg/dl Total Bilirubin 1.0 (0.2-1.0) mg/dl AST 46 H (13-39) U/L ALT 16 (7-52) U/L Alkaline Phosphatase 150 H (34-104) U/L Total Creatine Kinase 1164 H (30-223) U/L C-Reactive Protein (0-0.5) mg/dl Total Protein 8.0 (6.0-8.3) gm/dl Albumin 2.8 L (3.4-5.0) gm/dl Globulin 5.2 H (2.5-4.0) gm/dl Albumin/Globulin Ratio 0.5 L (0.9-2) Lipase 27 (11-82) U/L Urine Color Urine Appearance (Clear) Urine pH (4.5-7.5) Ur Specific [place] (1.000-1.030) Urine Protein (Negative) Urine Glucose (UA) (Negative) Urine Ketones (Negative) Urine Blood (Negative) Urine Nitrite (Negative) Urine Bilirubin (Negative) Urine Urobilinogen (Negative) Ur Leukocyte Esterase (Negative) Urine WBC (Auto) (0-5) /hpf Urine RBC (Auto) (0-4) /hpf U Hyaline Cast (Auto) (0-5) /lpf U Epithel Cells (Auto) (0-5) /lpf Urine Bacteria (Auto) (Negative) Urine Yeast Ur Random Creatinine mg/dl Ur Random Sodium mmol/L Nasal Screen MRSA (PCR) (Negative) Ethyl Alcohol mg/dL < 10.0 (<10.0) mg/dl Lyme Disease IgG Ab (Negative) Lyme IgG (Western Blot) Lyme IgG 18 kDa Band Lyme IgG 23 kDa Band Lyme IgG 28 kDa Band Lyme IgG 30 kDa Band Lyme IgG 39 kDa Band Lyme IgG 41 kDa Band Lyme IgG 45 kDa Band Lyme IgG 58 kDa Band Lyme IgG 66 kDa Band Lyme IgG 93 kDa Band Lyme IgM Ab (WB) Lyme Disease IgM Ab (Negative) Lyme IgM 23 kDa Band Lyme IgM 39 kDa Band Lyme IgM 41 kDa Band SARS-CoV-2, RNA, NAAT (NEGATIVE) 07/12/22 07/12/22 Range/Units 16:35 16:15 WBC 20.62 H (4.8-10.8) K/ul RBC 3.75 L (4.70-6.10) M/uL Hgb 11.6 L (14.0-18.0) g/dl Hct 34.6 L (42.0-52.0) % MCV 92.3 (80.0-100.0) fL MCH 30.9 (25.0-34.0) pg MCHC 33.5 (32.0-36.0) g/dL RDW Std Deviation 45.2 (36.4-46.3) fL RDW Coeff of Sunny 13.3 (11.5-14.5) % Plt Count 279 (130-400) K/uL MPV 11.6 (9.4-12.4) fL Immature Gran % (Auto) 1.6 % Neut % (Auto) 91.8 % Lymph % (Auto) 1.6 % Wayne % (Auto) 4.6 % Eos % (Auto) 0.0 % Baso % (Auto) 0.4 % Neut # (Auto) 18.93 H (1.40-6.50) K/uL Lymph # (Auto) 0.33 L (1.2-3.4) K/uL Wayne # (Auto) 0.95 H (0.11-0.59) K/uL Eos # (Auto) 0.00 (0-0.50) K/uL Baso # (Auto) 0.08 (0-0.2) K/uL Immature Gran # (Auto) 0.33 H (0.01-0.20) K/uL Toxic Vacuolation Dohle Bodies 1+ Sodium (136-145) mmol/L Potassium (3.5-5.1) mmol/L Chloride (98-107) mmol/L Carbon Dioxide (21-32) mmol/L Anion Gap (3-11) BUN (6-23) mg/dl Creatinine (0.6-1.4) mg/dl Est Cr Clr Drug Dosing ml/min Est GFR ( Amer) ml/min Est GFR (Non-Af Amer) ml/min BUN/Creatinine Ratio (10-20) Glucose (70-99(Fasting)) mg/dl POC Glucose (70-99) mg/dl Lactate (0.4-2.0) mmol/L Calcium (8.6-10.3) mg/dl Magnesium (1.7-2.4) mg/dl Total Bilirubin (0.2-1.0) mg/dl AST (13-39) U/L ALT (7-52) U/L Alkaline Phosphatase (34-104) U/L Total Creatine Kinase (30-223) U/L C-Reactive Protein (0-0.5) mg/dl Total Protein (6.0-8.3) gm/dl Albumin (3.4-5.0) gm/dl Globulin (2.5-4.0) gm/dl Albumin/Globulin Ratio (0.9-2) Lipase (11-82) U/L Urine Color Urine Appearance (Clear) Urine pH (4.5-7.5) Ur Specific [place] (1.000-1.030) Urine Protein (Negative) Urine Glucose (UA) (Negative) Urine Ketones (Negative) Urine Blood (Negative) Urine Nitrite (Negative) Urine Bilirubin (Negative) Urine Urobilinogen (Negative) Ur Leukocyte Esterase (Negative) Urine WBC (Auto) (0-5) /hpf Urine RBC (Auto) (0-4) /hpf U Hyaline Cast (Auto) (0-5) /lpf U Epithel Cells (Auto) (0-5) /lpf Urine Bacteria (Auto) (Negative) Urine Yeast Ur Random Creatinine mg/dl Ur Random Sodium mmol/L Nasal Screen MRSA (PCR) (Negative) Ethyl Alcohol mg/dL (<10.0) mg/dl Lyme Disease IgG Ab (Negative) Lyme IgG (Western Blot) Lyme IgG 18 kDa Band Lyme IgG 23 kDa Band Lyme IgG 28 kDa Band Lyme IgG 30 kDa Band Lyme IgG 39 kDa Band Lyme IgG 41 kDa Band Lyme IgG 45 kDa Band Lyme IgG 58 kDa Band Lyme IgG 66 kDa Band Lyme IgG 93 kDa Band Lyme IgM Ab (WB) Lyme Disease IgM Ab (Negative) Lyme IgM 23 kDa Band Lyme IgM 39 kDa Band Lyme IgM 41 kDa Band SARS-CoV-2, RNA, NAAT NEGATIVE (NEGATIVE) Diagnostic Findings Knee X-Ray 07/12/22 15:55 LEFT KNEE 3 VIEWS CLINICAL HISTORY: Left knee pain. FINDINGS: AP, crosstable lateral, and sunrise views of the left knee are compared to study dated 07/29/2009. The skeletal structures are osteopenic. No fracture is seen. A left knee arthroplasty is in near anatomic alignment. There has been undersurface remodeling of the patella. No periprosthetic lucency is seen. There is a joint effusion. Soft tissue swelling seen around the knee. Tiny joint bodies are suspected posteriorly. There is atherosclerotic calcification of the popliteal artery. IMPRESSION: 1. Soft tissue swelling and joint effusion with no acute bony abnormality identified. 2. A left knee arthroplasty is in near anatomic alignment. Electronically signed by: Ambrose Lopez M.D. 07/12/2022 5:32 PM Venous Doppler Study 07/12/22 15:55 ULTRASOUND LEFT LOWER EXTREMITY VENOUS CLINICAL HISTORY: Left leg pain and swelling. COMPARISON STUDY: Left lower extremity venous ultrasound dated 12/24/2019. TECHNIQUE: Real-time, grayscale, and color Doppler sonography of the deep veins of the left lower extremity was performed from the inguinal crease to the calf. Compression and augmentation were utilized. FINDINGS: There is no sonographic evidence of deep venous thrombosis identified in the left lower extremity. The common femoral, superficial femoral, and popliteal veins are patent and normally compressible. The greater saphenous vein and the profunda femoris vein at the junction with the common femoral vein are clear. The visualized calf veins are patent. Soft tissue edema is noted in the left leg. IMPRESSION: There is no sonographic evidence of deep venous thrombosis identified in the left lower extremity. ACT 112: Negative or not required by law. Electronically signed by: Ambrose Lopze M.D. 07/12/2022 6:43 PM Duplex Scan Lower Extremity Artery 07/12/22 16:23 ULTRASOUND LEFT LOWER EXTREMITY ARTERIAL CLINICAL HISTORY: Left leg swelling. Diminished pulses. COMPARISON STUDY: No priors. TECHNIQUE: Real-time grayscale and color Doppler sonography of the arteries of the left lower extremity is performed from the inguinal crease to the foot. Ankle-brachial indices were not assessed on this portable examination. FINDINGS: Atherosclerotic plaque and irregularity is seen throughout the arteries of the left lower extremity. There are biphasic arterial waveforms in the common femoral artery with velocities measuring up to 86 cm/s. The profunda femoris artery is patent with velocities measuring up to 50 cm/s. There are biphasic to triphasic waveforms throughout the superficial femoral artery with velocities measuring up to 138 cm/s. There are biphasic waveforms in the popliteal artery with velocities measuring up to 95 cm/s. There is two-vessel runoff to the foot. Biphasic waveforms are seen throughout the calf arteries. The anterior tibial and posterior tibial arteries are patent with velocities measuring up to 66 cm/s. The dorsalis pedis artery is patent with velocities measuring up to 63 cm/s. The proximal to mid portions of the peroneal artery are not visualized. The distal peroneal artery is patent with velocities measuring up to 42 cm/s. Soft tissue edema is present in the left leg. IMPRESSION: 1. No flow is shown within the proximal to midportion of the peroneal artery. This may be occluded. 2. The remaining arteries of the left lower extremity are patent. 3. No elevated velocities are seen to suggest high-grade stenosis. Dictated: 07/12/2022 6:44 PM Transcribed: 07/12/2022 7:01 PM [facility] [id number] [facility] [id number] Electronically signed by: Ambrose Lopez M.D. 07/12/2022 7:29 PM Foot X-Ray 07/12/22 21:18 LEFT FOOT 2 VIEWS CLINICAL HISTORY: Left foot infection. FINDINGS: AP and lateral views of the left foot are obtained. No prior studies are available for comparison at the time of dictation. The skeletal structures are heterogeneously osteopenic. No acute fracture seen. Moderate osteoarthritic change is seen throughout the foot, greatest at the first metatarsophalangeal joint and at the tarsometatarsal articulations. An os trigonum and an os navicularis are incidentally noted. Suspect chronic posttraumatic deformity of the distal tibia and fibula. Degenerative spurring is seen along the dorsal aspect of the tarsal bones. No bony erosion or periostitis is identified. Soft tissue edema is present throughout the foot. No radiodense foreign body is identified. IMPRESSION: 1. Soft tissue swelling with no acute bony abnormality identified. 2. Osteopenia and arthritic change as above. Electronically signed by: Ambrose Lopez M.D. 07/12/2022 10:[address] 07/12/22 21:19 Exam(s): CT HEAD Without Contrast EXAM: CT Head Without Intravenous Contrast CLINICAL HISTORY: Reason for exam: facial swelling. TECHNIQUE: Axial computed tomography images of the head/brain without intravenous contrast. CTDI is 38.3 mGy and DLP is 625.8 mGy-cm. Automated exposure control was utilized for the study. A dose lowering technique was utilized adhering to the principles of ALARA. COMPARISON: No relevant prior studies available. FINDINGS: Brain: See below. Ventricles: Unremarkable. No ventriculomegaly. Bones/joints: Unremarkable. No acute fracture. Soft tissues: Unremarkable. Lymph nodes: Trace amount of periventricular white matter lymphadenopathy consistent with early chronic small vessel disease. The brain is otherwise unremarkable. No acute large vessel infarct or intracranial hemorrhage is seen. Sinuses: Unremarkable as visualized. No acute sinusitis. Mastoid air cells: Unremarkable as visualized. No mastoid effusion. IMPRESSION: No acute findings in the head/brain. Electronically signed by: Bandar Copeland MD 07/12/22 22:27 PM PG Care Time/CCT Total # of Minutes Spent Total Time Spent with Patient: Total time spent is greater than 50% in coordination of care (as documented) at patient's floor/unit and/or counseling patient: Coding Level of Care Code 22074 SUB INP/OBS CARE 3/50MIN Diagnoses Cellulitis L03.90 ADAM (acute kidney injury) N17.9 Rhabdomyolysis M62.82 Proteinuria due to type 2 diabetes mellitus E11.29; R80.9 HTN (hypertension) I10 Aortic stenosis I35.0 Leukocytosis D72.829 Restless leg syndrome G25.81 Splenomegaly R16.1 Hepatic steatosis K76.0 Uncontrolled hypertension I10 CAD (coronary artery disease) I25.10
[2022-07-13 08:06] LABS: C Reactive Protein 52.95 mg/dl (0-0.5)
[2022-07-13] MEDS: INSULIN ASPART PER UNIT CHARGE SC SCH ×4 (08:35→20:45)
[2022-07-13] MEDS ORDERED: LANTUS PER UNIT CHARGE SQ SCH (09:00)
[2022-07-13] MEDS ORDERED: allopurinoL 300 MG TAB PO SCH (09:00)
[2022-07-13] MEDS ORDERED: FLUTICASONE/SALMETEROL 100/50 (ADVAIR) 14 PUFF/1 INHALER INH SCH (09:00)
[2022-07-13 09:15] LABS: Lyme Ab IgG w/WB Rflx Negative (Negative)
[2022-07-13 09:18] LABS: Lyme Ab IgM w/WB Rflx Positive (Negative)
--- NOTE | 2022-07-13 10:01 | Electrocardiogram Report ---
Test Reason : Blood Pressure : / mmHG Vent. Rate : 101 BPM Atrial Rate : 101 BPM P-R Int : 184 ms QRS Dur : 088 ms QT Int : 344 ms P-R-T Axes : 061 073 074 degrees QTc Int : 446 ms Sinus tachycardia Otherwise normal ECG When compared with ECG of 26-DEC-2019 10:45, No significant change was found Confirmed by Mark Crane ([id number]) on 07/13/2022 10:01:33 AM Referred By: REFERRED SELF Confirmed By:Lito Crane
[2022-07-13] MEDS ORDERED: ETHYL CHLORIDE AER SPR 100 ML CAN EXT ONE (10:31)
[2022-07-13] MEDS ORDERED: HYDROmorphone INJ 0.5 MG/0.5 ML SYR IV PRN (11:20)
--- NOTE | 2022-07-13 11:34 | XRay Report ---
XR chest 1V portable CLINICAL HISTORY: hypoxia TECHNIQUE: Single frontal radiograph of the chest was obtained. Comparison: Comparison is made to chest radiograph 12/24/2019 FINDINGS: No lines and tubes are seen. Cardiomegaly is noted. The lungs are clear. No evidence of pleural effus ion or pneumothorax. IMPRESSION: No acute chest disease. Cardiomegaly is noted. ACT 112: Negative or not required by law. Electronically signed by: Matias Paula M.D. 07/13/2022 11:32 AM
[2022-07-13] MEDS: GLUCOSE 40% GEL 15 GM TUBE PO PRN ×2 (12:18→12:41)
[2022-07-13] MEDS: MAGNESIUM SULFATE / D5W 1 GM/100 ML BAG IV SCH ×2 (13:35→15:39)
--- NOTE | 2022-07-13 14:25 | Orthopedic Consultation ---
Date of Consultation July 13, 2022 Assessment & Plan (1) Left knee pain: Case was discussed with Dr Valadez. X-rays of been reviewed. WBCs 15 and CRP 52. With the size of his effusion on x-ray as well as his exam, an aspiration of the left knee was warranted. This was discussed with the patient in detail regarding risks and benefits. Patient was in agreement to have the knee aspirated. Stated that he had had this done in the past. A superior lateral approach was chosen. Pt was positioned accordly for aspiration. Aspiration site was marked. Cleansed with ChloraPrep grain cleaner and transfer operator and let the dry. Ethyl chloride was then used to anesthetize the skin. An 18-gauge needle was then inserted into the superior/lateral region of the knee. A total of 70 cc of grossly purulent, dark umana, fluid was then removed from the knee. Patient did feel some relief. The aspiration needle was then removed and gauze was placed over the aspiration site for approximately 30 seconds. The aspiration site was then covered with a Band-Aid. Patient tolerated the aspiration well. Aspirate was sent for culture and sensitivity, cell count, crystal analysis. It appears that the left TKA is grossly infected. Patient would likely need to undergo irrigation and debridement of the left TKA with polyethylene bearing c hange. I will discuss this with Dr. Valadez and plan accordingly. Follow gram stain and culture results. History of Present Illness Reason for Consultation: Left knee effusion Attending Physician: Florencio Spaulding MD History of Present Illness Pt is a 56 year old male with past medical history of T2DM, diabetic neuropathy, obesity, asthma, HTN, Alcohol Use Disorder, CAD, hepatic steatosis,who is status post left total knee arthroplasty by Dr. Valadez in the past. Patient states that approximately 1 week ago he began having some increased redness and swelling over his facial area. He also complains of a headache. He states this lasted several days and it began to resolve. 2 days ago he began noticing having a left knee pain. This continued to increase. At 1 point he was trying to use the bathroom and when he went to sit down he felt and heard a pop in his left knee. He had severe pain and had difficulty ambulating. Knee continues to have increased swelling and redness and also redness radiating down into his left lower extremity and to his foot. He denies any fevers or chills. He states that he has been dealing with foot ulcerations in the past and recently had some drainage from a left foot ulcer. He has had a decreased appetite but denies nausea or vomiting. He got to the point where he was unable to ambulate. He tried getting out of bed at 1 point and had so much pain that he ended up sitting on the floor. He apparently sat on the floor for approximate 12 hours till his parents returned home and found him. He was brought to the emergency room and seen by the staff. X-rays were taken. It was felt that the patient had cellulitis of his left lower extremity and also was having knee pain and was admitted by the hospitalist service. We have been asked to see him for his left knee pain. Allergies Allergy/AdvReac Type Severity Reaction Status Date / Time Enivronmental Allergy itchy Uncoded 07/12/22 21:15 eyes, sneeze Home Medications Medication Instructions Recorded Confirmed Type cholecalciferol (vitamin D3) 50 50 mcg PO QAM 07/29/19 07/12/22 History mcg (2,000 unit) capsule aspirin 81 mg tablet,delayed 81 mg PO QAM 30 days #30 tabs 12/27/19 07/12/22 Rx release metformin 1,000 mg tablet 1,000 mg PO BID #180 tabs 08/06/21 07/12/22 Rx atorvastatin 80 mg tablet 80 mg PO QAM #90 tabs 12/17/21 07/12/22 Rx nitroglycerin 0.4 mg sublingual 0.4 mg sublingual UD PRN chest 02/23/22 07/12/22 Rx tablet (Nitrostat) pain 30 days #60 tabs lisinopril 20 mg tablet 20 mg PO DAILY 04/14/22 07/12/22 History fluticasone 100 mcg-salmeterol 50 1 inh inhalation BID shortness of 04/21/22 07/12/22 History mcg/dose blistr powdr for breath inhalation (Wixela Inhub) glipizide 5 mg tablet 5 mg PO QPM #90 tabs 04/21/22 07/12/22 Rx trazodone 50 mg tablet 100 mg PO HS insomnia #180 tabs 04/28/22 07/12/22 Rx duloxetine 60 mg capsule,delayed 60 mg PO QAM #90 caps 05/03/22 07/12/22 Rx release insulin glargine 100 unit/mL (3 15 unit (0.15 mL) subcut QAM #15 mL 05/03/22 07/12/22 Rx mL) subcutaneous pen (Lantus Solostar U-100 Insulin) famotidine 20 mg tablet 20 mg PO BID PRN heartburn 90 days 05/13/22 07/12/22 Rx #180 tabs tirzepatide 5 mg/0.5 mL 5 mg (0.5 mL) subcut WK #2 mL 05/16/22 07/12/22 Rx subcutaneous pen injector (Mounjaro) oxycodone-acetaminophen 5 mg-325 1 tab PO BID PRN pain 30 days #60 06/02/22 07/12/22 Rx mg tablet tabs albuterol sulfate 90 mcg/actuation See Rx Instructions inhalation QID 07/02/22 07/12/22 Rx aerosol inhaler (Proventil HFA) PRN shortness of breath or wheezing #18 grams metoprolol tartrate 50 mg tablet 50 mg PO BID #180 tabs 07/04/22 07/12/22 Rx allopurinol 300 mg tablet 300 mg PO QAM 07/12/22 07/12/22 History hydrochlorothiazide 12.5 mg tablet 12.5 mg PO DAILY 07/12/22 07/12/22 History ropinirole 1 mg tablet 1 mg PO QPM 07/12/22 07/12/22 History Patient History Medical History Aortic stenosis Asthma inhaler daily/prn CAD (coronary artery disease) Chronic lower back pain Diabetes mellitus, type 2 Diabetic neuropathy Exertional angina Gout HTN (hypertension) Hyperlipidemia Insomnia Morbid obesity with BMI of 40.0-44.9, adult Osteoarthritis Restless leg syndrome Sinus tachycardia Sleep apnea mild; no device SOB (shortness of breath) on exertion Vitamin D deficiency Surgical History H/O hernia repair as a baby History of cardiac cath 12/26/19 @ [facility] with 2 stents placed History of colonoscopy 06/2021, poor prep per report History of ear surgery History of esophagogastroduodenoscopy (EGD) 07/2021 History of left hip replacement (~2018) History of total left knee replacement (TKR) History of total right knee replacement (TKR) History of wisdom tooth extraction S/P coronary artery stent placement 2 stents placed 12/26/19 @ [facility] Family History Father Heart disease Mother Heart disease Diabetes Grandfather No problems noted. Grandfather (Maternal) Lung cancer Grandmother (Maternal) Lung cancer Grandfather (Paternal) Myocardial infarction Grandmother (Paternal) Stroke Other No family history of adverse response to anesthesia Denies family history of Ovarian cancer Prostate cancer Breast cancer Colorectal cancer Social History Smoking Status: Never smoker Tobacco Type: Smokeless Tobacco (Dip or Chew) Cigarettes Per Day: 1 can a week; Second Hand Exposure: No; Do You Dip or Chew Tobacco: Yes; Hx Alcohol Use: Yes Alcohol type: beer, wine and hard liquor Alcohol type Comment: 1 drink 4-5 times weekly Hx Substance Use: No Preferred Language: Pashto Communication Ability: Effective Visual Impairment: Limited Hearing Ability: Normal Cement Loader Required: No Beliefs That Will Affect Care: None marital status: Current Living Situation: Family current occupational status: disabled 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, [employer] How many Children do You have: 2 How many Children do You have Comment: 25 and 24 Other Information That Helps Us Care for You: No Feels Safe at Home: Yes Childhood Exposure to Second-Hand Smoke: Yes Diet: regular caffeine: Yes Dental Care, Regularly: Yes Physical Activity Frequency: Does not Exercise Seatbelt Use: always Sunscreen Use: Yes Assistive Devices: Cane and Walker Physical Exam Physical Exam: Patient is a 56-year-old obese white male who appears his stated age. Alert and oriented x3. Mild amount of distress secondary to left knee pain especially with motion. Pleasant and cooperative during exam. On examination of his left lower extremity, there is a well-healed scar over his left knee from previous TKA. He has a moderate cellulitis noted in the lower half of his lower extremity down to his foot. He has a dressing noted over his foot from previous foot ulcers that have been treated. He has a moderate effusion of the left knee. He is very painful on palpation of the left knee. He feels like he has some medial laxity of the knee. Patient is increased pain with exam limits the exam I do. He has minimal range of motion of the knee at this point time secondary to pain. Any attempt to do gentle range of motion from 0 to 10 degrees causes him excruciating pain. He denies any pain in the calf of the left leg at this time. Thigh is soft and nontender. He has some slight erythema of around the proximal tibia area but nothing over the patella and or proximal superior pouch of the knee. Results & Data Vital Signs (Past 12 Hours) Vital Signs Temp Pulse Resp BP Pulse Ox O2 Del Method O2 Flow Rate 07/13/22 07:40 Room Air 07/13/22 09:49 100 H 07/13/22 09:14 100 H 07/13/22 07:56 36.7 C 107 H 24 121/66 94 Nasal Cannula 2 Laboratory Results Laboratory Results WBC 15.83 K/ul (4.8-10.8) H 07/13/22 06:49 RBC 3.12 M/uL (4.70-6.10) L 07/13/22 06:49 Hgb 9.7 g/dl (14.0-18.0) L 07/13/22 06:49 Hct 28.2 % (42.0-52.0) L 07/13/22 06:49 MCV 90.4 fL (80.0-100.0) 07/13/22 06:49 MCH 31.1 pg (25.0-34.0) 07/13/22 06:49 MCHC 34.4 g/dL (32.0-36.0) 07/13/22 06:49 RDW Std Deviation 44.2 fL (36.4-46.3) 07/13/22 06:49 RDW Coeff of Sunny 13.5 % (11.5-14.5) 07/13/22 06:49 Plt Count 225 K/uL (130-400) 07/13/22 06:49 MPV 11.6 fL (9.4-12.4) 07/13/22 06:49 Immature Gran % (Auto) 2.0 % 07/13/22 06:49 Neut % (Auto) 93.2 % 07/13/22 06:49 Lymph % (Auto) 1.5 % 07/13/22 06:49 [place] % (Auto) 2.7 % 07/13/22 06:49 Eos % (Auto) 0.1 % 07/13/22 06:49 Baso % (Auto) 0.5 % 07/13/22 06:49 Neut # (Auto) 14.75 K/uL (1.40-6.50) H 07/13/22 06:49 Lymph # (Auto) 0.24 K/uL (1.2-3.4) L 07/13/22 06:49 [place] # (Auto) 0.43 K/uL (0.11-0.59) 07/13/22 06:49 Eos # (Auto) 0.02 K/uL (0-0.50) 07/13/22 06:49 Baso # (Auto) 0.08 K/uL (0-0.2) 07/13/22 06:49 Immature Gran # (Auto) 0.31 K/uL (0.01-0.20) H 07/13/22 06:49 Toxic Vacuolation 3+ 07/13/22 06:49 Dohle Bodies 1+ 07/12/22 16:35 Sodium 124 mmol/L (136-145) L 07/13/22 06:49 Potassium 4.5 mmol/L (3.5-5.1) 07/13/22 06:49 Chloride 94 mmol/L (98-107) L 07/13/22 06:49 Carbon Dioxide 21 mmol/L (21-32) 07/13/22 06:49 Anion Gap 9 (3-11) 07/13/22 06:49 BUN 58 mg/dl (6-23) H 07/13/22 06:49 Creatinine 2.11 mg/dl (0.6-1.4) H 07/13/22 06:49 Est Cr Clr Drug Dosing 59.8 ml/min 07/13/22 06:49 Est GFR ( Amer) 39.1 ml/min 07/13/22 06:49 Est GFR (Non-Af Amer) 33.7 ml/min 07/13/22 06:49 BUN/Creatinine Ratio 27.5 (10-20) H 07/13/22 06:49 Glucose 78 mg/dl (70-99(Fasting)) 07/13/22 06:49 POC Glucose 137 mg/dl (70-99) H 07/13/22 13:42 Lactate 1.7 mmol/L (0.4-2.0) 07/13/22 01:00 Calcium 7.7 mg/dl (8.6-10.3) L 07/13/22 06:49 Magnesium 1.6 mg/dl (1.7-2.4) L 07/13/22 08:22 Total Bilirubin 1.0 mg/dl (0.2-1.0) 07/12/22 16:35 AST 46 U/L (13-39) H 07/12/22 16:35 ALT 16 U/L (7-52) 07/12/22 16:35 Alkaline Phosphatase 150 U/L (34-104) H 07/12/22 16:35 Total Creatine Kinase 452 U/L (30-223) H 07/13/22 06:49 C-Reactive Protein 52.95 mg/dl (0-0.5) H 07/13/22 06:49 B-Natriuretic Peptide 101 pg/ml (0-100) H 07/13/22 12:20 Total Protein 8.0 gm/dl (6.0-8.3) 07/12/22 16:35 Albumin 2.8 gm/dl (3.4-5.0) L 07/12/22 16:35 Globulin 5.2 gm/dl (2.5-4.0) H 07/12/22 16:35 Albumin/Globulin Ratio 0.5 (0.9-2) L 07/12/22 16:35 Lipase 27 U/L (11-82) 07/12/22 16:35 TSH 1.289 uIu/ml (0.300-4.500) 07/13/22 12:20 Urine Color Dark Yellow 07/13/22 01:49 Urine Appearance Turbid (Clear) A 07/13/22 01:49 Urine pH 5.0 (4.5-7.5) 07/13/22 01:49 Ur Specific [place] 1.026 (1.000-1.030) 07/13/22 01:49 Urine Protein Trace (Negative) H 07/13/22 01:49 Urine Glucose (UA) Negative (Negative) 07/13/22 01:49 Urine Ketones Trace (Negative) H 07/13/22 01:49 Urine Blood Trace (Negative) H 07/13/22 01:49 Urine Nitrite Positive (Negative) A 07/13/22 01:49 Urine Bilirubin 1+ (Negative) H 07/13/22 01:49 Urine Urobilinogen Negative (Negative) 07/13/22 01:49 Ur Leukocyte Esterase 1+ (Negative) H 07/13/22 01:49 Urine WBC (Auto) 10-30 /hpf (0-5) H 07/13/22 01:49 Urine RBC (Auto) 0-4 /hpf (0-4) 07/13/22 01:49 U Hyaline Cast (Auto) 0 /lpf (0-5) 07/13/22 01:49 U Epithel Cells (Auto) >30 /lpf (0-5) H 07/13/22 01:49 Urine Bacteria (Auto) Negative (Negative) 07/13/22 01:49 Urine Yeast Not Reportable 07/13/22 01:49 Ur Random Creatinine 240.1 mg/dl 07/13/22 01:49 Ur Random Sodium 25 mmol/L 07/13/22 01:49 Nasal Screen MRSA (PCR) Negative (Negative) 07/13/22 01:42 Ethyl Alcohol mg/dL < 10.0 mg/dl (<10.0) 07/12/22 19:30 Lyme Disease IgG Ab Negative (Negative) 07/13/22 08:21 Lyme Disease IgM Ab Positive (Negative) A 07/13/22 08:21 SARS-CoV-2, RNA, NAAT NEGATIVE (NEGATIVE) 07/12/22 16:15 Impressions Knee X-Ray 07/12/22 15:55 LEFT KNEE 3 VIEWS CLINICAL HISTORY: Left knee pain. FINDINGS: AP, crosstable lateral, and sunrise views of the left knee are compared to study dated 07/29/2009. The skeletal structures are osteopenic. No fracture is seen. A left knee arthroplasty is in near anatomic alignment. There has been undersurface remodeling of the patella. No periprosthetic lucency is seen. There is a joint effusion. Soft tissue swelling seen around the knee. Tiny joint bodies are suspected posteriorly. There is atherosclerotic calcification of the popliteal artery. IMPRESSION: 1. Soft tissue swelling and joint effusion with no acute bony abnormality identified. 2. A left knee arthroplasty is in near anatomic alignment. Electronically signed by: Ambrose Lopez M.D. 07/12/2022 5:32 PM Venous Doppler Study 07/12/22 15:55 ULTRASOUND LEFT LOWER EXTREMITY VENOUS CLINICAL HISTORY: Left leg pain and swelling. COMPARISON STUDY: Left lower extremity venous ultrasound dated 12/24/2019. TECHNIQUE: Real-time, grayscale, and color Doppler sonography of the deep veins of the left lower extremity was performed from the inguinal crease to the calf. Compression and augmentation were utilized. FINDINGS: There is no sonographic evidence of deep venous thrombosis identified in the left lower extremity. The common femoral, superficial femoral, and popliteal veins are patent and normally compressible. The greater saphenous vein and the profunda femoris vein at the junction with the common femoral vein are clear. The visualized calf veins are patent. Soft tissue edema is noted in the left leg. IMPRESSION: There is no sonographic evidence of deep venous thrombosis identified in the left lower extremity. ACT 112: Negative or not required by law. Electronically signed by: Ambrose Lopez M.D. 07/12/2022 6:43 PM Duplex Scan Lower Extremity Artery 07/12/22 16:23 ULTRASOUND LEFT LOWER EXTREMITY ARTERIAL CLINICAL HISTORY: Left leg swelling. Diminished pulses. COMPARISON STUDY: No priors. TECHNIQUE: Real-time grayscale and color Doppler sonography of the arteries of the left lower extremity is performed from the inguinal crease to the foot. Ankle-brachial indices were not assessed on this portable examination. FINDINGS: Atherosclerotic plaque and irregularity is seen throughout the arteries of the left lower extremity. There are biphasic arterial waveforms in the common femoral artery with velocities measuring up to 86 cm/s. The profunda femoris artery is patent with velocities measuring up to 50 cm/s. There are biphasic to triphasic waveforms throughout the superficial femoral artery with velocities measuring up to 138 cm/s. There are biphasic waveforms in the popliteal artery with velocities measuring up to 95 cm/s. There is two-vessel runoff to the foot. Biphasic waveforms are seen throughout the calf arteries. The anterior tibial and posterior tibial arteries are patent with velocities measuring up to 66 cm/s. The dorsalis pedis artery is patent with velocities measuring up to 63 cm/s. The proximal to mid portions of the peroneal artery are not visualized. The distal peroneal artery is patent with velocities measuring up to 42 cm/s. Soft tissue edema is present in the left leg. IMPRESSION: 1. No flow is shown within the proximal to midportion of the peroneal artery. This may be occluded. 2. The remaining arteries of the left lower extremity are patent. 3. No elevated velocities are seen to suggest high-grade stenosis. Dictated: 07/12/2022 6:44 PM Transcribed: 07/12/2022 7:01 PM Tawanda [id number] [facility] [id number] Electronically signed by: Ambrose Lopez M.D. 07/12/2022 7:29 PM Foot X-Ray 07/12/22 21:18 LEFT FOOT 2 VIEWS CLINICAL HISTORY: Left foot infection. FINDINGS: AP and lateral views of the left foot are obtained. No prior studies are available for comparison at the time of dictation. The skeletal structures are heterogeneously osteopenic. No acute fracture seen. Moderate osteoarthritic change is seen throughout the foot, greatest at the first metatarsophalangeal joint and at the tarsometatarsal articulations. An os trigonum and an os navicularis are incidentally noted. Suspect chronic posttraumatic deformity of the distal tibia and fibula. Degenerative spurring is seen along the dorsal aspect of the tarsal bones. No bony erosion or periostitis is identified. Soft tissue edema is present throughout the foot. No radiodense foreign body is identified. IMPRESSION: 1. Soft tissue swelling with no acute bony abnormality identified. 2. Osteopenia and arthritic change as above. Electronically signed by: Ambrose Lopez M.D. 07/12/2022 10:07 PM
[2022-07-13] MEDS ORDERED: HYDROmorphone INJ 0.5 MG/0.5 ML SYR IV STA (15:13)
[2022-07-13 16:58] LABS: BUN Creatinine Ratio 30.3 (10-20); Calcium 7.2 mg/dl (8.6-10.3); Creatinine Clr Calc Pharmacy 62.8 ml/min; Est GFR (African American) 41.5 ml/min; Est GFR (Non-African American) 35.8 ml/min; Potassium 4.7 mmol/L (3.5-5.1)
--- NOTE | 2022-07-13 17:21 | Communication Note ---
Date of Service: July 13, 2022 Discussed w/ supervising provider and will start PO Doxy BID empirically. Pending cultures from aspiration can consider coverage w/ doxy in place of Vancomycin but will await cultures/OR washout Monitor WB testing in f/u
[2022-07-13] MEDS ORDERED: FUROSEMIDE 40 MG/4 ML VIAL IV ONE (17:23)
[2022-07-13 17:40] LABS: Appearance Synovial Fluid Turbid; Color Synovial Fluid Brown; Mononuclear WBC Synovial 41.2 %; Polynuclear WBC Synovial 58.8 %; RBC Synovial Fluid Auto 200000 /uL; Source Synovial Fluid Left Knee; WBC Synovial Fluid Auto 233800 /ul (0-200)
[2022-07-13] MEDS: traZODone HCL 100 MG TAB PO SCH (21:00)
[2022-07-13] MEDS: THIAMINE HCL 100 MG TAB PO SCH (21:00)
[2022-07-13] MEDS: rOPINIRole HCL 1 MG TABLET PO SCH (21:01)
[2022-07-13] MEDS: LANTUS PER UNIT CHARGE SQ SCH (21:05)
[2022-07-13] MEDS: DOXYCYCLINE HYCLATE 100 MG CAP PO SCH (21:15)
[2022-07-13] MEDS ORDERED: VANCOMYCIN HCL 1,250 MG in SODIUM CHLORIDE 0.9% 250 ML IV SCH (22:00)
[2022-07-13] MEDS ORDERED: VANCOMYCIN HCL 1,750 MG in SODIUM CHLORIDE 0.9% 500 ML IV SCH (22:00)
[2022-07-14] MEDS: CEFEPIME 2,000 MG in SYRINGE 0 ML IV SCH ×3 (02:20→18:01)
[2022-07-14] MEDS ORDERED: SODIUM CHLORIDE 0.9% 1000ML 1,000 ML IV SCH (04:44)
[2022-07-14] MEDS: INSULIN ASPART PER UNIT CHARGE SC SCH ×4 (07:14→21:19)
[2022-07-14] MEDS: LANTUS PER UNIT CHARGE SQ SCH ×2 (07:35→21:14)
[2022-07-14] MEDS: oxyCODONE/ACETAMINOPHEN 5mg/325mg TAB PO PRN ×2 (08:10→18:11)
[2022-07-14] MEDS: FLUTICASONE/VILANTEROL 100/25MCG 14 PUFFS/INHALER INH SCH (08:10)
[2022-07-14] MEDS: DOXYCYCLINE HYCLATE 100 MG CAP PO SCH ×2 (08:11→21:10)
[2022-07-14] MEDS: THIAMINE HCL 100 MG TAB PO SCH ×2 (08:11→21:10)
[2022-07-14] MEDS: allopurinoL 100 MG TAB PO SCH (08:11)
[2022-07-14] MEDS: METOPROLOL TARTRATE 50 MG TAB PO SCH ×2 (08:11→21:10)
[2022-07-14] MEDS: DULoxetine HCL 60 MG CAP PO SCH (08:11)
--- NOTE | 2022-07-14 08:28 | Hospitalist Progress Note ---
Date of Service July 14, 2022 Assessment & Plan (1) Left knee pain: Plan: Wisam Copeland is a 56 year old male with past medical history of T2DM, diabetic neuropathy, obesity, asthma, HTN, Alcohol Use Disorder, CAD, hepatic steatosis, left knee arthroplasty who presented to the ED with left knee pain and inability to ambulate. Left Lower Extremity Cellulitis, Sepsis 2nd to infection L foot/knee possibly Etiology possibly secondary to left plantar surface wound Meeting SIRS criteria with HR >90 and WBC >12k Had not been able to get up/down x 12 hrs, CK elevated on admission to 1164 L Knee XR: soft tissue swelling/joint effusion Duplex L LE Arterial Scan: "No flow is shown within the proximal to midportion of the peroneal artery. This may be occluded."-->Distal portion of peroneal artery with good flow, per Dr. Mcmanus no need for anticoagulation with the above finding LE Duplex: negative for DVT Xray w/o evidence for osteomyelitis w/ LEFT effusion of left knee on exam w/ surrounding cellulitis ortho on consult, s/p aspiration 70cc brown/umana aspirate 07/13 -- left TKA grossly infected Fluid w/ elevated WBC [id number], cyrstals pending NPO for OR today w/ Dr Valadez for washout Culture w/ many gram positive cocci Continues on Vanco/Cefepime. Of note, did check Lyme given effusion as well -- initial IgG positive, IgM negative. WB pending. Denied any recent tick bites, however does have scab/effusion. Did get dose of Ceftriaxone as well in the ER. Placed on Doxy BID as well. Monitor WB WBC improving, afebrile. Blood cultures NGTD Heparin SQ on hold for surgery Monitor labs on repeat Possible consult for ID (2) Cellulitis: Plan: as above, WBC improving, afebrile Continue abx as outlined pain control -- increased IV pain medication to 1mg as needed. PO once taking PO Monitor erythema -- continued improvement Elevation, wound RN consulted (3) ADAM (acute kidney injury): Plan: BUN/Cr elevated on admission 55/2.13. Suspect 2nd to poor PO intake/diarrhea Given IVF on admission for rhabdomyolysis as well. CK now resolved and was actually given lasix 40mg IV x 1 yesterday for assistance w swelling HCTZ/Lisinopril on hold Na levels stable. Could have lows from uncontrolled pain as well. Not symptomatic from low sodium at present and prior lows noted TSH wnl Prior ECHO Nov 2019 w/ mild , EF was 65-70% Additional dose lasix 20mg IV x 1 this morning given stability and improvement in Cr from 2--> 1.48 since dose of lasix last evening CK back to normal Renal dose meds/avoid nephrotoxins as able Pharmacy dosing vanco BMP in AM (4) Hyponatremia: Plan: suspected 2nd to hypovolemia on admission and was given copious IVF replacement for elevated CK on admission, however increased LE edema/+BNP and improvement in resp/LE edema and kidney function with lasix yesterday and repeat dose ordered today Urine na only 25, serum osm 277 TSH wnl Prior reports drinking -- no drink/DTs at present but reported recent diarrhea [employer] which could have been from such Repeat Na still 123, NOT symptomatic from such Additional dose lasix for today, fluid restriction when tolerating diet BMP in AM Can consider consult w/ nephrology but appearing stable at present. also suspect aspect of uncontrolled pain can consider repeating urine/serum studies (5) Rhabdomyolysis: Plan: was down for ~12 hours. CK 1164 w/ ADAM on admit IVF ordered on admit as above CK 1164--> 452--> 191 w/ dose of lasix and stopped IVF (resumed as NPO for surgery) Continue to hold lisinopril/HCTZ No evidence for compartment syndrome at present (6) Proteinuria due to type 2 diabetes mellitus: Plan: Most recent A1C: 7.8% Home meds include Mounjaro (recently started), Glipizide, Metformin, Insulin Sliding scale insulin while admitted --> BSGs dropped 07/13 afternoon to 50/60s, asymptomatic. Glucose w/ lab x 1 130s. Loosened SSI parameters for CF to 45, CR to 15 Decreased long acting to 10u BID and will monitor -- HELD AM dose for BSG 130s and will monitor/adjust SSI as needed Mag checked prior, 1.6 and IV replacement ordered -- 1.9 on repeat Mag checked -- low 1.6, 2gm IV ordered also w/ diabetic neuropathy/chronic pain -Continue home Duloxetine, Percocet -Check b12 w/ next labs -- wnl 482 (7) HTN (hypertension): Plan: Hold home Lisinopril due to ADAM BP stable at present w/o elevation Statin on hold given elevated CK on admit (8) Aortic stenosis: Plan: noted, mild on exam consider dose lasix to assist w/ edema -- given 40mg IV x 1 on 07/13, additional 20mg IV x 1 for today w/ his IVF while NPO but may require additonal dosing given up 5L since admission w/ IVF however has had some unmeasured voids LE edema improving w/ dose of lasix Place orders for daily weights, I&Os Monitor repeat exam (9) Leukocytosis: Plan: improving w/ abx. monitor on repeat. temp am 07/13 38C -- nothing since bcx remain ngtd at present (10) Restless leg syndrome: Plan: Continue home Ropinirole (11) Splenomegaly: Plan: noted. ?lyme vs from alcohol use -- monitor WB, consider changing abx to include ceftriaxone vs doxy for MRSA coverage in place of Vanco but will monitor for now (avoiding dapto given elevated CK) Placed on Doxy BID starting evening 07/13 (12) Hepatic steatosis: Plan: noted. likley from alcohol use (13) CAD (coronary artery disease): Plan: resume ASA when ok w/ surgry -- hx PCI to LAD and RCI Statin on hold given elevated CK continues on metoprolol, nitro prn denies any chest pain at present Plan NPO for OR today for washout LEFT knee Admission and Anticipated Discharge Date Admission Date: July 12, 2022 Supervising Physician Co-Signing Physician Notes The patient was not seen by me. The chart was reviewed. Case discussed with RAJI Esquivel. Agree with assessment and plan Subjective Eval this morning. Redness/swelling much improved. Oral pain medication not effective at present, requesting dose of IV. Passing gas but no BM. Will work on bowel regimen as well. Current dose does not take off the edge at present and will increase. No fever/chills, chest pain, shortness of breath. States oxygen down after pain medication but no shortness of breath. He is for the OR today,would like to know time. Will have RN call to OR and let him know. Questions/concerns addressed at this time. Physical Exam Physical Exam: General: morbidly obese male resting in bed, mildly uncomfortable HEENT: head normocephalic, thick neck, mmm, trachea midline facial cellulitis almost completely resolved Resp: CTA, diminished in the bases, no w/c, on 2L NC CV: regular rate/rhythm, faint systolic murmur, 1-2+ b/l LE edema (worse on the left), pulses palpable GI: +BS, soft/NT : no perea MSK/Neuro: erythema MUCH IMPROVED from left foot to knee, within markings, TENDER to palpation 3inch wound LEFT plantar surface without active drainage, dressing c/d/i decreased pulse but palpable, significant tenderness to palpation/movement of his leg. cap refill wnl no focal deficit RIGHT leg, medial thigh w/ scab present Psych: AOx3 , cooperative with exam Results & Data Results & Data Vital Signs (Past 12 Hours) Vital Signs Temp Pulse Pulse Pulse Resp BP Pulse Ox 07/14/22 08:09 36.4 C L 91 H 18 115/72 94 07/14/22 02:51 93 H 07/14/22 01:05 92 H 07/13/22 22:00 07/13/22 21:56 102 H 07/13/22 20:54 37.3 C 70 18 144/74 H 98 Pulse Ox O2 Del Method O2 Del Method 07/14/22 08:09 Room Air 07/14/22 02:51 91 Room Air 07/14/22 01:05 90 Room Air 07/13/22 22:00 Room Air 07/13/22 21:56 95 Room Air 07/13/22 20:54 Room Air Laboratory Results 07/14/22 07/14/22 07/14/22 Range/Units 08:21 08:13 08:13 WBC 14.41 H (4.8-10.8) K/ul RBC 3.25 L (4.70-6.10) M/uL Hgb 10.1 L (14.0-18.0) g/dl Hct 29.7 L (42.0-52.0) % MCV 91.4 (80.0-100.0) fL MCH 31.1 (25.0-34.0) pg MCHC 34.0 (32.0-36.0) g/dL RDW Std Deviation 44.0 (36.4-46.3) fL RDW Coeff of Sunny 13.2 (11.5-14.5) % Plt Count 225 (130-400) K/uL MPV 11.7 (9.4-12.4) fL Immature Gran % (Auto) 1.8 % Neut % (Auto) 89.7 % Lymph % (Auto) 3.2 % [place] % (Auto) 4.7 % Eos % (Auto) 0.4 % Baso % (Auto) 0.2 % Neut # (Auto) 12.92 H (1.40-6.50) K/uL Lymph # (Auto) 0.46 L (1.2-3.4) K/uL [place] # (Auto) 0.68 H (0.11-0.59) K/uL Eos # (Auto) 0.06 (0-0.50) K/uL Baso # (Auto) 0.03 (0-0.2) K/uL Immature Gran # (Auto) 0.26 H (0.01-0.20) K/uL Toxic Granulation 1+ Toxic Vacuolation 1+ Polychromasia 1+ Echinocytes 1+ Acanthocytes (Spur) 1+ Sodium 123 L (136-145) mmol/L Potassium 4.0 (3.5-5.1) mmol/L Chloride 95 L (98-107) mmol/L Carbon Dioxide 20 L (21-32) mmol/L Anion Gap 8 (3-11) BUN 51 H (6-23) mg/dl Creatinine 1.48 H D (0.6-1.4) mg/dl Est Cr Clr Drug Dosing 85.3 ml/min Est GFR ( Amer) 60.0 ml/min Est GFR (Non-Af Amer) 51.8 ml/min BUN/Creatinine Ratio 34.5 H (10-20) Glucose 128 H (70-99(Fasting)) mg/dl POC Glucose (70-99) mg/dl Osmolality (280-300) mOsm/kg Calcium 7.9 L (8.6-10.3) mg/dl Magnesium 1.9 (1.7-2.4) mg/dl Total Creatine Kinase 191 (30-223) U/L B-Natriuretic Peptide (0-100) pg/ml Vitamin B12 (180-914) pg/ml Folate (>5.38) ng/ml TSH (0.300-4.500) uIu/ml Fluid Comment Synovial Source Synovial Color Synovial Appearance Synovial WBC (Auto) (0-200) /ul Synovial RBC (Auto) /uL Synovial Polynuclear % % Synovial Mononuclear % % Synovial Crystals Random Vancomycin 14.7 (10-20) mcg/ml 07/14/22 07/13/22 07/13/22 Range/Units 06:12 23:35 20:42 WBC (4.8-10.8) K/ul RBC (4.70-6.10) M/uL Hgb (14.0-18.0) g/dl Hct (42.0-52.0) % MCV (80.0-100.0) fL MCH (25.0-34.0) pg MCHC (32.0-36.0) g/dL RDW Std Deviation (36.4-46.3) fL RDW Coeff of Sunny (11.5-14.5) % Plt Count (130-400) K/uL MPV (9.4-12.4) fL Immature Gran % (Auto) % Neut % (Auto) % Lymph % (Auto) % [place] % (Auto) % Eos % (Auto) % Baso % (Auto) % Neut # (Auto) (1.40-6.50) K/uL Lymph # (Auto) (1.2-3.4) K/uL [place] # (Auto) (0.11-0.59) K/uL Eos # (Auto) (0-0.50) K/uL Baso # (Auto) (0-0.2) K/uL Immature Gran # (Auto) (0.01-0.20) K/uL Toxic Granulation Toxic Vacuolation Polychromasia Echinocytes Acanthocytes (Spur) Sodium (136-145) mmol/L Potassium (3.5-5.1) mmol/L Chloride (98-107) mmol/L Carbon Dioxide (21-32) mmol/L Anion Gap (3-11) BUN (6-23) mg/dl Creatinine (0.6-1.4) mg/dl Est Cr Clr Drug Dosing ml/min Est GFR ( Amer) ml/min Est GFR (Non-Af Amer) ml/min BUN/Creatinine Ratio (10-20) Glucose (70-99(Fasting)) mg/dl POC Glucose 133 H 124 H 131 H (70-99) mg/dl Osmolality (280-300) mOsm/kg Calcium (8.6-10.3) mg/dl Magnesium (1.7-2.4) mg/dl Total Creatine Kinase (30-223) U/L B-Natriuretic Peptide (0-100) pg/ml Vitamin B12 (180-914) pg/ml Folate (>5.38) ng/ml TSH (0.300-4.500) uIu/ml Fluid Comment Synovial Source Synovial Color Synovial Appearance Synovial WBC (Auto) (0-200) /ul Synovial RBC (Auto) /uL Synovial Polynuclear % % Synovial Mononuclear % % Synovial Crystals Random Vancomycin (10-20) mcg/ml 07/13/22 07/13/22 07/13/22 Range/Units 16:56 16:05 14:20 WBC (4.8-10.8) K/ul RBC (4.70-6.10) M/uL Hgb (14.0-18.0) g/dl Hct (42.0-52.0) % MCV (80.0-100.0) fL MCH (25.0-34.0) pg MCHC (32.0-36.0) g/dL RDW Std Deviation (36.4-46.3) fL RDW Coeff of Sunny (11.5-14.5) % Plt Count (130-400) K/uL MPV (9.4-12.4) fL Immature Gran % (Auto) % Neut % (Auto) % Lymph % (Auto) % [place] % (Auto) % Eos % (Auto) % Baso % (Auto) % Neut # (Auto) (1.40-6.50) K/uL Lymph # (Auto) (1.2-3.4) K/uL [place] # (Auto) (0.11-0.59) K/uL Eos # (Auto) (0-0.50) K/uL Baso # (Auto) (0-0.2) K/uL Immature Gran # (Auto) (0.01-0.20) K/uL Toxic Granulation Toxic Vacuolation Polychromasia Echinocytes Acanthocytes (Spur) Sodium 123 L (136-145) mmol/L Potassium 4.7 (3.5-5.1) mmol/L Chloride 94 L (98-107) mmol/L Carbon Dioxide 22 (21-32) mmol/L Anion Gap 7 (3-11) BUN 61 H (6-23) mg/dl Creatinine 2.01 H (0.6-1.4) mg/dl Est Cr Clr Drug Dosing 62.8 ml/min Est GFR ( Amer) 41.5 ml/min Est GFR (Non-Af Amer) 35.8 ml/min BUN/Creatinine Ratio 30.3 H (10-20) Glucose 107 H (70-99(Fasting)) mg/dl POC Glucose 131 H (70-99) mg/dl Osmolality (280-300) mOsm/kg Calcium 7.2 L (8.6-10.3) mg/dl Magnesium (1.7-2.4) mg/dl Total Creatine Kinase (30-223) U/L B-Natriuretic Peptide (0-100) pg/ml Vitamin B12 (180-914) pg/ml Folate (>5.38) ng/ml TSH (0.300-4.500) uIu/ml Fluid Comment Synovial Source Synovial Color Synovial Appearance Synovial WBC (Auto) (0-200) /ul Synovial RBC (Auto) /uL Synovial Polynuclear % % Synovial Mononuclear % % Synovial Crystals Pending Random Vancomycin (10-20) mcg/ml 07/13/22 07/13/22 07/13/22 Range/Units 14:20 13:42 13:13 WBC (4.8-10.8) K/ul RBC (4.70-6.10) M/uL Hgb (14.0-18.0) g/dl Hct (42.0-52.0) % MCV (80.0-100.0) fL MCH (25.0-34.0) pg MCHC (32.0-36.0) g/dL RDW Std Deviation (36.4-46.3) fL RDW Coeff of Sunny (11.5-14.5) % Plt Count (130-400) K/uL MPV (9.4-12.4) fL Immature Gran % (Auto) % Neut % (Auto) % Lymph % (Auto) % [place] % (Auto) % Eos % (Auto) % Baso % (Auto) % Neut # (Auto) (1.40-6.50) K/uL Lymph # (Auto) (1.2-3.4) K/uL [place] # (Auto) (0.11-0.59) K/uL Eos # (Auto) (0-0.50) K/uL Baso # (Auto) (0-0.2) K/uL Immature Gran # (Auto) (0.01-0.20) K/uL Toxic Granulation Toxic Vacuolation Polychromasia Echinocytes Acanthocytes (Spur) Sodium (136-145) mmol/L Potassium (3.5-5.1) mmol/L Chloride (98-107) mmol/L Carbon Dioxide (21-32) mmol/L Anion Gap (3-11) BUN (6-23) mg/dl Creatinine (0.6-1.4) mg/dl Est Cr Clr Drug Dosing ml/min Est GFR ( Amer) ml/min Est GFR (Non-Af Amer) ml/min BUN/Creatinine Ratio (10-20) Glucose (70-99(Fasting)) mg/dl POC Glucose 137 H 63 L* (70-99) mg/dl Osmolality (280-300) mOsm/kg Calcium (8.6-10.3) mg/dl Magnesium (1.7-2.4) mg/dl Total Creatine Kinase (30-223) U/L B-Natriuretic Peptide (0-100) pg/ml Vitamin B12 (180-914) pg/ml Folate (>5.38) ng/ml TSH (0.300-4.500) uIu/ml Fluid Comment Synovial Source Left Knee Synovial Color Brown Synovial Appearance Turbid Synovial WBC (Auto) 685271 H (0-200) /ul Synovial RBC (Auto) 342487 /uL Synovial Polynuclear % 58.8 % Synovial Mononuclear % 41.2 % Synovial Crystals Random Vancomycin (10-20) mcg/ml 07/13/22 07/13/22 07/13/22 Range/Units 12:40 12:38 12:20 WBC (4.8-10.8) K/ul RBC (4.70-6.10) M/uL Hgb (14.0-18.0) g/dl Hct (42.0-52.0) % MCV (80.0-100.0) fL MCH (25.0-34.0) pg MCHC (32.0-36.0) g/dL RDW Std Deviation (36.4-46.3) fL RDW Coeff of Sunny (11.5-14.5) % Plt Count (130-400) K/uL MPV (9.4-12.4) fL Immature Gran % (Auto) % Neut % (Auto) % Lymph % (Auto) % [place] % (Auto) % Eos % (Auto) % Baso % (Auto) % Neut # (Auto) (1.40-6.50) K/uL Lymph # (Auto) (1.2-3.4) K/uL [place] # (Auto) (0.11-0.59) K/uL Eos # (Auto) (0-0.50) K/uL Baso # (Auto) (0-0.2) K/uL Immature Gran # (Auto) (0.01-0.20) K/uL Toxic Granulation Toxic Vacuolation Polychromasia Echinocytes Acanthocytes (Spur) Sodium (136-145) mmol/L Potassium (3.5-5.1) mmol/L Chloride (98-107) mmol/L Carbon Dioxide (21-32) mmol/L Anion Gap (3-11) BUN (6-23) mg/dl Creatinine (0.6-1.4) mg/dl Est Cr Clr Drug Dosing ml/min Est GFR ( Amer) ml/min Est GFR (Non-Af Amer) ml/min BUN/Creatinine Ratio (10-20) Glucose (70-99(Fasting)) mg/dl POC Glucose 66 L* 57 L* (70-99) mg/dl Osmolality 277 L (280-300) mOsm/kg Calcium (8.6-10.3) mg/dl Magnesium (1.7-2.4) mg/dl Total Creatine Kinase (30-223) U/L B-Natriuretic Peptide (0-100) pg/ml Vitamin B12 (180-914) pg/ml Folate (>5.38) ng/ml TSH (0.300-4.500) uIu/ml Fluid Comment Synovial Source Synovial Color Synovial Appearance Synovial WBC (Auto) (0-200) /ul Synovial RBC (Auto) /uL Synovial Polynuclear % % Synovial Mononuclear % % Synovial Crystals Random Vancomycin (10-20) mcg/ml 07/13/22 07/13/22 07/13/22 Range/Units 12:20 12:20 12:20 WBC (4.8-10.8) K/ul RBC (4.70-6.10) M/uL Hgb (14.0-18.0) g/dl Hct (42.0-52.0) % MCV (80.0-100.0) fL MCH (25.0-34.0) pg MCHC (32.0-36.0) g/dL RDW Std Deviation (36.4-46.3) fL RDW Coeff of Sunny (11.5-14.5) % Plt Count (130-400) K/uL MPV (9.4-12.4) fL Immature Gran % (Auto) % Neut % (Auto) % Lymph % (Auto) % [place] % (Auto) % Eos % (Auto) % Baso % (Auto) % Neut # (Auto) (1.40-6.50) K/uL Lymph # (Auto) (1.2-3.4) K/uL [place] # (Auto) (0.11-0.59) K/uL Eos # (Auto) (0-0.50) K/uL Baso # (Auto) (0-0.2) K/uL Immature Gran # (Auto) (0.01-0.20) K/uL Toxic Granulation Toxic Vacuolation Polychromasia Echinocytes Acanthocytes (Spur) Sodium (136-145) mmol/L Potassium (3.5-5.1) mmol/L Chloride (98-107) mmol/L Carbon Dioxide (21-32) mmol/L Anion Gap (3-11) BUN (6-23) mg/dl Creatinine (0.6-1.4) mg/dl Est Cr Clr Drug Dosing ml/min Est GFR ( Amer) ml/min Est GFR (Non-Af Amer) ml/min BUN/Creatinine Ratio (10-20) Glucose (70-99(Fasting)) mg/dl POC Glucose (70-99) mg/dl Osmolality (280-300) mOsm/kg Calcium (8.6-10.3) mg/dl Magnesium (1.7-2.4) mg/dl Total Creatine Kinase (30-223) U/L B-Natriuretic Peptide 101 H (0-100) pg/ml Vitamin B12 482 (180-914) pg/ml Folate 8.82 (>5.38) ng/ml TSH 1.289 (0.300-4.500) uIu/ml Fluid Comment Synovial Source Synovial Color Synovial Appearance Synovial WBC (Auto) (0-200) /ul Synovial RBC (Auto) /uL Synovial Polynuclear % % Synovial Mononuclear % % Synovial Crystals Random Vancomycin (10-20) mcg/ml 07/13/22 07/13/22 07/13/22 Range/Units 12:13 12:12 11:53 WBC (4.8-10.8) K/ul RBC (4.70-6.10) M/uL Hgb (14.0-18.0) g/dl Hct (42.0-52.0) % MCV (80.0-100.0) fL MCH (25.0-34.0) pg MCHC (32.0-36.0) g/dL RDW Std Deviation (36.4-46.3) fL RDW Coeff of Sunny (11.5-14.5) % Plt Count (130-400) K/uL MPV (9.4-12.4) fL Immature Gran % (Auto) % Neut % (Auto) % Lymph % (Auto) % [place] % (Auto) % Eos % (Auto) % Baso % (Auto) % Neut # (Auto) (1.40-6.50) K/uL Lymph # (Auto) (1.2-3.4) K/uL [place] # (Auto) (0.11-0.59) K/uL Eos # (Auto) (0-0.50) K/uL Baso # (Auto) (0-0.2) K/uL Immature Gran # (Auto) (0.01-0.20) K/uL Toxic Granulation Toxic Vacuolation Polychromasia Echinocytes Acanthocytes (Spur) Sodium (136-145) mmol/L Potassium (3.5-5.1) mmol/L Chloride (98-107) mmol/L Carbon Dioxide (21-32) mmol/L Anion Gap (3-11) BUN (6-23) mg/dl Creatinine (0.6-1.4) mg/dl Est Cr Clr Drug Dosing ml/min Est GFR ( Amer) ml/min Est GFR (Non-Af Amer) ml/min BUN/Creatinine Ratio (10-20) Glucose (70-99(Fasting)) mg/dl POC Glucose 56 L* 58 L* 58 L* (70-99) mg/dl Osmolality (280-300) mOsm/kg Calcium (8.6-10.3) mg/dl Magnesium (1.7-2.4) mg/dl Total Creatine Kinase (30-223) U/L B-Natriuretic Peptide (0-100) pg/ml Vitamin B12 (180-914) pg/ml Folate (>5.38) ng/ml TSH (0.300-4.500) uIu/ml Fluid Comment Synovial Source Synovial Color Synovial Appearance Synovial WBC (Auto) (0-200) /ul Synovial RBC (Auto) /uL Synovial Polynuclear % % Synovial Mononuclear % % Synovial Crystals Random Vancomycin (10-20) mcg/ml 07/13/22 07/13/22 Range/Units 11:51 08:22 WBC (4.8-10.8) K/ul RBC (4.70-6.10) M/uL Hgb (14.0-18.0) g/dl Hct (42.0-52.0) % MCV (80.0-100.0) fL MCH (25.0-34.0) pg MCHC (32.0-36.0) g/dL RDW Std Deviation (36.4-46.3) fL RDW Coeff of Sunny (11.5-14.5) % Plt Count (130-400) K/uL MPV (9.4-12.4) fL Immature Gran % (Auto) % Neut % (Auto) % Lymph % (Auto) % [place] % (Auto) % Eos % (Auto) % Baso % (Auto) % Neut # (Auto) (1.40-6.50) K/uL Lymph # (Auto) (1.2-3.4) K/uL [place] # (Auto) (0.11-0.59) K/uL Eos # (Auto) (0-0.50) K/uL Baso # (Auto) (0-0.2) K/uL Immature Gran # (Auto) (0.01-0.20) K/uL Toxic Granulation Toxic Vacuolation Polychromasia Echinocytes Acanthocytes (Spur) Sodium (136-145) mmol/L Potassium (3.5-5.1) mmol/L Chloride (98-107) mmol/L Carbon Dioxide (21-32) mmol/L Anion Gap (3-11) BUN (6-23) mg/dl Creatinine (0.6-1.4) mg/dl Est Cr Clr Drug Dosing ml/min Est GFR ( Amer) ml/min Est GFR (Non-Af Amer) ml/min BUN/Creatinine Ratio (10-20) Glucose (70-99(Fasting)) mg/dl POC Glucose 54 L* (70-99) mg/dl Osmolality (280-300) mOsm/kg Calcium (8.6-10.3) mg/dl Magnesium 1.6 L (1.7-2.4) mg/dl Total Creatine Kinase (30-223) U/L B-Natriuretic Peptide (0-100) pg/ml Vitamin B12 (180-914) pg/ml Folate (>5.38) ng/ml TSH (0.300-4.500) uIu/ml Fluid Comment Synovial Source Synovial Color Synovial Appearance Synovial WBC (Auto) (0-200) /ul Synovial RBC (Auto) /uL Synovial Polynuclear % % Synovial Mononuclear % % Synovial Crystals Random Vancomycin (10-20) mcg/ml Diagnostic Findings Chest X-Ray 07/13/22 11:10 XR chest 1V portable CLINICAL HISTORY: hypoxia TECHNIQUE: Single frontal radiograph of the chest was obtained. Comparison: Comparison is made to chest radiograph 12/24/2019 FINDINGS: No lines and tubes are seen. Cardiomegaly is noted. The lungs are clear. No evidence of pleural effusion or pneumothorax. IMPRESSION: No acute chest disease. Cardiomegaly is noted. ACT 112: Negative or not required by law. Electronically signed by: Matias Paula M.D. 07/13/2022 11:32 AM PG Care Time/CCT Total # of Minutes Spent Total Time Spent with Patient: Total time spent is greater than 50% in coordination of care (as documented) at patient's floor/unit and/or counseling patient: Coding Level of Care Code 89408 SUB INP/OBS CARE 3/50MIN Diagnoses Left knee pain M25.562 Cellulitis L03.90 ADAM (acute kidney injury) N17.9 Hyponatremia E87.1 Rhabdomyolysis M62.82 Proteinuria due to type 2 diabetes mellitus E11.29; R80.9 HTN (hypertension) I10 Aortic stenosis I35.0 Leukocytosis D72.829 Restless leg syndrome G25.81 Splenomegaly R16.1 Hepatic steatosis K76.0 CAD (coronary artery disease) I25.10
[2022-07-14 08:48] LABS: Hematocrit (blood only) 29.7 % (42.0-52.0); Hemoglobin 10.1 g/dl (14.0-18.0); Mean Corpuscular Hemoglobin 31.1 pg (25.0-34.0); Mean Corpuscular Volume 91.4 fL (80.0-100.0); Mean Platelet Volume 11.7 fL (9.4-12.4); Platelet Count 225 K/uL (130-400); RDW Coefficient of Variation 13.2 % (11.5-14.5); Red Blood Count 3.25 M/uL (4.70-6.10); White Blood Count 14.41 K/ul (4.8-10.8)
[2022-07-14 09:17] LABS: Acanthocytes 1+; Basophils # (auto) 0.03 K/uL (0-0.2); Basophils % (auto) 0.2 %; Echinocytes 1+; Eosinophils # (auto) 0.06 K/uL (0-0.50); Eosinophils % (auto) 0.4 %; Immature Granulocytes # (auto) 0.26 K/uL (0.01-0.20); Immature Granulocytes % (auto) 1.8 %; Lymphocytes # (auto) 0.46 K/uL (1.2-3.4); Lymphocytes % (auto) 3.2 %; Monocytes # (auto) 0.68 K/uL (0.11-0.59); Monocytes % (auto) 4.7 %; Neutrophils # (auto) 12.92 K/uL (1.40-6.50); Neutrophils % (auto) 89.7 %; Polychromasia 1+; Toxic Granulation 1+; Toxic Vacuolation 1+
[2022-07-14 09:26] LABS: BUN Creatinine Ratio 34.5 (10-20); Calcium 7.9 mg/dl (8.6-10.3); Creatinine Clr Calc Pharmacy 85.3 ml/min; Est GFR (Non-African American) 51.8 ml/min; Magnesium 1.9 mg/dl (1.7-2.4)
--- NOTE | 2022-07-14 09:55 | Pharmacy Report ---
Pharmacy Vanc AUC Short Note - Date of Service July 14, 2022 - Assessment & Plan Assessment 56 year old M receiving vancomycin/cefepime for treatment of knee infection. Pertinent microbiologic data includes: knee culture with Gram stain positive for Gram positive Cocci. Day # 3 of antimicrobial therapy. Plan Vancomycin * AUC/SOPHIE is the preferred PK/PD target for vancomycin * AUC guided dosing is effective and associated with decreased risk of nephrotoxicity compared to traditional trough targets * Random level of 14.7 mcg/mL is predicted to NOT achieve target AUC/SOPHIE of 400- 600 mg/L.hr * Change to 1500 mg IV every 12 hours which may be associated with a 11 % risk of nephrotoxicity * Random level ordered for: 07/15/22 Pharmacy will continue to follow and will adjust dose/frequency as necessary. Thank you.
[2022-07-14] MEDS ORDERED: POLYETHYLENE (MIRALAX) 17 GM PACK PO PRN (09:56)
[2022-07-14] MEDS ORDERED: HYDROmorphone INJ 1 MG/ML SYRINGE IV STA (09:56)
[2022-07-14] MEDS ORDERED: FUROSEMIDE INJ 20 MG/2 ML VIAL IV ONE (10:10)
[2022-07-14] MEDS: DOCUSATE SODIUM/SENNA 50/8.6MG TAB PO SCH (10:57)
[2022-07-14] MEDS: VANCOMYCIN HCL 1,500 MG in SODIUM CHLORIDE 0.9% 500 ML IV SCH ×2 (10:58→23:04)
[2022-07-14] MEDS: HYDROmorphone INJ 0.5 MG/0.5 ML SYR IV PRN ×2 (13:58→21:11)
[2022-07-14] MEDS ORDERED: fentaNYL citrate PF 100 MCG/2 ML VIAL ONE (15:22)
[2022-07-14] MEDS ORDERED: MIDAZOLAM HCL 1 MG/ML 2ML VIAL ONE (15:22)
[2022-07-14 16:40] LABS: BUN Creatinine Ratio 36.2 (10-20); Calcium 7.4 mg/dl (8.6-10.3); Creatinine Clr Calc Pharmacy 89.5 ml/min; Est GFR (African American) 63.6 ml/min; Est GFR (Non-African American) 54.9 ml/min; Potassium 3.8 mmol/L (3.5-5.1)
[2022-07-14] MEDS: rOPINIRole HCL 1 MG TABLET PO SCH (21:10)
[2022-07-14] MEDS: traZODone HCL 100 MG TAB PO SCH (21:10)
[2022-07-14] MEDS: ONDANSETRON INJ 2 MG/ML 2 ML VIAL IV PRN (21:18)
[2022-07-15] MEDS ORDERED: Nursing to Pharmacy Communication SCH ×2 (00:45→12:15)
[2022-07-15] MEDS: CEFEPIME 2,000 MG in SYRINGE 0 ML IV SCH (02:02)
[2022-07-15] MEDS: ONDANSETRON INJ 2 MG/ML 2 ML VIAL IV PRN (02:10)
[2022-07-15] MEDS ORDERED: PROCHLORPERAZINE 5 MG in SYRINGE 4 ML IV ONE (02:45)
[2022-07-15] MEDS ORDERED: ALUMINUM/MAGNESIUM SUSP 18 ML, LIDOCAINE VISCOUS 2% SOLN 6 ML, BARCODE IDENTIFIER 1 EACH PO ONE (04:26)
[2022-07-15] MEDS ORDERED: PANTOprazole 40 MG TAB PO ONE (04:26)
[2022-07-15] MEDS ORDERED: METOCLOPRAMIDE HCL INJ 5 MG/ML 2 ML VIAL IV PRN (04:27)
[2022-07-15] MEDS ORDERED: PANTOprazole 40 MG in SYRINGE 0 ML IV ONE (04:45)
[2022-07-15] MEDS ORDERED: BUPIVACAINE 0.5 % 5 MG/1 ML PF 10ML VIAL ONE (06:24)
[2022-07-15] MEDS ORDERED: ROPIVACAINE 0.5% 5 MG/ML 30 ML VIAL ONE (06:24)
[2022-07-15] MEDS ORDERED: METOCLOPRAMIDE HCL INJ 5 MG/ML 2 ML VIAL ONE (06:37)
[2022-07-15] MEDS ORDERED: SUCCINYLCHOLINE CHLORIDE 20 MG/ML 10 ML VIAL IV ONE (06:37)
[2022-07-15] MEDS ORDERED: MIDAZOLAM HCL 1 MG/ML 2ML VIAL ONE (06:37)
[2022-07-15] MEDS ORDERED: ROCURONIUM BROMIDE 10 MG/ML 5 ML VIAL IV ONE (06:37)
[2022-07-15] MEDS ORDERED: PROPOFOL IV EMULSION 10 MG/ML 20 ML VIAL IV ONE ×3 (06:37→10:24)
[2022-07-15] MEDS ORDERED: ONDANSETRON INJ 2 MG/ML 2 ML VIAL ONE (06:37)
[2022-07-15] MEDS ORDERED: LIDOCAINE 2% 2 ML VIAL/AMP(20MG/ML) INFIL ONE (06:37)
[2022-07-15] MEDS ORDERED: fentaNYL citrate PF 100 MCG/2 ML VIAL ONE ×2 (06:37→09:21)
--- NOTE | 2022-07-15 07:16 | History & Physical Bridge Note ---
Date of Service July 15, 2022 History & Physical Bridge Note I have examined the patient, reviewed the History & Physical and in the interval since the performance of the History & Physical I have noted the following changes of clinical significance: no changes noted
[2022-07-15] MEDS ORDERED: ePHEDrine sulfate 50 MG/ML AMP IV PRN (07:22)
[2022-07-15] MEDS ORDERED: ATROPINE SULFATE 0.1 MG/ML 10ML SYR IV PRN (07:22)
[2022-07-15] MEDS ORDERED: ONDANSETRON INJ 2 MG/ML 2 ML VIAL IV PRN (07:22)
[2022-07-15] MEDS ORDERED: HYDROmorphone INJ 2 MG/ML SYR/VIAL IV PRN (07:22)
--- NOTE | 2022-07-15 07:22 | Anesthesiology Consultation ---
Date of Service July 15, 2022 Assessment & Plan Chart Review Chart Review: Acceptable Risk for Surgery and Patient NOT seen in Pre Admission Testing Consults Requested none History Surgery Operation Date: 07/14/22 08:50 Proposed Procedures p Incision and Drainage Left Septic Total Knee Arthroplasty Poly Exchange - Bernardo Valadez MD Operation Date: 07/15/22 07:15 Proposed Procedures p Left Incision and Drainage Septic Knee - Bernardo Valadez MD s Poly Exchange - Bernardo Valadez MD Height/Weight Height: 6 ft 2 in Weight: 150.4 kg Allergies Allergy/AdvReac Type Severity Reaction Status Date / Time Enivronmental Allergy itchy Uncoded 07/12/22 21:15 eyes, sneeze Medications Home Medications Medication Instructions Recorded Confirmed Last Taken cholecalciferol (vitamin D3) 50 50 mcg PO QAM 07/29/19 07/12/22 06/27/21 mcg (2,000 unit) capsule aspirin 81 mg tablet,delayed 81 mg PO QAM 30 days #30 tabs 12/27/19 07/12/22 06/28/21 08:00 release metformin 1,000 mg tablet 1,000 mg PO BID #180 tabs 08/06/21 07/12/22 Unknown atorvastatin 80 mg tablet 80 mg PO QAM #90 tabs 12/17/21 07/12/22 Unknown nitroglycerin 0.4 mg sublingual 0.4 mg sublingual UD PRN chest 02/23/22 07/12/22 Unknown tablet (Nitrostat) pain 30 days #60 tabs lisinopril 20 mg tablet 20 mg PO DAILY 04/14/22 07/12/22 Unknown fluticasone 100 mcg-salmeterol 50 1 inh inhalation BID shortness of 04/21/22 07/12/22 Unknown mcg/dose blistr powdr for breath inhalation (Wixela Inhub) glipizide 5 mg tablet 5 mg PO QPM #90 tabs 04/21/22 07/12/22 Unknown trazodone 50 mg tablet 100 mg PO HS insomnia #180 tabs 04/28/22 07/12/22 Unknown duloxetine 60 mg capsule,delayed 60 mg PO QAM #90 caps 05/03/22 07/12/22 Unknown release insulin glargine 100 unit/mL (3 15 unit (0.15 mL) subcut QAM #15 mL 05/03/22 07/12/22 07/12/22 02:00 mL) subcutaneous pen (Lantus Solostar U-100 Insulin) famotidine 20 mg tablet 20 mg PO BID PRN heartburn 90 days 05/13/22 07/12/22 Unknown #180 tabs tirzepatide 5 mg/0.5 mL 5 mg (0.5 mL) subcut WK #2 mL 05/16/22 07/12/22 07/05/22 subcutaneous pen injector (Ramirez) oxycodone-acetaminophen 5 mg-325 1 tab PO BID PRN pain 30 days #60 06/02/22 07/12/22 Unknown mg tablet tabs albuterol sulfate 90 mcg/actuation See Rx Instructions inhalation QID 07/02/22 07/12/22 Unknown aerosol inhaler (Proventil HFA) PRN shortness of breath or wheezing #18 grams metoprolol tartrate 50 mg tablet 50 mg PO BID #180 tabs 07/04/22 07/12/22 Unknown allopurinol 300 mg tablet 300 mg PO QAM 07/12/22 07/12/22 Unknown hydrochlorothiazide 12.5 mg tablet 12.5 mg PO DAILY 07/12/22 07/12/22 Unknown ropinirole 1 mg tablet 1 mg PO QPM 07/12/22 07/12/22 Unknown Active Medications Generic Name Dose Route Start Last Admin Trade Name Freq PRN Reason Stop Dose Admin Acetaminophen 650 mg 07/12/22 21:24 07/13/22 00:52 Acetaminophen 325 Mg Tab PO 08/11/22 21:23 650 mg Q4H PRN Administration pain/fever Allopurinol 200 mg 07/13/22 09:00 07/14/22 08:11 Allopurinol 100 Mg Tab PO 08/12/22 08:59 200 mg QAM ELVIS Administration Dextrose 25 - 50 ml 07/12/22 21:39 07/13/22 13:15 Dextrose 50% 50 Ml Syringe IV 08/11/22 21:38 50 ml UD PRN Administration Hypoglycemia Protocol Protocol Doxycycline Hyclate 100 mg 07/13/22 21:00 07/14/22 21:10 Doxycycline Hyclate 100 Mg Cap PO 07/23/22 20:59 100 mg BID ELVIS Administration Duloxetine HCl 60 mg 07/13/22 09:00 07/14/22 08:11 Duloxetine Hcl 60 Mg Cap PO 08/12/22 08:59 60 mg QAM ELVIS Administration Fluticasone/Vilanterol 1 puffs 07/13/22 09:00 07/14/22 08:10 Fluticasone/Vilanterol 100/25mcg 14 Puffs/Inhaler INH 08/12/22 08:59 1 puffs DAILY ELVIS Administration Glucose 15 - 30 gm 07/12/22 21:39 07/13/22 12:41 Glucose 40% Gel 15 Gm Tube PO 08/11/22 21:38 30 gm UD PRN Administration Hypoglycemia Protocol Protocol Heparin Sodium (Porcine) 5,000 units 07/13/22 01:00 07/13/22 23:50 Heparin Sod 5,000 Unit/0.5 Ml Vial SQ 08/12/22 00:59 Not Given Q8H ELVIS Hydromorphone HCl 1 mg 07/14/22 09:56 07/14/22 21:11 Hydromorphone Inj 0.5 Mg/0.5 Ml Syr IV 07/27/22 11:19 1 mg Q3H PRN Administration severe pain Vancomycin HCl 1,500 mg/ 530 mls @ 200 mls/hr 07/14/22 10:00 07/15/22 01:43 Sodium Chloride IV 07/21/22 09:59 Infused Q12H ELVIS Infusion Protocol Cefepime HCl 2,000 mg/ Syringe 20 mls @ 5 mls/min 07/14/22 10:00 07/15/22 02:02 IV 07/21/22 09:59 5 mls/min Q8H ELVIS Administration Protocol Insulin Glargine 10 units 07/13/22 21:00 07/14/22 21:14 Lantus Per Unit Charge SQ 08/12/22 20:59 10 units BID ELVIS Administration Metoprolol Tartrate 50 mg 07/13/22 09:00 07/14/22 21:10 Metoprolol Tartrate 50 Mg Tab PO 08/12/22 08:59 50 mg BID ELVIS Administration Miscellaneous 15 - 30 gm 07/12/22 21:39 07/13/22 11:56 Carbohydrates For Hypoglycemia PO 08/11/22 21:38 15 gm UD PRN Administration Hypoglycemia Protocol Ondansetron HCl 4 mg 07/12/22 21:24 07/15/22 02:10 Ondansetron Inj 2 Mg/Ml 2 Ml Vial IV 08/11/22 21:23 4 mg Q6H PRN Administration Nausea Oxycodone/Acetaminophen 1 tab 07/13/22 15:13 07/14/22 18:11 Oxycodone/Acetaminophen 5mg/325mg Tab PO 07/26/22 21:31 1 tab Q6H PRN Administration pain Ropinirole HCl 1 mg 07/13/22 21:00 07/14/22 21:10 Ropinirole Hcl 1 Mg Tablet PO 08/12/22 20:59 1 mg QPM ELVIS Administration Senna/Docusate Sodium 1 tab 07/14/22 10:15 07/14/22 10:57 Docusate Sodium/Senna 50/8.6mg Tab PO 08/13/22 10:14 Not Given QAM ELVIS Thiamine HCl 100 mg 07/13/22 21:00 07/14/22 21:10 Thiamine Hcl 100 Mg Tab PO 08/12/22 20:59 100 mg BID ELVIS Administration Trazodone HCl 100 mg 07/13/22 21:00 07/14/22 21:10 Trazodone Hcl 100 Mg Tab PO 08/12/22 20:59 100 mg HS ELVIS Administration NPO Date Last Intake of Fluids: 07/14/22 Time Last Intake of Fluids: 22:00 Date Last Intake of Solids: 07/14/22 Time Last Intake of Solids: 18:00 Past Medical History Medical History Aortic stenosis Asthma inhaler daily/prn CAD (coronary artery disease) Chronic lower back pain Diabetes mellitus, type 2 Diabetic neuropathy Exertional angina Gout HTN (hypertension) Hyperlipidemia Insomnia Morbid obesity with BMI of 40.0-44.9, adult Osteoarthritis Restless leg syndrome Sinus tachycardia Sleep apnea mild; no device SOB (shortness of breath) on exertion Vitamin D deficiency Past Family History Family History Father Heart disease Mother Heart disease Diabetes Grandfather No problems noted. Grandfather (Maternal) Lung cancer Grandmother (Maternal) Lung cancer Grandfather (Paternal) Myocardial infarction Grandmother (Paternal) Stroke Other No family history of adverse response to anesthesia Denies family history of Ovarian cancer Prostate cancer Breast cancer Colorectal cancer Past Surgical History Surgical History H/O hernia repair as a baby History of cardiac cath 12/26/19 @ [facility] with 2 stents placed History of colonoscopy 06/2021, poor prep per report History of ear surgery History of esophagogastroduodenoscopy (EGD) 07/2021 History of left hip replacement (~2018) History of total left knee replacement (TKR) History of total right knee replacement (TKR) History of wisdom tooth extraction S/P coronary artery stent placement 2 stents placed 12/26/19 @ [facility] Social History Smoking Status: Never smoker tobacco type: smokeless tobacco Smoking cigarettes per day: 1 can a week Do You Dip or Chew Tobacco: Yes Hx Alcohol Use: Yes Alcohol type: beer, wine and hard liquor alcohol intake frequency: 0-2 drinks per day Hx Substance Use: No substance use type: does not use Physical Exam Vital Signs Last Vital Signs Temp 97.9 F 07/15/22 07:17 Pulse 94 H 07/15/22 07:17 Resp 18 07/15/22 07:17 BP 174/93 H 07/15/22 07:17 Pulse Ox 94 07/15/22 07:17 O2 Del Method Room Air 07/15/22 07:17 O2 Flow Rate 2 07/13/22 15:30 Testing Laboratory Results 07/14/22 08:13 07/14/22 16:10 Urine Color Dark Yellow 07/13/22 01:49 Urine Appearance Turbid (Clear) A 07/13/22 01:49 Urine pH 5.0 (4.5-7.5) 07/13/22 01:49 Ur Specific [place] 1.026 (1.000-1.030) 07/13/22 01:49 Urine Protein Trace (Negative) H 07/13/22 01:49 Urine Glucose (UA) Negative (Negative) 07/13/22 01:49 Urine Ketones Trace (Negative) H 07/13/22 01:49 Urine Nitrite Positive (Negative) A 07/13/22 01:49 Ur Leukocyte Esterase 1+ (Negative) H 07/13/22 01:49 Urine WBC (Auto) 10-30 /hpf (0-5) H 07/13/22 01:49 Urine RBC (Auto) 0-4 /hpf (0-4) 07/13/22 01:49 U Hyaline Cast (Auto) 0 /lpf (0-5) 07/13/22 01:49 U Epithel Cells (Auto) >30 /lpf (0-5) H 07/13/22 01:49 Urine Bacteria (Auto) Negative (Negative) 07/13/22 01:49 07/13/22 01:00 Aerobic Blood Culture - Preliminary Blood No growth in Aerobic bottle after 48 hours. Anaerobic Blood Culture - Preliminary No growth in Anaerobic bottle after 48 hours. 07/13/22 01:00 Aerobic Blood Culture - Preliminary Blood No growth in Aerobic bottle after 48 hours. Anaerobic Blood Culture - Preliminary No growth in Anaerobic bottle after 48 hours. 07/13/22 14:20 Gram Stain - Final Knee,Left Aerobic and Anaerobic Culture - Preliminary Group A Beta Strep 07/13/22 01:49 Urine Culture - Preliminary Urine,Clean Catch No growth - Less than 1,000 colonies/mL, Final report to follow. 07/15/22 07/14/22 07/14/22 06:45 23:25 20:54 POC Glucose 129 H 122 H 123 H
[2022-07-15] MEDS: INSULIN ASPART PER UNIT CHARGE SC SCH ×4 (07:24→21:29)
[2022-07-15] MEDS ORDERED: ceFAZolin 330 MG/ML 1 GM VIAL ONE ×3 (07:33→09:22)
[2022-07-15] MEDS ORDERED: VANCOMYCIN HCL 1000MG/20ML VIAL ONE (07:33)
[2022-07-15] MEDS ORDERED: ceFAZolin 3000MG/72.5 ML BAG IV ONE (07:48)
[2022-07-15] MEDS ORDERED: KETAMINE 50 MG/5 ML SYRINGE ONE (08:19)
--- NOTE | 2022-07-15 08:19 | Hospitalist Progress Note ---
Date of Service July 15, 2022 Assessment & Plan (1) Left knee pain: Plan: Wisam Copeland is a 56 year old male with past medical history of T2DM, diabetic neuropathy, obesity, asthma, HTN, Alcohol Use Disorder, CAD, hepatic steatosis, left knee arthroplasty who presented to the ED with left knee pain and inability to ambulate. Left Lower Extremity Cellulitis, Sepsis 2nd to infection L foot/knee SIRS criteria on admit. Xray w/ L knee soft tissue/swelling/effusion, NEGATIVE for osteo. Duplex NEG for DVT ortho on consult, s/p aspiration 70cc brown/umana aspirate 07/13 -- left TKA grossly infected. Fluid w/ elevated WBC [id number] Vanco/Cefepime. +doxy for +IgG/-IgM on lyme, WB pending Cx from aspiration w/ group A beta strep, pansensitive surgery postponed yesterday was patient w/ chew in. NPO for surgery today, 07/15 Blood cultures NGTD WBC improving, afebrile. Planning to continue Rocephin post-op (can d/c Doxy and monitor WB as rocephin will cover) ID consult pending Emesis overnight, nothing since. changed pepid to BID scheduled, hx gastritis (also alcohol use Will check KUB given no BM but does have+BS on exam -- per parents about fifth q2d at home -- had not had DTs prior in stay -- was given 1mg ativan x 1 last evening for AWSS 6). NOT tachypneic/tachycardic/febrile at present. VSS. Will monitor. B12/folate were wnl, and has been on empiric thiamine 100mg BID since 07/13. DVT proph -- resume heparin SQ when ok w/ surgery :Labs from AM not drawn -- monitor when available (2) Cellulitis: Plan: as above, WBC improving, afebrile abx as above elevation, wound RN consulted (3) ADAM (acute kidney injury): Plan: BUN/Cr elevated on admission 55/2.13. Suspect 2nd to poor PO intake/diarrhea Given IVF on admission for rhabdomyolysis as well. CK now resolved and was actually given lasix 40mg IV x 1 07/13 for assistance w swelling Cr improved to 1.41 yesterday and was given another 20mg IV lasix as OR cancelled HCTZ/Lisinopril on hold post-op, aware repeat labs Hyponatremia w/ prior lows as well, ?from alcohol use + HCTZ TSH wnl ECHO Nov 2019 w/ mild , EF 65-70% CK resolved on repeat, holding statin but could resume for tomorrow Renal dose meds/avoid nephrotoxins as able Hopefully continued improvement now that able to de-escalate abx from vanco/cefe pime Monitor BMP on repeat (4) Hyponatremia: Plan: suspected 2nd to hypovolemia on admission and was given copious IVF replacement for elevated CK on admission, however increased LE edema/+BNP and improvement in resp/LE edema and kidney function with lasix yesterday and repeat dose ordered today Urine na only 25, serum osm 277 TSH wnl Prior reports drinking -- no drink/DTs at present (was given ativan last evening) but reported recent diarrhea [employer] which could have been from such Repeat Na 125, NOT symptomatic from such Additional dose lasix for 07/14 Monitor BMP Can consider consult w/ nephrology but appearing stable at present. also suspect aspect of uncontrolled pain can consider repeating urine/serum studies (5) Rhabdomyolysis: Plan: was down for ~12 hours. CK 1164 w/ ADAM on admit IVF ordered on admit as above CK 1164--> 452--> 191 w/ dose of lasix and stopped IVF (resumed as NPO for surgery) Continue to hold lisinopril/HCTZ No evidence for compartment syndrome at present (6) Proteinuria due to type 2 diabetes mellitus: Plan: Most recent A1C: 7.8% Home meds include Mounjaro (recently started), Glipizide, Metformin, Insulin Sliding scale insulin while admitted --> BSGs dropped 07/13 afternoon to 50/60s, asymptomatic. Glucose w/ lab x 1 130s. Loosened SSI parameters for CF to 45, CR to 15 Decreased long acting to 10u BID and will monitor -- HELD AM 07/14 dose for BSG 130s and adjusted SSI BSGs acceptable -- monitor (7) HTN (hypertension): Plan: Hold home Lisinopril due to ADAM, improving (also holding hctz) BP stable at present w/o elevation 138/79 Statin on hold given elevated CK on admit but could resume tomorrow (8) Aortic stenosis: Plan: noted, mild on exam consider dose lasix to assist w/ edema -- given 40mg IV x 1 on 07/13, additional 20mg IV x 1 for today w/ his IVF while NPO but may require additonal dosing given up 5L since admission w/ IVF however has had some unmeasured voids LE edema improving w/ dose of lasix, consider additional dosing but await repeat labs, consider for tomorrow. on IVF post-op/decreased appetite. Place orders for daily weights, I&Os Monitor repeat exam (9) Leukocytosis: Plan: improving w/ abx. monitor on repeat. temp am 07/13 38C -- nothing since bcx remain ngtd at present (10) Restless leg syndrome: Plan: Continue home Ropinirole (11) Splenomegaly: Plan: noted. ?lyme vs from alcohol use -- monitor WB, consider changing abx to include ceftriaxone vs doxy for MRSA coverage in place of Vanco but will monitor for now (avoiding dapto given elevated CK) Placed on Doxy BID starting evening 07/13 --> discontinued given ceftriaxone now and will cover f/u WB testing (12) Hepatic steatosis: Plan: noted. likely from alcohol use (13) CAD (coronary artery disease): Plan: resume ASA when ok w/ surgry -- hx PCI to LAD and RCI Statin on hold given elevated CK continues on metoprolol, nitro prn denies any chest pain at present Plan monitor cx from OR, switched abx to Rocephin PT/OT consulted likely req rehab check KUB/increase bowel regimen as needed scheduled pepcid bid Admission and Anticipated Discharge Date Admission Date: July 12, 2022 Supervising Physician Co-Signing Physician Notes The patient was not seen by me. The chart was reviewed. Case discussed with RAJI Esquivel. Agree with assessment and plan Subjective eval post-op, doing alright. attempting to pee but unsuccessful. parent's at bedside. states he is feeling better but has some tightness to his leg. dressing intact. his parents note orthopedics had discussed rehab -- they are in agreement as would not be able to take care of him in current state. no chest pain/shortness of breath. has some abdominal fullness, +BS on exam but decreased appetite. Slightly nauseated. Had episodes of emesis last evening, nothing at present. Notes the waves of pain seem to trigger the nausea at times. Offered antiemetic - he declined at present. VSS BP 127/76, HR 86bpm, 96%on 2L but frequently taking off, not tachypneic, able to talk in complete sentences. Discussed likely 6wk IV then oral abx following but will monitor cultures. Results & Data Results & Data Vital Signs (Past 12 Hours) Vital Signs Temp Pulse Pulse Resp BP Pulse Ox O2 Del Method 07/15/22 07:17 36.6 C 94 H 92 H 18 174/93 H 94 Room Air 07/14/22 20:30 Room Air 07/14/22 21:02 36.4 C L 85 17 127/79 97 Room Air PG Care Time/CCT Total # of Minutes Spent Total Time Spent with Patient: Total time spent is greater than 50% in coordination of care (as documented) at patient's floor/unit and/or counseling patient: Coding Level of Care Code 93741 SUB INP/OBS CARE 3/50MIN Diagnoses Left knee pain M25.562 Cellulitis L03.90 ADAM (acute kidney injury) N17.9 Hyponatremia E87.1 Rhabdomyolysis M62.82 Proteinuria due to type 2 diabetes mellitus E11.29; R80.9 HTN (hypertension) I10 Aortic stenosis I35.0 Leukocytosis D72.829 Restless leg syndrome G25.81 Splenomegaly R16.1 Hepatic steatosis K76.0 CAD (coronary artery disease) I25.10
[2022-07-15] MEDS ORDERED: SUGAMMADEX SODIUM 200 MG/2 ML VIAL IV ONE (08:49)
[2022-07-15] MEDS: LANTUS PER UNIT CHARGE SQ SCH ×2 (09:00→21:29)
--- NOTE | 2022-07-15 09:03 | Infectious Disease Consult ---
Date of Consultation July 15, 2022 Assessment & Plan (1) Infected prosthetic knee joint: (2) Cellulitis: (3) ADAM (acute kidney injury): Plan 56 yo M with history of DM2, diabetic neuropathy, obesity, CAD, asthma, gout, bilateral TKA who presented on 07/12 with several days of L knee pain, erythema, swelling, found to have Group A Strep L knee PJI. Also noted to have cellulitis from L knee through L foot, and a L foot wound from slipping and cutting his foot ~2 weeks prior. On presentation, pt was afebrile with leukocytosis to 20.62, CRP 52.95. XR L knee showed soft tissue swelling and joint effusion, no acute bony abnormality. L foot XR showed soft tissue swelling with no bony erosion. LLE venous duplex US was negative for DVT. Ortho performed L knee aspiration on 07/13 and obtained grossly purulent fluid, with synovial fluid testing showing WBC 234K (59% segs, 41% mono), RBC 200K, no crystals, and culture positive for Group A Strep. Lyme serologies were IgM positive, IgG negative, with western blot pending. Pt denied known recent tick bites. Pt's LLE erythema and leukocytosis has improved on vanc, cefepime. He is being taken to the OR 07/15 for I&D and poly exchange. Micro: 07/13 L knee aspiration: Group A Strep (S amp, ceftriaxone, clinda, penicillin, vanc) 07/13 BCx x2: NGTD Abx: Cefepime 07/13 - Vanc 07/12 - present Doxycycline 07/13 - present Pip-tazo 07/13 Ceftriaxone 07/12 Problems: #L knee prosthetic joint infection with group A Strep #LLE cellulitis #ADAM: improving Recommendations: -Await findings from OR today. Please send tissue for culture -Stopped vancomycin and cefepime. Started ceftriaxone 2 g IV daily to cover group A Strep. If infected hardware is retained, anticipate pt will need 6 weeks of IV antibiotics followed by oral suppressive antibiotics for ~1 year -Follow-up Lyme western blot, to assess for false positive serology -Stopped doxycycline, as ceftriaxone also covers Lyme Will continue to follow Please note that there will be no ID notes over the weekend. If questions or concerns arise, please contact the Infectious Disease Call Center and ask to speak with the covering ID physician. I will be back on service Monday. Consultation Information This patient recommendation is based on a telemedicine consult request which was completed asynchronously through chart review and information provided by the primary physician. The patient was not seen or examined today. The evaluation is consultative in nature and all patient care and treatment decisions can either be accepted or rejected by the patient's primary hospital-based treating physician using their own independent medical judgment for their patient. Computer Repair Technician contact information: Please call [facility] Call Center [phone]. (Phone Number For Physician Use Only) Time Spent Reviewing Chart: 31+ minutes History of Present Illness Reason for Consultation: L TKA PJI Requesting Physician: RAJI Esquivel Attending Physician: Florencio Spaulding MD History of Present Illness 56 yo M with history of DM2, diabetic neuropathy, obesity, CAD, asthma, gout, bilateral TKA who presented on 07/12 with L knee pain and inability to ambulate. He reported that about 1 week prior, he began having redness and swelling around his face, neck, eyelids with inner eye discharge which lasted for several days, then improved. He then began having L knee pain, swelling, and redness. The erythema also extended to his L foot. Also reported that he slipped and cut the bottom of his L foot about 2 weeks prior, and noted some drainage (pus, blood). On presentation, he was afebrile, VSS. Labs showed WBC 20.62, Cr 2.13. XR L knee showed soft tissue swelling and joint effusion, no acute bony abnormality. L foot XR showed soft tissue swelling with no bony erosion. LLE venous duplex US was negative for DVT. Pt was given vanc, ceftriaxone in the ED, then continued on vanc, cefepime. Ortho was consulted and performed an aspiration on 07/13. 70 cc grossly purulent, dark umana fluid was removed. Synovial fluid testing showed WBC 234K (59% segs, 41% mono), RBC 200K, no crystals, and culture grew Group A Strep. Lyme testing was sent which was IgM positive and IgG negative, with western blot pending. Doxycycline was added in case of Lyme disease. Pt denied known recent tick bites. Pt's LLE erythema was noted to improve with antibiotics, and WBC has downtrended to 14.41. He is being taken to the OR today for I&D and poly exchange. Allergies Allergy/AdvReac Type Severity Reaction Status Date / Time Enivronmental Allergy itchy Uncoded 07/12/22 21:15 eyes, sneeze Home Medications Medication Instructions Recorded Confirmed Type cholecalciferol (vitamin D3) 50 50 mcg PO QAM 07/29/19 07/12/22 History mcg (2,000 unit) capsule aspirin 81 mg tablet,delayed 81 mg PO QAM 30 days #30 tabs 12/27/19 07/12/22 Rx release metformin 1,000 mg tablet 1,000 mg PO BID #180 tabs 08/06/21 07/12/22 Rx atorvastatin 80 mg tablet 80 mg PO QAM #90 tabs 12/17/21 07/12/22 Rx nitroglycerin 0.4 mg sublingual 0.4 mg sublingual UD PRN chest 02/23/22 07/12/22 Rx tablet (Nitrostat) pain 30 days #60 tabs lisinopril 20 mg tablet 20 mg PO DAILY 04/14/22 07/12/22 History fluticasone 100 mcg-salmeterol 50 1 inh inhalation BID shortness of 04/21/22 07/12/22 History mcg/dose blistr powdr for breath inhalation (Wixela Inhub) glipizide 5 mg tablet 5 mg PO QPM #90 tabs 04/21/22 07/12/22 Rx trazodone 50 mg tablet 100 mg PO HS insomnia #180 tabs 04/28/22 07/12/22 Rx duloxetine 60 mg capsule,delayed 60 mg PO QAM #90 caps 05/03/22 07/12/22 Rx release insulin glargine 100 unit/mL (3 15 unit (0.15 mL) subcut QAM #15 mL 05/03/22 07/12/22 Rx mL) subcutaneous pen (Lantus Solostar U-100 Insulin) famotidine 20 mg tablet 20 mg PO BID PRN heartburn 90 days 05/13/22 07/12/22 Rx #180 tabs tirzepatide 5 mg/0.5 mL 5 mg (0.5 mL) subcut WK #2 mL 05/16/22 07/12/22 Rx subcutaneous pen injector (Ramirez) oxycodone-acetaminophen 5 mg-325 1 tab PO BID PRN pain 30 days #60 06/02/22 07/12/22 Rx mg tablet tabs albuterol sulfate 90 mcg/actuation See Rx Instructions inhalation QID 07/02/22 07/12/22 Rx aerosol inhaler (Proventil HFA) PRN shortness of breath or wheezing #18 grams metoprolol tartrate 50 mg tablet 50 mg PO BID #180 tabs 07/04/22 07/12/22 Rx allopurinol 300 mg tablet 300 mg PO QAM 07/12/22 07/12/22 History hydrochlorothiazide 12.5 mg tablet 12.5 mg PO DAILY 07/12/22 07/12/22 History ropinirole 1 mg tablet 1 mg PO QPM 07/12/22 07/12/22 History Patient History Medical History Aortic stenosis Asthma inhaler daily/prn CAD (coronary artery disease) Chronic lower back pain Diabetes mellitus, type 2 Diabetic neuropathy Exertional angina Gout HTN (hypertension) Hyperlipidemia Insomnia Morbid obesity with BMI of 40.0-44.9, adult Osteoarthritis Restless leg syndrome Sinus tachycardia Sleep apnea mild; no device SOB (shortness of breath) on exertion Vitamin D deficiency Surgical History H/O hernia repair as a baby History of cardiac cath 12/26/19 @ [facility] with 2 stents placed History of colonoscopy 06/2021, poor prep per report History of ear surgery History of esophagogastroduodenoscopy (EGD) 07/2021 History of left hip replacement (~2018) History of total left knee replacement (TKR) History of total right knee replacement (TKR) History of wisdom tooth extraction S/P coronary artery stent placement 2 stents placed 12/26/19 @ [facility] Family History Father Heart disease Mother Heart disease Diabetes Grandfather No problems noted. Grandfather (Maternal) Lung cancer Grandmother (Maternal) Lung cancer Grandfather (Paternal) Myocardial infarction Grandmother (Paternal) Stroke Other No family history of adverse response to anesthesia Denies family history of Ovarian cancer Prostate cancer Breast cancer Colorectal cancer Social History Smoking Status: Never smoker Tobacco Type: Smokeless Tobacco (Dip or Chew) Cigarettes Per Day: 1 can a week; Second Hand Exposure: No; Do You Dip or Chew Tobacco: Yes; Hx Alcohol Use: Yes Alcohol type: beer, wine and hard liquor Alcohol type Comment: 1 drink 4-5 times weekly Hx Substance Use: No Preferred Language: Yoruba Communication Ability: Effective Visual Impairment: Limited Hearing Ability: Normal [employer] Required: No Beliefs That Will Affect Care: None marital status: Current Living Situation: Family current occupational status: disabled 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, [employer] How many Children do You have: 2 How many Children do You have Comment: 25 and 24 Other Information That Helps Us Care for You: No Feels Safe at Home: Yes Childhood Exposure to Second-Hand Smoke: Yes Diet: regular caffeine: Yes Dental Care, Regularly: Yes Physical Activity Frequency: Does not Exercise Seatbelt Use: always Sunscreen Use: Yes Assistive Devices: Cane and Walker Review of System pt not seen Physical Exam Physical Exam: pt not seen Results & Data Vital Signs (Past 12 Hours) Vital Signs Temp Pulse Pulse Resp BP Pulse Ox O2 Del Method 07/15/22 07:17 36.6 C 94 H 92 H 18 174/93 H 94 Room Air Laboratory Results BMP 07/14/22 07/14/22 08:13 16:10 Sodium 123 L 125 L Potassium 4.0 3.8 Chloride 95 L 96 L Carbon Dioxide 20 L 21 BUN 51 H 51 H Creatinine 1.48 H D 1.41 H Glucose 128 H 119 H Calcium 7.9 L 7.4 L Cardiac Enzymes 07/14/22 Range/Units 08:13 Total Creatine Kinase 191 (30-223) U/L Diagnostic Findings Knee X-Ray 07/12/22 15:55 LEFT KNEE 3 VIEWS CLINICAL HISTORY: Left knee pain. FINDINGS: AP, crosstable lateral, and sunrise views of the left knee are compared to study dated 07/29/2009. The skeletal structures are osteopenic. No fracture is seen. A left knee arthroplasty is in near anatomic alignment. There has been undersurface remodeling of the patella. No periprosthetic lucency is seen. There is a joint effusion. Soft tissue swelling seen around the knee. Tiny joint bodies are suspected posteriorly. There is atherosclerotic calcification of the popliteal artery. IMPRESSION: 1. Soft tissue swelling and joint effusion with no acute bony abnormality identified. 2. A left knee arthroplasty is in near anatomic alignment. Electronically signed by: Ambrose Lopez M.D. 07/12/2022 5:32 PM Venous Doppler Study 07/12/22 15:55 ULTRASOUND LEFT LOWER EXTREMITY VENOUS CLINICAL HISTORY: Left leg pain and swelling. COMPARISON STUDY: Left lower extremity venous ultrasound dated 12/24/2019. TECHNIQUE: Real-time, grayscale, and color Doppler sonography of the deep veins of the left lower extremity was performed from the inguinal crease to the calf. Compression and augmentation were utilized. FINDINGS: There is no sonographic evidence of deep venous thrombosis identified in the left lower extremity. The common femoral, superficial femoral, and popliteal veins are patent and normally compressible. The greater saphenous vein and the profunda femoris vein at the junction with the common femoral vein are clear. The visualized calf veins are patent. Soft tissue edema is noted in the left leg. IMPRESSION: There is no sonographic evidence of deep venous thrombosis identified in the left lower extremity. ACT 112: Negative or not required by law. Electronically signed by: Ambrose Lopez M.D. 07/12/2022 6:43 PM Duplex Scan Lower Extremity Artery 07/12/22 16:23 ULTRASOUND LEFT LOWER EXTREMITY ARTERIAL CLINICAL HISTORY: Left leg swelling. Diminished pulses. COMPARISON STUDY: No priors. TECHNIQUE: Real-time grayscale and color Doppler sonography of the arteries of the left lower extremity is performed from the inguinal crease to the foot. Ankle-brachial indices were not assessed on this portable examination. FINDINGS: Atherosclerotic plaque and irregularity is seen throughout the arteries of the left lower extremity. There are biphasic arterial waveforms in the common femoral artery with velocities measuring up to 86 cm/s. The profunda femoris artery is patent with velocities measuring up to 50 cm/s. There are biphasic to triphasic waveforms throughout the superficial femoral artery with velocities measuring up to 138 cm/s. There are biphasic waveforms in the popliteal artery with velocities measuring up to 95 cm/s. There is two-vessel runoff to the foot. Biphasic waveforms are seen throughout the calf arteries. The anterior tibial and posterior tibial arteries are patent with velocities measuring up to 66 cm/s. The dorsalis pedis artery is patent with velocities measuring up to 63 cm/s. The proximal to mid portions of the peroneal artery are not visualized. The distal peroneal artery is patent with velocities measuring up to 42 cm/s. Soft tissue edema is present in the left leg. IMPRESSION: 1. No flow is shown within the proximal to midportion of the peroneal artery. This may be occluded. 2. The remaining arteries of the left lower extremity are patent. 3. No elevated velocities are seen to suggest high-grade stenosis. Dictated: 07/12/2022 6:44 PM Transcribed: 07/12/2022 7:01 PM Tawanda [id number] [id number] Electronically signed by: Ambrose Lopez M.D. 07/12/2022 7:29 PM Foot X-Ray 07/12/22 21:18 LEFT FOOT 2 VIEWS CLINICAL HISTORY: Left foot infection. FINDINGS: AP and lateral views of the left foot are obtained. No prior studies are available for comparison at the time of dictation. The skeletal structures are heterogeneously osteopenic. No acute fracture seen. Moderate osteoarthritic change is seen throughout the foot, greatest at the first metatarsophalangeal joint and at the tarsometatarsal articulations. An os trigonum and an os navicularis are incidentally noted. Suspect chronic posttraumatic deformity of the distal tibia and fibula. Degenerative spurring is seen along the dorsal aspect of the tarsal bones. No bony erosion or periostitis is identified. Soft tissue edema is present throughout the foot. No radiodense foreign body is identified. IMPRESSION: 1. Soft tissue swelling with no acute bony abnormality identified. 2. Osteopenia and arthritic change as above. Electronically signed by: Ambrose Lopez M.D. 07/12/2022 10:[address] 07/12/22 21:19 Exam(s): CT HEAD Without Contrast EXAM: CT Head Without Intravenous Contrast CLINICAL HISTORY: Reason for exam: facial swelling. TECHNIQUE: Axial computed tomography images of the head/brain without intravenous contrast. CTDI is 38.3 mGy and DLP is 625.8 mGy-cm. Automated exposure control was utilized for the study. A dose lowering technique was utilized adhering to the principles of ALARA. COMPARISON: No relevant prior studies available. FINDINGS: Brain: See below. Ventricles: Unremarkable. No ventriculomegaly. Bones/joints: Unremarkable. No acute fracture. Soft tissues: Unremarkable. Lymph nodes: Trace amount of periventricular white matter lymphadenopathy consistent with early chronic small vessel disease. The brain is otherwise unremarkable. No acute large vessel infarct or intracranial hemorrhage is seen. Sinuses: Unremarkable as visualized. No acute sinusitis. Mastoid air cells: Unremarkable as visualized. No mastoid effusion. IMPRESSION: No acute findings in the head/brain. Electronically signed by: Bandar Copeland MD 07/12/22 22:27 PM Chest X-Ray 07/13/22 11:10 XR chest 1V portable CLINICAL HISTORY: hypoxia TECHNIQUE: Single frontal radiograph of the chest was obtained. Comparison: Comparison is made to chest radiograph 12/24/2019 FINDINGS: No lines and tubes are seen. Cardiomegaly is noted. The lungs are clear. No evidence of pleural effusion or pneumothorax. IMPRESSION: No acute chest disease. Cardiomegaly is noted. ACT 112: Negative or not required by law. Electronically signed by: Matias Paula M.D. 07/13/2022 11:32 AM Medications Administered Current Inpatient Medications Acetaminophen (Acetaminophen 325 Mg Tab) 650 mg PO Q4H PRN PRN Reason: pain/fever Stop: 08/11/22 21:23 Last Admin: 07/13/22 00:52 Dose: 650 mg Albuterol (Albuterol Hfa 8 Gm Inhaler) 2 - 3 puffs INH QID PRN PRN Reason: shortness of breath or wheezin Stop: 08/11/22 21:31 Allopurinol (Allopurinol 100 Mg Tab) 200 mg PO QAM ELVIS Stop: 08/12/22 08:59 Last Admin: 07/14/22 08:11 Dose: 200 mg Atorvastatin Calcium (Atorvastatin 40 Mg Tab) 80 mg PO QAM ELVIS Stop: 08/12/22 08:59 Atropine Sulfate (Atropine Sulfate 0.1 Mg/Ml 10ml Syr) 0.5 mg IV Q1M PRN PRN Reason: PACU Use-HR<40 &/or Bradycardi Stop: 07/15/22 15:22 Dextrose (Dextrose 50% 50 Ml Syringe) 25 - 50 ml IV UD PRN; Protocol PRN Reason: Hypoglycemia Protocol Stop: 08/11/22 21:38 Last Admin: 07/13/22 13:15 Dose: 50 ml Doxycycline Hyclate (Doxycycline Hyclate 100 Mg Cap) 100 mg PO BID ELVIS Stop: 07/23/22 20:59 Last Admin: 07/14/22 21:10 Dose: 100 mg Duloxetine HCl (Duloxetine Hcl 60 Mg Cap) 60 mg PO QAM ELVIS Stop: 08/12/22 08:59 Last Admin: 07/14/22 08:11 Dose: 60 mg Ephedrine Sulfate (Ephedrine Sulfate 50 Mg/Ml Amp) 5 mg IV Q5M PRN PRN Reason: PACU Use Only-SBP<90 mmHg Stop: 07/15/22 15:22 Famotidine (Famotidine 20 Mg Tab) 20 mg PO BID PRN PRN Reason: heartburn Stop: 08/11/22 21:31 Fentanyl Citrate (Fentanyl Citrate Pf 100 Mcg/2 Ml Vial) 25 mcg IV Q5M PRN PRN Reason: PACU Use Only-Pain Stop: 07/15/22 15:22 Fluticasone/Vilanterol (Fluticasone/Vilanterol 100/25mcg 14 Puffs/Inhaler) 1 puffs INH DAILY ELVIS Stop: 08/12/22 08:59 Last Admin: 07/14/22 08:10 Dose: 1 puffs Glucagon (Glucagon For Inj 1 Mg Vial) 1 mg SQ UD PRN; Protocol PRN Reason: Hypoglycemia Protocol Stop: 08/11/22 21:38 Glucose (Glucose 10 Tab/Tube) 4 - 8 tab PO UD PRN; Protocol PRN Reason: Hypoglycemia Treatment Stop: 08/11/22 21:38 Glucose (Glucose 40% Gel 15 Gm Tube) 15 - 30 gm PO UD PRN; Protocol PRN Reason: Hypoglycemia Protocol Stop: 08/11/22 21:38 Last Admin: 07/13/22 12:41 Dose: 30 gm Heparin Sodium (Porcine) (Heparin Sod 5,000 Unit/0.5 Ml Vial) 5,000 units SQ Q8H ELVIS Stop: 08/12/22 00:59 Last Admin: 07/13/22 23:50 Dose: Not Given Hydromorphone HCl (Hydromorphone Inj 0.5 Mg/0.5 Ml Syr) 1 mg IV Q3H PRN PRN Reason: severe pain Stop: 07/27/22 11:19 Last Admin: 07/14/22 21:11 Dose: 1 mg Hydromorphone HCl (Hydromorphone Inj 2 Mg/Ml Syr/Vial) 0.5 mg IV Q5M PRN PRN Reason: PACU Use Only-Pain Stop: 07/15/22 15:22 Vancomycin HCl 1,500 mg/ (Sodium Chloride) 530 mls @ 200 mls/hr IV Q12H [facility]; Protocol Stop: 07/21/22 09:59 Last Infusion: 07/15/22 01:43 Dose: Infused Cefepime HCl 2,000 mg/ Syringe 20 mls @ 5 mls/min IV Q8H [facility]; Protocol Stop: 07/21/22 09:59 Last Admin: 07/15/22 02:02 Dose: 5 mls/min Insulin Aspart (Insulin Aspart Per Unit Charge) 0 units SC Q6 [facility] Stop: 08/14/22 05:59 Last Admin: 07/15/22 07:24 Dose: Not Given Insulin Glargine (Lantus Per Unit Charge) 10 units SQ BID [facility] Stop: 08/12/22 20:59 Last Admin: 07/14/22 21:14 Dose: 10 units Metoprolol Tartrate (Metoprolol Tartrate 50 Mg Tab) 50 mg PO BID [facility] Stop: 08/12/22 08:59 Last Admin: 07/14/22 21:10 Dose: 50 mg Miscellaneous (Carbohydrates For Hypoglycemia ) 15 - 30 gm PO UD PRN PRN Reason: Hypoglycemia Protocol Stop: 08/11/22 21:38 Last Admin: 07/13/22 11:56 Dose: 15 gm Miscellaneous Information (Vancomycin Consult Active) 1 each N/A UD PRN PRN Reason: Consult Stop: 08/11/22 22:12 Nitroglycerin (Nitroglycerin Sl 0.4 Mg/Tab Tab) 0.4 mg SL Q5M PRN PRN Reason: chest pain Stop: 08/11/22 21:31 Ondansetron HCl (Ondansetron Inj 2 Mg/Ml 2 Ml Vial) 4 mg IV Q6H PRN PRN Reason: Nausea Stop: 08/11/22 21:23 Last Admin: 07/15/22 02:10 Dose: 4 mg Ondansetron HCl (Ondansetron Inj 2 Mg/Ml 2 Ml Vial) 4 mg IV ONCE PRN PRN Reason: PACU Use Only-Nausea/Vomiting Stop: 07/15/22 15:22 Oxycodone/Acetaminophen (Oxycodone/Acetaminophen 5mg/325mg Tab) 1 tab PO Q6H PRN PRN Reason: pain Stop: 07/26/22 21:31 Last Admin: 07/14/22 18:11 Dose: 1 tab Polyethylene Glycol (Polyethylene (Miralax) 17 Gm Pack) 17 gm PO DAILY PRN PRN Reason: Constipation Stop: 08/13/22 09:55 Ropinirole HCl (Ropinirole Hcl 1 Mg Tablet) 1 mg PO QPM ELVIS Stop: 08/12/22 20:59 Last Admin: 07/14/22 21:10 Dose: 1 mg Senna/Docusate Sodium (Docusate Sodium/Senna 50/8.6mg Tab) 1 tab PO QAM ELVIS Stop: 08/13/22 10:14 Last Admin: 07/14/22 10:57 Dose: Not Given Thiamine HCl (Thiamine Hcl 100 Mg Tab) 100 mg PO BID ELVIS Stop: 08/12/22 20:59 Last Admin: 07/14/22 21:10 Dose: 100 mg Trazodone HCl (Trazodone Hcl 100 Mg Tab) 100 mg PO HS ELVIS Stop: 08/12/22 20:59 Last Admin: 07/14/22 21:10 Dose: 100 mg
[2022-07-15] MEDS ORDERED: PHENYLEPHRINE 100MCG/ML 5ML SYR ONE (09:47)
--- NOTE | 2022-07-15 09:51 | Post Operative Brief Note ---
Immediate Post Op Note v1 Date of Surgery July 15, 2022 Pre & Post Diagnosis Operation Date: 07/15/22 07:15 Pre-Op Diagnosis: Acute septic left knee replacement ,left Lower Extremity Cellulitis, superficial ulcer left great toe, morbid obesity Post-Op Diagnosis: Same I identified the patient and participated in the time-out.: Yes Procedure Operation Date: 07/15/22 07:15 Actual Procedures p Left Incision and Drainage Septic Knee(Left), irrigation debridement and synovectomy,- Bernardo Valadez MD Polyethylene exchange tibial component (Left) - Bernardo Valadez MD Surgeon Bernardo Valadez MD Antenna Installer Jaya ALEGRIA Estimated Blood Loss 10 Findings Consistent with Post-Op Diagnosis Specimens Culture knee joint fluid Drains Hemovac Drain Anesthesia Type General Complications none Disposition Accompanied Patient To Recovery: No Overlapping Procedure I was immediately available: during the entire case.
[2022-07-15] MEDS: fentaNYL citrate PF 100 MCG/2 ML VIAL IV PRN ×4 (10:35→11:15)
--- NOTE | 2022-07-15 11:15 | XRay Report ---
XR knee LT 1 or 2V routine CLINICAL HISTORY: Surgical Post Op COMPARISON STUDY: Left knee 07/12/2022. FINDINGS: There is again noted a left total knee arthroplasty. The hardware appears intact. Multiple antibiotic cement beads have been placed in the joint space. Skin jayashree and surgical drains are in place. IMPRESSION: Postoperative changes as above. ACT 112: Negative or not required by law. Electronically signed by: Wm Nguyen M.D. 07/15/2022 11:13 AM
--- NOTE | 2022-07-15 11:28 | Anesthesiology Progress Note ---
Date of Service July 15, 2022 Anesthesia Post Procedure Vital Signs Vital Signs: Temp Pulse Pulse Resp BP Pulse Ox O2 Del Method 07/15/22 11:15 83 16 102/60 94 Nasal Cannula 07/15/22 11:05 84 19 102/64 95 Nasal Cannula 07/15/22 10:55 83 19 108/59 L 93 Nasal Cannula 07/15/22 10:45 79 18 125/84 93 Nasal Cannula 07/15/22 10:35 83 20 119/63 93 Oxymask 07/15/22 10:25 83 17 102/54 L 99 Oxymask 07/15/22 11:25 84 16 111/65 94 Nasal Cannula 07/15/22 10:16 97.2 F L 87 21 107/57 L 95 Oxymask 07/15/22 07:17 97.9 F 94 H 92 H 18 174/93 H 94 Room Air 07/14/22 20:30 Room Air 07/14/22 21:02 97.5 F L 85 17 127/79 97 Room Air 07/14/22 15:59 98.2 F 84 16 116/77 94 Room Air O2 Flow Rate 07/15/22 11:15 2 07/15/22 11:05 3 07/15/22 10:55 4 07/15/22 10:45 4 07/15/22 10:35 4 07/15/22 10:25 6 07/15/22 11:25 2 07/15/22 10:16 6 07/15/22 07:17 07/14/22 20:30 07/14/22 21:02 07/14/22 15:59 Pain Intensity Left Leg: Pain Intensity: 6 Left Knee: Pain Intensity: 8 Transfer of Care Handoff Completed per policy Notes Mental Status: alert / awake / arousable and participated in evaluation Patient Amnestic to Procedure: Yes Nausea / Vomiting: adequately controlled Pain: adequately controlled Airway Patency, RR, SpO2: stable & adequate BP & HR: stable & adequate Hydration State: stable & adequate Anesthetic Complications: no major complications apparent and Pt Satisfied with anesthetic care
[2022-07-15] MEDS ORDERED: diphenhydrAMINE 50 MG/ML VIAL IV PRN (12:01)
[2022-07-15] MEDS ORDERED: NALOXONE HCL 0.4 MG/1 ML VIAL/CARP IV PRN (12:01)
[2022-07-15] MEDS ORDERED: MAGNESIUM HYDROXIDE SUSP 30 ML UDC PO PRN (12:01)
[2022-07-15] MEDS ORDERED: bisacodyL 10 MG SUPP PR PRN (12:01)
[2022-07-15] MEDS: SODIUM CHLORIDE 0.9% 1000ML 1,000 ML IV SCH ×2 (12:22→23:52)
[2022-07-15] MEDS ORDERED: FAMOTIDINE 20 MG in SYRINGE 3 ML IV SCH (12:40)
[2022-07-15 12:52] LABS: Hematocrit (blood only) 30.4 % (42.0-52.0); Hemoglobin 10.1 g/dl (14.0-18.0); Mean Corpuscular Hemoglobin 31.4 pg (25.0-34.0); Mean Corpuscular Hgb Conc 33.2 g/dL (32.0-36.0); Mean Corpuscular Volume 94.4 fL (80.0-100.0); Mean Platelet Volume 11.6 fL (9.4-12.4); Platelet Count 223 K/uL (130-400); RDW Standard Deviation 49.2 fL (36.4-46.3); Red Blood Count 3.22 M/uL (4.70-6.10)
[2022-07-15 12:59] LABS: Albumin Level 2.1 gm/dl (3.4-5.0); BUN Creatinine Ratio 32.6 (10-20); Bilirubin Direct 1.3 mg/dl (0-0.2); Bilirubin,Total 1.7 mg/dl (0.2-1.0); Calcium 7.4 mg/dl (8.6-10.3); Creatinine Clr Calc Pharmacy 95.6 ml/min; Est GFR (African American) 68.9 ml/min; Est GFR (Non-African American) 59.5 ml/min; Magnesium 1.9 mg/dl (1.7-2.4); Potassium 4.1 mmol/L (3.5-5.1)
[2022-07-15] MEDS ORDERED: LORazepam 2 MG/1 ML VIAL IV PRN (12:59)
[2022-07-15] MEDS: DOXYCYCLINE HYCLATE 100 MG CAP PO SCH (13:05)
[2022-07-15] MEDS: oxyCODONE HCL IR 5 MG TAB (IMMEDIATE RELEASE) PO PRN ×3 (13:09→23:57)
[2022-07-15] MEDS: THIAMINE HCL 100 MG TAB PO SCH ×2 (13:19→21:29)
[2022-07-15] MEDS: DOCUSATE SODIUM/SENNA 50/8.6MG TAB PO SCH (13:20)
[2022-07-15] MEDS: DULoxetine HCL 60 MG CAP PO SCH (13:20)
[2022-07-15] MEDS: allopurinoL 100 MG TAB PO SCH (13:20)
[2022-07-15] MEDS: FLUTICASONE/VILANTEROL 100/25MCG 14 PUFFS/INHALER INH SCH (13:21)
[2022-07-15] MEDS: METOPROLOL TARTRATE 50 MG TAB PO SCH ×2 (13:22→21:28)
[2022-07-15 13:27] LABS: Basophils # (auto) 0.05 K/uL (0-0.2); Basophils % (auto) 0.3 %; Echinocytes 1+; Eosinophils # (auto) 0.01 K/uL (0-0.50); Eosinophils % (auto) 0.1 %; Giant Platelets 1+; Immature Granulocytes # (auto) 0.32 K/uL (0.01-0.20); Immature Granulocytes % (auto) 2.1 %; Lymphocytes # (auto) 0.39 K/uL (1.2-3.4); Lymphocytes % (auto) 2.6 %; Monocytes # (auto) 0.48 K/uL (0.11-0.59); Monocytes % (auto) 3.2 %; Neutrophils # (auto) 13.75 K/uL (1.40-6.50); Neutrophils % (auto) 91.7 %; Toxic Granulation 1+; Toxic Vacuolation 1+
[2022-07-15] MEDS: cefTRIAXone SODIUM 2,000 MG in DEXTROSE 5% 50 ML IV SCH (13:32)
[2022-07-15] MEDS: ACETAMINOPHEN 500 MG TAB PO SCH ×2 (14:27→21:29)
--- NOTE | 2022-07-15 14:52 | Operative Report (OR) ---
INDICATIONS FOR PROCEDURE: The patient is a 56-year-old male who I did bilateral staged knee replace ments in 2009 and 2010. Left knee was performed in 2009. He is doing well in his usual state [facility] when he developed an infection of his left foot. He has a diabetic history. Infections develope d into left lower extremity cellulitis and then he had 2 days of increasing knee pain with x-rays dem onstrating a normal well fixed [employer] I Knee replacement with a knee effusion. Kne e aspirate was cloudy fluid consistent with infection. The fluid aspirate was gram-positive cocci. It grew out Streptococcus and the strap is pansensitive. The white count in the knee joint was over 200,000. PREOPERATIVE DIAGNOSES: Acute left septic total knee replacement with left lower extremity celluliti s, superficial ulcer, medial MTP joint area with morbid obesity and diabetes. POSTOPERATIVE DIAGNOSES: Acute left septic total knee replacement with left lower extremity cellulit is, superficial ulcer, medial MTP joint area with morbid obesity and diabetes. PROCEDURE PERFORMED: Left knee incision and drainage, irrigation, debridement, synovectomy, tibial p olyethylene exchange for septic left total knee arthroplasty and MARILEE and Acticoat superficial Wound VAC and placement of Stimulan antibiotic beads. SURGEON: Bernardo Valadez MD LINSEED OIL TEMPERER: RAJI Kingston. ANESTHESIA: General. COMPLICATIONS: None. ESTIMATED BLOOD LOSS: 10 mL. DRAINS: Two Hemovac. SPECIMENS: Left knee joint fluid culture. DESCRIPTION OF PROCEDURE: The patient was transferred to the operating room and placed under general anesthetic. Left lower extremity exam demonstrated he had erythema of his pretibial area up to abou t mid calf. There are some superficial blisters on the pretibial area. No evidence of any full-thic kness skin loss. The great toe had a superficial ulcer that looked a little bit better over the last couple of days from initial examination. There are dressings from wound care nursing on the foot. The incision is benign. There is no active drainage from the knee. There is small to moderate effus ion and no gross instability of the knee with good range of motion, an obese upper thigh. The lower foot was draped off with a sterile stockinette, which was an impervious and the blisters were rupture d and gauzes were placed over that area first and then a stockinette placed over the gauze, after whi ch the stockinette was then draped off with sterile Ioban drape prior to any formal prep of the left knee. Pneumatic tourniquet was placed about the left upper thigh and then the left lower extremity, knee area was prepped and draped with ChloraPrep in the usual sterile fashion. The left leg was elev ated and no Esmarch was used. After a period of elevation, the pneumatic tourniquet was raised to 35 0 mmHg due to the obesity of the thigh. An anterior incision was made through his old scar. Skin wa s incised sharply. Subcutaneous flaps were elevated. There is some mild edema of the subcutaneous t issues, but no infection there. The retinacular tissue and quad tendon was all normal and intact. I ncision was made down to the medial retinaculum into the joint and cloudy fluid consistent with infec tion was noted. This was cultured and then the incision was carried out through the medial retinacul um up to the mid third of the quadriceps tendon down to medial tibial tubercle. Evidence appeared to be more consistent with acute infection with some chronic scarred synovial tissue and some synovitis that appeared to be more acute. The knee was copiously irrigated with 3 liters of antibiotic soluti on with Ancef. The components were inspected. They were all stable, well fixed. No polyethylene we ar. An electrocautery synovectomy was performed first starting around the medial side, then suprapat ellar region and then lateral side and some of the scarred infrapatellar fat pad was resected. Then, the retractors were placed and the tibial polyethylene was removed and that looked normal on both si toi of the tibial polyethylene. ____ whole lot of synovitis in the posterior joint area. At this po int, with more access to the knee, we copiously irrigated it more with more antibiotic solution with Ancef. Then, a Versajet debridement device was used to more carefully perform synovectomy over the p osterior capsule, the scarred synovial tissue and notch was resected, pus collection behind the ____ was evacuated. The gutters were treated with the Versajet to remove all pathologic appearing synoviu m tissue. Then, a Betadine scrub brush was used to scrub the metal surfaces. Then, further irrigati on performed with more antibiotic solution with Pulsavac with Ancef in it. Then, new drapes were adrienne jazmin around the knee. Gown and gloves were changed. Knee joint was soaked with Betadine soak for 3 m inutes and this was irrigated out and trial reduction performed. On ____ posterior stabilized tibial insert for a size 7 tibia was placed. This gave good stability through full range of motion and we chose the 11 mm insert for the final implant. After further irrigation, the [employer]hew Journey I posterior stabilized size 7 tibial implant was placed in position and then inserted with the inser tion device. Knee was taken through a full range of motion. Knee was stable. After further copious irrigation for a total of 12 liters of irrigation, the Stimulan antibiotic beads with 1 gram of vanc omycin were placed into the gutters and suprapatellar region. 10 mL of material was made. Two Hemov ac drains were then placed. The quadriceps tendon and medial retinaculum were repaired with antibiot ic resistant #1 Vicryl suture. Knee was taken through full range of motion, repair was secure. Subc utaneous tissue closed with interrupted 2-0 Vicryl antibiotic-resistant suture. Then, the skin was c losed with jayashree. A MARILEE and Acticoat superficial Wound VAC was applied. The patient tolerated th e procedure well. RAJI Kingston was my first aid officer. He functioned as first aid officer for t he entire procedure. He assisted in leg positioning, prepping and draping, soft tissue retraction, i nstrument management, performed the closure and Wound VAC application. He will participate in postop erative care of the patient. Job ID: [id number]
--- NOTE | 2022-07-15 14:58 | XRay Report ---
KUB CLINICAL HISTORY: nausea with vomiting overnight- eval ileus COMPARISON STUDY: CT of the abdomen and pelvis May 11, 2022. FINDINGS: Left hip arthroplasty is incidentally noted. No large or small bowel dilatation is noted. T here is marked gaseous distention of the stomach. Moderate amount of stool within the rectum is noted . There is minimal stool within the colon. Vascular calcification is incidentally noted. IMPRESSION: 1. Marked gaseous distention of the stomach. 2. No small or large bowel dilatation suggestive bowel obstruction. ACT 112: Negative or not required by law. Electronically signed by: Bassem Hayes M.D. 07/15/2022 2:57 PM
[2022-07-15] MEDS: FAMOTIDINE 20 MG TAB PO SCH ×2 (15:57→21:29)
[2022-07-15] MEDS: HYDROmorphone INJ 0.5 MG/0.5 ML SYR IV PRN (20:13)
[2022-07-15] MEDS: traZODone HCL 100 MG TAB PO SCH (21:28)
[2022-07-15] MEDS: rOPINIRole HCL 1 MG TABLET PO SCH (21:29)
[2022-07-15] MEDS: DOCUSATE SODIUM 100 MG CAP PO SCH (21:29)
[2022-07-16] MEDS: HYDROmorphone INJ 0.5 MG/0.5 ML SYR IV PRN (02:23)
[2022-07-16 03:32] LABS: 18KDIGG Band NON-REACTIVE; 23KDIGG Band NON-REACTIVE; 23KDIGM Band REACTIVE; 28KDIGG Band NON-REACTIVE; 30KDIGG Band NON-REACTIVE; 39KDIGG Band NON-REACTIVE; 39KDIGM Band NON-REACTIVE; 41KDIGG Band NON-REACTIVE; 41KDIGM Band NON-REACTIVE; 45KDIGG Band NON-REACTIVE; 58KDIGG Band NON-REACTIVE; 66KDIGG Band NON-REACTIVE; 93KDIGG Band NON-REACTIVE; Lyme Antibodies, WB IgG NEGATIVE (NEGATIVE); Lyme Antibodies, WB IgM NEGATIVE (NEGATIVE)
[2022-07-16] MEDS: oxyCODONE HCL IR 5 MG TAB (IMMEDIATE RELEASE) PO PRN ×3 (05:46→23:21)
[2022-07-16] MEDS: ACETAMINOPHEN 500 MG TAB PO SCH ×3 (05:46→21:19)
[2022-07-16 07:06] LABS: Basophils # (auto) 0.04 K/uL (0-0.2); Basophils % (auto) 0.3 %; Eosinophils # (auto) 0.06 K/uL (0-0.50); Eosinophils % (auto) 0.4 %; Hematocrit (blood only) 30.5 % (42.0-52.0); Hemoglobin 10.1 g/dl (14.0-18.0); Immature Granulocytes # (auto) 0.38 K/uL (0.01-0.20); Immature Granulocytes % (auto) 2.6 %; Lymphocytes # (auto) 0.82 K/uL (1.2-3.4); Lymphocytes % (auto) 5.7 %; Mean Corpuscular Hemoglobin 30.5 pg (25.0-34.0); Mean Corpuscular Hgb Conc 33.1 g/dL (32.0-36.0); Mean Corpuscular Volume 92.1 fL (80.0-100.0); Mean Platelet Volume 11.6 fL (9.4-12.4); Monocytes # (auto) 0.65 K/uL (0.11-0.59); Monocytes % (auto) 4.5 %; Neutrophils # (auto) 12.48 K/uL (1.40-6.50); Neutrophils % (auto) 86.5 %; Platelet Count 237 K/uL (130-400); RDW Coefficient of Variation 13.4 % (11.5-14.5); RDW Standard Deviation 45.7 fL (36.4-46.3); Red Blood Count 3.31 M/uL (4.70-6.10); White Blood Count 14.43 K/ul (4.8-10.8)
[2022-07-16 07:30] LABS: INR 1.1 (0.9-1.1)
[2022-07-16 07:36] LABS: Alanine Aminotransferase 37 U/L (7-52); Alkaline Phosphatase 269 U/L (34-104); Anion Gap 4 (3-11); BUN Creatinine Ratio 33.3 (10-20); Bilirubin,Total 1.4 mg/dl (0.2-1.0); Blood Urea Nitrogen 36 mg/dl (6-23); Calcium 7.9 mg/dl (8.6-10.3); Carbon Dioxide 25 mmol/L (21-32); Chloride 96 mmol/L (98-107); Creatinine Clr Calc Pharmacy 116.9 ml/min; Est GFR (African American) 87.8 ml/min; Est GFR (Non-African American) 75.8 ml/min; Glucose 133 mg/dl (70-99(Fasting)); Magnesium 1.9 mg/dl (1.7-2.4); Sodium 125 mmol/L (136-145); Total Protein 6.9 gm/dl (6.0-8.3)
--- NOTE | 2022-07-16 08:09 | Orthopedic Progress Note ---
Date of Service July 16, 2022 Assessment & Plan (1) Infected prosthetic knee joint: Plan: Postop day #1 left total knee I&D and poly exchange -PT/OT -Pain management as written -DVT prophylaxis anticoagulation as per medicine. -AM labs: Hemoglobin stable at 10.1. Hyponatremia with sodium at 125. -Monitor Hemovac output. 25 cc last shift. -Cultures growing group A strep pansensitive. OR cultures pending with Gram stain showing gram-positive cocci. ID recommendations is in chart. Recommend 6 weeks of IV antibiotics followed by likely a year of oral suppressive antibiotics. He is currently on ceftriaxone 2 g daily. -Discharge planning: Discharge home with home health versus inpatient rehab/SNF pending therapy evals. Admission and Anticipated Discharge Date Admission Date: July 12, 2022 Supervising Physician Co-Signing Physician Notes Patient seen and examined. Agree with RAJI Love's note as above. Patient resting comfortably in bed. Pain is controlled. States he was able to stand up and pivot to bedside commode yesterday, but not yet ambulating. Has overall poor sensation in the left lower leg secondary to diabetic neuropathy. Cultures growing pansensitive group A beta strep, currently on ceftriaxone 2 g daily. Disposition pending. Subjective Patient is postop day 1 left knee I&D and poly exchange. He is having a mild- moderate amount of pain but is controlled. Otherwise is feeling well this morning. Denies chest pain, shortness of breath, lightheadedness or dizziness, nausea/vomiting/diarrhea. Review of Systems Review of Systems: All systems reviewed & are unremarkable except as noted in Subjective Physical Exam Physical Exam: Left knee: Dressing is clean, dry, intact. Hemovac on suction. Bahman wound VAC in place. No calf tenderness. Toes are mobile. Decreased sensation to his toes at baseline. Constitutional: WD/WN, vitals as above Results & Data Vital Signs (Past 12 Hours) Vital Signs Temp Pulse Resp BP Pulse Ox O2 Del Method 07/16/22 04:31 36.4 C L 73 18 130/75 97 Room Air 07/15/22 23:50 36.4 C L 82 18 123/75 97 Room Air 07/15/22 21:26 72 133/77 Laboratory Results Source: Knee,Left OV Order: Ordered: Aer/Sherri Cult/Sm Procedure Result Verified Site Gram Stain Final 07/13/22 Gram Stain Result Many WBCs Seen Many Gram Positive Cocci Aero/Sherri Cult Preliminary 07/15/22 Organism 1 Group A Beta Strep Quantity Many Sens Sensitivities to Follow Grp.A Strp RX M.I.C. --- --------- Ampicillin S <=0.06 Azithromycin S <=0.25 Cefepime S <=0.25 Cefotaxime S <=0.25 Ceftriaxone S <=0.25 Chloramphenicol S 4 Clindamycin S <=0.06 Erythromycin S <=0.06 Penicillin S <=0.03 Vancomycin S 0.5 H & H 07/12/22 07/13/22 07/14/22 Range/Units 16:35 06:49 08:13 Hgb 11.6 L 9.7 L 10.1 L (14.0-18.0) g/dl Hct 34.6 L 28.2 L 29.7 L (42.0-52.0) % 07/15/22 07/16/22 Range/Units 12:23 06:44 Hgb 10.1 L 10.1 L (14.0-18.0) g/dl Hct 30.4 L 30.5 L (42.0-52.0) % Coagulation 07/16/22 Range/Units 06:44 INR 1.1 (0.9-1.1)
[2022-07-16] MEDS: DOCUSATE SODIUM/SENNA 50/8.6MG TAB PO SCH (08:16)
[2022-07-16] MEDS: DULoxetine HCL 60 MG CAP PO SCH (08:16)
[2022-07-16] MEDS: METOPROLOL TARTRATE 50 MG TAB PO SCH ×2 (08:17→21:18)
[2022-07-16] MEDS: MULTIVITAMIN TAB PO SCH (08:17)
[2022-07-16] MEDS: THIAMINE HCL 100 MG TAB PO SCH ×2 (08:17→21:19)
[2022-07-16] MEDS: DOCUSATE SODIUM 100 MG CAP PO SCH ×2 (08:17→21:19)
[2022-07-16] MEDS: FAMOTIDINE 20 MG TAB PO SCH ×2 (08:18→21:18)
[2022-07-16] MEDS: allopurinoL 100 MG TAB PO SCH (08:18)
[2022-07-16] MEDS: FLUTICASONE/VILANTEROL 100/25MCG 14 PUFFS/INHALER INH SCH (08:19)
[2022-07-16 08:20] LABS: Bilirubin Direct 0.9 mg/dl (0-0.2)
[2022-07-16] MEDS ORDERED: ASPIRIN 81 MG ECTAB PO SCH (09:00)
[2022-07-16] MEDS: INSULIN ASPART PER UNIT CHARGE SC SCH ×4 (09:02→21:21)
[2022-07-16] MEDS: LANTUS PER UNIT CHARGE SQ SCH ×2 (09:02→21:20)
--- NOTE | 2022-07-16 09:02 | Hospitalist Progress Note ---
Date of Service July 16, 2022 Assessment & Plan (1) Infected prosthetic knee joint: Plan: Wisam Copeland is a 56 year old male with past medical history of T2DM, diabetic neuropathy, obesity, asthma, HTN, Alcohol Use Disorder, CAD, hepatic steatosis, left knee arthroplasty who presented to the ED with left knee pain and inability to ambulate. Left Lower Extremity Cellulitis, Sepsis 2nd to infected prosthetic joint SIRS criteria on admit. Xray w/ L knee soft tissue/swelling/effusion, NEGATIVE for osteo. Duplex NEG for DVT Ortho consulted s/p aspiration 70cc brown/umana aspirate 07/13 -- left TKA grossly infected. Fluid w/ elevated WBC [id number] POD#1 s/pLeft knee incision and drainage, irrigation, debridement, synovectomy, tibial polyethylene exchange for septic left total knee arthroplasty and MARILEE and Acticoat superficial Wound VAC and placement of Stimulan antibiotic beads. with Dr Valadez 07/15. EBL 10cc Cx from OR ALSO group A beta strep on prelim -- mintor Vanco/Cefepime --> Ceftriaxone given cx from aspiration Group A beta strep Blood cultures remain NGTD WBC stable, afebrile, likely reactive from surgery Pain control/antiemetics, bowel regimen (+BM .) Remains on pepcid BID for GI proph given hx gastritis/prior emesis, no further emesis DVT proph: ASA 81mg BID PT/OT consults, will need rehab. CM to follow ID on consult and planning 6wks IV abx, will need year oral suppressive therapy. Will give CM rx for Ceftriaxone (2) Hyponatremia: Plan: suspected 2nd to hypovolemia on admission and was given copious IVF replacement for elevated CK on admission, however increased LE edema/+BNP and improvement in resp/LE edema and kidney function with lasix day prior and was repeated Then was given IVF waiting for surgery which was post-poned bc he had a chew in and then additional IVF and has stayed about the same and went from 127--> 125 after IVF yesterday by ortho post-op TSH wnl Repeat BNP elevated further to 330. Will check ECHO, give dose lasix 40mg IV x 1 now that Cr back to normal and monitor repeat BMP this afternoon Will repeat urine studies given continued lows, BNP Consider nephro if remaining low given improvement in pain control. (3) ADAM (acute kidney injury): Plan: 2nd to infection/diarrhea (likely from alcohol use as well) and poor PO intake Held HCTZ/lisinopril given Adam on admit as well as hyponatremia IVF provided for elevated CK, wnl on repeat Continued elevations suspected from abx use w/ vanco/cefepime but switched to Rocphein as above and IVF yesterday post-op w/ resolution of ADAM and kidney function now normal Monitor for now, but would resume lisinopril for AM if BPs acceptable Would avoid HTCZ given hyponatremia at present, however suspect from volume overload and will give dose lasix now and repeat labs this afternoon TSH wnl ECHO Nov 2019 w mild , EF wnl -- rec routine monitoring w/ pcp outpt Renal dose meds/avoid nephrotoxins. Monitor BMP (4) Rhabdomyolysis: Plan: was down for ~12 hours. CK 1164 w/ ADAM on admit, resolved w/ IVF and actually 452--> 191 w/ dose lasix (5) Aortic stenosis: Plan: noted, mild-mod on exam given lasix day prior for edema w/ cellulitis and up 5L w/ IVF for rhabdo on admit w/ diuretics held for elevated CK Repeat BNP slightly higher. Will check repeat ECHO to eval worsening Lasix 40mg IV x 1 and monitor response/kidney function/sodium levels Monitor I&O and weights (6) Left knee pain: Plan: 2nd to infection, abx as above (7) Alcohol use: Plan: -- per parents about fifth q2d at home -- had not had DTs prior in stay -- was given 1mg ativan x 1 last evening 07/14 for AWSS 6. NOT tachypneic/tachycardic/febrile at present. VSS. Will monitor AWSS 2 for mild sweating this morning but otherwise no symptoms, VSS B12/folate wnl and has been on empiric thiamine 100mg BID since 07/13 Monitor for DTs ,none at present (8) Cellulitis: Plan: improving w/ tx above, wound RN consulted (9) Proteinuria due to type 2 diabetes mellitus: Plan: Most recent A1C: 7.8% Home meds include Mounjaro (recently started), Glipizide, Metformin, Insulin Sliding scale insulin while admitted --> BSGs dropped 07/13 afternoon to 50/60s, asymptomatic. Glucose w/ lab x 1 130s. Loosened SSI parameters for CF to 45, CR to 15 Continue decreased long acting 10u BID and SSI for now BSGs acceptable Richard (10) HTN (hypertension): Plan: Hold home Lisinopril due to ADAM, improving (also holding hctz) BP stable at present w/o elevation 138/79 Statin on hold given elevated CK on admit but could resume tomorrow (11) Leukocytosis: Plan: improving w/ abx but about the same has had no further fevers bcx remain Ngtd and monitor Monitor w/ switch in ABX (12) Restless leg syndrome: Plan: Continue home Ropinirole (13) Splenomegaly: Plan: noted. ?lyme vs from alcohol use -- monitor WB, consider changing abx to include ceftriaxone vs doxy for MRSA coverage in place of Vanco but will monitor for now (avoiding dapto given elevated CK) Placed on Doxy BID starting evening 5 --> discontinued as on ceftriaxone now and will cover --> WB testing NEGATIVE (14) Hepatic steatosis: Plan: noted. likely from alcohol use, no RUQ pain LFT improving w/ switch to rocephin and will monitor (15) CAD (coronary artery disease): Plan: resume ASA when ok w/ surgry -- hx PCI to LAD and RCI Statin on hold given elevated CK continues on metoprolol, nitro prn denies any chest pain at present on asa 81mg BID for dvt proph then after 6 weeks can resume once daily Plan continued inpatient stay will need 6wks IV abx, rehab at mo. Cm following Admission and Anticipated Discharge Date Admission Date: July 12, 2022 Supervising Physician Co-Signing Physician Notes The patient was not seen by me. The chart was reviewed. Case discussed with RAJI Esquivel. Agree with assessment and plan Subjective eval this morning, parents at bedside. appears MUCH more comfortable. Was able to have BM yesterday, urinating without issue. No CP/SOb. Kidney function back to baseline and LFts improving. He does have some coolness to his toes and believes dressing too tight. Will see about ortho to loosen slightly. Per PA, ok to have nursing re-wrap a little looser. Per nursing, did have slight choking x 1 w/ breakfast. Got a puff on his inhaler and states breathing stable at present. Parents traveling and will be back in town tomorrow. mom's number in case of any issues is [phone]. Physical Exam Physical Exam: General: morbidly obese male resting in bed, improved comfort HEENT: head normocephalic, thick neck, mmm, trachea midline Resp: clear, diminished in the bases, on room air CV: regular rate/rhythm, faint systolic murmur, 1-2+ b/l LE edema (worse on the left), pulses palpable GI: +BS, soft/NT : no perea MSK/Neuro: ELIUD wrap to LLE intact, vac draining bloody drainage, decreased tenderness along LE to palpation scabbing to 2/3rd toe, wound to L plantar surface, no active drainage cap refill wnl, at about 3 seconds, toes cool, ELIUD wrap tight to ankle region, sensation o pressure intact but slightly diminished to light touch (neuropathy at baseline), sloughing of some skin RIGHT leg, medial thigh w/ scab present Psych: AOx3 , cooperative with exam Results & Data Results & Data Vital Signs (Past 12 Hours) Vital Signs Temp Pulse Resp BP Pulse Ox O2 Del Method 07/16/22 08:10 36.4 C L 77 16 109/68 95 Room Air 07/16/22 04:31 36.4 C L 73 18 130/75 97 Room Air 07/15/22 23:50 36.4 C L 82 18 123/75 97 Room Air 07/15/22 21:26 72 133/77 Laboratory Results 07/16/22 07/16/22 07/16/22 Range/Units 09:25 08:09 07:45 WBC (4.8-10.8) K/ul RBC (4.70-6.10) M/uL Hgb (14.0-18.0) g/dl Hct (42.0-52.0) % MCV (80.0-100.0) fL MCH (25.0-34.0) pg MCHC (32.0-36.0) g/dL RDW Std Deviation (36.4-46.3) fL RDW Coeff of Sunny (11.5-14.5) % Plt Count (130-400) K/uL MPV (9.4-12.4) fL Immature Gran % (Auto) % Neut % (Auto) % Lymph % (Auto) % Haakon % (Auto) % Eos % (Auto) % Baso % (Auto) % Neut # (Auto) (1.40-6.50) K/uL Lymph # (Auto) (1.2-3.4) K/uL Haakon # (Auto) (0.11-0.59) K/uL Eos # (Auto) (0-0.50) K/uL Baso # (Auto) (0-0.2) K/uL Immature Gran # (Auto) (0.01-0.20) K/uL Toxic Granulation Toxic Vacuolation Giant Platelets Echinocytes PT (9.0-12.0) Seconds INR (0.9-1.1) Sodium (136-145) mmol/L Potassium 4.0 (3.5-5.1) mmol/L Chloride (98-107) mmol/L Carbon Dioxide (21-32) mmol/L Anion Gap (3-11) BUN (6-23) mg/dl Creatinine (0.6-1.4) mg/dl Est Cr Clr Drug Dosing ml/min Est GFR ( Amer) ml/min Est GFR (Non-Af Amer) ml/min BUN/Creatinine Ratio (10-20) Glucose (70-99(Fasting)) mg/dl POC Glucose 145 H (70-99) mg/dl Calcium (8.6-10.3) mg/dl Magnesium (1.7-2.4) mg/dl Total Bilirubin (0.2-1.0) mg/dl Direct Bilirubin 0.9 H (0-0.2) mg/dl AST 85 H (13-39) U/L ALT (7-52) U/L Alkaline Phosphatase (34-104) U/L B-Natriuretic Peptide Pending Total Protein (6.0-8.3) gm/dl Albumin (3.4-5.0) gm/dl Lyme IgG (Western Blot) (NEGATIVE) Lyme IgG 18 kDa Band Lyme IgG 23 kDa Band Lyme IgG 28 kDa Band Lyme IgG 30 kDa Band Lyme IgG 39 kDa Band Lyme IgG 41 kDa Band Lyme IgG 45 kDa Band Lyme IgG 58 kDa Band Lyme IgG 66 kDa Band Lyme IgG 93 kDa Band Lyme IgM Ab (WB) (NEGATIVE) Lyme IgM 23 kDa Band Lyme IgM 39 kDa Band Lyme IgM 41 kDa Band 07/16/22 07/16/22 07/16/22 Range/Units 06:44 06:44 06:44 WBC 14.43 H (4.8-10.8) K/ul RBC 3.31 L (4.70-6.10) M/uL Hgb 10.1 L (14.0-18.0) g/dl Hct 30.5 L (42.0-52.0) % MCV 92.1 (80.0-100.0) fL MCH 30.5 (25.0-34.0) pg MCHC 33.1 (32.0-36.0) g/dL RDW Std Deviation 45.7 (36.4-46.3) fL RDW Coeff of Sunny 13.4 (11.5-14.5) % Plt Count 237 (130-400) K/uL MPV 11.6 (9.4-12.4) fL Immature Gran % (Auto) 2.6 % Neut % (Auto) 86.5 % Lymph % (Auto) 5.7 % Haakon % (Auto) 4.5 % Eos % (Auto) 0.4 % Baso % (Auto) 0.3 % Neut # (Auto) 12.48 H (1.40-6.50) K/uL Lymph # (Auto) 0.82 L (1.2-3.4) K/uL Haakon # (Auto) 0.65 H (0.11-0.59) K/uL Eos # (Auto) 0.06 (0-0.50) K/uL Baso # (Auto) 0.04 (0-0.2) K/uL Immature Gran # (Auto) 0.38 H (0.01-0.20) K/uL Toxic Granulation Toxic Vacuolation Giant Platelets Echinocytes PT 12.0 (9.0-12.0) Seconds INR 1.1 (0.9-1.1) Sodium 125 L (136-145) mmol/L Potassium TNP (3.5-5.1) mmol/L Chloride 96 L (98-107) mmol/L Carbon Dioxide 25 (21-32) mmol/L Anion Gap 4 (3-11) BUN 36 H (6-23) mg/dl Creatinine 1.08 (0.6-1.4) mg/dl Est Cr Clr Drug Dosing 116.9 ml/min Est GFR ( Amer) 87.8 ml/min Est GFR (Non-Af Amer) 75.8 ml/min BUN/Creatinine Ratio 33.3 H (10-20) Glucose 133 H (70-99(Fasting)) mg/dl POC Glucose (70-99) mg/dl Calcium 7.9 L (8.6-10.3) mg/dl Magnesium 1.9 (1.7-2.4) mg/dl Total Bilirubin 1.4 H (0.2-1.0) mg/dl Direct Bilirubin TNP (0-0.2) mg/dl AST TNP (13-39) U/L ALT 37 (7-52) U/L Alkaline Phosphatase 269 H (34-104) U/L B-Natriuretic Peptide Total Protein 6.9 (6.0-8.3) gm/dl Albumin 2.0 L (3.4-5.0) gm/dl Lyme IgG (Western Blot) (NEGATIVE) Lyme IgG 18 kDa Band Lyme IgG 23 kDa Band Lyme IgG 28 kDa Band Lyme IgG 30 kDa Band Lyme IgG 39 kDa Band Lyme IgG 41 kDa Band Lyme IgG 45 kDa Band Lyme IgG 58 kDa Band Lyme IgG 66 kDa Band Lyme IgG 93 kDa Band Lyme IgM Ab (WB) (NEGATIVE) Lyme IgM 23 kDa Band Lyme IgM 39 kDa Band Lyme IgM 41 kDa Band 07/15/22 07/15/22 07/15/22 Range/Units 20:25 17:22 12:23 WBC (4.8-10.8) K/ul RBC (4.70-6.10) M/uL Hgb (14.0-18.0) g/dl Hct (42.0-52.0) % MCV (80.0-100.0) fL MCH (25.0-34.0) pg MCHC (32.0-36.0) g/dL RDW Std Deviation (36.4-46.3) fL RDW Coeff of Sunny (11.5-14.5) % Plt Count (130-400) K/uL MPV (9.4-12.4) fL Immature Gran % (Auto) % Neut % (Auto) % Lymph % (Auto) % Haakon % (Auto) % Eos % (Auto) % Baso % (Auto) % Neut # (Auto) (1.40-6.50) K/uL Lymph # (Auto) (1.2-3.4) K/uL Haakon # (Auto) (0.11-0.59) K/uL Eos # (Auto) (0-0.50) K/uL Baso # (Auto) (0-0.2) K/uL Immature Gran # (Auto) (0.01-0.20) K/uL Toxic Granulation Toxic Vacuolation Giant Platelets Echinocytes PT (9.0-12.0) Seconds INR (0.9-1.1) Sodium 127 L (136-145) mmol/L Potassium 4.1 (3.5-5.1) mmol/L Chloride 95 L (98-107) mmol/L Carbon Dioxide 23 (21-32) mmol/L Anion Gap 9 (3-11) BUN 43 H (6-23) mg/dl Creatinine 1.32 (0.6-1.4) mg/dl Est Cr Clr Drug Dosing 95.6 ml/min Est GFR ( Amer) 68.9 ml/min Est GFR (Non-Af Amer) 59.5 ml/min BUN/Creatinine Ratio 32.6 H (10-20) Glucose 164 H (70-99(Fasting)) mg/dl POC Glucose 177 H 157 H (70-99) mg/dl Calcium 7.4 L (8.6-10.3) mg/dl Magnesium 1.9 (1.7-2.4) mg/dl Total Bilirubin 1.7 H (0.2-1.0) mg/dl Direct Bilirubin 1.3 H (0-0.2) mg/dl AST 108 H (13-39) U/L ALT 44 (7-52) U/L Alkaline Phosphatase 254 H (34-104) U/L B-Natriuretic Peptide Total Protein 7.0 (6.0-8.3) gm/dl Albumin 2.1 L (3.4-5.0) gm/dl Lyme IgG (Western Blot) (NEGATIVE) Lyme IgG 18 kDa Band Lyme IgG 23 kDa Band Lyme IgG 28 kDa Band Lyme IgG 30 kDa Band Lyme IgG 39 kDa Band Lyme IgG 41 kDa Band Lyme IgG 45 kDa Band Lyme IgG 58 kDa Band Lyme IgG 66 kDa Band Lyme IgG 93 kDa Band Lyme IgM Ab (WB) (NEGATIVE) Lyme IgM 23 kDa Band Lyme IgM 39 kDa Band Lyme IgM 41 kDa Band 07/15/22 07/15/22 07/13/22 Range/Units 12:23 12:11 08:21 WBC 15.00 H (4.8-10.8) K/ul RBC 3.22 L (4.70-6.10) M/uL Hgb 10.1 L (14.0-18.0) g/dl Hct 30.4 L (42.0-52.0) % MCV 94.4 (80.0-100.0) fL MCH 31.4 (25.0-34.0) pg MCHC 33.2 (32.0-36.0) g/dL RDW Std Deviation 49.2 H (36.4-46.3) fL RDW Coeff of Sunny 14.0 (11.5-14.5) % Plt Count 223 (130-400) K/uL MPV 11.6 (9.4-12.4) fL Immature Gran % (Auto) 2.1 % Neut % (Auto) 91.7 % Lymph % (Auto) 2.6 % Haakon % (Auto) 3.2 % Eos % (Auto) 0.1 % Baso % (Auto) 0.3 % Neut # (Auto) 13.75 H (1.40-6.50) K/uL Lymph # (Auto) 0.39 L (1.2-3.4) K/uL Haakon # (Auto) 0.48 (0.11-0.59) K/uL Eos # (Auto) 0.01 (0-0.50) K/uL Baso # (Auto) 0.05 (0-0.2) K/uL Immature Gran # (Auto) 0.32 H (0.01-0.20) K/uL Toxic Granulation 1+ Toxic Vacuolation 1+ Giant Platelets 1+ Echinocytes 1+ PT (9.0-12.0) Seconds INR (0.9-1.1) Sodium (136-145) mmol/L Potassium (3.5-5.1) mmol/L Chloride (98-107) mmol/L Carbon Dioxide (21-32) mmol/L Anion Gap (3-11) BUN (6-23) mg/dl Creatinine (0.6-1.4) mg/dl Est Cr Clr Drug Dosing ml/min Est GFR ( Amer) ml/min Est GFR (Non-Af Amer) ml/min BUN/Creatinine Ratio (10-20) Glucose (70-99(Fasting)) mg/dl POC Glucose 158 H (70-99) mg/dl Calcium (8.6-10.3) mg/dl Magnesium (1.7-2.4) mg/dl Total Bilirubin (0.2-1.0) mg/dl Direct Bilirubin (0-0.2) mg/dl AST (13-39) U/L ALT (7-52) U/L Alkaline Phosphatase (34-104) U/L B-Natriuretic Peptide Total Protein (6.0-8.3) gm/dl Albumin (3.4-5.0) gm/dl Lyme IgG (Western Blot) NEGATIVE (NEGATIVE) Lyme IgG 18 kDa Band NON-REACTIVE Lyme IgG 23 kDa Band NON-REACTIVE Lyme IgG 28 kDa Band NON-REACTIVE Lyme IgG 30 kDa Band NON-REACTIVE Lyme IgG 39 kDa Band NON-REACTIVE Lyme IgG 41 kDa Band NON-REACTIVE Lyme IgG 45 kDa Band NON-REACTIVE Lyme IgG 58 kDa Band NON-REACTIVE Lyme IgG 66 kDa Band NON-REACTIVE Lyme IgG 93 kDa Band NON-REACTIVE Lyme IgM Ab (WB) NEGATIVE (NEGATIVE) Lyme IgM 23 kDa Band REACTIVE A Lyme IgM 39 kDa Band NON-REACTIVE Lyme IgM 41 kDa Band NON-REACTIVE Diagnostic Findings Knee X-Ray 07/15/22 10:53 XR knee LT 1 or 2V routine CLINICAL HISTORY: Surgical Post Op COMPARISON STUDY: Left knee 07/12/2022. FINDINGS: There is again noted a left total knee arthroplasty. The hardware appears intact. Multiple antibiotic cement beads have been placed in the joint space. Skin jayashree and surgical drains are in place. IMPRESSION: Postoperative changes as above. ACT 112: Negative or not required by law. Electronically signed by: Wm Nguyen M.D. 07/15/2022 11:13 AM KUB X-Ray 07/15/22 12:47 KUB CLINICAL HISTORY: nausea with vomiting overnight- eval ileus COMPARISON STUDY: CT of the abdomen and pelvis May 11, 2022. FINDINGS: Left hip arthroplasty is incidentally noted. No large or small bowel dilatation is noted. There is marked gaseous distention of the stomach. Moderate amount of stool within the rectum is noted. There is minimal stool within the colon. Vascular calcification is incidentally noted. IMPRESSION: 1. Marked gaseous distention of the stomach. 2. No small or large bowel dilatation suggestive bowel obstruction. ACT 112: Negative or not required by law. Electronically signed by: Bassem Hayes M.D. 07/15/2022 2:57 PM PG Care Time/CCT Total # of Minutes Spent Total Time Spent with Patient: Total time spent is greater than 50% in coordination of care (as documented) at patient's floor/unit and/or counseling patient: Coding Level of Care Code 58560 SUB INP/OBS CARE 3/50MIN Diagnoses Infected prosthetic knee joint T84.59XA; Z96.659 Hyponatremia E87.1 ADAM (acute kidney injury) N17.9 Rhabdomyolysis M62.82 Aortic stenosis I35.0 Left knee pain M25.562 Alcohol use Z78.9 Cellulitis L03.90 Proteinuria due to type 2 diabetes mellitus E11.29; R80.9 HTN (hypertension) I10 Leukocytosis D72.829 Restless leg syndrome G25.81 Splenomegaly R16.1 Hepatic steatosis K76.0 CAD (coronary artery disease) I25.10
[2022-07-16] MEDS ORDERED: FUROSEMIDE 40 MG/4 ML VIAL IV ONE (10:34)
[2022-07-16] MEDS: cefTRIAXone SODIUM 2,000 MG in DEXTROSE 5% 50 ML IV SCH (11:26)
[2022-07-16 16:28] LABS: BUN Creatinine Ratio 33.3 (10-20); Calcium 8.1 mg/dl (8.6-10.3); Creatinine Clr Calc Pharmacy 107.9 ml/min; Est GFR (African American) 79.7 ml/min; Est GFR (Non-African American) 68.8 ml/min; Potassium 4.1 mmol/L (3.5-5.1)
[2022-07-16] MEDS ORDERED: SODIUM CHLORIDE 1 GM TABLET PO ONE (17:52)
--- NOTE | 2022-07-16 20:16 | XCELERA ---
[id number] [id number]
[2022-07-16 20:55] LABS: Appearance Urine Clear (Clear); Bacteria Urine Automated Negative (Negative); Blood Urine Negative (Negative); Color Urine Dark Yellow; Glucose Urine UA Negative (Negative); Ketones Urine Negative (Negative); Leukocyte Esterase Urine Negative (Negative); Nitrite Urine Negative (Negative); Protein Urine 1+ (Negative); RBC Urine Automated 0-4 /hpf (0-4); Specific Gravity Urine 1.013 (1.000-1.030); Urobilinogen Urine Negative (Negative)
[2022-07-16 20:56] LABS: Bilirubin Urine 1+ (Negative)
[2022-07-16] MEDS: ASPIRIN 81 MG ECTAB PO SCH (21:19)
[2022-07-16] MEDS: rOPINIRole HCL 1 MG TABLET PO SCH (21:19)
[2022-07-16] MEDS: traZODone HCL 100 MG TAB PO SCH (21:19)
[2022-07-17] MEDS: ACETAMINOPHEN 500 MG TAB PO SCH ×3 (06:06→21:10)
--- NOTE | 2022-07-17 07:09 | Orthopedic Progress Note ---
Date of Service July 17, 2022 Assessment & Plan (1) Infected prosthetic knee joint: Plan: Postop day #2 left total knee I&D and poly exchange -PT/OT -Pain management as written -DVT prophylaxis anticoagulation as per medicine. He is on aspirin 81 mg twice daily -AM labs: Pending -Cultures growing group A strep pansensitive. ID recommendations is in chart. Recommend 6 weeks of IV antibiotics followed by likely a year of oral suppressive antibiotics. He is currently on ceftriaxone 2 g daily. -Discharge planning: Discharge home with home health versus inpatient rehab/SNF pending therapy evals. Likely will require inpatient rehab/SNF. Ortho will sign off at this time. Patient can follow up with Dr. Valadez's office in 12-14 days. He can call [phone] for an appointment. Please call with any questions. Admission and Anticipated Discharge Date Admission Date: July 12, 2022 Subjective Patient is postop day 2 left knee I&D. He is resting in bed on my arrival. He is having mild amount of pain. He did not sleep well last night as he could not get comfortable. No other complaints. Denies chest pain, shortness of breath, nausea/vomiting, headaches or dizziness. Review of Systems Review of Systems: All systems reviewed & are unremarkable except as noted in Subjective Physical Exam Physical Exam: Left knee: Bahman wound VAC is clean, dry, intact. Hemovac was removed by nursing, dressing is clean, dry, intact. No calf tenderness. Toes are mobile. Good dorsiflexion. Decreased sensation in toes at baseline. Improved erythema from the borders of marker placed previously. Only mild erythema lower leg. Results & Data Vital Signs (Past 12 Hours) Vital Signs Temp Pulse Resp BP Pulse Ox O2 Del Method 07/16/22 21:06 36.4 C L 75 18 123/73 96 Room Air Laboratory Results Source:Knee,Left OV Order: Ordered: Aer/Sherri Cult/Sm Procedure Result Verified Site Gram StainFinal 07/13/22 Gram Stain Result Many WBCs Seen Many Gram Positive Cocci Aero/Sherri CultPreliminary 07/15/22 Organism 1 Group A Beta Strep Quantity Many Sens Sensitivities to Follow Grp.A Strp RX M.I.C. --- --------- Ampicillin S<=0.06 Azithromycin S<=0.25 Cefepime S<=0.25 Cefotaxime S<=0.25 Ceftriaxone S<=0.25 ChloramphenicolS4 Clindamycin S<=0.06 Erythromycin S<=0.06 Penicillin S<=0.03 Vancomycin S0.5
[2022-07-17 07:52] LABS: Hematocrit (blood only) 29.7 % (42.0-52.0); Hemoglobin 9.8 g/dl (14.0-18.0); Mean Platelet Volume 11.6 fL (9.4-12.4); Platelet Count 267 K/uL (130-400); RDW Coefficient of Variation 14.2 % (11.5-14.5); RDW Standard Deviation 48.5 fL (36.4-46.3); Red Blood Count 3.16 M/uL (4.70-6.10); White Blood Count 12.79 K/ul (4.8-10.8)
--- NOTE | 2022-07-17 08:08 | Hospitalist Progress Note ---
Date of Service July 17, 2022 Assessment & Plan (1) Infected prosthetic knee joint: Plan: Wisam Copeland is a 56 year old male with past medical history of T2DM, diabetic neuropathy, obesity, asthma, HTN, Alcohol Use Disorder, CAD, hepatic steatosis, left knee arthroplasty who presented to the ED with left knee pain and inability to ambulate. Left Lower Extremity Cellulitis, Sepsis 2nd to infected prosthetic joint Xray w/ L knee soft tissue/swelling/effusion, NEGATIVE for osteo. Duplex NEG for DVT Ortho consulted * s/p aspiration 70cc brown/umana aspirate on 07/[address] Valadez, grossly infected w/ elevated WBC 65434 * Cx w/ Group A beta strep POD#2 s/pLeft knee incision and drainage, irrigation, debridement, synovectomy, tibial polyethylene exchange for septic left total knee arthroplasty and MARILEE and Acticoat superficial Wound VAC and placement of Stimulan antibiotic beads. with Dr Valadez 07/15. EBL 10cc * OR cx w/ Group A beta strep on preliminary -- monitor * Vanco/Cefepime --> deescalated to Ceftriaxone given CX from aspiration * ID consulted --> 6wks IV abx, need year PO suppressive. Will give CM rx today to start working on IV abx at d/c for tomorrow when usual team is back WBC improving, afebrile Blood cultures remain NGTD Pain control/bowel regimen PT/OT -- likely need rehab. CM to follow DVT proph: ASA 81mg BID Remains on pepcid BID for GI proph given hx gastritis/prior emesis, no further emesis Patient pulled hemovac this morning -- asked RN to contact orthopedic service for recs regarding such (2) Hyponatremia: Plan: suspected 2nd to hypovolemia on admission and was given copious IVF replacement for elevated CK on admission, however increased LE edema/+BNP and improvement in resp/LE edema and kidney function with lasix day prior and was repeated Mixed picture/reset serum osm? BNP was elevated and ECHO obtained --LV systolic is normal. RV is mild- moderately dilated. LA mildly dilated. Mild . Moderate mitral annular calcification. RVSP elevated 30-40mmHg. IVC mildly dilated No improvement in Na w/ dose of lasix urine Na today only 10, was given 1gm NaCL yesterday and Na 125-->126, will repeat today. LE edema not significant compared to prior and 97% on RA Will repeat PO dose Nacl and monitor TSH wnl Consider reaching out to nephro if continued lows now that pain and infection much better controlled ?from medication used prior, on HTCZ [employer] (3) ADAM (acute kidney injury): Plan: 2nd to infection/diarrhea (likely from alcohol use as well) and poor PO intake Held HCTZ/lisinopril BUN/Cr improved but did get dose of lasix. Na still low will hold off further given no significant volume overload at present and repeat PO Nacl today BMP in AM/pending results can consider resuming his lisinopirl as Cr back around baseline and could have had elevation from rhabdo on admit but then subsequently from Cefepime/vaco for days prior to de-escalation Renal dose meds/avoid nephrotoxic agents (4) Rhabdomyolysis: Plan: was down for ~12 hours. CK 1164 w/ ADAM on admit, resolved w/ IVF and actually 452--> 191 w/ dose lasix (5) Aortic stenosis: Plan: noted, mild-mod on exam repeat echo w/ similar findings. BNP elevation but ECHo appears stable Monitor I&O, weights PO intake w/ free water restriction (6) Left knee pain: Plan: 2nd to infection, abx as above (7) Alcohol use: Plan: -- per parents about fifth q2d at home -- had not had DTs prior in stay -- was given 1mg ativan x 1 last evening 07/14 for AWSS 6. NOT tachypneic/tachycardic/febrile at present. VSS. Will monitor AWSS 2 for mild sweating this morning but otherwise no symptoms, VSS B12/folate wnl and has been on empiric thiamine 100mg BID since 07/13 Monitor for DTs ,none at present (8) Cellulitis: Plan: improving w/ tx above, wound RN consulted (9) Proteinuria due to type 2 diabetes mellitus: Plan: Most recent A1C: 7.8% Home meds include Mounjaro (recently started), Glipizide, Metformin, Insulin Sliding scale insulin while admitted --> BSGs dropped 07/13 afternoon to 50/60s, asymptomatic. Glucose w/ lab x 1 130s. Loosened SSI parameters for CF to 45, CR to 15 BSGs w/ good control w/ decreased needs to 10u BID long acting w/ SSI Consider decreasing home insulin at d/c to prevent lows pending continued needs (10) HTN (hypertension): Plan: BPs stable 129/77, pain control HCTZ/lisinopril on hold days prior due to elevated Cr which is improved Consider resuming lisinopril tomorrow but would hold off HCTZ given his hyp onatremia Remains on metoprolol Can resume statin in AM (11) Leukocytosis: Plan: improving w/ abx --> improved further with de-escalation to rocephin has had no further fevers bcx remain Ngtd and monitor (12) Restless leg syndrome: Plan: Continue home Ropinirole (13) Splenomegaly: Plan: noted. ?lyme vs from alcohol use -- monitor WB, consider changing abx to include ceftriaxone vs doxy for MRSA coverage in place of Vanco but will monitor for now (avoiding dapto given elevated CK) doxy prior d/c as switched to rocpehin which would cover but WB negative (14) Hepatic steatosis: Plan: noted. likely from alcohol use, no RUQ pain LFT improving w/ switch to rocephin and will monitor --> improving w/ switch to rocephin (15) CAD (coronary artery disease): Plan: hx PCI to LAD and RCI Statin on hold given elevated CK -- plans to resume tomorrow On asa 81mg BID for DVT prophylaxis (asa daily [employer]) No CP reported Continues on metoprolol, nitro prn EKG c/ CP Plan continued inpatient stay giving CM rx for rocpehin for today, will need 6 wks, then year PO suppressive. touch base w/ ID in am for suppressive therapy PT/OT on consult and patient will require rehab Monitor sodium levels/consider nephro consult in AM if continued lows Admission and Anticipated Discharge Date Admission Date: July 12, 2022 Supervising Physician Co-Signing Physician Notes The patient was not seen by me. The chart was reviewed. Case discussed with RAJI Esquivel. Agree with assessment and plan Subjective Eval this morning, doing well. Pain controlled. Eating/drinking and moving bowels. Feeling better. Dressing to leg removed, erythema almost completely resolved. No fever/chills, chest pain, shortness of breath, abdominal pain, lightheaded, dizziness. Questions/concerns addressed. Will get CM rx to work on IV abx for at dc to complete course, OR cx matching aspiration at present. Hemovac pulled by patient, no acitve bleeding. Asked RN to contact ortho for recs. Physical Exam Physical Exam: General: morbidly obese male resting in bed, watching video on his phone, NAD HEENT: head normocephalic, atraumatic, mmm, trachea midline Resp: CTA, diminished in the bases, no cough, no wheezing, 97% on RA CV: RRR, sm, trace pedal edema, improved from days prior, pulses palpable GI: +BS, slight distension, soft/NT : urinal at bedside, clear urine MSK/Neuro: ELIUD wrap no longer in place to LLE, vac not present, pulses palpable, decreased sensation/neuropathy at baseline (not reported worse), compartments soft, calves nontender, decreased ROM due to pain but no focal deficit, toes mobile. dressing to foot c/d/i still mild erythema distal but again much improved sloughing of skin from prior blisters, underlying skin healing Psych: AOx3, cooperative with exam Results & Data Results & Data Vital Signs (Past 12 Hours) Vital Signs Temp Pulse Resp BP BP Pulse Ox O2 Del Method 07/17/22 07:49 Room Air 07/17/22 07:14 36.9 C 81 18 129/77 97 Room Air 07/16/22 21:06 36.4 C L 75 18 123/73 96 Room Air Laboratory Results 07/17/22 07/17/22 07/17/22 Range/Units 08:04 07:28 07:28 WBC (4.8-10.8) K/ul RBC (4.70-6.10) M/uL Hgb (14.0-18.0) g/dl Hct (42.0-52.0) % MCV (80.0-100.0) fL MCH (25.0-34.0) pg MCHC (32.0-36.0) g/dL RDW Std Deviation (36.4-46.3) fL RDW Coeff of Sunny (11.5-14.5) % Plt Count (130-400) K/uL MPV (9.4-12.4) fL Immature Gran % (Auto) % Neut % (Auto) % Lymph % (Auto) % Cameron % (Auto) % Eos % (Auto) % Baso % (Auto) % Neut # (Auto) (1.40-6.50) K/uL Lymph # (Auto) (1.2-3.4) K/uL Cameron # (Auto) (0.11-0.59) K/uL Eos # (Auto) (0-0.50) K/uL Baso # (Auto) (0-0.2) K/uL Immature Gran # (Auto) (0.01-0.20) K/uL Sodium 126 L (136-145) mmol/L Potassium 4.0 (3.5-5.1) mmol/L Chloride 96 L (98-107) mmol/L Carbon Dioxide 26 (21-32) mmol/L Anion Gap 4 (3-11) BUN 35 H (6-23) mg/dl Creatinine 1.11 (0.6-1.4) mg/dl Est Cr Clr Drug Dosing 113.8 ml/min Est GFR ( Amer) 85.0 ml/min Est GFR (Non-Af Amer) 73.3 ml/min BUN/Creatinine Ratio 31.5 H (10-20) Glucose 114 H (70-99(Fasting)) mg/dl POC Glucose 109 H (70-99) mg/dl Osmolality 279 L (280-300) mOsm/kg Calcium 8.5 L (8.6-10.3) mg/dl Magnesium 1.8 (1.7-2.4) mg/dl Total Bilirubin 1.3 H (0.2-1.0) mg/dl Direct Bilirubin 0.9 H (0-0.2) mg/dl AST 61 H (13-39) U/L ALT 31 (7-52) U/L Alkaline Phosphatase 265 H (34-104) U/L B-Natriuretic Peptide (0-100) pg/ml Total Protein 7.2 (6.0-8.3) gm/dl Albumin 2.0 L (3.4-5.0) gm/dl Urine Color Urine Appearance (Clear) Urine pH (4.5-7.5) Ur Specific [place] (1.000-1.030) Urine Protein (Negative) Urine Glucose (UA) (Negative) Urine Ketones (Negative) Urine Blood (Negative) Urine Nitrite (Negative) Urine Bilirubin (Negative) Urine Urobilinogen (Negative) Ur Leukocyte Esterase (Negative) Urine WBC (Auto) (0-5) /hpf Urine RBC (Auto) (0-4) /hpf U Hyaline Cast (Auto) (0-5) /lpf U Epithel Cells (Auto) (0-5) /lpf Urine Bacteria (Auto) (Negative) Urine Osmolality (500-800) mOsm/kg Ur Random Sodium mmol/L 07/17/22 07/17/22 07/17/22 Range/Units 07:28 04:25 04:25 WBC 12.79 H (4.8-10.8) K/ul RBC 3.16 L (4.70-6.10) M/uL Hgb 9.8 L (14.0-18.0) g/dl Hct 29.7 L (42.0-52.0) % MCV 94.0 (80.0-100.0) fL MCH 31.0 (25.0-34.0) pg MCHC 33.0 (32.0-36.0) g/dL RDW Std Deviation 48.5 H (36.4-46.3) fL RDW Coeff of Sunny 14.2 (11.5-14.5) % Plt Count 267 (130-400) K/uL MPV 11.6 (9.4-12.4) fL Immature Gran % (Auto) 6.4 % Neut % (Auto) 79.6 % Lymph % (Auto) 8.6 % Cameron % (Auto) 4.1 % Eos % (Auto) 1.0 % Baso % (Auto) 0.3 % Neut # (Auto) 10.17 H (1.40-6.50) K/uL Lymph # (Auto) 1.10 L (1.2-3.4) K/uL Cameron # (Auto) 0.53 (0.11-0.59) K/uL Eos # (Auto) 0.13 (0-0.50) K/uL Baso # (Auto) 0.04 (0-0.2) K/uL Immature Gran # (Auto) 0.82 H (0.01-0.20) K/uL Sodium (136-145) mmol/L Potassium (3.5-5.1) mmol/L Chloride (98-107) mmol/L Carbon Dioxide (21-32) mmol/L Anion Gap (3-11) BUN (6-23) mg/dl Creatinine (0.6-1.4) mg/dl Est Cr Clr Drug Dosing ml/min Est GFR ( Amer) ml/min Est GFR (Non-Af Amer) ml/min BUN/Creatinine Ratio (10-20) Glucose (70-99(Fasting)) mg/dl POC Glucose (70-99) mg/dl Osmolality (280-300) mOsm/kg Calcium (8.6-10.3) mg/dl Magnesium (1.7-2.4) mg/dl Total Bilirubin (0.2-1.0) mg/dl Direct Bilirubin (0-0.2) mg/dl AST (13-39) U/L ALT (7-52) U/L Alkaline Phosphatase (34-104) U/L B-Natriuretic Peptide (0-100) pg/ml Total Protein (6.0-8.3) gm/dl Albumin (3.4-5.0) gm/dl Urine Color Urine Appearance (Clear) Urine pH (4.5-7.5) Ur Specific [place] (1.000-1.030) Urine Protein (Negative) Urine Glucose (UA) (Negative) Urine Ketones (Negative) Urine Blood (Negative) Urine Nitrite (Negative) Urine Bilirubin (Negative) Urine Urobilinogen (Negative) Ur Leukocyte Esterase (Negative) Urine WBC (Auto) (0-5) /hpf Urine RBC (Auto) (0-4) /hpf U Hyaline Cast (Auto) (0-5) /lpf U Epithel Cells (Auto) (0-5) /lpf Urine Bacteria (Auto) (Negative) Urine Osmolality 318 L (500-800) mOsm/kg Ur Random Sodium 10 mmol/L 07/16/22 07/16/22 07/16/22 Range/Units 20:54 20:41 17:15 WBC (4.8-10.8) K/ul RBC (4.70-6.10) M/uL Hgb (14.0-18.0) g/dl Hct (42.0-52.0) % MCV (80.0-100.0) fL MCH (25.0-34.0) pg MCHC (32.0-36.0) g/dL RDW Std Deviation (36.4-46.3) fL RDW Coeff of Sunny (11.5-14.5) % Plt Count (130-400) K/uL MPV (9.4-12.4) fL Immature Gran % (Auto) % Neut % (Auto) % Lymph % (Auto) % Cameron % (Auto) % Eos % (Auto) % Baso % (Auto) % Neut # (Auto) (1.40-6.50) K/uL Lymph # (Auto) (1.2-3.4) K/uL Cameron # (Auto) (0.11-0.59) K/uL Eos # (Auto) (0-0.50) K/uL Baso # (Auto) (0-0.2) K/uL Immature Gran # (Auto) (0.01-0.20) K/uL Sodium (136-145) mmol/L Potassium (3.5-5.1) mmol/L Chloride (98-107) mmol/L Carbon Dioxide (21-32) mmol/L Anion Gap (3-11) BUN (6-23) mg/dl Creatinine (0.6-1.4) mg/dl Est Cr Clr Drug Dosing ml/min Est GFR ( Amer) ml/min Est GFR (Non-Af Amer) ml/min BUN/Creatinine Ratio (10-20) Glucose (70-99(Fasting)) mg/dl POC Glucose 146 H 131 H (70-99) mg/dl Osmolality (280-300) mOsm/kg Calcium (8.6-10.3) mg/dl Magnesium (1.7-2.4) mg/dl Total Bilirubin (0.2-1.0) mg/dl Direct Bilirubin (0-0.2) mg/dl AST (13-39) U/L ALT (7-52) U/L Alkaline Phosphatase (34-104) U/L B-Natriuretic Peptide (0-100) pg/ml Total Protein (6.0-8.3) gm/dl Albumin (3.4-5.0) gm/dl Urine Color Dark Yellow Urine Appearance Clear (Clear) Urine pH 6.0 (4.5-7.5) Ur Specific [place] 1.013 (1.000-1.030) Urine Protein 1+ H (Negative) Urine Glucose (UA) Negative (Negative) Urine Ketones Negative (Negative) Urine Blood Negative (Negative) Urine Nitrite Negative (Negative) Urine Bilirubin 1+ H (Negative) Urine Urobilinogen Negative (Negative) Ur Leukocyte Esterase Negative (Negative) Urine WBC (Auto) 1-5 (0-5) /hpf Urine RBC (Auto) 0-4 (0-4) /hpf U Hyaline Cast (Auto) 1-5 (0-5) /lpf U Epithel Cells (Auto) 10-20 H (0-5) /lpf Urine Bacteria (Auto) Negative (Negative) Urine Osmolality (500-800) mOsm/kg Ur Random Sodium mmol/L 07/16/22 07/16/22 07/16/22 Range/Units 15:50 12:20 09:25 WBC (4.8-10.8) K/ul RBC (4.70-6.10) M/uL Hgb (14.0-18.0) g/dl Hct (42.0-52.0) % MCV (80.0-100.0) fL MCH (25.0-34.0) pg MCHC (32.0-36.0) g/dL RDW Std Deviation (36.4-46.3) fL RDW Coeff of Sunny (11.5-14.5) % Plt Count (130-400) K/uL MPV (9.4-12.4) fL Immature Gran % (Auto) % Neut % (Auto) % Lymph % (Auto) % Cameron % (Auto) % Eos % (Auto) % Baso % (Auto) % Neut # (Auto) (1.40-6.50) K/uL Lymph # (Auto) (1.2-3.4) K/uL Cameron # (Auto) (0.11-0.59) K/uL Eos # (Auto) (0-0.50) K/uL Baso # (Auto) (0-0.2) K/uL Immature Gran # (Auto) (0.01-0.20) K/uL Sodium 125 L (136-145) mmol/L Potassium 4.1 (3.5-5.1) mmol/L Chloride 97 L (98-107) mmol/L Carbon Dioxide 23 (21-32) mmol/L Anion Gap 5 (3-11) BUN 39 H (6-23) mg/dl Creatinine 1.17 (0.6-1.4) mg/dl Est Cr Clr Drug Dosing 107.9 ml/min Est GFR ( Amer) 79.7 ml/min Est GFR (Non-Af Amer) 68.8 ml/min BUN/Creatinine Ratio 33.3 H (10-20) Glucose 106 H (70-99(Fasting)) mg/dl POC Glucose 111 H (70-99) mg/dl Osmolality (280-300) mOsm/kg Calcium 8.1 L (8.6-10.3) mg/dl Magnesium (1.7-2.4) mg/dl Total Bilirubin (0.2-1.0) mg/dl Direct Bilirubin (0-0.2) mg/dl AST (13-39) U/L ALT (7-52) U/L Alkaline Phosphatase (34-104) U/L B-Natriuretic Peptide 330 H (0-100) pg/ml Total Protein (6.0-8.3) gm/dl Albumin (3.4-5.0) gm/dl Urine Color Urine Appearance (Clear) Urine pH (4.5-7.5) Ur Specific [place] (1.000-1.030) Urine Protein (Negative) Urine Glucose (UA) (Negative) Urine Ketones (Negative) Urine Blood (Negative) Urine Nitrite (Negative) Urine Bilirubin (Negative) Urine Urobilinogen (Negative) Ur Leukocyte Esterase (Negative) Urine WBC (Auto) (0-5) /hpf Urine RBC (Auto) (0-4) /hpf U Hyaline Cast (Auto) (0-5) /lpf U Epithel Cells (Auto) (0-5) /lpf Urine Bacteria (Auto) (Negative) Urine Osmolality (500-800) mOsm/kg Ur Random Sodium mmol/L Diagnostic Findings ECHOCARDIOGRAM LV systolic is normal. RV is mild-moderately dilated. LA mildly dilated. Mild . Moderate mitral annular calcification. RVSP elevated 30-40mmHg. IVC mildly dilated PG Care Time/CCT Total # of Minutes Spent Total Time Spent with Patient: Total time spent is greater than 50% in coordination of care (as documented) at patient's floor/unit and/or counseling patient: Coding Level of Care Code 89582 SUB INP/OBS CARE 3/50MIN Diagnoses Infected prosthetic knee joint T84.59XA; Z96.659 Hyponatremia E87.1 ADAM (acute kidney injury) N17.9 Rhabdomyolysis M62.82 Aortic stenosis I35.0 Left knee pain M25.562 Alcohol use Z78.9 Cellulitis L03.90 Proteinuria due to type 2 diabetes mellitus E11.29; R80.9 HTN (hypertension) I10 Leukocytosis D72.829 Restless leg syndrome G25.81 Splenomegaly R16.1 Hepatic steatosis K76.0 CAD (coronary artery disease) I25.10
[2022-07-17 08:09] LABS: Basophils # (auto) 0.04 K/uL (0-0.2); Basophils % (auto) 0.3 %; Eosinophils # (auto) 0.13 K/uL (0-0.50); Immature Granulocytes # (auto) 0.82 K/uL (0.01-0.20); Immature Granulocytes % (auto) 6.4 %; Lymphocytes % (auto) 8.6 %; Monocytes # (auto) 0.53 K/uL (0.11-0.59); Monocytes % (auto) 4.1 %; Neutrophils # (auto) 10.17 K/uL (1.40-6.50); Neutrophils % (auto) 79.6 %
[2022-07-17 08:12] LABS: BUN Creatinine Ratio 31.5 (10-20); Bilirubin Direct 0.9 mg/dl (0-0.2); Bilirubin,Total 1.3 mg/dl (0.2-1.0); Calcium 8.5 mg/dl (8.6-10.3); Creatinine Clr Calc Pharmacy 113.8 ml/min; Est GFR (Non-African American) 73.3 ml/min; Magnesium 1.8 mg/dl (1.7-2.4); Total Protein 7.2 gm/dl (6.0-8.3)
[2022-07-17] MEDS ORDERED: SODIUM CHLORIDE 1 GM TABLET PO ONE (08:26)
[2022-07-17] MEDS: INSULIN ASPART PER UNIT CHARGE SC SCH ×4 (08:54→21:21)
[2022-07-17] MEDS: ASPIRIN 81 MG ECTAB PO SCH ×2 (08:55→21:10)
[2022-07-17] MEDS: allopurinoL 100 MG TAB PO SCH (08:55)
[2022-07-17] MEDS: DOCUSATE SODIUM/SENNA 50/8.6MG TAB PO SCH (08:56)
[2022-07-17] MEDS: DOCUSATE SODIUM 100 MG CAP PO SCH ×2 (08:56→21:10)
[2022-07-17] MEDS: DULoxetine HCL 60 MG CAP PO SCH (08:57)
[2022-07-17] MEDS: FAMOTIDINE 20 MG TAB PO SCH ×2 (08:57→21:10)
[2022-07-17] MEDS: FLUTICASONE/VILANTEROL 100/25MCG 14 PUFFS/INHALER INH SCH (08:58)
[2022-07-17] MEDS: METOPROLOL TARTRATE 50 MG TAB PO SCH ×2 (08:58→21:10)
[2022-07-17] MEDS: THIAMINE HCL 100 MG TAB PO SCH ×2 (08:59→21:10)
[2022-07-17] MEDS: MULTIVITAMIN TAB PO SCH (08:59)
[2022-07-17] MEDS: LANTUS PER UNIT CHARGE SQ SCH ×2 (09:05→21:21)
[2022-07-17] MEDS: cefTRIAXone SODIUM 2,000 MG in DEXTROSE 5% 50 ML IV SCH (12:51)
[2022-07-17] MEDS: HYDROmorphone INJ 0.5 MG/0.5 ML SYR IV PRN (15:20)
[2022-07-17] MEDS: oxyCODONE HCL IR 5 MG TAB (IMMEDIATE RELEASE) PO PRN ×2 (18:03→22:15)
[2022-07-17] MEDS: rOPINIRole HCL 1 MG TABLET PO SCH (21:10)
[2022-07-17] MEDS: traZODone HCL 100 MG TAB PO SCH (21:10)
[2022-07-18] MEDS: HYDROmorphone INJ 0.5 MG/0.5 ML SYR IV PRN (00:54)
[2022-07-18] MEDS: ACETAMINOPHEN 500 MG TAB PO SCH ×3 (06:07→21:17)
[2022-07-18 06:36] LABS: Hematocrit (blood only) 29.3 % (42.0-52.0); Hemoglobin 9.7 g/dl (14.0-18.0); Mean Corpuscular Hemoglobin 30.6 pg (25.0-34.0); Mean Corpuscular Hgb Conc 33.1 g/dL (32.0-36.0); Mean Corpuscular Volume 92.4 fL (80.0-100.0); Mean Platelet Volume 11.6 fL (9.4-12.4); Nucleated RBC # (auto) 0.03 K/uL (0-0.12); Nucleated RBC % (auto) 0.3 %; Platelet Count 268 K/uL (130-400); RDW Coefficient of Variation 13.6 % (11.5-14.5); RDW Standard Deviation 46.2 fL (36.4-46.3); Red Blood Count 3.17 M/uL (4.70-6.10)
[2022-07-18 06:55] LABS: Albumin Globulin Ratio 0.4 (0.9-2); Albumin Level 2.1 gm/dl (3.4-5.0); BUN Creatinine Ratio 30.5 (10-20); Bilirubin,Total 1.1 mg/dl (0.2-1.0); Calcium 8.7 mg/dl (8.6-10.3); Creatinine Clr Calc Pharmacy 132.9 ml/min; Est GFR (African American) 102.6 ml/min; Est GFR (Non-African American) 88.5 ml/min; Globulin 5.4 gm/dl (2.5-4.0); Magnesium 1.7 mg/dl (1.7-2.4); Total Protein 7.5 gm/dl (6.0-8.3)
[2022-07-18 07:09] LABS: Basophils # (auto) 0.05 K/uL (0-0.2); Basophils % (auto) 0.5 %; Eosinophils # (auto) 0.14 K/uL (0-0.50); Eosinophils % (auto) 1.3 %; Immature Granulocytes # (auto) 0.95 K/uL (0.01-0.20); Immature Granulocytes % (auto) 8.6 %; Lymphocytes # (auto) 0.99 K/uL (1.2-3.4); Lymphocytes % (auto) 8.9 %; Monocytes # (auto) 0.45 K/uL (0.11-0.59); Monocytes % (auto) 4.1 %; Neutrophils # (auto) 8.52 K/uL (1.40-6.50); Neutrophils % (auto) 76.6 %
[2022-07-18] MEDS: allopurinoL 100 MG TAB PO SCH (09:20)
[2022-07-18] MEDS: INSULIN ASPART PER UNIT CHARGE SC SCH ×4 (09:23→21:17)
[2022-07-18] MEDS: ASPIRIN 81 MG ECTAB PO SCH ×2 (09:24→19:53)
[2022-07-18] MEDS: DOCUSATE SODIUM/SENNA 50/8.6MG TAB PO SCH (09:24)
[2022-07-18] MEDS: DOCUSATE SODIUM 100 MG CAP PO SCH ×2 (09:25→19:53)
[2022-07-18] MEDS: DULoxetine HCL 60 MG CAP PO SCH (09:26)
[2022-07-18] MEDS: FLUTICASONE/VILANTEROL 100/25MCG 14 PUFFS/INHALER INH SCH (09:27)
[2022-07-18] MEDS: FAMOTIDINE 20 MG TAB PO SCH ×2 (09:27→19:54)
[2022-07-18] MEDS: THIAMINE HCL 100 MG TAB PO SCH ×2 (09:28→19:54)
[2022-07-18] MEDS: METOPROLOL TARTRATE 50 MG TAB PO SCH ×2 (09:28→19:53)
[2022-07-18] MEDS: MULTIVITAMIN TAB PO SCH (09:28)
[2022-07-18] MEDS: oxyCODONE HCL IR 5 MG TAB (IMMEDIATE RELEASE) PO PRN ×3 (09:29→19:52)
[2022-07-18] MEDS ORDERED: FUROSEMIDE 40 MG/4 ML VIAL IV ONE ×2 (10:39→19:17)
[2022-07-18] MEDS: LANTUS PER UNIT CHARGE SQ SCH ×2 (12:03→21:17)
[2022-07-18] MEDS: cefTRIAXone SODIUM 2,000 MG in DEXTROSE 5% 50 ML IV SCH (12:19)
--- NOTE | 2022-07-18 13:42 | Infectious Disease Progress Nt ---
Date of Service July 18, 2022 Assessment & Plan (1) Infected prosthetic knee joint: (2) Cellulitis: (3) ADAM (acute kidney injury): Plan 56 yo M with history of DM2, diabetic neuropathy, obesity, CAD, asthma, gout, bilateral TKA who presented on 07/12 with several days of L knee pain, erythema, swelling, found to have Group A Strep L knee PJI. Also noted to have cellulitis from L knee through L foot, and a L foot wound from slipping and cutting his foot ~2 weeks prior. On presentation, pt was afebrile with leukocytosis to 20.62, CRP 52.95. XR L knee showed soft tissue swelling and joint effusion, no acute bony abnormality. L foot XR showed soft tissue swelling with no bony erosion. LLE venous duplex US was negative for DVT. Ortho performed L knee aspiration on 07/13 and obtained grossly purulent fluid, with synovial fluid testing showing WBC 234K (59% segs, 41% mono), RBC 200K, no crystals, and culture positive for Group A Strep. Lyme serologies were IgM positive, IgG negative, with western blot pending. Pt denied known recent tick bites. Pt's LLE erythema and leukocytosis has improved on vanc, cefepime. He is being taken to the OR 07/15 for I&D and poly exchange. Micro: 07/14 OR culture Group A Strep 07/13 L knee aspiration: Group A Strep (S amp, ceftriaxone, clinda, penicillin, vanc) 07/13 BCx x2: NGTD Lyme IgG negative, IgM only one specific protein positive Abx: Cefepime 07/13 - Vanc 07/12 - present Doxycycline 07/13 - present Pip-tazo 07/13 Ceftriaxone 07/12 Problems: #L knee prosthetic joint infection with group A Strep #LLE cellulitis #ADAM: improving Recommendations: -OR cultures are growing Group A strep -Continue ceftriaxone 2 g IV daily to cover group A Strep. given polexchnage anticipate pt will need 6 weeks of IV antibiotics from OR through 08/26/22 followed by oral suppressive antibiotics for ~1 year this can be with PCN VK 500mg BID or Amoxicillin 500mg BID, pending OR sensitivities -Would check weekly CBC with diff, CMP while on IV antibiotics, also would recommend he has ID follow up given his [facility] antibiotic use Zahra Orellana MD Infectious Diseases [facility] Admission and Anticipated Discharge Date Admission Date: July 12, 2022 Subjective This patient recommendation is based on a telemedicine consult request which was completed asynchronously through chart review and information provided by the primary physician. The patient was not seen or examined today. The evaluation is consultative in nature and all patient care and treatment decisions can either be accepted or rejected by the patient's primary hospital-based treating physician using their own independent medical judgment for their patient. Time Spent Reviewing Chart: 31+ minutes Results & Data Vital Signs (Past 12 Hours) Vital Signs Temp Pulse Pulse Resp BP Pulse Ox O2 Del Method 07/18/22 07:37 36.4 C L 80 14 156/80 H 97 Room Air 07/18/22 07:24 36.7 C 68 20 144/86 H 97 Room Air
[2022-07-18 18:49] LABS: BUN Creatinine Ratio 27.6 (10-20); Calcium 8.6 mg/dl (8.6-10.3); Creatinine Clr Calc Pharmacy 120.3 ml/min; Est GFR (African American) 90.9 ml/min; Est GFR (Non-African American) 78.4 ml/min; Potassium 4.5 mmol/L (3.5-5.1)
--- NOTE | 2022-07-18 19:12 | Hospitalist Progress Note ---
Date of Service July 18, 2022 Assessment & Plan (1) Infected prosthetic knee joint: Plan: Wisam Copeland is a 56 year old male with past medical history of T2DM, diabetic neuropathy, obesity, asthma, HTN, Alcohol Use Disorder, CAD, hepatic steatosis, left knee arthroplasty who presented to the ED with left knee pain and inability to ambulate. Left Lower Extremity Cellulitis, Sepsis 2nd to infected prosthetic knee joint Xray w/ L knee soft tissue/swelling/effusion, NEGATIVE for osteo. Duplex NEG for DVT Ortho consulted * s/p aspiration 70cc brown/umana aspirate on 07/[address] Valadez, grossly infected w/ elevated WBC 39611 * Cx w/ Group A beta strep s/pLeft knee incision and drainage, irrigation, debridement, synovectomy, tibial polyethylene exchange for septic left total knee arthroplasty and MARILEE and Acticoat superficial Wound VAC and placement of Stimulan antibiotic beads with Dr Valadez 07/15. EBL 10cc Blood cultures remain no growth to date leukocytosis Continues to improve, remains afebrile Lyme IgM positive on screening, but Western blot negative-regardless, ceftriaxone covers for this No crystals on fluid analysis from joint aspirate * OR cx w/ Group A beta strep * Vanco/Cefepime --> deescalated to Ceftriaxone given CX from aspiration * ID consulted --> recommends 6wks IV ceftriaxone through 08/26 followed by 1 year of suppressive antibiotics with either penicillin VK or amoxicillin 500 Mg p.o. twice daily * Consented for PICC line-ordered and will be placed on 07/19 * Follow-up with orthopedics after discharge * continue oxycodone and Tylenol as needed for pain * continue PT/OT and needs rehab placement (2) Hyponatremia: Plan: Sodium has been quite low at 123-126 since admission 6 days ago HCTZ has been held He was initially thought to be hypovolemic given his prerenal ADAM on admission, but is now over 4 L net positive on I/O and sodium remains low He has peripheral edema and his weight is up 5 kg since admission BNP was elevated and ECHO obtained --LV systolic is normal. RV is mild- moderately dilated. LA mildly dilated. Mild . Moderate mitral annular calcification. RVSP elevated 30-40mmHg. IVC mildly dilated Urine Na 10, urine osmolality 318 which can be consistent with CHF TSH wnl -Give Lasix 40 Mg IV twice daily today, repeat serial BMPs -Continue to hold HCTZ -Follow I's and O's, daily weights (3) ADAM (acute kidney injury): Plan: 2nd to infection/diarrhea (likely from alcohol use as well) and poor PO intake Held HCTZ/lisinopril-we will continue to do so BUN/Cr improved Follow BMP (4) Anemia: Plan: Hemoglobin low at 9.7, normocytic. Baseline hemoglobin 11-12 B12 and folate, TSH all normal here Check iron studies in the morning Likely anemia of chronic disease and some blood loss from surgery Follow CBC (5) Rhabdomyolysis: Plan: was down for ~12 hours. CK 1164 w/ ADAM on admit, resolved w/ IVF (6) Aortic stenosis: Plan: Murmur on exam noted, aortic stenosis is mild on echocardiogram Follow-up as an outpatient (7) Alcohol use: Plan: As per parents, he drinks about fifth of liquor q2d at home -- had not had DTs prior in stay No evidence of withdrawal this admission thus far B12/folate wnl and has been on empiric thiamine 100mg BID since 07/13 Monitor for DTs ,none at present (8) Cellulitis: Plan: improving w/ tx above, wound RN consulted (9) Proteinuria due to type 2 diabetes mellitus: Plan: Most recent A1C: 7.8% Home meds include Mounjaro (recently started), Glipizide, Metformin, Insulin Sliding scale insulin while admitted BSGs w/ good control w/ decreased needs to 10u BID long acting w/ SSI (10) HTN (hypertension): Plan: BPs controlled HCTZ/lisinopril on hold for ADAM Consider resuming lisinopril at some point soon, but would hold off on resuming HCTZ given his hyponatremia Remains on metoprolol (11) Restless leg syndrome: Plan: Continue home Ropinirole (12) Hepatic steatosis: Plan: noted on previous CT scan, likely from alcohol use And elevated LFTs which are now improving Recommend weight loss, low carbohydrate diet Follow-up as an outpatient (13) CAD (coronary artery disease): Plan: hx PCI to LAD and RCI Statin on hold for rhabdomyolysis-can resume now On asa 81mg BID for DVT prophylaxis (asa daily [employer]) No CP reported Continues on metoprolol, nitro prn (14) Elevated LFTs: Plan: As above, secondary to infection in the setting of fatty liver Follow LFTs Plan DVT prophylaxis-aspirin 81 mg p.o. twice daily Disposition-referrals made to SNF. Patient is not medically stable for discharge given ongoing hyponatremia. Admission and Anticipated Discharge Date Admission Date: July 12, 2022 Subjective Patient reports ongoing pain in the left knee and difficulty walking. No chest pains or shortness of breath. Complains of leg swelling. He is agreeable to PICC line placement. Physical Exam Constitutional: WD/WN, vitals as above + morbidly obese Eyes: + anicteric sclerae Neck: trachea midline, no thyromegaly Respiratory: normal respiratory effort Auscultation: lungs clear to auscultation bilaterally and + diminished lung sounds (Due to body habitus) Cardiovascular: Rate/Rhythm: regular rate and regular rhythm Heart Sounds: + murmur (2/6 AMNA at the RUSB as well as at the apex) Chest (Breasts): Chest: normal inspection of chest Gastrointestinal (Abdomen): normal bowel sounds, soft, nontender, no hepatosplenomegaly Musculoskeletal: Extremities: + extremities abnormal to inspection (Left knee dressing in place, effusion), no cyanosis and no clubbing Skin: Left leg, toes and foot with resolving erythema, flaking dry skin. Fourth left toe is still fairly significantly erythematous Wound on great toe dressing in place Neurologic: moves all extremities and awake; no focal motor deficits Psychiatric: A+Ox3, euthymic affect Results & Data Results & Data Vital Signs (Past 12 Hours) Vital Signs Temp Pulse Pulse Resp BP Pulse Ox O2 Del Method 07/18/22 15:00 36.9 C 67 20 127/64 95 Room Air 07/18/22 07:37 36.4 C L 80 14 156/80 H 97 Room Air 07/18/22 07:24 36.7 C 68 20 144/86 H 97 Room Air Laboratory Results BMP x2, CBC, magnesium level, LFTs all reviewed PG Care Time/CCT Total # of Minutes Spent Total Time Spent with Patient: Total time spent is greater than 50% in coordination of care (as documented) at patient's floor/unit and/or counseling patient: Coding Level of Care Code 13986 SUB INP/OBS CARE 3/50MIN Diagnoses Infected prosthetic knee joint T84.59XA; Z96.659 Hyponatremia E87.1 ADAM (acute kidney injury) N17.9 Anemia D64.9 Rhabdomyolysis M62.82 Aortic stenosis I35.0 Alcohol use Z78.9 Cellulitis L03.90 Proteinuria due to type 2 diabetes mellitus E11.29; R80.9 HTN (hypertension) I10 Restless leg syndrome G25.81 Hepatic steatosis K76.0 CAD (coronary artery disease) I25.10 Elevated LFTs R79.89
[2022-07-18] MEDS: traZODone HCL 100 MG TAB PO SCH (19:53)
[2022-07-18] MEDS: rOPINIRole HCL 1 MG TABLET PO SCH (19:55)
[2022-07-19] MEDS: oxyCODONE HCL IR 5 MG TAB (IMMEDIATE RELEASE) PO PRN ×5 (03:35→21:42)
[2022-07-19] MEDS: ACETAMINOPHEN 500 MG TAB PO SCH ×3 (05:53→21:35)
[2022-07-19 07:55] LABS: Hematocrit (blood only) 28.9 % (42.0-52.0); Hemoglobin 9.5 g/dl (14.0-18.0); Mean Corpuscular Hemoglobin 30.7 pg (25.0-34.0); Mean Corpuscular Hgb Conc 32.9 g/dL (32.0-36.0); Mean Corpuscular Volume 93.5 fL (80.0-100.0); Mean Platelet Volume 11.3 fL (9.4-12.4); Platelet Count 279 K/uL (130-400); RDW Coefficient of Variation 14.2 % (11.5-14.5); RDW Standard Deviation 47.8 fL (36.4-46.3); Red Blood Count 3.09 M/uL (4.70-6.10); White Blood Count 10.82 K/ul (4.8-10.8)
[2022-07-19 08:19] LABS: Basophils # (auto) 0.04 K/uL (0-0.2); Basophils % (auto) 0.4 %; Eosinophils # (auto) 0.07 K/uL (0-0.50); Eosinophils % (auto) 0.6 %; Immature Granulocytes # (auto) 0.89 K/uL (0.01-0.20); Immature Granulocytes % (auto) 8.2 %; Lymphocytes # (auto) 1.02 K/uL (1.2-3.4); Lymphocytes % (auto) 9.4 %; Monocytes # (auto) 0.42 K/uL (0.11-0.59); Monocytes % (auto) 3.9 %; Neutrophils # (auto) 8.38 K/uL (1.40-6.50); Neutrophils % (auto) 77.5 %
[2022-07-19 08:22] LABS: Albumin Level 2.2 gm/dl (3.4-5.0); BUN Creatinine Ratio 29.9 (10-20); Bilirubin Direct 0.6 mg/dl (0-0.2); Calcium 9.2 mg/dl (8.6-10.3); Creatinine Clr Calc Pharmacy 146.3 ml/min; Est GFR (Non-African American) 95.8 ml/min; Potassium 4.3 mmol/L (3.5-5.1); Total Protein 7.8 gm/dl (6.0-8.3)
[2022-07-19 08:40] LABS: Ferritin 722.8 ng/ml (8-388)
[2022-07-19] MEDS: INSULIN ASPART PER UNIT CHARGE SC SCH ×4 (09:25→21:32)
[2022-07-19] MEDS: LANTUS PER UNIT CHARGE SQ SCH ×2 (09:25→21:43)
[2022-07-19] MEDS: FLUTICASONE/VILANTEROL 100/25MCG 14 PUFFS/INHALER INH SCH (09:26)
[2022-07-19] MEDS: allopurinoL 100 MG TAB PO SCH (09:27)
[2022-07-19] MEDS: ASPIRIN 81 MG ECTAB PO SCH ×2 (09:28→21:34)
[2022-07-19] MEDS: DOCUSATE SODIUM/SENNA 50/8.6MG TAB PO SCH (09:30)
[2022-07-19] MEDS: DULoxetine HCL 60 MG CAP PO SCH (09:31)
[2022-07-19] MEDS: DOCUSATE SODIUM 100 MG CAP PO SCH ×2 (09:31→21:34)
[2022-07-19] MEDS: FAMOTIDINE 20 MG TAB PO SCH ×2 (09:32→21:34)
[2022-07-19] MEDS: MULTIVITAMIN TAB PO SCH (09:32)
[2022-07-19] MEDS: METOPROLOL TARTRATE 50 MG TAB PO SCH ×2 (09:32→21:34)
[2022-07-19] MEDS: THIAMINE HCL 100 MG TAB PO SCH (09:33)
[2022-07-19] MEDS: cefTRIAXone SODIUM 2,000 MG in DEXTROSE 5% 50 ML IV SCH (13:28)
[2022-07-19] MEDS: ATORVASTATIN 40 MG TAB PO SCH (13:35)
--- NOTE | 2022-07-19 18:15 | Hospitalist Progress Note ---
Date of Service July 19, 2022 Assessment & Plan (1) Infected prosthetic knee joint: Plan: left knee - * s/p aspiration 07/[address] Valadez, grossly infected w/ elevated WBC 66004 * Cx w/ Group A beta strep s/pLeft knee incision and drainage, irrigation, debridement, synovectomy, tibial polyethylene exchange for septic left total knee arthroplasty and MARILEE and Acticoat superficial Wound VAC and placement of Stimulan antibiotic beads with Dr Valadez Blood cultures negative No crystals on fluid analysis from joint aspirate * OR culture also Group A beta strep * cont IV Ceftriaxone * PICC placed in the RUE by PICC line team * ID consulted --> recommend 6wks IV ceftriaxone through 08/26 followed by 1 year of suppressive antibiotics with either penicillin VK or amoxicillin 500 Mg p.o. twice daily * Follow-up with orthopedics after discharge * Continue oxycodone prn and Tylenol TID scheduled for pain * Continue PT/OT * Rehab placement post-d/c -- patient & mother aware (2) Hyponatremia: Plan: 2nd to chronic HCTZ use initial Urine Na was 10 c/w solute def repeat Urine Na and Osm noted - NOT c/w SIADH received IV lasix last pm mild improvement in serum Na level today -- defer on additional diuretics repeat BMP am (3) ADAM (acute kidney injury): Plan: resolved stable creatinine today (4) Anemia: Plan: Stable h/h today B12 and folate, TSH all normal Iron studies c/w anemia of chronic disease and some blood loss from surgery Follow CBC (5) Rhabdomyolysis: Plan: Laid on floor for 12+ hours pre-hospital. CK 1164 at peak. Resolved with IVF. (6) Aortic stenosis: Plan: mild on echo only (7) Alcohol use: Plan: Drinks about fifth of liquor q2d at home No withdrawal or DTs while here (8) Cellulitis: Plan: LLE - 2nd to #1 - resolved (9) Proteinuria due to type 2 diabetes mellitus: Plan: Most recent A1C: 7.8% Home meds include Mounjaro (recently started), Glipizide, Metformin, Insulin Sliding scale insulin with novolog + basal (lantus) control adequate at this time (10) HTN (hypertension): Plan: uncontrolled resume lisinopril since Cr is stable cont metoprolol hold any further HCTZ (11) Restless leg syndrome: Plan: Continue home Ropinirole (12) Hepatic steatosis: Plan: noted on previous CT scan, likely from alcohol use And elevated LFTs which are now improving f/u PCP for this (13) CAD (coronary artery disease): Plan: hx PCI to LAD and RCI cont Statin cont asa 81mg BID (BID for DVT prophylaxis - previously was on daily dosing at home) Cont metoprolol, nitro prn (14) Elevated LFTs: Plan: resolved either from rhabdomyolysis OR etoh OR both statin resumed (15) Abnormal foot finding: Plan: multiple ulcers of left foot poor cap refill cool foot as well arterial duplex early in stay only showed peroneal disease but distal circulation was intact [id number], given the findings on exam today, will ask Dr Jara from cardiology to see for his opinion cont local wound care to left foot Plan back pain - due to recent fall to the ground and acute/chronic pain will check CT lumbar spine - r/o compression fractures, etc. DVT prophylaxis-aspirin 81 mg p.o. twice daily x 6 weeks Disposition-referrals made to SNF Pt's mother updated at bedside today Admission and Anticipated Discharge Date Admission Date: July 12, 2022 Subjective patient resting comfortably in bed he was opening a pack of football cards mother at bedside denies pain in either foot some pain in L knee eating "not that good" having constipation issues he and his mother are aware he needs rehab post-d/c did get a PICC line in RUE Review of Systems Review of Systems: gen - no fever cv - no chest pain pulm - no dyspnea GI - no abd pain musculo - c/o low back pain - chronic, but worse than baseline Physical Exam Physical Exam: gen - NAD, pleasant mouth - MMM neck - no JVD heart - RRR, s1 s2 lungs - CTA b/l, no rales abd - soft NT ND BS+ ext - cool to touch, <1+ edema L>R musculo - left knee with jayashree intact, no drainage, minimal warmth and swelling skin - multiple ulcers left foot with largest over the 1st MTP joint, mild bloody drainage; cap refill of all toes poor, 3-4 sec; slightly dusky appearance of Left great toe vascular - pulses b/l feet 1+ popliteal pulse on left 2+ b back - tender to palpation over l-spine in the midline Results & Data Results & Data Vital Signs (Past 12 Hours) Vital Signs Temp Pulse Resp BP Pulse Ox O2 Del Method 07/19/22 14:41 36.8 C 69 18 153/87 H 95 Room Air 07/19/22 08:07 36.7 C 87 18 162/84 H 97 Room Air Laboratory Results Laboratory Results - last 48 hr 07/18/22 07/18/22 07/18/22 12:14 17:02 18:14 WBC RBC Hgb Hct MCV MCH MCHC RDW Std Deviation RDW Coeff of Sunny Plt Count MPV Immature Gran % (Auto) Neut % (Auto) Lymph % (Auto) Carroll % (Auto) Eos % (Auto) Baso % (Auto) Neut # (Auto) Lymph # (Auto) Carroll # (Auto) Eos # (Auto) Baso # (Auto) Immature Gran # (Auto) Sodium 126 L Potassium 4.5 Chloride 95 L Carbon Dioxide 25 Anion Gap 6 BUN 29 H Creatinine 1.05 Est Cr Clr Drug Dosing 120.3 Est GFR ( Amer) 90.9 Est GFR (Non-Af Amer) 78.4 BUN/Creatinine Ratio 27.6 H Glucose 141 H POC Glucose 129 H 141 H Calcium 8.6 Iron TIBC Unsaturated IBC Transferrin % Sat Ferritin Total Bilirubin Direct Bilirubin AST ALT Alkaline Phosphatase Total Protein Albumin Urine Osmolality Ur Random Sodium 07/18/22 07/19/22 07/19/22 20:42 07:30 07:30 WBC 10.82 H RBC 3.09 L Hgb 9.5 L Hct 28.9 L MCV 93.5 MCH 30.7 MCHC 32.9 RDW Std Deviation 47.8 H RDW Coeff of Sunny 14.2 Plt Count 279 MPV 11.3 Immature Gran % (Auto) 8.2 Neut % (Auto) 77.5 Lymph % (Auto) 9.4 Carroll % (Auto) 3.9 Eos % (Auto) 0.6 Baso % (Auto) 0.4 Neut # (Auto) 8.38 H Lymph # (Auto) 1.02 L Carroll # (Auto) 0.42 Eos # (Auto) 0.07 Baso # (Auto) 0.04 Immature Gran # (Auto) 0.89 H Sodium 127 L Potassium 4.3 Chloride 95 L Carbon Dioxide 27 Anion Gap 5 BUN 26 H Creatinine 0.87 Est Cr Clr Drug Dosing 146.3 Est GFR ( Amer) 111.0 Est GFR (Non-Af Amer) 95.8 BUN/Creatinine Ratio 29.9 H Glucose 120 H POC Glucose 133 H Calcium 9.2 Iron 25 L TIBC 162 L Unsaturated IBC 137 L Transferrin % Sat 15 L Ferritin 722.8 H Total Bilirubin 1.0 Direct Bilirubin 0.6 H AST 28 ALT 20 Alkaline Phosphatase 211 H Total Protein 7.8 Albumin 2.2 L Urine Osmolality Ur Random Sodium 07/19/22 07/19/22 07/19/22 08:03 13:05 17:40 WBC RBC Hgb Hct MCV MCH MCHC RDW Std Deviation RDW Coeff of Sunny Plt Count MPV Immature Gran % (Auto) Neut % (Auto) Lymph % (Auto) Carroll % (Auto) Eos % (Auto) Baso % (Auto) Neut # (Auto) Lymph # (Auto) Carroll # (Auto) Eos # (Auto) Baso # (Auto) Immature Gran # (Auto) Sodium Potassium Chloride Carbon Dioxide Anion Gap BUN Creatinine Est Cr Clr Drug Dosing Est GFR ( Amer) Est GFR (Non-Af Amer) BUN/Creatinine Ratio Glucose POC Glucose 129 H 157 H 127 H Calcium Iron TIBC Unsaturated IBC Transferrin % Sat Ferritin Total Bilirubin Direct Bilirubin AST ALT Alkaline Phosphatase Total Protein Albumin Urine Osmolality Ur Random Sodium 07/19/22 07/19/22 07/19/22 20:36 21:30 21:30 WBC RBC Hgb Hct MCV MCH MCHC RDW Std Deviation RDW Coeff of Sunny Plt Count MPV Immature Gran % (Auto) Neut % (Auto) Lymph % (Auto) Carroll % (Auto) Eos % (Auto) Baso % (Auto) Neut # (Auto) Lymph # (Auto) Carroll # (Auto) Eos # (Auto) Baso # (Auto) Immature Gran # (Auto) Sodium Potassium Chloride Carbon Dioxide Anion Gap BUN Creatinine Est Cr Clr Drug Dosing Est GFR ( Amer) Est GFR (Non-Af Amer) BUN/Creatinine Ratio Glucose POC Glucose 190 H Calcium Iron TIBC Unsaturated IBC Transferrin % Sat Ferritin Total Bilirubin Direct Bilirubin AST ALT Alkaline Phosphatase Total Protein Albumin Urine Osmolality 204 L Ur Random Sodium 43 PG Care Time/CCT Total # of Minutes Spent Total Time Spent with Patient: Total time spent is greater than 50% in coordination of care (as documented) at patient's floor/unit and/or counseling patient: Coding Level of Care Code 78080 SUB INP/OBS CARE 50MIN Diagnoses Infected prosthetic knee joint T84.59XA; Z96.659 Hyponatremia E87.1 ADAM (acute kidney injury) N17.9 Anemia D64.9 Rhabdomyolysis M62.82 Aortic stenosis I35.0 Alcohol use Z78.9 Cellulitis L03.90 Proteinuria due to type 2 diabetes mellitus E11.29; R80.9 HTN (hypertension) I10 Restless leg syndrome G25.81 Hepatic steatosis K76.0 CAD (coronary artery disease) I25.10 Elevated LFTs R79.89 Abnormal foot finding R29.91
[2022-07-19] MEDS: traZODone HCL 100 MG TAB PO SCH (21:33)
[2022-07-19] MEDS: rOPINIRole HCL 1 MG TABLET PO SCH (21:34)
[2022-07-19] MEDS: POLYETHYLENE (MIRALAX) 17 GM PACK PO SCH (21:42)
--- NOTE | 2022-07-19 21:50 | CT Scan Report ---
Exam(s): CT L SPINE EXAM: CT Lumbar Spine Without Intravenous Contrast CLINICAL HISTORY: Reason for exam: acute/chronic lumbar back pain; eval Fx, etc. TECHNIQUE: Axial computed tomography images of the lumbar spine without intravenous contrast. CTDI is 34.09 mGy and DLP is 973.06 mGy-cm. Automated exposure control was utilized for the study. A dose lowering technique was utilized adhering to the principles of ALARA. COMPARISON: No relevant prior studies available. FINDINGS: Vertebrae: Unremarkable. No acute fracture. Discs/spinal canal/neural foramina: No acute findings. No spinal canal stenosis. Soft tissues: Unremarkable. IMPRESSION: Normal lumbar spine CT. Electronically signed by: Khurram Beckwith MD 07/19/22 21:49 PM
[2022-07-20] MEDS: oxyCODONE HCL IR 5 MG TAB (IMMEDIATE RELEASE) PO PRN ×5 (01:30→20:18)
[2022-07-20] MEDS: ACETAMINOPHEN 500 MG TAB PO SCH ×3 (05:45→21:48)
[2022-07-20 09:04] LABS: BUN Creatinine Ratio 24.7 (10-20); Calcium 9.6 mg/dl (8.6-10.3); Creatinine Clr Calc Pharmacy 171.6 ml/min; Est GFR (African American) 119.3 ml/min; Potassium 4.5 mmol/L (3.5-5.1)
[2022-07-20] MEDS: DULoxetine HCL 60 MG CAP PO SCH (09:12)
[2022-07-20] MEDS: FAMOTIDINE 20 MG TAB PO SCH ×2 (09:12→20:17)
[2022-07-20] MEDS: DOCUSATE SODIUM 100 MG CAP PO SCH ×2 (09:12→20:17)
[2022-07-20] MEDS: allopurinoL 100 MG TAB PO SCH (09:12)
[2022-07-20] MEDS: ATORVASTATIN 40 MG TAB PO SCH (09:12)
[2022-07-20] MEDS: MULTIVITAMIN TAB PO SCH (09:12)
[2022-07-20] MEDS: POLYETHYLENE (MIRALAX) 17 GM PACK PO SCH ×2 (09:12→20:18)
[2022-07-20] MEDS: ASPIRIN 81 MG ECTAB PO SCH ×2 (09:12→20:16)
[2022-07-20] MEDS: FLUTICASONE/VILANTEROL 100/25MCG 14 PUFFS/INHALER INH SCH (09:13)
[2022-07-20] MEDS: THIAMINE HCL 100 MG TAB PO SCH (09:13)
[2022-07-20] MEDS: METOPROLOL TARTRATE 50 MG TAB PO SCH ×2 (09:13→20:18)
[2022-07-20] MEDS: DOCUSATE SODIUM/SENNA 50/8.6MG TAB PO SCH (09:13)
[2022-07-20] MEDS: LANTUS PER UNIT CHARGE SQ SCH ×2 (09:19→20:28)
[2022-07-20] MEDS: INSULIN ASPART PER UNIT CHARGE SC SCH ×4 (09:19→20:25)
[2022-07-20] MEDS: cefTRIAXone SODIUM 2,000 MG in DEXTROSE 5% 50 ML IV SCH (11:07)
[2022-07-20] MEDS: rOPINIRole HCL 1 MG TABLET PO SCH (20:18)
[2022-07-20] MEDS: traZODone HCL 100 MG TAB PO SCH (20:18)
--- NOTE | 2022-07-20 20:21 | Vascular Medicine Consultation ---
Date of Consultation July 20, 2022 Assessment & Plan (1) Diabetic foot ulcer: 2. PADtibial vessel disease on duplex 3. 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 CAD post stents to RCA/LAD 5. Type 2 diabeteslast A1c 7.8 6. Anemia 7. Hyponatremia 8. Mild aortic stenosis Patient has diabetic foot ulcer involving left first MTP joint, dorsal second toe present for at least last 3 weeks. Today in comparison to recent wound images left toes appear more purple and are cool. Arterial duplex suggests below the knee disease and question of some degree of inflow disease. Recommend additional evaluation of left lower extremity arterial system to rule out obstructive disease potentially impairing wound healing. Plan for left lower extremity angiogram via left radial artery on Monday. N.p.o. past midnight on . Plan discussed with Dr. Jeffers. History of Present Illness Attending Physician: Kiel Burgos MD History of Present Illness Mr. Copeland is a 56-year-old man with type 2 diabetes with peripheral neuropathy who was admitted with left knee prosthetic joint infection/cellulitis now POD 5 postsurgical debridement/irrigation prolonged antibiotic for group A strep seen today due to suspected lower extremity PAD and left foot DFU. Patient is followed by Dr. Bennett for his cardiac care. Patient has ulcer over medial aspect of left first MTP joint and distal/dorsal aspect of second toe. States these sores have been present for approximately 3 weeks after trauma. Denies foot pain. Reports had prior ulcer on the plantar aspect of his foot months ago which healed with home care. Mobility limited at home at baseline due to back issues. Denies rest pain or claudication. Had x-ray of left foot 07/12 which showed no acute bony abnormalities. Venous duplex negative for DVT 07/12. Arterial duplex reviewed waveforms slightly blunted throughout left lower extremity but no evidence of high-grade stenosis from FINANCIAL PLANNER to popliteal artery. SHAWNA/PHLEBOTOMIST patent. Peroneal appears occluded. Past medical history: CAD post PCI to LAD, RCA 11/2019, mild aortic stenosis, hypertension, dyslipidemia, obesity with KAMLESH, OA post bilateral total knee replacement and left hip replacement Allergies Allergy/AdvReac Type Severity Reaction Status Date / Time No Known Drug Allergies Allergy . Verified 07/15/22 12:13 Home Medications Medication Instructions Recorded Confirmed Type cholecalciferol (vitamin D3) 50 50 mcg PO QAM 07/29/19 07/12/22 History mcg (2,000 unit) capsule aspirin 81 mg tablet,delayed 81 mg PO QAM 30 days #30 tabs 12/27/19 07/12/22 Rx release metformin 1,000 mg tablet 1,000 mg PO BID #180 tabs 08/06/21 07/12/22 Rx atorvastatin 80 mg tablet 80 mg PO QAM #90 tabs 12/17/21 07/12/22 Rx nitroglycerin 0.4 mg sublingual 0.4 mg sublingual UD PRN chest 02/23/22 07/12/22 Rx tablet (Nitrostat) pain 30 days #60 tabs lisinopril 20 mg tablet 20 mg PO DAILY 04/14/22 07/12/22 History fluticasone 100 mcg-salmeterol 50 1 inh inhalation BID shortness of 04/21/22 07/12/22 History mcg/dose blistr powdr for breath inhalation (Wixela Inhub) glipizide 5 mg tablet 5 mg PO QPM #90 tabs 04/21/22 07/12/22 Rx trazodone 50 mg tablet 100 mg PO HS insomnia #180 tabs 04/28/22 07/12/22 Rx duloxetine 60 mg capsule,delayed 60 mg PO QAM #90 caps 05/03/22 07/12/22 Rx release insulin glargine 100 unit/mL (3 15 unit (0.15 mL) subcut QAM #15 mL 05/03/22 07/12/22 Rx mL) subcutaneous pen (Lantus Solostar U-100 Insulin) famotidine 20 mg tablet 20 mg PO BID PRN heartburn 90 days 05/13/22 07/12/22 Rx #180 tabs tirzepatide 5 mg/0.5 mL 5 mg (0.5 mL) subcut WK #2 mL 05/16/22 07/12/22 Rx subcutaneous pen injector (Ramirez) oxycodone-acetaminophen 5 mg-325 1 tab PO BID PRN pain 30 days #60 06/02/22 07/12/22 Rx mg tablet tabs albuterol sulfate 90 mcg/actuation See Rx Instructions inhalation QID 07/02/22 07/12/22 Rx aerosol inhaler (Proventil HFA) PRN shortness of breath or wheezing #18 grams metoprolol tartrate 50 mg tablet 50 mg PO BID #180 tabs 07/04/22 07/12/22 Rx allopurinol 300 mg tablet 300 mg PO QAM 07/12/22 07/12/22 History hydrochlorothiazide 12.5 mg tablet 12.5 mg PO DAILY 07/12/22 07/12/22 History ropinirole 1 mg tablet 1 mg PO QPM 07/12/22 07/12/22 History Patient History Medical History Aortic stenosis Asthma inhaler daily/prn CAD (coronary artery disease) Chronic lower back pain Diabetes mellitus, type 2 Diabetic neuropathy Exertional angina Gout HTN (hypertension) Hyperlipidemia Insomnia Morbid obesity with BMI of 40.0-44.9, adult Osteoarthritis Restless leg syndrome Sinus tachycardia Sleep apnea mild; no device SOB (shortness of breath) on exertion Vitamin D deficiency Surgical History H/O hernia repair as a baby History of cardiac cath 12/26/19 @ [facility] with 2 stents placed History of colonoscopy 06/2021, poor prep per report History of ear surgery History of esophagogastroduodenoscopy (EGD) 07/2021 History of left hip replacement (~2018) History of total left knee replacement (TKR) History of total right knee replacement (TKR) History of wisdom tooth extraction S/P coronary artery stent placement 2 stents placed 12/26/19 @ [facility] Family History Father Heart disease Mother Heart disease Diabetes Grandfather No problems noted. Grandfather (Maternal) Lung cancer Grandmother (Maternal) Lung cancer Grandfather (Paternal) Myocardial infarction Grandmother (Paternal) Stroke Other No family history of adverse response to anesthesia Denies family history of Ovarian cancer Prostate cancer Breast cancer Colorectal cancer Social History Smoking Status: Never smoker Tobacco Type: Smokeless Tobacco (Dip or Chew) Cigarettes Per Day: 1 can a week; Second Hand Exposure: No; Do You Dip or Chew Tobacco: Yes; Hx Alcohol Use: Yes Alcohol type: beer, wine and hard liquor Alcohol type Comment: 1 drink 4-5 times weekly Hx Substance Use: No Preferred Language: [place]rugu[place] Communication Ability: Effective Visual Impairment: Limited Hearing Ability: Normal Voice Network Administrator Required: No Beliefs That Will Affect Care: None marital status: Current Living Situation: Family current occupational status: disabled 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, 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 How many Children do You have: 2 How many Children do You have Comment: 25 and 24 Other Information That Helps Us Care for You: No Feels Safe at Home: Yes Childhood Exposure to Second-Hand Smoke: Yes Diet: regular caffeine: Yes Dental Care, Regularly: Yes Physical Activity Frequency: Does not Exercise Seatbelt Use: always Sunscreen Use: Yes Assistive Devices: Cane and Walker Review of Systems Review of Systems: All systems reviewed & are unremarkable except as noted in HPI & below Physical Exam Constitutional: WD/WN, vitals as above + obese Eyes: + anicteric sclerae Respiratory: normal respiratory effort Auscultation: lungs clear to auscultation bilaterally Cardiovascular: Rate/Rhythm: regular rate Heart Sounds: + murmur (2/6 systolic ejection murmur) Vessels: radial pulses present Bilateral chronic hyperpigmentation, trace bilateral edema. Left knee surgical incision clean/intact, jayashree in place without surrounding erythema or drainage. Images from recent wound care visit yesterday reviewed. Today left 1st-3rd toe purple with sluggish capillary refill. No surrounding erythema/induration. 1+ DP/PT bilaterally Gastrointestinal (Abdomen): Percussion/Palpation: abdomen soft; abdomen nontender Skin: Left forefoot cool Neurologic: + focal motor deficit (Distal sensation to light touch limited in feet bilaterally) Psychiatric: A+Ox3, euthymic affect Results & Data Vital Signs (Past 12 Hours) Vital Signs Temp Pulse Pulse Resp BP Pulse Ox O2 Del Method 07/20/22 20:14 98.1 F 75 18 176/81 H 95 Room Air 07/20/22 15:07 97.5 F L 87 18 150/74 H 95 Room Air 07/20/22 11:45 98.1 F 68 20 160/90 H 93 Room Air PG Care Time/CCT Total # of Minutes Spent Total Time Spent with Patient: Total time spent is greater than 50% in coordination of care (as documented) at patient's floor/unit and/or counseling patient: Coding Level of Care Code 68829 INT INP/OBS CARE 2/55MIN Diagnoses Diabetic foot ulcer E11.621; L97.509
--- NOTE | 2022-07-20 22:00 | Hospitalist Progress Note ---
Date of Service July 20, 2022 Assessment & Plan (1) Infected prosthetic knee joint: Plan: left knee - * s/p aspiration 07/[address] Valadez, grossly infected w/ elevated WBC 46266 * Arthrocentesis Culture - Group A beta strep * OR culture - also Group A strep * blood cultures negative s/pLeft knee incision and drainage, irrigation, debridement, synovectomy, tibial polyethylene exchange for septic left total knee arthroplasty and MARILEE and Acticoat superficial Wound VAC and placement of Stimulan antibiotic beads with Dr Valadez * cont IV Ceftriaxone * PICC placed in the RUE by PICC line team * ID consulted --> recommend 6wks IV ceftriaxone through 08/26 followed by 1 year of suppressive antibiotics with either penicillin VK or amoxicillin 500 Mg p.o. twice daily * Follow-up with orthopedics after discharge * Continue oxycodone prn and Tylenol TID scheduled for pain * Continue PT/OT * Rehab placement post-d/c -- patient & mother aware (2) Hyponatremia: Plan: 2nd to chronic HCTZ use initial Urine Na was 10 c/w solute def repeat Urine Na and Osm noted - NOT c/w SIADH received IV lasix last pm mild improvement in serum Na from 126 to 128 over last 48 hours repeat BMP am (3) ADAM (acute kidney injury): Plan: resolved stable creatinine last several days (4) Anemia: Plan: B12 and folate, TSH all normal Iron studies c/w anemia of chronic disease and some blood loss from surgery Follow CBC (5) Rhabdomyolysis: Plan: Laid on floor for 12+ hours pre-hospital. CK 1164 at peak. Resolved with IVF. (6) Aortic stenosis: Plan: mild on echo only this admission (7) Alcohol use: Plan: Drinks about fifth of liquor q2d at home No withdrawal or DTs while here (8) Cellulitis: Plan: LLE - 2nd to #1 - resolved (9) Proteinuria due to type 2 diabetes mellitus: Plan: Most recent A1C: 7.8% Home meds include Mounjaro (recently started), Glipizide, Metformin, Insulin Sliding scale insulin with novolog + basal (lantus) control adequate at this time (10) HTN (hypertension): Plan: uncontrolled still thus resume lisinopril in am cont metoprolol hold any further HCTZ due to hyponatremia (11) Restless leg syndrome: Plan: Continue home Ropinirole (12) Hepatic steatosis: Plan: noted on previous CT scan, likely from alcohol use And elevated LFTs which are now improving f/u PCP for this (13) CAD (coronary artery disease): Plan: hx PCI to LAD and RCI cont Statin cont asa 81mg BID (BID for DVT prophylaxis - previously was on daily dosing at home) Cont metoprolol, nitro prn (14) Elevated LFTs: Plan: resolved either from rhabdomyolysis OR etoh OR both statin resumed (15) Abnormal foot finding: Plan: multiple ulcers of left foot poor cap refill cool foot as well arterial duplex early in stay only showed peroneal disease but distal circulation was intact [id number], given the findings on exam today, asked Dr Jara from cardiology to see for his opinion he plans an arteriogram THIS MONDAY appreciate his consult cont local wound care to left foot Plan back pain - due to recent fall to the ground and acute/chronic pain checked CT lumbar spine - NO compression fractures or other abnormalities he had no c/o pain today in back DVT prophylaxis-aspirin 81 mg p.o. twice daily x 6 weeks Disposition-referrals made to SNF Pt's mother updated at bedside yesterday Admission and Anticipated Discharge Date Admission Date: July 12, 2022 Subjective patient w/o complaints today left knee pain stable no respiratory complaints eating well no bowel movement in 2-3 days denies nausea/emesis Review of Systems Review of Systems: gen - no fevers or chills cv - no chest pain, no orthopnea pulm - no dyspnea GI - no diarrhea Physical Exam Physical Exam: gen - NAD, pleasant, laying flat in bed comfortably mouth - MMM neck - no JVD heart - RRR, s1 s2, 2/6 systolic murmur RUSB lungs - CTA b/l, no rales abd - soft NT ND BS+ ext - better perfused today, cap refill about 2 sec today b/l feet;, <1+ edema L>R musculo - left knee with jayashree intact, no drainage, minimal warmth and swelling skin - multiple ulcers left foot with largest over the 1st MTP joint; L great toe inflamed, erythematous vascular - pulses b/l feet 1-2+ Results & Data Results & Data Vital Signs (Past 12 Hours) Vital Signs Temp Pulse Pulse Resp BP Pulse Ox O2 Del Method 07/20/22 20:14 36.7 C 75 18 176/81 H 95 Room Air 07/20/22 15:07 36.4 C L 87 18 150/74 H 95 Room Air 07/20/22 11:45 36.7 C 68 20 160/90 H 93 Room Air Laboratory Results Laboratory Results - last 24 hr 07/19/22 07/19/22 07/20/22 21:30 21:30 08:02 Sodium Potassium Chloride Carbon Dioxide Anion Gap BUN Creatinine Est Cr Clr Drug Dosing Est GFR ( Amer) Est GFR (Non-Af Amer) BUN/Creatinine Ratio Glucose POC Glucose 120 H Calcium Urine Osmolality 204 L Ur Random Sodium 43 07/20/22 07/20/22 07/20/22 08:17 12:10 17:13 Sodium 128 L Potassium 4.5 Chloride 97 L Carbon Dioxide 27 Anion Gap 4 BUN 18 Creatinine 0.73 Est Cr Clr Drug Dosing 171.6 Est GFR ( Amer) 119.3 Est GFR (Non-Af Amer) 103.0 BUN/Creatinine Ratio 24.7 H Glucose 127 H POC Glucose 188 H 207 H Calcium 9.6 Urine Osmolality Ur Random Sodium 07/20/22 20:16 Sodium Potassium Chloride Carbon Dioxide Anion Gap BUN Creatinine Est Cr Clr Drug Dosing Est GFR ( Amer) Est GFR (Non-Af Amer) BUN/Creatinine Ratio Glucose POC Glucose 188 H Calcium Urine Osmolality Ur Random Sodium PG Care Time/CCT Total # of Minutes Spent Total Time Spent with Patient: Total time spent is greater than 50% in coordination of care (as documented) at patient's floor/unit and/or counseling patient: Coding Level of Care Code 98690 SUB INP/OBS CARE 2/35MIN Diagnoses Infected prosthetic knee joint T84.59XA; Z96.659 Hyponatremia E87.1 ADAM (acute kidney injury) N17.9 Anemia D64.9 Rhabdomyolysis M62.82 Aortic stenosis I35.0 Alcohol use Z78.9 Cellulitis L03.90 Proteinuria due to type 2 diabetes mellitus E11.29; R80.9 HTN (hypertension) I10 Restless leg syndrome G25.81 Hepatic steatosis K76.0 CAD (coronary artery disease) I25.10 Elevated LFTs R79.89 Abnormal foot finding R29.91
[2022-07-21] MEDS: HYDROmorphone INJ 0.5 MG/0.5 ML SYR IV PRN ×3 (01:19→19:57)
[2022-07-21] MEDS: oxyCODONE HCL IR 5 MG TAB (IMMEDIATE RELEASE) PO PRN ×3 (04:16→22:02)
[2022-07-21] MEDS: ACETAMINOPHEN 500 MG TAB PO SCH ×3 (05:51→22:03)
[2022-07-21] MEDS: POLYETHYLENE (MIRALAX) 17 GM PACK PO SCH ×2 (08:21→22:05)
[2022-07-21] MEDS: METOPROLOL TARTRATE 50 MG TAB PO SCH ×2 (08:22→22:02)
[2022-07-21] MEDS: FAMOTIDINE 20 MG TAB PO SCH ×2 (08:22→22:02)
[2022-07-21] MEDS: DOCUSATE SODIUM 100 MG CAP PO SCH ×2 (08:22→22:02)
[2022-07-21] MEDS: ASPIRIN 81 MG ECTAB PO SCH ×2 (08:22→22:01)
[2022-07-21] MEDS: allopurinoL 100 MG TAB PO SCH (08:22)
[2022-07-21] MEDS: THIAMINE HCL 100 MG TAB PO SCH (08:22)
[2022-07-21] MEDS: MULTIVITAMIN TAB PO SCH (08:22)
[2022-07-21] MEDS: FLUTICASONE/VILANTEROL 100/25MCG 14 PUFFS/INHALER INH SCH (08:23)
[2022-07-21] MEDS: ATORVASTATIN 40 MG TAB PO SCH (08:23)
[2022-07-21] MEDS: DULoxetine HCL 60 MG CAP PO SCH (08:23)
[2022-07-21] MEDS: DOCUSATE SODIUM/SENNA 50/8.6MG TAB PO SCH (08:23)
[2022-07-21] MEDS ORDERED: lisinopril 10 MG TAB PO SCH (09:00)
[2022-07-21 09:06] LABS: BUN Creatinine Ratio 23.2 (10-20); Calcium 9.9 mg/dl (8.6-10.3); Creatinine Clr Calc Pharmacy 181.6 ml/min; Est GFR (African American) 122.1 ml/min; Est GFR (Non-African American) 105.4 ml/min; Potassium 4.7 mmol/L (3.5-5.1)
[2022-07-21] MEDS: LANTUS PER UNIT CHARGE SQ SCH ×2 (09:07→22:05)
[2022-07-21] MEDS: INSULIN ASPART PER UNIT CHARGE SC SCH ×4 (09:09→22:04)
[2022-07-21] MEDS: cefTRIAXone SODIUM 2,000 MG in DEXTROSE 5% 50 ML IV SCH (13:15)
--- NOTE | 2022-07-21 18:34 | Hospitalist Progress Note ---
Date of Service July 21, 2022 Assessment & Plan (1) Infected prosthetic knee joint: Plan: left knee - * s/p aspiration 07/[address] Valadez, grossly infected w/ elevated WBC 38050 * Arthrocentesis Culture - Group A beta strep * OR culture - also Group A strep * blood cultures negative s/pLeft knee incision and drainage, irrigation, debridement, synovectomy, tibial polyethylene exchange for septic left total knee arthroplasty and MARILEE and Acticoat superficial Wound VAC and placement of Stimulan antibiotic beads -- Dr Valadez * cont IV Ceftriaxone * RUE PICC in place * ID consulted --> recommend 6wks IV ceftriaxone through 08/26 followed by 1 year of suppressive antibiotics with either penicillin VK or amoxicillin 500 Mg p.o. twice daily * Follow-up with orthopedics after discharge * Continue oxycodone prn and Tylenol TID scheduled for pain * Continue PT/OT * Rehab placement post-d/c (2) Hyponatremia: Plan: 2nd to chronic HCTZ use initial Urine Na was 10 c/w solute def repeat Urine Na and Osm noted - NOT c/w SIADH received IV lasix earlier this week today does not examine volume overloaded mild improvement in serum Na from 126 to 129 repeat BMP am (3) ADAM (acute kidney injury): Plan: resolved stable creatinine BMP am (4) Anemia: Plan: B12 and folate, TSH all normal Iron studies c/w anemia of chronic disease and some blood loss from surgery Follow CBC (5) Rhabdomyolysis: Plan: Laid on floor for 12+ hours pre-hospital. CK 1164 at peak. Resolved with IVF. (6) Aortic stenosis: Plan: mild on echo only this admission (7) Alcohol use: Plan: Drinks about fifth of liquor q2d at home by report but no signs/symptoms of withdrawal or DTs while here (8) Cellulitis: Plan: LLE - 2nd to #1 - resolved (9) Proteinuria due to type 2 diabetes mellitus: Plan: Most recent A1C: 7.8% Home meds include Mounjaro, Glipizide, Metformin, Insulin Sliding scale insulin with novolog + basal (lantus) control very adequate at this time (10) HTN (hypertension): Plan: resume lisinopril and titrate for optimal control cont metoprolol hold any further HCTZ due to hyponatremia issues (11) Restless leg syndrome: Plan: Continue home Ropinirole (12) Hepatic steatosis: Plan: noted on previous CT scan, likely from alcohol use AST had been elevated early in stay - possibly from rhabdo (or etoh) - but AST normalized ALT wnl f/u PCP for this weight loss needed (13) CAD (coronary artery disease): Plan: hx PCI to LAD and RCI cont Statin cont asa 81mg BID (BID for DVT prophylaxis - previously was on daily dosing at home) Cont metoprolol (14) Elevated LFTs: Plan: resolved either from rhabdomyolysis OR etoh OR both statin resumed (15) Abnormal foot finding: Plan: multiple ulcers of left foot poor cap refill cool foot as well arterial duplex early in stay only showed peroneal disease but distal circulation was intact [id number], given the findings on exam, Dr Jara from cardiology saw patient in consult and patient is scheduled for LLE arteriogram tomorrow appreciate his consult cont local wound care to left foot NPO after MN tonight for study of LLE Plan DVT prophylaxis-aspirin 81 mg p.o. twice daily x 6 weeks Disposition - referrals made to SNF for rehab He has significant deficits, moderate assist just to stand, etc per current therapy notes His insurance requested peer to peer -- > called and left message on their confidential voicemail late this evening 07/21/22 Admission and Anticipated Discharge Date Admission Date: July 12, 2022 Subjective patient resting in bed comfortably during the visit mild left knee pain only eating well no dyspnea no orthopnea no chest pain still no BM in a few days no new complaints Review of Systems Review of Systems: gen - no fevers pulm - no cough GI - no N/V Physical Exam Physical Exam: gen - NAD, laying flat in bed comfortably watching TV mouth - MMM neck - no JVD heart - RRR, s1 s2, 2/6 systolic murmur RUSB lungs - CTA b/l, no rales abd - soft NT ND BS+ ext - cap refill about 2-3 sec left foot, 2 sec right foot; trace edema b/l feet musculo - left knee with jayashree intact, no drainage, minimal warmth and swelling; scattered bruises about the left knee skin - multiple ulcers left foot with largest over the 1st MTP joint; dressings intact; L great toe inflamed, erythematous; feet cool to touch today vascular - pulses b/l feet 1-2+ psych - a/o x 3 Results & Data Results & Data Vital Signs (Past 12 Hours) Vital Signs Temp Pulse Resp BP Pulse Ox O2 Del Method 07/21/22 16:28 36.5 C 86 16 191/84 H 96 Room Air 07/21/22 09:00 Room Air 07/21/22 07:30 36.6 C 90 16 151/72 H 94 Room Air Laboratory Results Laboratory Results - last 24 hr 07/20/22 07/21/22 07/21/22 20:16 08:07 08:24 Sodium 129 L Potassium 4.7 Chloride 97 L Carbon Dioxide 29 Anion Gap 3 BUN 16 Creatinine 0.69 Est Cr Clr Drug Dosing 181.6 Est GFR ( Amer) 122.1 Est GFR (Non-Af Amer) 105.4 BUN/Creatinine Ratio 23.2 H Glucose 117 H POC Glucose 188 H 117 H Calcium 9.9 07/21/22 07/21/22 12:11 17:06 Sodium Potassium Chloride Carbon Dioxide Anion Gap BUN Creatinine Est Cr Clr Drug Dosing Est GFR ( Amer) Est GFR (Non-Af Amer) BUN/Creatinine Ratio Glucose POC Glucose 188 H 172 H Calcium PG Care Time/CCT Total # of Minutes Spent Total Time Spent with Patient: Total time spent is greater than 50% in coordination of care (as documented) at patient's floor/unit and/or counseling patient: Coding Level of Care Code 26308 SUB INP/OBS CARE 2/35MIN Diagnoses Infected prosthetic knee joint T84.59XA; Z96.659 Hyponatremia E87.1 ADAM (acute kidney injury) N17.9 Anemia D64.9 Rhabdomyolysis M62.82 Aortic stenosis I35.0 Alcohol use Z78.9 Cellulitis L03.90 Proteinuria due to type 2 diabetes mellitus E11.29; R80.9 HTN (hypertension) I10 Restless leg syndrome G25.81 Hepatic steatosis K76.0 CAD (coronary artery disease) I25.10 Elevated LFTs R79.89 Abnormal foot finding R29.91
[2022-07-21] MEDS: rOPINIRole HCL 1 MG TABLET PO SCH (22:02)
[2022-07-21] MEDS: traZODone HCL 100 MG TAB PO SCH (22:02)
[2022-07-22] MEDS: ACETAMINOPHEN 500 MG TAB PO SCH ×3 (05:45→21:31)
--- NOTE | 2022-07-22 07:01 | Pre Anesthesia Assessment ---
Date of Service July 22, 2022 Pre Sedation Assessment Vital Signs Temp Pulse Resp BP Pulse Ox O2 Del Method 07/21/22 22:18 98.6 F 79 16 175/80 H 93 Room Air 07/21/22 20:50 97.5 F L 89 18 152/87 H 92 Room Air 07/21/22 19:47 97.3 F L 90 18 169/86 H 96 Room Air 07/21/22 16:28 97.7 F 86 16 191/84 H 96 Room Air 07/21/22 09:00 Room Air 07/21/22 07:30 97.9 F 90 16 151/72 H 94 Room Air Cardiovascular RRR, no murmur, no edema Respiratory normal respiratory effort, lungs clear to auscultation Pre-Sedation Airway Assessment Smoking Status: Never smoker Hx Sleep Apnea: No Hx Difficult Intubation: No Short, Thick Neck: No Thyromental Distance: > or= 3.5 Finger Breadths Mallampati Class: III ASA: ASA3 Procedure Planning Contraindications for Sedation: none Current Medications Reviewed: Yes Notes The planned sedation has been discussed with the patient. Informed Consent was obtained. I have identified the patient, determined the appropriateness of sedation and have assessed the patient immediately prior to the procedure. All medicine(s) and interventions are by my order.
[2022-07-22 07:48] LABS: Hemoglobin 9.1 g/dl (14.0-18.0); Mean Corpuscular Hemoglobin 30.8 pg (25.0-34.0); Mean Corpuscular Hgb Conc 33.7 g/dL (32.0-36.0); Mean Corpuscular Volume 91.5 fL (80.0-100.0); Mean Platelet Volume 11.2 fL (9.4-12.4); Platelet Count 282 K/uL (130-400); RDW Coefficient of Variation 14.1 % (11.5-14.5); RDW Standard Deviation 46.8 fL (36.4-46.3); Red Blood Count 2.95 M/uL (4.70-6.10); White Blood Count 10.98 K/ul (4.8-10.8)
[2022-07-22 08:12] LABS: BUN Creatinine Ratio 19.2 (10-20); Creatinine Clr Calc Pharmacy 169.2 ml/min; Est GFR (African American) 119.3 ml/min; Potassium 4.6 mmol/L (3.5-5.1)
[2022-07-22] MEDS: lisinopril 20 MG TAB PO SCH (08:15)
[2022-07-22] MEDS: LANTUS PER UNIT CHARGE SQ SCH ×2 (08:15→20:28)
[2022-07-22] MEDS: INSULIN ASPART PER UNIT CHARGE SC SCH ×3 (08:17→20:29)
[2022-07-22] MEDS: ATORVASTATIN 40 MG TAB PO SCH (08:47)
[2022-07-22] MEDS: DULoxetine HCL 60 MG CAP PO SCH (08:47)
[2022-07-22] MEDS: FLUTICASONE/VILANTEROL 100/25MCG 14 PUFFS/INHALER INH SCH (08:47)
[2022-07-22] MEDS: METOPROLOL TARTRATE 50 MG TAB PO SCH (08:48)
[2022-07-22] MEDS: MULTIVITAMIN TAB PO SCH (08:48)
[2022-07-22] MEDS: allopurinoL 100 MG TAB PO SCH (08:48)
[2022-07-22] MEDS: ASPIRIN 81 MG ECTAB PO SCH ×2 (08:48→21:31)
[2022-07-22] MEDS: THIAMINE HCL 100 MG TAB PO SCH (08:48)
[2022-07-22] MEDS: FAMOTIDINE 20 MG TAB PO SCH ×2 (08:49→21:31)
[2022-07-22] MEDS: SODIUM CHLORIDE 1 GM TABLET PO SCH ×2 (09:22→21:31)
[2022-07-22] MEDS: POLYETHYLENE (MIRALAX) 17 GM PACK PO SCH ×2 (09:53→21:31)
[2022-07-22] MEDS: DOCUSATE SODIUM 100 MG CAP PO SCH ×2 (09:53→21:32)
[2022-07-22] MEDS: DOCUSATE SODIUM/SENNA 50/8.6MG TAB PO SCH (10:02)
[2022-07-22] MEDS: cefTRIAXone SODIUM 2,000 MG in DEXTROSE 5% 50 ML IV SCH (10:37)
[2022-07-22] MEDS ORDERED: Nursing to Pharmacy Communication SCH ×2 (11:00→15:45)
[2022-07-22] MEDS ORDERED: INSULIN ASPART PER UNIT CHARGE SC SCH (12:00)
[2022-07-22] MEDS ORDERED: MIDAZOLAM HCL 1 MG/ML 2ML VIAL ONE ×3 (12:46→13:43)
[2022-07-22] MEDS ORDERED: fentaNYL citrate PF 100 MCG/2 ML VIAL ONE ×2 (12:46→13:43)
[2022-07-22] MEDS ORDERED: niCARdipine HCL INJ 2.5 MG/ML 10 ML AMP ONE (13:10)
[2022-07-22] MEDS ORDERED: NITROGLYCERIN/D5W 100MCG/ML 20ML SYR ONE (13:11)
--- NOTE | 2022-07-22 15:58 | Post Anesthesia Assessment ---
Date of Service July 22, 2022 Post Sedation Assessment Vital Signs Temp Pulse Pulse Pulse Resp BP BP 07/22/22 15:41 88 07/22/22 15:40 85 18 167/92 H 07/22/22 15:19 88 18 170/60 H 07/22/22 15:04 97.7 F 82 18 158/74 H 07/22/22 14:38 85 18 152/81 H 07/22/22 14:25 88 18 159/120 H 07/22/22 12:45 83 18 177/78 H 07/22/22 08:30 07/22/22 08:14 97.9 F 90 18 180/96 H 07/21/22 22:18 98.6 F 79 16 175/80 H 07/21/22 20:50 97.5 F L 89 18 152/87 H 07/21/22 19:47 97.3 F L 90 18 169/86 H 07/21/22 16:28 97.7 F 86 16 191/84 H Pulse Ox O2 Del Method 07/22/22 15:41 07/22/22 15:40 95 Room Air 07/22/22 15:19 94 Room Air 07/22/22 15:04 95 Room Air 07/22/22 14:38 92 Room Air 07/22/22 14:25 92 Room Air 07/22/22 12:45 93 Room Air 07/22/22 08:30 Room Air 07/22/22 08:14 95 Room Air 07/21/22 22:18 93 Room Air 07/21/22 20:50 92 Room Air 07/21/22 19:47 96 Room Air 07/21/22 16:28 96 Room Air Recovery Score Activity: Moves 4 extremities Respiration: Deep Breath/Cough Circulation: +/-20% PreAnes Value Consciousness: Fully Awake Oxygen Saturation: > 92% On Room Air Post Anesthesia Score: 10 Discharge Sedation Level of Care: Fast Track Phase II Post Sedation Plan On clinical assessment, the patient appears to have tolerated the sedation without complications. Patient is recovering as anticipated. Patient will continue to be monitored by nursing and may be discharged when sedation discharge criteria are met per below protocol. Upon Completions of procedure up to 15 minutes continue every 5 minute vital signs and the P.A.R. score; then discharge to a Phase I or Fast Track to Phase II per the following guidelines: * Discharge Patient to appropriate Phase II area if PAR is 8 or greater or return to pre- procedure baseline. The post - procedure orders will be as directed. * If PAR score is less than 8 or not return to pre-procedure baseline then patient will follow Phase I monitoring till PAR is reached for Phase II. The Phase I may be done in procedure room or may call to secure a Phase I area. * If naloxone or flumazenil are used for reversal, hold in Phase I for continued monitoring from when last reversal dose was given for a minimum of 60 minutes or longer pending the nurse and/or physician discretion of patient condition before discharge to Phase II. Please call the Sedation Physician to re-evaluate and complete post-note for discharge to Phase II area. Do NOT discharge from procedure sedation or Phase 1 until post- sedation evaluation note is complete by procedure /sedation MD Sedation Discharge Instructions to be given to the patient at discharge to home.
[2022-07-22] MEDS ORDERED: SODIUM CHLORIDE 0.9% 1000ML 1,000 ML IV SCH (16:00)
--- NOTE | 2022-07-22 16:10 | Endovascular Procedure Note ---
[facility] Endovascular Procedure Rpt Pre & Post Diagnosis Lower extremity wound Pedal vessel, microvascular disease I identified the patient and participated in the time-out.: Yes Procedure Operation Date: 07/22/22 10:00 Actual Procedures s Placement Art Occlusive Device - Benji Jara MD p Angio Extremity Unilateral - Benji Jara MD s Ultrasound Vascular Access - Benji Jara MD Surgeon Mark Jara MD Track Repair Worker Corinne Rueda Estimated Blood Loss 10 Findings Consistent with Post-Op Diagnosis Abdominal aorta--no significant aneurysmal or stenotic disease Right lower extremity-- -Common iliac, external iliac, internal iliac widely patent Left lower extremity-- -Common iliac, external iliac, internal iliac widely patent -BACK TENDER CYLINDER, profunda widely patent -SFA widely patent -Popliteal luminal regularities -SHAWNA widely patent to the ankle with sluggish flow -LENDING ACTIVITIES SUPERVISOR widely patent the ankle with sluggish flow, peroneal large caliber vessel, widely patent to the ankle -Very sluggish flow in DPA, plantar arteries. No significant obstructive d isease noted Anesthesia Type General Radiation Exposure (mGv) Radiation (mGy): 1,477 Complications none Disposition Accompanied Patient To Recovery: No Disposition: PCU Description of Procedure Left radial artery access under ultrasound guidance with placement of 6 Fr sheath Pigtail catheter navigated over wire into abdominal aorta for aortogram. 5 Fr MPA catheter placed into external iliac for proximal left lower extremity angiography 0.35 quick cross catheter placed into SFA for more distal angiography Unable to definitively visualize below the knee vessels. Right BACK TENDER CYLINDER obtained under ultrasound guidance, short 5Fr sheath placed Up and over with rim catheter Selective distal left lower extremity angiography with quick cross catheter placed in distal popliteal IC vasodilators administered Contrast used: 110 Moderate sedation: [id number] Access closure: Angioseal Summary: 1. Left lower extremity --widely patent iliacs, SFA/popliteal arteries. Widely patent three-vessel runoff to the ankle. Sluggish pedal vessel flow to the toes suggestive of vasospasm/microvascular dysfunction. 2. Right lower extremity --widely patent iliacs, BACK TENDER CYLINDER. Recommendations: No significant obstructive disease in left lower extremity arterial system. No need for revascularization at this time. Recommend trial of peripheral vasodilators for microvascular dysfunction/vasospasm. Started on amlodipine, metoprolol discontinued. Continue ASCVD risk factor modification Continue current wound care. I attest to the content of the Intraoperative Record and any orders documented therein. Any exceptions are noted below. Vascular Charges Angiography/Venography Procedure 1: Angiography/Venography charges: [id number] Initial 3rd order or selective abd, pelvic, or LE branch Procedure 2: Angiography/Venography charges: [id number] Aortography, abd + b/l iliofem LE, catheter, radiological S&I Additional Services Procedure 1: Additional Services Charges: 14164 Ultrasound guidance - vascular access Procedure 2: Additional Services Charges: 63579 Ultrasound guidance - vascular access Procedure 3: Additional Services Charges: 98145 Moderate sedation initial 15 min Procedure 4: Additional Services Charges: 36144 Moderate sedation, each additional 15 min
[2022-07-22] MEDS: amLODIPine BESYLATE 5 MG TAB PO SCH (18:02)
--- NOTE | 2022-07-22 19:39 | Hospitalist Progress Note ---
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 - * s/p aspiration 07/[address] Valadez, grossly infected w/ elevated WBC 31779 * Arthrocentesis Culture - Group A beta strep * OR culture - also Group A strep * blood cultures negative s/pLeft knee incision and drainage, irrigation, debridement, synovectomy, tibial polyethylene exchange for septic left total knee arthroplasty and MARILEE and Acticoat superficial Wound VAC and placement of Stimulan antibiotic beads -- Dr Valadez * cont IV Ceftriaxone * RUE PICC in place * ID consulted --> recommend 6wks IV ceftriaxone through 08/26/22, followed by 1 year of suppressive antibiotics with either penicillin VK or amoxicillin * Follow-up with orthopedics after discharge * Continue oxycodone prn and Tylenol TID scheduled for pain * Continue PT/OT * Rehab placement post-d/c -- unfortunately, despite completing a [id number] with [facility] medical i d sales, they still have denied [facility]; thus, it will be [facility] level for rehab; I informed patient about the denial (2) Hyponatremia: Plan: 2nd to chronic HCTZ use initial Urine Na was 10 c/w solute def repeat Urine Na and Osm noted - NOT c/w SIADH received IV lasix earlier this week but he is euvolemic at this time mild improvement in serum Na from 126 to 128 add NaCL tabs 1gm BID repeat BMP am would not resume HCTZ moving forward (3) ADAM (acute kidney injury): Plan: resolved stable creatinine BMP am (4) Anemia: Plan: B12 and folate, TSH all normal Iron studies c/w anemia of chronic disease and some blood loss from surgery Follow CBC (5) Rhabdomyolysis: Plan: Laid on floor for 12+ hours pre-hospital. CK 1164 at peak. Resolved with IVF. (6) Aortic stenosis: Plan: mild on echo only this admission no issues (7) Alcohol use: Plan: Drinks about fifth of liquor q2d at home by report but no signs/symptoms of withdrawal or DTs while here (8) Cellulitis: Plan: LLE - 2nd to #1 - resolved (9) Proteinuria due to type 2 diabetes mellitus: Plan: Most recent A1C: 7.8% Home meds include Mounjaro, Glipizide, Metformin, Insulin Sliding scale insulin with novolog + basal (lantus) control very adequate at this time (10) HTN (hypertension): Plan: cont lisinopril metoprolol stopped in kathy of amlodipine - latter to be used to help microcirculation in feet (see below) hold any further HCTZ due to hyponatremia issues (11) Restless leg syndrome: Plan: Continue home Ropinirole (12) Hepatic steatosis: Plan: noted on previous CT scan, likely from alcohol use AST had been elevated early in stay - possibly from rhabdo (or etoh) - but AST normalized ALT wnl f/u PCP for this weight loss needed (13) CAD (coronary artery disease): Plan: hx PCI to LAD and RCI cont Statin cont asa 81mg BID (BID for DVT prophylaxis - previously was on daily dosing at home) see above re: metoprolol (14) Elevated LFTs: Plan: resolved either from rhabdomyolysis OR etoh OR both statin resumed (15) Abnormal foot finding: Plan: multiple ulcers of left foot poor cap refill cool foot as well arterial duplex early in stay only showed peroneal disease but distal circulation was intact Dr Jara performed LLE arteriogram today with the following findings - -Common iliac, external iliac, internal iliac widely patent -PRINTER SLOTTER FEEDER, profunda widely patent -SFA widely patent -Popliteal luminal regularities -SHAWNA widely patent to the ankle with sluggish flow -RETAIL COORDINATOR widely patent the ankle with sluggish flow, peroneal large caliber vessel, widely patent to the ankle -Very sluggish flow in DPA, plantar arteries. No significant obstructive disease noted Dr Jara has started amlodipine 5mg daily to help with microcirculation & sluggish flow in the DPA and plantar arteries Re-eval tomorrow Plan DVT prophylaxis - aspirin 81 mg BID x 6 weeks Disposition - will be SNF for rehab; [facility] denied by insurance if patient's sleepiness continues check VBG to rule out hypercapnea Admission and Anticipated Discharge Date Admission Date: July 12, 2022 Subjective pt had his LLE arteriogram earlier today I saw him post procedure he was very tired from anesthesia denied any specific complaints - no chest pain or dyspnea or abd pain Review of Systems Review of Systems: musculo - ongoing mild L knee pain cv - no orthopnea pulm - no cough or wheezing Physical Exam Physical Exam: gen - NAD, laying flat in bed comfortably, sleepy but arousable pupils - 2-3mm b/l; not pinpoint mouth - MMM neck - no JVD heart - RRR, s1 s2, 2/6 systolic murmur RUSB lungs - CTA b/l, no rales abd - soft NT ND BS+ ext - cap refill about 3 sec left foot, 2 sec right foot; trace edema b/l feet musculo - left knee with jayashree intact, no drainage; minimal warmth; mild joint swelling; scattered bruises about the left knee unchanged skin - multiple ulcers left foot with largest over the 1st MTP joint; dressings intact; L great toe cool to touch vascular - pulses b/l feet 1-2+ psych - a/o x 3 Results & Data Results & Data Vital Signs (Past 12 Hours) Vital Signs Temp Pulse Pulse Pulse Resp BP BP 07/22/22 19:19 36.9 C 98 H 16 07/22/22 18:03 93 H 18 164/86 H 07/22/22 16:32 96 H 20 161/83 H 07/22/22 16:00 87 20 158/86 H 07/22/22 16:17 91 H 18 157/85 H 07/22/22 15:57 07/22/22 15:41 88 07/22/22 15:40 85 18 167/92 H 07/22/22 15:19 88 18 170/60 H 07/22/22 15:04 36.5 C 82 18 158/74 H 07/22/22 14:38 85 18 152/81 H 07/22/22 14:25 88 18 159/120 H 07/22/22 12:45 83 18 177/78 H 07/22/22 08:30 07/22/22 08:14 36.6 C 90 18 180/96 H Pulse Ox O2 Del Method 07/22/22 19:19 96 Room Air 07/22/22 18:03 95 Room Air 07/22/22 16:32 97 Room Air 07/22/22 16:00 95 Room Air 07/22/22 16:17 96 Room Air 07/22/22 15:57 Room Air 07/22/22 15:41 07/22/22 15:40 95 Room Air 07/22/22 15:19 94 Room Air 07/22/22 15:04 95 Room Air 07/22/22 14:38 92 Room Air 07/22/22 14:25 92 Room Air 07/22/22 12:45 93 Room Air 07/22/22 08:30 Room Air 07/22/22 08:14 95 Room Air Laboratory Results Laboratory Results - last 24 hr 07/21/22 07/21/22 07/22/22 20:41 23:46 05:31 WBC RBC Hgb Hct MCV MCH MCHC RDW Std Deviation RDW Coeff of Sunny Plt Count MPV Sodium Potassium Chloride Carbon Dioxide Anion Gap BUN Creatinine Est Cr Clr Drug Dosing Est GFR ( Amer) Est GFR (Non-Af Amer) BUN/Creatinine Ratio Glucose POC Glucose 145 H 122 H 116 H Calcium 07/22/22 07/22/22 07/22/22 07:06 07:06 12:07 WBC 10.98 H RBC 2.95 L Hgb 9.1 L Hct 27.0 L MCV 91.5 MCH 30.8 MCHC 33.7 RDW Std Deviation 46.8 H RDW Coeff of Sunny 14.1 Plt Count 282 MPV 11.2 Sodium 128 L Potassium 4.6 Chloride 95 L Carbon Dioxide 29 Anion Gap 4 BUN 14 Creatinine 0.73 Est Cr Clr Drug Dosing 169.2 Est GFR ( Amer) 119.3 Est GFR (Non-Af Amer) 103.0 BUN/Creatinine Ratio 19.2 Glucose 117 H POC Glucose 166 H Calcium 10.0 07/22/22 16:45 WBC RBC Hgb Hct MCV MCH MCHC RDW Std Deviation RDW Coeff of Sunny Plt Count MPV Sodium Potassium Chloride Carbon Dioxide Anion Gap BUN Creatinine Est Cr Clr Drug Dosing Est GFR ( Amer) Est GFR (Non-Af Amer) BUN/Creatinine Ratio Glucose POC Glucose 129 H Calcium PG Care Time/CCT Total # of Minutes Spent Total Time Spent with Patient: Total time spent is greater than 50% in coordination of care (as documented) at patient's floor/unit and/or counseling patient: Coding Level of Care Code 32626 SUB INP/OBS CARE 2/35MIN Diagnoses Infected prosthetic knee joint T84.59XA; Z96.659 Hyponatremia E87.1 ADAM (acute kidney injury) N17.9 Anemia D64.9 Rhabdomyolysis M62.82 Aortic stenosis I35.0 Alcohol use Z78.9 Cellulitis L03.90 Proteinuria due to type 2 diabetes mellitus E11.29; R80.9 HTN (hypertension) I10 Restless leg syndrome G25.81 Hepatic steatosis K76.0 CAD (coronary artery disease) I25.10 Elevated LFTs R79.89 Abnormal foot finding R29.91
[2022-07-22] MEDS: rOPINIRole HCL 1 MG TABLET PO SCH (21:31)
[2022-07-22] MEDS: traZODone HCL 100 MG TAB PO SCH (21:31)
[2022-07-23] MEDS: oxyCODONE HCL IR 5 MG TAB (IMMEDIATE RELEASE) PO PRN ×5 (03:44→23:52)
[2022-07-23] MEDS: ACETAMINOPHEN 500 MG TAB PO SCH ×3 (05:58→21:51)
[2022-07-23 06:41] LABS: Calcium 9.9 mg/dl (8.6-10.3); Potassium 4.4 mmol/L (3.5-5.1)
[2022-07-23 06:47] LABS: BUN Creatinine Ratio 21.2 (10-20); Creatinine Clr Calc Pharmacy 185.4 ml/min; Est GFR (African American) 124.4 ml/min; Est GFR (Non-African American) 107.3 ml/min
[2022-07-23] MEDS: FAMOTIDINE 20 MG TAB PO SCH ×2 (09:20→20:18)
[2022-07-23] MEDS: DOCUSATE SODIUM/SENNA 50/8.6MG TAB PO SCH (09:20)
[2022-07-23] MEDS: ATORVASTATIN 40 MG TAB PO SCH (09:20)
[2022-07-23] MEDS: FLUTICASONE/VILANTEROL 100/25MCG 14 PUFFS/INHALER INH SCH (09:20)
[2022-07-23] MEDS: amLODIPine BESYLATE 5 MG TAB PO SCH (09:20)
[2022-07-23] MEDS: ASPIRIN 81 MG ECTAB PO SCH ×2 (09:21→20:18)
[2022-07-23] MEDS: lisinopril 20 MG TAB PO SCH (09:21)
[2022-07-23] MEDS: SODIUM CHLORIDE 1 GM TABLET PO SCH ×2 (09:22→20:18)
[2022-07-23] MEDS: POLYETHYLENE (MIRALAX) 17 GM PACK PO SCH ×2 (09:22→20:27)
[2022-07-23] MEDS: INSULIN ASPART PER UNIT CHARGE SC SCH ×4 (09:25→21:40)
[2022-07-23] MEDS: LANTUS PER UNIT CHARGE SQ SCH ×2 (09:28→21:35)
[2022-07-23] MEDS: DOCUSATE SODIUM 100 MG CAP PO SCH ×2 (09:28→20:18)
[2022-07-23] MEDS: THIAMINE HCL 100 MG TAB PO SCH (11:32)
[2022-07-23] MEDS: cefTRIAXone SODIUM 2,000 MG in DEXTROSE 5% 50 ML IV SCH (11:32)
[2022-07-23] MEDS: DULoxetine HCL 60 MG CAP PO SCH (11:33)
[2022-07-23] MEDS: MULTIVITAMIN TAB PO SCH (11:33)
[2022-07-23] MEDS: allopurinoL 100 MG TAB PO SCH (11:33)
[2022-07-23] MEDS ORDERED: KETOROLAC 30 MG/ML VIAL IV ONE (12:16)
--- NOTE | 2022-07-23 17:22 | Hospitalist Progress Note ---
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 - * s/p aspiration 07/[address] Valadez, grossly infected w/ elevated WBC 19566 * Arthrocentesis Culture - Group A beta strep * OR culture - also Group A strep * blood cultures negative s/pLeft knee incision and drainage, irrigation, debridement, synovectomy, tibial polyethylene exchange for septic left total knee arthroplasty and MARILEE and Acticoat superficial Wound VAC and placement of Stimulan antibiotic beads -- Dr Valadez * cont IV Ceftriaxone * RUE PICC in place * ID consulted --> recommend 6wks IV ceftriaxone through 08/26/22, followed by 1 year of suppressive antibiotics with either penicillin VK or amoxicillin * Follow-up with orthopedics after discharge * Continue oxycodone prn and Tylenol TID scheduled for pain * Continue PT/OT * Rehab placement post-d/c -- unfortunately, despite completing a [id number] with [facility] medical specialist, they still have denied [facility]; thus, it will be [facility] level for rehab - likely next week (2) Hyponatremia: Plan: 2nd to chronic HCTZ use initial Urine Na was 10 c/w solute def repeat Urine Na and Osm noted - NOT c/w SIADH received IV lasix earlier this week but he is euvolemic at this time or perhaps even slightly on dry side ongoing slow improvement in serum Na from 126 to 130 cont NaCL tabs 1gm BID repeat urine osm repeat urine Na repeat BMP am would not resume HCTZ moving forward (3) ADAM (acute kidney injury): Plan: resolved stable creatinine since that time BMP am (4) Anemia: Plan: B12 and folate, TSH all normal Iron studies c/w anemia of chronic disease and some blood loss from surgery Follow CBC (5) Rhabdomyolysis: Plan: Laid on floor for 12+ hours pre-hospital. CK 1164 at peak. Resolved with IVF. (6) Aortic stenosis: Plan: mild on echo this admission (7) Alcohol use: Plan: Drinks about fifth of liquor q2d at home by report but no signs/symptoms of withdrawal or DTs while here (8) Cellulitis: Plan: LLE - 2nd to #1 - resolved (9) Proteinuria due to type 2 diabetes mellitus: Plan: Most recent A1C: 7.8% Home meds include Mounjaro, Glipizide, Metformin, Insulin Sliding scale insulin with novolog + lantus control very adequate at this time (10) HTN (hypertension): Plan: uncontrolled despite lisinopril 20mg daily, amlodipine 5mg daily (added yesterday) would resume his metoprolol cont to hold HCTZ (11) Restless leg syndrome: Plan: Continue home Ropinirole (12) Hepatic steatosis: Plan: noted on previous CT scan, likely from alcohol use AST had been elevated early in stay - possibly from rhabdo (or etoh) - but AST normalized ALT wnl f/u PCP for this weight loss needed (13) CAD (coronary artery disease): Plan: hx PCI to LAD and RCI cont Statin cont asa 81mg BID (BID for DVT prophylaxis - previously was on daily dosing at home) resume beta abraham (14) Elevated LFTs: Plan: resolved either from rhabdomyolysis OR etoh OR both statin resumed (15) Abnormal foot finding: Plan: multiple ulcers of left foot poor cap refill cool foot as well arterial duplex early in stay only showed peroneal disease but distal circulation was intact Dr Jara performed LLE arteriogram today with the following findings - -Common iliac, external iliac, internal iliac widely patent -SENIOR MARKETING COORDINATOR, profunda widely patent -SFA widely patent -Popliteal luminal regularities -SHAWNA widely patent to the ankle with sluggish flow -BIOINFORMATICS RESEARCH TECHNICIAN widely patent the ankle with sluggish flow, peroneal large caliber vessel, widely patent to the ankle -Very sluggish flow in DPA, plantar arteries. No significant obstructive disease noted Dr Jara started amlodipine 5mg daily to help with microcirculation & sluggish flow in the DPA and plantar arteries Left foot exam IS IMPROVED TODAY with better perfusion in the toes (16) Left leg pain: Plan: much of his pain sounds neuropathic in origin thus, start gabapentin 100mg TID cont oxycodone prn tylenol 1gm TID gave a 1x dose of toradol today as well re-eval tomorrow Plan DVT prophylaxis - aspirin 81 mg BID x 6 weeks Disposition - will be SNF for rehab; [facility] denied by insurance pt's father updated at bedside today Admission and Anticipated Discharge Date Admission Date: July 12, 2022 Subjective patient describes constant numbness in both feet but also a numb feeling from his left knee down to the left foot the numbness traveling from the left knee down is also associated with a shooting/throbbing pain that is quite severe he reports ongoing, chronic back pain he is eating well denies dyspnea pt's father was at bedside during the visit tele overnight - NSR Review of Systems Review of Systems: gen - no fevers or chills cv - no orthopnea pulm - no dyspnea or cough GI - no nausea or emesis Physical Exam Physical Exam: gen - NAD, laying flat in bed comfortably, watching TV mouth - MM slightly dry neck - no JVD heart - RRR, s1 s2, 2/6 systolic murmur RUSB lungs - CTA b/l, no rales abd - soft NT ND BS+ ext - cap refill Left foot improved, now about 2 seconds; right foot also 2 seconds; the overall appearance of the L great toe is better today with less duskiness and improved temperature (ie the left great toe is more warm); trace edema b/l feet musculo - left knee with jayashree intact, no drainage; minimal to mild warmth; mild joint swelling skin - multiple ulcers left foot with largest over the 1st MTP joint - ulcers are getting smaller vascular - pulses b/l feet 2+ psych - a/o x 3; more awake/alert than yesterday Results & Data Results & Data Vital Signs (Past 12 Hours) Vital Signs Temp Pulse Pulse Resp BP Pulse Ox O2 Del Method 07/23/22 16:21 36.8 C 102 H 18 169/88 H 94 Room Air 07/23/22 15:48 108 H 07/23/22 12:06 36.5 C 97 H 18 145/82 H 96 Room Air 07/23/22 11:01 Room Air 07/23/22 08:27 36.6 C 92 H 20 144/84 H 96 Room Air 07/23/22 07:43 95 H Laboratory Results Laboratory Results - last 24 hr 07/22/22 07/23/22 07/23/22 20:13 05:45 07:51 Sodium 130 L Potassium 4.4 Chloride 97 L Carbon Dioxide 27 Anion Gap 6 BUN 14 Creatinine 0.66 Est Cr Clr Drug Dosing 185.4 Est GFR ( Amer) 124.4 Est GFR (Non-Af Amer) 107.3 BUN/Creatinine Ratio 21.2 H Glucose 118 H POC Glucose 128 H 116 H Calcium 9.9 07/23/22 07/23/22 11:32 16:58 Sodium Potassium Chloride Carbon Dioxide Anion Gap BUN Creatinine Est Cr Clr Drug Dosing Est GFR ( Amer) Est GFR (Non-Af Amer) BUN/Creatinine Ratio Glucose POC Glucose 162 H 160 H Calcium PG Care Time/CCT Total # of Minutes Spent Total Time Spent with Patient: Total time spent is greater than 50% in coordination of care (as documented) at patient's floor/unit and/or counseling patient: Coding Level of Care Code 14941 SUB INP/OBS CARE 2/35MIN Diagnoses Infected prosthetic knee joint T84.59XA; Z96.659 Hyponatremia E87.1 ADAM (acute kidney injury) N17.9 Anemia D64.9 Rhabdomyolysis M62.82 Aortic stenosis I35.0 Alcohol use Z78.9 Cellulitis L03.90 Proteinuria due to type 2 diabetes mellitus E11.29; R80.9 HTN (hypertension) I10 Restless leg syndrome G25.81 Hepatic steatosis K76.0 CAD (coronary artery disease) I25.10 Elevated LFTs R79.89 Abnormal foot finding R29.91 Left leg pain M79.605
[2022-07-23] MEDS: GABAPENTIN 100 MG CAP PO SCH ×2 (18:29→20:18)
[2022-07-23] MEDS: rOPINIRole HCL 1 MG TABLET PO SCH (20:18)
[2022-07-23] MEDS: traZODone HCL 100 MG TAB PO SCH (20:18)
[2022-07-23] MEDS: METOPROLOL TARTRATE 50 MG TAB PO SCH (21:51)
[2022-07-24] MEDS: oxyCODONE HCL IR 5 MG TAB (IMMEDIATE RELEASE) PO PRN ×5 (04:33→22:33)
[2022-07-24 05:56] LABS: Calcium 9.4 mg/dl (8.6-10.3); Est GFR (African American) 96.4 ml/min; Est GFR (Non-African American) 83.2 ml/min; Hematocrit (blood only) 28.5 % (42.0-52.0); Hemoglobin 9.3 g/dl (14.0-18.0); Magnesium 1.4 mg/dl (1.7-2.4); Mean Corpuscular Hemoglobin 30.5 pg (25.0-34.0); Mean Corpuscular Hgb Conc 32.6 g/dL (32.0-36.0); Mean Corpuscular Volume 93.4 fL (80.0-100.0); Mean Platelet Volume 10.9 fL (9.4-12.4); Platelet Count 295 K/uL (130-400); Potassium 4.6 mmol/L (3.5-5.1); RDW Coefficient of Variation 14.6 % (11.5-14.5); Red Blood Count 3.05 M/uL (4.70-6.10); White Blood Count 9.64 K/ul (4.8-10.8)
[2022-07-24] MEDS: ACETAMINOPHEN 500 MG TAB PO SCH ×3 (06:50→21:04)
[2022-07-24] MEDS: METOPROLOL TARTRATE 50 MG TAB PO SCH ×2 (08:24→21:02)
[2022-07-24] MEDS: SODIUM CHLORIDE 1 GM TABLET PO SCH ×2 (08:24→21:03)
[2022-07-24] MEDS: ASPIRIN 81 MG ECTAB PO SCH ×2 (08:25→21:00)
[2022-07-24] MEDS: amLODIPine BESYLATE 5 MG TAB PO SCH (08:25)
[2022-07-24] MEDS: FAMOTIDINE 20 MG TAB PO SCH ×2 (08:25→21:01)
[2022-07-24] MEDS: THIAMINE HCL 100 MG TAB PO SCH (08:25)
[2022-07-24] MEDS: lisinopril 20 MG TAB PO SCH (08:25)
[2022-07-24] MEDS: DULoxetine HCL 60 MG CAP PO SCH (08:25)
[2022-07-24] MEDS: MULTIVITAMIN TAB PO SCH (08:25)
[2022-07-24] MEDS: allopurinoL 100 MG TAB PO SCH (08:25)
[2022-07-24] MEDS: DOCUSATE SODIUM 100 MG CAP PO SCH ×2 (08:25→21:01)
[2022-07-24] MEDS: ATORVASTATIN 40 MG TAB PO SCH (08:26)
[2022-07-24] MEDS: POLYETHYLENE (MIRALAX) 17 GM PACK PO SCH ×2 (08:26→21:18)
[2022-07-24] MEDS: GABAPENTIN 100 MG CAP PO SCH ×3 (08:26→21:02)
[2022-07-24] MEDS: FLUTICASONE/VILANTEROL 100/25MCG 14 PUFFS/INHALER INH SCH (08:27)
[2022-07-24] MEDS: DOCUSATE SODIUM/SENNA 50/8.6MG TAB PO SCH (08:30)
[2022-07-24] MEDS: INSULIN ASPART PER UNIT CHARGE SC SCH ×4 (08:30→20:54)
[2022-07-24] MEDS: LANTUS PER UNIT CHARGE SQ SCH ×2 (08:35→21:05)
--- NOTE | 2022-07-24 08:55 | Hospitalist Progress Note ---
Date of Service July 24, 2022 Assessment & Plan (1) Infected prosthetic knee joint: Plan: left septic knee - stable, improved s/p aspiration 07/[address] Valadez Arthrocentesis Culture - Group A beta strep s/pLeft knee incision and drainage, irrigation, debridement, synovectomy, tibial polyethylene exchange for septic left total knee arthroplasty and MARILEE and Acticoat superficial Wound VAC and placement of Stimulan antibiotic beads -- Dr Valadez OR culture - also Group A strep blood cultures negative plan: * cont IV Ceftriaxone + lactinex * RUE PICC in place * ID consulted --> recommend 6wks IV ceftriaxone through 08/26/22, followed by 1 year of suppressive antibiotics with either penicillin VK or amoxicillin * Follow-up with orthopedics after discharge * Continue oxycodone prn (consider increase to 15mg but leave for now) and Tylenol TID scheduled for pain * Continue PT/OT * Rehab placement post-d/c -- unfortunately, despite completing a [id number] with [facility] medical billing manager, they still denied [facility]; thus, it will be [facility] level for rehab - likely mid week (2) Hyponatremia: Plan: initially thought 2nd to chronic HCTZ use initial Urine Na was 10 c/w solute def received IV lasix last week which did not improve his Na levels had had slow improvement in serum Na from 126 to 130 with salt tablets but now he is 127 today he appears relatively euvolemic at this time urine studies suggest possible SIADH cont NaCL tabs 1gm BID will ask Dr Shaffer from nephrology to consult given the refractory nature of the hyponatremia BMP in am (3) ADAM (acute kidney injury): Plan: had resolved Cr had been 0.6 to 0.7 now 1 today - related to recent arteriogram contrast?? BMP am (4) Anemia: Plan: B12 and folate, TSH all normal Iron studies c/w anemia of chronic disease and some blood loss from L knee surgery H/H acceptable today follow (5) Rhabdomyolysis: Plan: Laid on floor for 12+ hours pre-hospital. CK 1164 at peak. Resolved with IVF. (6) Aortic stenosis: Plan: mild on echo this admission (7) Alcohol use: Plan: Drinks about fifth of liquor q2d at home by report but no signs/symptoms of withdrawal or DTs while here (8) Cellulitis: Plan: LLE - 2nd to #1 - resolved (9) Proteinuria due to type 2 diabetes mellitus: Plan: Most recent A1C: 7.8% Home meds include Mounjaro, Glipizide, Metformin, Insulin Sliding scale insulin with novolog + lantus control acceptable (10) HTN (hypertension): Plan: improved with lisinopril 20mg daily, amlodipine 5mg daily and metoprolol 50mg BID cont to hold HCTZ due to persistent hyponatremia (11) Restless leg syndrome: Plan: Continue home Ropinirole (12) Hepatic steatosis: Plan: noted on previous CT scan, likely from alcohol use AST had been elevated early in stay - possibly from rhabdo (or etoh) - but AST normalized ALT wnl f/u PCP for this weight loss needed (13) CAD (coronary artery disease): Plan: hx PCI to LAD and RCI cont Statin cont asa 81mg BID (BID for DVT prophylaxis - previously was on daily dosing at home) cont beta abraham (14) Elevated LFTs: Plan: resolved either from rhabdomyolysis OR etoh OR both statin resumed (15) Abnormal foot finding: Plan: multiple ulcers of left foot poor cap refill cool foot as well arterial duplex early in stay only showed peroneal disease but distal circulation was intact Dr Jara performed LLE arteriogram today with the following findings - -Common iliac, external iliac, internal iliac widely patent -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 No significant obstructive disease noted Dr Jara started amlodipine 5mg daily to help with microcirculation & sluggish flow in the DPA and plantar arteries Left foot exam continues to show better perfusion with amlodipine (16) Left leg pain: Plan: much of his pain sounds neuropathic in origin thus, started gabapentin 100mg TID on 07/23/22 titrate gabapentin in about 3 days cont oxycodone prn ; consider dose increase to 15mg; he states the 10mg "barely touches it" [the pain} tylenol 1gm TID Plan DVT prophylaxis - aspirin 81 mg BID x 6 weeks Disposition - SNF Admission and Anticipated Discharge Date Admission Date: July 12, 2022 Subjective tele NSR overnight L knee feels better today L leg numbness somewhat better today he had 1 episode of loose stool today no nausea or emesis drinking fluids and eating fine denies any pulmonary symptoms Review of Systems Review of Systems: gen - no fevers or chills cv - no chest pain or orthopnea pulm - no cough GI - no abd pain Physical Exam Physical Exam: gen - NAD, laying flat in bed comfortably mouth - MM slightly dry; pt using snuff neck - no JVD heart - RRR, s1 s2, 2/6 systolic murmur RUSB lungs - CTA b/l, no rales abd - soft NT ND BS+ ext - cap refill Left foot about 2 seconds; right foot cap refill 2 seconds; the overall appearance of the L great toe is better today in comparison to prior exams late last week; trace edema b/l feet musculo - left knee with jayashree intact, no drainage; minimal to mild warmth; mild joint swelling skin - optfoam dressings in place L foot vascular - pulses b/l feet 2+ psych - a/o x 3 Results & Data Results & Data Vital Signs (Past 12 Hours) Vital Signs Temp Pulse Pulse Resp BP BP Pulse Ox 07/24/22 08:23 36.6 C 80 20 158/77 H 95 07/24/22 07:39 83 07/24/22 03:18 36.4 C 68 18 166/92 H 97 07/24/22 00:45 95 H 07/23/22 23:51 36.6 C 67 18 145/80 H 97 O2 Del Method 07/24/22 08:23 Room Air 07/24/22 07:39 07/24/22 03:18 Room Air 07/24/22 00:45 07/23/22 23:51 Room Air Laboratory Results Laboratory Results - last 24 hr 07/23/22 07/23/22 07/23/22 11:32 16:58 20:33 WBC RBC Hgb Hct MCV MCH MCHC RDW Std Deviation RDW Coeff of Sunny Plt Count MPV Sodium Potassium Chloride Carbon Dioxide Anion Gap BUN Creatinine Est Cr Clr Drug Dosing Est GFR ( Amer) Est GFR (Non-Af Amer) BUN/Creatinine Ratio Glucose POC Glucose 162 H 160 H 138 H Calcium Magnesium Urine Osmolality Ur Random Sodium 07/23/22 07/23/22 07/24/22 Unknown Unknown 04:24 WBC 9.64 RBC 3.05 L Hgb 9.3 L Hct 28.5 L MCV 93.4 MCH 30.5 MCHC 32.6 RDW Std Deviation 50.0 H RDW Coeff of Sunny 14.6 H Plt Count 295 MPV 10.9 Sodium Potassium Chloride Carbon Dioxide Anion Gap BUN Creatinine Est Cr Clr Drug Dosing Est GFR ( Amer) Est GFR (Non-Af Amer) BUN/Creatinine Ratio Glucose POC Glucose Calcium Magnesium Urine Osmolality 533 Ur Random Sodium 47 07/24/22 07/24/22 04:24 07:39 WBC RBC Hgb Hct MCV MCH MCHC RDW Std Deviation RDW Coeff of Sunny Plt Count MPV Sodium 127 L Potassium 4.6 Chloride 95 L Carbon Dioxide 28 Anion Gap 4 BUN 20 Creatinine 1.00 D Est Cr Clr Drug Dosing 123.0 Est GFR ( Amer) 96.4 Est GFR (Non-Af Amer) 83.2 BUN/Creatinine Ratio 20.0 Glucose 98 POC Glucose 78 Calcium 9.4 Magnesium 1.4 L Urine Osmolality Ur Random Sodium PG Care Time/CCT Total # of Minutes Spent Total Time Spent with Patient: Total time spent is greater than 50% in coordination of care (as documented) at patient's floor/unit and/or counseling patient: Coding Level of Care Code 71442 SUB INP/OBS CARE 2/35MIN Diagnoses Infected prosthetic knee joint T84.59XA; Z96.659 Hyponatremia E87.1 ADAM (acute kidney injury) N17.9 Anemia D64.9 Rhabdomyolysis M62.82 Aortic stenosis I35.0 Alcohol use Z78.9 Cellulitis L03.90 Proteinuria due to type 2 diabetes mellitus E11.29; R80.9 HTN (hypertension) I10 Restless leg syndrome G25.81 Hepatic steatosis K76.0 CAD (coronary artery disease) I25.10 Elevated LFTs R79.89 Abnormal foot finding R29.91 Left leg pain M79.605
[2022-07-24] MEDS: cefTRIAXone SODIUM 2,000 MG in DEXTROSE 5% 50 ML IV SCH (10:07)
[2022-07-24] MEDS: MAGNESIUM SULFATE / D5W 1 GM/100 ML BAG IV SCH ×3 (10:51→14:44)
[2022-07-24] MEDS ORDERED: STAT IV STA ×2 (11:47→17:46)
[2022-07-24] MEDS ORDERED: SODIUM CHLORIDE 3 % 100 ML IV ONE ×2 (11:47→17:46)
--- NOTE | 2022-07-24 11:49 | Nephrology Consultation ---
Date of Consultation July 24, 2022 Assessment & Plan (1) Hyponatremia: Chronic. Moderate. Appears asymptomatic. Appears relatively euvolemic on exam. Possible increased ADH following surgery. Urine osmolality increased. Less likely duloxetine and trazodone as these have been chronic medications. Encourage nutrition/solute intake. Document strict I/O's and daily weight. Continue free water restriction. 3% NaCl x 100 ml will be provided now. Remains on oral NaCl supplement. Hold diuretics. Repeat serum sodium ordered for this afternoon. Avoid additional NSAIDS for now. (2) Infected prosthetic knee joint: Clinically improving. Pain controlled. Remains on ceftriaxone. (3) Elevated serum creatinine: Good urine output. Medications appropriate for kidney function. Avoid NSAIDS. Suspect slight rise following recent angiograpthy. Repeat metabolic profile tomorrow AM. History of Present Illness Reason for Consultation: refractory hyponatremia Requesting Physician: Kiel Burgos MD Attending Physician: Kiel Burgos MD History of Present Illness Mr. Wisam Copeland is a 56-year-old male with morbid obesity, coronary artery disease, PAD, type 2 diabetes, peripheral neuropathy, KAMLESH, OA/DJD with bilateral TKA and L ABRAHAM, as well as SHASHANK/MDD. Kidney filtration is preserved as manifested by a serum creatinine of 0.6 mg/dL at baseline. Creatinine slightly elevated at 1.0 mg/dL today. Urine protein low grade at 48 mcg/mg. Wisam has a longstanding history of mild hyponatremia with a serum sodium ranging from 134-138 mmol/L since at least 2019. He is maintained on HCTZ which likely contributes. Dysnatremia has been more pronounced throughout his hospitalization. HCTZ has been held. Sodium on admission 123 mmol/L had improved appropriately to 130 mmol/L with salt tablets and a single dose of furosemide. Unfortunately, with continued oral NaCl, serum sodium dropped from 130 to 127 mmol/L overnight. Urine osmolality previously 2-4 mOsm/kg increased to 533 mOSm/kg. Wisam reports good appetite and adequate fluid intake. Interestingly, I/O's document a negative fluid balance and weight is down. He is maintained on a 1500 ml daily fluid restriction. Recent medication changes include the addition of amlodipine. Wisam is maintained on trazodone and duloxetine for SHASHANK. He denies notable fluid retention or edema. Overall, he states that he feels reasonably well. Some pain reported but overall well controlled. Denies nausea or vomiting. No diarrhea. Wisam was admitted with left knee prosthetic joint infection/cellulitis now POD 7 s/p debridement/irrigation. Cultures from the knee growing group A strep. Treatment with ceftriaxone is being provided. LLE arteriogram performed on 07/22 which thankfully did not demonstrate significant obstructive disease. Allergies Allergy/AdvReac Type Severity Reaction Status Date / Time No Known Drug Allergies Allergy . Verified 07/15/22 12:13 Home Medications Medication Instructions Recorded Confirmed Type cholecalciferol (vitamin D3) 50 50 mcg PO QAM 07/29/19 07/12/22 History mcg (2,000 unit) capsule aspirin 81 mg tablet,delayed 81 mg PO QAM 30 days #30 tabs 12/27/19 07/12/22 Rx release metformin 1,000 mg tablet 1,000 mg PO BID #180 tabs 08/06/21 07/12/22 Rx atorvastatin 80 mg tablet 80 mg PO QAM #90 tabs 12/17/21 07/12/22 Rx nitroglycerin 0.4 mg sublingual 0.4 mg sublingual UD PRN chest 02/23/22 07/12/22 Rx tablet (Nitrostat) pain 30 days #60 tabs lisinopril 20 mg tablet 20 mg PO DAILY 04/14/22 07/12/22 History fluticasone 100 mcg-salmeterol 50 1 inh inhalation BID shortness of 04/21/22 07/12/22 History mcg/dose blistr powdr for breath inhalation (Wixela Inhub) glipizide 5 mg tablet 5 mg PO QPM #90 tabs 04/21/22 07/12/22 Rx trazodone 50 mg tablet 100 mg PO HS insomnia #180 tabs 04/28/22 07/12/22 Rx duloxetine 60 mg capsule,delayed 60 mg PO QAM #90 caps 05/03/22 07/12/22 Rx release insulin glargine 100 unit/mL (3 15 unit (0.15 mL) subcut QAM #15 mL 05/03/22 07/12/22 Rx mL) subcutaneous pen (Lantus Solostar U-100 Insulin) famotidine 20 mg tablet 20 mg PO BID PRN heartburn 90 days 05/13/22 07/12/22 Rx #180 tabs tirzepatide 5 mg/0.5 mL 5 mg (0.5 mL) subcut WK #2 mL 05/16/22 07/12/22 Rx subcutaneous pen injector (Ramirez) oxycodone-acetaminophen 5 mg-325 1 tab PO BID PRN pain 30 days #60 06/02/22 07/12/22 Rx mg tablet tabs albuterol sulfate 90 mcg/actuation See Rx Instructions inhalation QID 07/02/22 07/12/22 Rx aerosol inhaler (Proventil HFA) PRN shortness of breath or wheezing #18 grams metoprolol tartrate 50 mg tablet 50 mg PO BID #180 tabs 07/04/22 07/12/22 Rx allopurinol 300 mg tablet 300 mg PO QAM 07/12/22 07/12/22 History hydrochlorothiazide 12.5 mg tablet 12.5 mg PO DAILY 07/12/22 07/12/22 History ropinirole 1 mg tablet 1 mg PO QPM 07/12/22 07/12/22 History Patient History Medical History Aortic stenosis Asthma inhaler daily/prn CAD (coronary artery disease) Chronic lower back pain Diabetes mellitus, type 2 Diabetic neuropathy Exertional angina Gout HTN (hypertension) Hyperlipidemia Insomnia Morbid obesity with BMI of 40.0-44.9, adult Osteoarthritis Restless leg syndrome Sinus tachycardia Sleep apnea mild; no device SOB (shortness of breath) on exertion Vitamin D deficiency Surgical History H/O hernia repair as a baby History of cardiac cath 12/26/19 @ [facility] with 2 stents placed History of colonoscopy 06/2021, poor prep per report History of ear surgery History of esophagogastroduodenoscopy (EGD) 07/2021 History of left hip replacement (~2018) History of total left knee replacement (TKR) History of total right knee replacement (TKR) History of wisdom tooth extraction S/P coronary artery stent placement 2 stents placed 12/26/19 @ [facility] Family History Father Heart disease Mother Heart disease Diabetes Grandfather No problems noted. Grandfather (Maternal) Lung cancer Grandmother (Maternal) Lung cancer Grandfather (Paternal) Myocardial infarction Grandmother (Paternal) Stroke Other No family history of adverse response to anesthesia Denies family history of Ovarian cancer Prostate cancer Breast cancer Colorectal cancer Social History Smoking Status: Never smoker Tobacco Type: Smokeless Tobacco (Dip or Chew) Cigarettes Per Day: 1 can a week; Second Hand Exposure: No; Do You Dip or Chew Tobacco: Yes; Hx Alcohol Use: Yes Alcohol type: beer, wine and hard liquor Alcohol type Comment: 1 drink 4-5 times weekly Hx Substance Use: No Preferred Language: Citizen [place] Communication Ability: Effective Visual Impairment: Limited Hearing Ability: Normal Wheel Installer Required: No Beliefs That Will Affect Care: None marital status: Current Living Situation: Family current occupational status: disabled 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, 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 How many Children do You have: 2 How many Children do You have Comment: 25 and 24 Other Information That Helps Us Care for You: No Feels Safe at Home: Yes Childhood Exposure to Second-Hand Smoke: Yes Diet: regular caffeine: Yes Dental Care, Regularly: Yes Physical Activity Frequency: Does not Exercise Seatbelt Use: always Sunscreen Use: Yes Assistive Devices: Cane and Walker Review of Systems Review of Systems: All systems reviewed & are unremarkable except as noted in HPI & below Physical Exam Constitutional: WD/WN, vitals as above + obese Eyes: + anicteric sclerae ENMT: Mouth: + dry oral mucous membranes; no oral mucosal abnormality Neck: normal visual inspection and + thick neck Respiratory: normal respiratory effort Auscultation: lungs clear to auscultation bilaterally Cardiovascular: Rate/Rhythm: regular rate Heart Sounds: normal S1, normal S2 and + murmur (2/6 systolic ejection murmur) Extremities: + edema (chronic changes and trace LE edema) Gastrointestinal (Abdomen): Inspection/Auscultation: + abdomen distended Percussion/Palpation: abdomen soft; abdomen nontender Musculoskeletal: Knee: + knee abnormal to inspection (Left knee surgical incision clean/intact, jayashree in place) Skin: normal turgor; no jaundice Psychiatric: A+Ox3, euthymic affect Results & Data Vital Signs (Past 12 Hours) Vital Signs Temp Pulse Pulse Resp BP BP Pulse Ox 07/24/22 10:14 07/24/22 08:23 36.6 C 80 20 158/77 H 95 07/24/22 07:39 83 07/24/22 03:18 36.4 C 68 18 166/92 H 97 07/24/22 00:45 95 H 07/23/22 23:51 36.6 C 67 18 145/80 H 97 O2 Del Method 07/24/22 10:14 Room Air 07/24/22 08:23 Room Air 07/24/22 07:39 07/24/22 03:18 Room Air 07/24/22 00:45 07/23/22 23:51 Room Air Laboratory Results Laboratory Results - last 24 hr 07/23/22 07/23/22 07/23/22 16:58 20:33 Unknown WBC RBC Hgb Hct MCV MCH MCHC RDW Std Deviation RDW Coeff of Sunny Plt Count MPV Sodium Potassium Chloride Carbon Dioxide Anion Gap BUN Creatinine Est Cr Clr Drug Dosing Est GFR ( Amer) Est GFR (Non-Af Amer) BUN/Creatinine Ratio Glucose POC Glucose 160 H 138 H Calcium Magnesium Urine Osmolality 533 Ur Random Sodium 07/23/22 07/24/22 07/24/22 Unknown 04:24 04:24 WBC 9.64 RBC 3.05 L Hgb 9.3 L Hct 28.5 L MCV 93.4 MCH 30.5 MCHC 32.6 RDW Std Deviation 50.0 H RDW Coeff of Sunny 14.6 H Plt Count 295 MPV 10.9 Sodium 127 L Potassium 4.6 Chloride 95 L Carbon Dioxide 28 Anion Gap 4 BUN 20 Creatinine 1.00 D Est Cr Clr Drug Dosing 123.0 Est GFR ( Amer) 96.4 Est GFR (Non-Af Amer) 83.2 BUN/Creatinine Ratio 20.0 Glucose 98 POC Glucose Calcium 9.4 Magnesium 1.4 L Urine Osmolality Ur Random Sodium 47 07/24/22 07/24/22 07:39 11:42 WBC RBC Hgb Hct MCV MCH MCHC RDW Std Deviation RDW Coeff of Sunny Plt Count MPV Sodium Potassium Chloride Carbon Dioxide Anion Gap BUN Creatinine Est Cr Clr Drug Dosing Est GFR ( Amer) Est GFR (Non-Af Amer) BUN/Creatinine Ratio Glucose POC Glucose 78 128 H Calcium Magnesium Urine Osmolality Ur Random Sodium PG Care Time/CCT Total # of Minutes Spent Total Time Spent with Patient: Total time spent is greater than 50% in coordination of care (as documented) at patient's floor/unit and/or counseling patient: Coding Level of Care Code 19998 IN/OBS CONSULT LVL 4,60M Diagnoses Hyponatremia E87.1 Infected prosthetic knee joint T84.59XA; Z96.659 Elevated serum creatinine R79.89
[2022-07-24] MEDS: ADVANCED PROBIOTIC 1250 MG CAPSULE PO SCH (21:00)
[2022-07-24] MEDS: rOPINIRole HCL 1 MG TABLET PO SCH (21:03)
[2022-07-24] MEDS: traZODone HCL 100 MG TAB PO SCH (21:03)
[2022-07-25] MEDS ORDERED: MoRPHine SULFATE 2 MG/ML CARP IV STA (01:02)
[2022-07-25] MEDS: ACETAMINOPHEN 500 MG TAB PO SCH ×3 (05:40→20:16)
[2022-07-25 07:43] LABS: Hematocrit (blood only) 27.5 % (42.0-52.0); Hemoglobin 8.8 g/dl (14.0-18.0); Mean Corpuscular Hemoglobin 30.3 pg (25.0-34.0); Mean Corpuscular Volume 94.8 fL (80.0-100.0); Mean Platelet Volume 10.8 fL (9.4-12.4); Platelet Count 318 K/uL (130-400); RDW Coefficient of Variation 14.5 % (11.5-14.5); RDW Standard Deviation 50.4 fL (36.4-46.3); White Blood Count 9.92 K/ul (4.8-10.8)
[2022-07-25 08:01] LABS: Albumin Level 2.5 gm/dl (3.4-5.0); BUN Creatinine Ratio 19.8 (10-20); Calcium 9.3 mg/dl (8.6-10.3); Creatinine Clr Calc Pharmacy 135.5 ml/min; Est GFR (Non-African American) 93.2 ml/min; Magnesium 1.5 mg/dl (1.7-2.4); Phosphorus 4.6 mg/dl (2.5-4.9); Potassium 4.6 mmol/L (3.5-5.1)
[2022-07-25] MEDS: oxyCODONE HCL IR 5 MG TAB (IMMEDIATE RELEASE) PO PRN ×3 (08:33→22:05)
[2022-07-25] MEDS: INSULIN ASPART PER UNIT CHARGE SC SCH ×4 (08:34→20:36)
[2022-07-25] MEDS: amLODIPine BESYLATE 5 MG TAB PO SCH (08:35)
[2022-07-25] MEDS: MULTIVITAMIN TAB PO SCH (08:35)
[2022-07-25] MEDS: ATORVASTATIN 40 MG TAB PO SCH (08:35)
[2022-07-25] MEDS: allopurinoL 100 MG TAB PO SCH (08:35)
[2022-07-25] MEDS: lisinopril 20 MG TAB PO SCH (08:35)
[2022-07-25] MEDS: GABAPENTIN 100 MG CAP PO SCH ×3 (08:36→20:15)
[2022-07-25] MEDS: DULoxetine HCL 60 MG CAP PO SCH (08:36)
[2022-07-25] MEDS: FAMOTIDINE 20 MG TAB PO SCH ×2 (08:36→20:15)
[2022-07-25] MEDS: METOPROLOL TARTRATE 50 MG TAB PO SCH (08:36)
[2022-07-25] MEDS: THIAMINE HCL 100 MG TAB PO SCH (08:36)
[2022-07-25] MEDS: SODIUM CHLORIDE 1 GM TABLET PO SCH ×2 (08:36→20:15)
[2022-07-25] MEDS: ASPIRIN 81 MG ECTAB PO SCH ×2 (08:37→20:15)
[2022-07-25] MEDS: ADVANCED PROBIOTIC 1250 MG CAPSULE PO SCH (08:37)
[2022-07-25] MEDS: POLYETHYLENE (MIRALAX) 17 GM PACK PO SCH ×2 (08:37→20:19)
[2022-07-25] MEDS: DOCUSATE SODIUM 100 MG CAP PO SCH ×2 (08:37→20:15)
[2022-07-25] MEDS: FLUTICASONE/VILANTEROL 100/25MCG 14 PUFFS/INHALER INH SCH (08:40)
[2022-07-25] MEDS: LANTUS PER UNIT CHARGE SQ SCH ×2 (08:40→20:36)
[2022-07-25] MEDS: DOCUSATE SODIUM/SENNA 50/8.6MG TAB PO SCH (10:01)
[2022-07-25] MEDS: MAGNESIUM SULFATE / D5W 1 GM/100 ML BAG IV SCH ×3 (10:01→14:01)
[2022-07-25] MEDS ORDERED: oxyCODONE HCL IR 5 MG TAB (IMMEDIATE RELEASE) PO STA (11:22)
[2022-07-25] MEDS: cefTRIAXone SODIUM 2,000 MG in DEXTROSE 5% 50 ML IV SCH (11:30)
--- NOTE | 2022-07-25 11:54 | Nephrology Progress Note ---
Date of Service July 25, 2022 Assessment & Plan (1) Hyponatremia: Plan: Chronic. Moderate. Appears asymptomatic. Sodium improving with replacement. Euvolemic on exam. Possible increased ADH following surgery. Urine osmolality has improved today. Encourage nutrition/solute intake. Document strict I/O's and daily weight. Continue free water restriction, 1.5 L per day. Continue oral NaCl supplement. Hold diuretics. Repeat serum sodium ordered for this afternoon. Avoid additional NSAIDS for now. (2) Infected prosthetic knee joint: Plan: s/p aspiration 07/[address] Valadez. Arthrocentesis Culture - Group A beta strep. Remains on ceftriaxone and lactinex. Admission and Anticipated Discharge Date Admission Date: July 12, 2022 Subjective No acute events overnight. Difficulty sleeping. Pain in knee makes it very difficult to be comfortable in bed. Appetite is good. Denies fluid retention or edema. No diarrhea. No nausea. Review of Systems Review of Systems: All systems reviewed & are unremarkable except as noted in HPI & below Physical Exam Constitutional: WD/WN, vitals as above + obese Eyes: + anicteric sclerae ENMT: Mouth: no oral mucosal abnormality and oral mucous membranes not dry Neck: normal visual inspection and + thick neck Respiratory: normal respiratory effort Auscultation: lungs clear to auscultation bilaterally Cardiovascular: Rate/Rhythm: regular rate Heart Sounds: normal S1, normal S2 and + murmur (2/6 systolic ejection murmur) Extremities: + edema (chronic changes and trace LE edema) Musculoskeletal: Knee: + knee abnormal to inspection (Left knee surgical incision clean/intact, jayashree in place) Skin: normal turgor; no jaundice Psychiatric: A+Ox3, euthymic affect Results & Data Vital Signs (Past 12 Hours) Vital Signs Temp Pulse Pulse Resp BP Pulse Ox O2 Del Method 07/25/22 08:00 85 07/25/22 08:09 36.5 C 85 20 146/72 H 93 Room Air 07/25/22 03:22 36.7 C 89 22 126/70 97 Room Air Laboratory Results Laboratory Results - last 24 hr 07/24/22 07/24/22 07/24/22 15:33 16:54 20:08 WBC RBC Hgb Hct MCV MCH MCHC RDW Std Deviation RDW Coeff of Sunny Plt Count MPV Sodium 125 L Potassium Chloride Carbon Dioxide Anion Gap BUN Creatinine Est Cr Clr Drug Dosing Est GFR ( Amer) Est GFR (Non-Af Amer) BUN/Creatinine Ratio Glucose POC Glucose 144 H 149 H Calcium Phosphorus Magnesium Albumin TSH Cortisol AM Sample Urine Osmolality 07/25/22 07/25/22 07/25/22 05:40 07:17 07:17 WBC RBC Hgb Hct MCV MCH MCHC RDW Std Deviation RDW Coeff of Sunny Plt Count MPV Sodium 130 L Potassium 4.6 Chloride 97 L Carbon Dioxide 28 Anion Gap 5 BUN 18 Creatinine 0.91 Est Cr Clr Drug Dosing 135.5 Est GFR ( Amer) 108.0 Est GFR (Non-Af Amer) 93.2 BUN/Creatinine Ratio 19.8 Glucose 96 POC Glucose Calcium 9.3 Phosphorus 4.6 Magnesium 1.5 L Albumin 2.5 L TSH 2.926 Cortisol AM Sample Urine Osmolality 153 L 07/25/22 07/25/22 07/25/22 07:17 07:17 07:30 WBC 9.92 RBC 2.90 L Hgb 8.8 L Hct 27.5 L MCV 94.8 MCH 30.3 MCHC 32.0 RDW Std Deviation 50.4 H RDW Coeff of Sunny 14.5 Plt Count 318 MPV 10.8 Sodium Potassium Chloride Carbon Dioxide Anion Gap BUN Creatinine Est Cr Clr Drug Dosing Est GFR ( Amer) Est GFR (Non-Af Amer) BUN/Creatinine Ratio Glucose POC Glucose 102 H Calcium Phosphorus Magnesium Albumin TSH Cortisol AM Sample 9.91 Urine Osmolality PG Care Time/CCT Total # of Minutes Spent Total Time Spent with Patient: Total time spent is greater than 50% in coordination of care (as documented) at patient's floor/unit and/or counseling patient: Coding Level of Care Code 07715 SUB INP/OBS CARE 3/50MIN Diagnoses Hyponatremia E87.1 Infected prosthetic knee joint T84.59XA; Z96.659
--- NOTE | 2022-07-25 13:51 | Hospitalist Progress Note ---
Date of Service July 25, 2022 Assessment & Plan (1) Infected prosthetic knee joint: Plan: left septic knee - stable, improved s/p aspiration 07/[address] Valadez Arthrocentesis Culture - Group A beta strep s/pLeft knee incision and drainage, irrigation, debridement, synovectomy, tibial polyethylene exchange for septic left total knee arthroplasty and MARILEE and Acticoat superficial Wound VAC and placement of Stimulan antibiotic beads -- Dr Valadez OR culture - also Group A strep blood cultures negative plan: * cont IV Ceftriaxone + lactinex * RUE PICC in place * ID consulted --> recommend 6wks IV ceftriaxone through 08/26/22, followed by 1 year of suppressive antibiotics with either penicillin VK or amoxicillin * Follow-up with orthopedics after discharge * Continue oxycodone prn (consider increase to 15mg but leave for now) and Tylenol TID scheduled for pain * Continue PT/OT * Rehab placement post-d/c -- unfortunately, despite completing a [id number] with [facility] medical communication specialist, they still denied [facility]; thus, it will be [facility] level for rehab - likely mid week pain control - see #2 below (2) Left leg pain: Plan: combination of neuropathic pain + left knee pain for neuropathic pain - started gabapentin 100mg TID on 07/23/22 titrate gabapentin in about 2-3 days; thus far tolerating the gabapentin has 2 neuropathies I believe - chronic diabetic neuropathy of both feet; also with numbness of the left leg - due to lumbar back issues/radicular pain?? cont tylenol 1gm TID due to refractory pain of L knee despite oxycodone 10's will increase to 15mg q6h prn will also obtain LLE venous doppler to r/o DVT given prolonged immobility, multiple DVT risk factors, etc (3) Mobitz type II block: Plan: BRIEF (<20 sec) episode of mobitz 1 and mobitz 2 AV block otherwise NSR HOLD metoprolol cont to monitor if recurrent episodes --> formal cardiology evaluation could consider lyme testing but doubt such (4) Hyponatremia: Plan: initially thought 2nd to chronic HCTZ use initial Urine Na early in stay was 10 c/w solute def had had slow improvement in serum Na from 126 to 130 with salt tablets but then the Na levels fell again he appears relatively euvolemic at this time urine studies suggest possible SIADH Dr Shaffer from nephrology saw patient in consult Has received multiple runs of 3% saline He is finally 130 this am Cont serial BMPs Cont NaCl tabs - 1gm BID appreciate Dr Shaffer's consult & recs (5) ADAM (acute kidney injury): Plan: Cr was 2.1 at time of admission on 07/12/22 was sepsis-related from #1 above ADAM had resolved and creatinine had been 0.6 to 0.7 for many days then Cr emmanuel to 1 yesterday - possibly due to recent arteriogram contrast now 0.9 today stable repeat BMP am (6) Anemia: Plan: B12 and folate, TSH all normal Iron studies most c/w anemia of chronic disease and some blood loss from L knee surgery last transferrin saturation <20%; ferritin was high due to acute phase reactant Hemoglobin now <9 and slowly trending down will give IV venofer repeat CBC am (7) Rhabdomyolysis: Plan: Laid on floor for 12+ hours pre-hospital. CK 1164 at peak. Resolved with IVF. (8) Aortic stenosis: Plan: mild on echo this admission no issues (9) Alcohol use: Plan: Drinks about fifth of liquor q2d at home by report but never had signs/symptoms of withdrawal or DTs while here (10) Cellulitis: Plan: LLE - 2nd to #1 - resolved (11) Proteinuria due to type 2 diabetes mellitus: Plan: Most recent A1C: 7.8% Home meds include Mounjaro, Glipizide, Metformin, Insulin Sliding scale insulin with novolog + lantus control acceptable (12) HTN (hypertension): Plan: improved with lisinopril 20mg daily, amlodipine 5mg daily and metoprolol 50mg BID but now placing metoprolol on hold due to mobitz AV block seen today cont to hold HCTZ due to persistent hyponatremia (13) Restless leg syndrome: Plan: Continue home Ropinirole IV venofer will help this (14) Hepatic steatosis: Plan: noted on previous CT scan, likely from alcohol use AST had been elevated early in stay - possibly from rhabdo (or etoh) - but AST normalized ALT wnl f/u PCP for this weight loss needed (15) CAD (coronary artery disease): Plan: hx PCI to LAD and RCI cont Statin cont asa 81mg BID (BID for DVT prophylaxis - previously was on daily dosing at home) unfortunately beta abraham to be placed on hold today (see above) (16) Elevated LFTs: Plan: resolved either from rhabdomyolysis OR etoh OR both statin resumed (17) Abnormal foot finding: Plan: multiple ulcers of left foot poor cap refill cool foot as well arterial duplex early in stay only showed peroneal disease but distal circulation was intact Dr Jara performed LLE arteriogram today with the following findings - -Common iliac, external iliac, internal iliac widely patent -SECURITY FLEX UTILITY OFFICER, profunda widely patent -SFA widely patent -Popliteal luminal regularities -SHAWNA widely patent to the ankle with sluggish flow -SOLAR THERMAL TECHNICIAN widely patent the ankle with sluggish flow, peroneal large caliber vessel, widely patent to the ankle -Very sluggish flow in DPA, plantar arteries. No significant obstructive disease noted Dr Jara started amlodipine 5mg daily to help with microcirculation & sluggish flow in the DPA and plantar arteries Left foot exam continues to show better perfusion with amlodipine Plan DVT prophylaxis - aspirin 81 mg BID x 6 weeks Constipation - increase senna; cont colace; cont miralax BID; consider lactulose or other agent if the other agents do not resolve the issue Disposition - SNF Admission and Anticipated Discharge Date Admission Date: July 12, 2022 Subjective continues to have mod-severe L knee pain also with baseline neuropathy in both feet as well as neuropathic pain from the left knee down to the left foot (due to chronic lumbar back issues??) denies L thigh pain some mild L calf pain staff report he is spending little to zero time out of bed still with constipation, but no nausea or emesis and eating well tele overnight showed NSR about noon today had a brief, <20 second run of mobitz 1 AV block followed by mobitz 2 then went back to NSR NO SYMPTOMS may have been sleeping during this Review of Systems Review of Systems: gen - no fevers cv - no chest pain, no orthopnea pulm - no dyspnea or cough GI - ongoing constipation; no vomiting; no abdominal pain Physical Exam Physical Exam: gen - NAD, laying flat in bed comfortably - watching TV mouth - MMM neck - no JVD heart - RRR, s1 s2, 2/6 systolic murmur RUSB lungs - CTA b/l, no rales abd - soft NT ND BS+ ext - cap refill Left foot about 2 seconds; right foot cap refill 2 seconds; the overall appearance of the L great toe continues to be better in comparison to prior exams late last week; trace edema b/l f musculo - left knee with jayashree intact, no drainage; minimal to mild warmth; mild joint swelling; he is tender in the L knee with passive or active flexion/extension; no palpable cords left calf area; no tenderness to palpation over the L thigh or L calf muscles skin - optfoam dressings in place L foot; these were taken back - first MTP joint ulcer clean without drainage or cellulitis; L 2nd toe ulceration on dorsal surface clean, no cellulitis vascular - pulses b/l feet 2+ psych - a/o x 3 Results & Data Results & Data Vital Signs (Past 12 Hours) Vital Signs Temp Pulse Pulse Resp BP Pulse Ox O2 Del Method 07/25/22 12:13 36.5 C 81 18 120/68 95 Room Air 07/25/22 08:00 85 07/25/22 08:09 36.5 C 85 20 146/72 H 93 Room Air 07/25/22 03:22 36.7 C 89 22 126/70 97 Room Air Laboratory Results Laboratory Results - last 24 hr 07/24/22 07/24/22 07/24/22 15:33 16:54 20:08 WBC RBC Hgb Hct MCV MCH MCHC RDW Std Deviation RDW Coeff of Sunny Plt Count MPV Sodium 125 L Potassium Chloride Carbon Dioxide Anion Gap BUN Creatinine Est Cr Clr Drug Dosing Est GFR ( Amer) Est GFR (Non-Af Amer) BUN/Creatinine Ratio Glucose POC Glucose 144 H 149 H Calcium Phosphorus Magnesium Albumin TSH Cortisol AM Sample Urine Osmolality 07/25/22 07/25/22 07/25/22 05:40 07:17 07:17 WBC RBC Hgb Hct MCV MCH MCHC RDW Std Deviation RDW Coeff of Sunny Plt Count MPV Sodium 130 L Potassium 4.6 Chloride 97 L Carbon Dioxide 28 Anion Gap 5 BUN 18 Creatinine 0.91 Est Cr Clr Drug Dosing 135.5 Est GFR ( Amer) 108.0 Est GFR (Non-Af Amer) 93.2 BUN/Creatinine Ratio 19.8 Glucose 96 POC Glucose Calcium 9.3 Phosphorus 4.6 Magnesium 1.5 L Albumin 2.5 L TSH 2.926 Cortisol AM Sample Urine Osmolality 153 L 07/25/22 07/25/22 07/25/22 07:17 07:17 07:30 WBC 9.92 RBC 2.90 L Hgb 8.8 L Hct 27.5 L MCV 94.8 MCH 30.3 MCHC 32.0 RDW Std Deviation 50.4 H RDW Coeff of Sunny 14.5 Plt Count 318 MPV 10.8 Sodium Potassium Chloride Carbon Dioxide Anion Gap BUN Creatinine Est Cr Clr Drug Dosing Est GFR ( Amer) Est GFR (Non-Af Amer) BUN/Creatinine Ratio Glucose POC Glucose 102 H Calcium Phosphorus Magnesium Albumin TSH Cortisol AM Sample 9.91 Urine Osmolality 07/25/22 12:04 WBC RBC Hgb Hct MCV MCH MCHC RDW Std Deviation RDW Coeff of Sunny Plt Count MPV Sodium Potassium Chloride Carbon Dioxide Anion Gap BUN Creatinine Est Cr Clr Drug Dosing Est GFR ( Amer) Est GFR (Non-Af Amer) BUN/Creatinine Ratio Glucose POC Glucose 139 H Calcium Phosphorus Magnesium Albumin TSH Cortisol AM Sample Urine Osmolality PG Care Time/CCT Total # of Minutes Spent Total Time Spent with Patient: Total time spent is greater than 50% in coordination of care (as documented) at patient's floor/unit and/or counseling patient: Coding Level of Care Code 23983 SUB INP/OBS CARE 3/50MIN Diagnoses Infected prosthetic knee joint T84.59XA; Z96.659 Left leg pain M79.605 Mobitz type II block I44.1 Hyponatremia E87.1 ADAM (acute kidney injury) N17.9 Anemia D64.9 Rhabdomyolysis M62.82 Aortic stenosis I35.0 Alcohol use Z78.9 Cellulitis L03.90 Proteinuria due to type 2 diabetes mellitus E11.29; R80.9 HTN (hypertension) I10 Restless leg syndrome G25.81 Hepatic steatosis K76.0 CAD (coronary artery disease) I25.10 Elevated LFTs R79.89 Abnormal foot finding R29.91
--- NOTE | 2022-07-25 15:11 | Ultrasound Report ---
LEFT LOWER EXTREMITY VENOUS DOPPLER HISTORY: Acute pain and swelling of the left lower extremity recent L knee surgery, pain; eval DVT COMPARISON STUDY: 07/12/2022 FINDINGS: There is normal compressibility, flow, and augmentation within the left lower extremity geri p venous system. Left inguinal chain lymph nodes measuring up to 2.3 x 2.0 x 1.0 cm are favored to be reactive. Subcutaneous edema. IMPRESSION: No DVT within the left lower extremity. ACT 112: Negative or not required by law. Electronically signed by: Sotero Sloan M.D. 07/25/2022 3:10 PM
[2022-07-25] MEDS: SENNA 8.6 MG TAB PO SCH (15:20)
[2022-07-25] MEDS: traZODone HCL 100 MG TAB PO SCH (20:15)
[2022-07-25] MEDS: rOPINIRole HCL 1 MG TABLET PO SCH (20:15)
[2022-07-25] MEDS ORDERED: STAT IV STA (21:40)
[2022-07-25] MEDS ORDERED: SODIUM CHLORIDE 3 % 150 ML IV ONE (21:40)
[2022-07-26] MEDS: oxyCODONE HCL IR 5 MG TAB (IMMEDIATE RELEASE) PO PRN ×3 (03:35→20:21)
[2022-07-26] MEDS: ACETAMINOPHEN 500 MG TAB PO SCH ×3 (06:07→22:19)
[2022-07-26 06:38] LABS: Albumin Level 2.4 gm/dl (3.4-5.0); BUN Creatinine Ratio 16.7 (10-20); Calcium 9.3 mg/dl (8.6-10.3); Creatinine Clr Calc Pharmacy 119.5 ml/min; Est GFR (African American) 94.1 ml/min; Est GFR (Non-African American) 81.2 ml/min; Magnesium 1.5 mg/dl (1.7-2.4); Phosphorus 4.8 mg/dl (2.5-4.9); Potassium 4.3 mmol/L (3.5-5.1)
[2022-07-26] MEDS ORDERED: IRON SUCROSE 300 MG in SODIUM CHLORIDE 0.9% 250 ML IV ONE (08:00)
[2022-07-26] MEDS: ADVANCED PROBIOTIC 1250 MG CAPSULE PO SCH (08:06)
[2022-07-26] MEDS: lisinopril 20 MG TAB PO SCH (08:06)
[2022-07-26] MEDS: GABAPENTIN 100 MG CAP PO SCH ×3 (08:06→20:23)
[2022-07-26] MEDS: FLUTICASONE/VILANTEROL 100/25MCG 14 PUFFS/INHALER INH SCH (08:06)
[2022-07-26] MEDS: allopurinoL 100 MG TAB PO SCH (08:07)
[2022-07-26] MEDS: DOCUSATE SODIUM 100 MG CAP PO SCH ×2 (08:07→20:22)
[2022-07-26] MEDS: SODIUM CHLORIDE 1 GM TABLET PO SCH ×2 (08:07→20:25)
[2022-07-26] MEDS: SENNA 8.6 MG TAB PO SCH (08:07)
[2022-07-26] MEDS: FAMOTIDINE 20 MG TAB PO SCH ×2 (08:07→20:24)
[2022-07-26] MEDS: DULoxetine HCL 60 MG CAP PO SCH (08:07)
[2022-07-26] MEDS: THIAMINE HCL 100 MG TAB PO SCH (08:07)
[2022-07-26] MEDS: ASPIRIN 81 MG ECTAB PO SCH ×2 (08:07→20:23)
[2022-07-26] MEDS: DOCUSATE SODIUM/SENNA 50/8.6MG TAB PO SCH (08:08)
[2022-07-26] MEDS: LANTUS PER UNIT CHARGE SQ SCH ×2 (08:08→21:02)
[2022-07-26] MEDS: amLODIPine BESYLATE 5 MG TAB PO SCH (08:08)
[2022-07-26] MEDS: MULTIVITAMIN TAB PO SCH (08:08)
[2022-07-26] MEDS: ATORVASTATIN 40 MG TAB PO SCH (08:08)
[2022-07-26] MEDS: POLYETHYLENE (MIRALAX) 17 GM PACK PO SCH ×2 (08:08→21:02)
[2022-07-26] MEDS: INSULIN ASPART PER UNIT CHARGE SC SCH ×4 (08:11→21:02)
[2022-07-26] MEDS: cefTRIAXone SODIUM 2,000 MG in DEXTROSE 5% 50 ML IV SCH (10:02)
[2022-07-26] MEDS ORDERED: AMMONIUM LACTATE 12% LOTION 225 GM BTL EXT PRN (12:14)
[2022-07-26] MEDS: MAGNESIUM SULFATE / D5W 1 GM/100 ML BAG IV SCH ×3 (12:44→16:28)
--- NOTE | 2022-07-26 13:42 | Nephrology Progress Note ---
Date of Service July 26, 2022 Assessment & Plan (1) Hyponatremia: (2) Infected prosthetic knee joint: (3) ADAM (acute kidney injury): (4) HTN (hypertension): Plan 56-year-old male with morbid obesity, DMT2, CAD, PAD, peripheral neuropathy, KAMLESH, OA/DJD with bilateral TKA and L ABRAHAM, SHASHANK/MDD, admitted with left knee prosthetic joint infection/cellulitis now POD 8 s/p debridement/irrigation, cultures from the knee growing group A strep, on ceftriaxone. LLE arteriogram on 07/22 was unremarkable. Has decent renal function, b/l cr 0.7-0.8 but developed ADAM after admission with creatinine peaked to 2.0 which improved and creatinine back to close to baseline, has low grade Proteinuria. Longstanding h/o mild hyponatremia, Sodium ranging from 134-138 mmol/L since at least 2019, on HCTZ which likely contributes. Sodium on admission 123 mmol/L, HCTZ was stopped and Na improved appropriately to 130 mmol/L with salt tablets and a single dose of furosemide. Unfortunately, with continued oral NaCl, serum sodium dropped again from 130 to 126 mmol/L. Urine osmolality was 533 mOSm/kg, on 1500 ml daily fluid restriction. Has been on trazodone and duloxetine for SHASHANK. Denies nausea or vomiting. No diarrhea. Sodium slightly improved to 129 this morning, urine osmolality was around 350s. Could be some contribution from significant pain associated with knee surgery. -- will repeat serum sodium this afternoon if sodium remains low, will consider 1 dose of tolvaptan. -- continue on oral salt tablet 1 g twice a day, continue to keep off of thiazide diuretics. Will follow. Admission and Anticipated Discharge Date Admission Date: July 12, 2022 Maurice Joel was seen and evaluated this morning. Overall he feels well but continues to have significant pain in his left knee. sodium improved to 129 this morning after receiving 200 mL of 3% saline overnight. Blood pressure acceptable. Review of Systems Review of Systems: A review of system was otherwise unremarkable. Physical Exam 2 Constitutional: WD/WN, vitals as above no acute distress Eyes: + anicteric sclerae Neck: normal visual inspection Respiratory: Auscultation: lungs clear to auscultation bilaterally Cardiovascular: RRR, no murmur, no edema Musculoskeletal: left knee incision with jayashree. Skin: no rashes, warm and dry Neurologic: no focal motor deficits Psychiatric: Orientation: alert and oriented x 3 Results & Data Vital Signs (Past 12 Hours) Vital Signs Temp Pulse Pulse Resp BP BP Pulse Ox 07/26/22 11:30 36.4 C L 108 H 18 131/68 93 07/26/22 10:25 07/26/22 07:00 93 H 07/26/22 07:30 36.9 C 91 H 18 136/78 94 07/26/22 07:28 36.9 C 91 H 18 136/78 94 07/26/22 03:08 36.4 C L 86 20 123/68 94 O2 Del Method 07/26/22 11:30 Room Air 07/26/22 10:25 Room Air 07/26/22 07:00 07/26/22 07:30 Room Air 07/26/22 07:28 Room Air 07/26/22 03:08 Room Air PG Care Time/CCT Total # of Minutes Spent Total Time Spent with Patient: Total time spent is greater than 50% in coordination of care (as documented) at patient's floor/unit and/or counseling patient: Coding Level of Care Code 76181 SUB INP/OBS CARE 3/50MIN Diagnoses Hyponatremia E87.1 Infected prosthetic knee joint T84.59XA; Z96.659 ADAM (acute kidney injury) N17.9 HTN (hypertension) I10
--- NOTE | 2022-07-26 14:22 | Hospitalist Progress Note ---
Date of Service July 26, 2022 Assessment & Plan (1) Infected prosthetic knee joint: Plan: left septic knee - stable, improved s/p aspiration 07/[address] Valadez Arthrocentesis Culture - Group A beta strep s/pLeft knee incision and drainage, irrigation, debridement, synovectomy, tibial polyethylene exchange for septic left total knee arthroplasty and MARILEE and Acticoat superficial Wound VAC and placement of Stimulan antibiotic beads -- Dr Valadez OR culture - also Group A strep blood cultures negative plan: * cont IV Ceftriaxone + lactinex * RUE PICC in place * ID consulted --> recommend 6wks IV ceftriaxone through 08/26/22, followed by 1 year of suppressive antibiotics with either penicillin VK or amoxicillin * Follow-up with orthopedics after discharge * Continue oxycodone prn and Tylenol TID scheduled for pain * Continue PT/OT * Rehab placement post-d/c -- unfortunately, despite completing a [id number] with [facility] medical lab director, they still denied [facility]; thus, it will be [facility] level for rehab - likely mid week pain control - see #2 below (2) Left leg pain: Plan: combination of neuropathic pain + left knee pain for neuropathic pain - started gabapentin 100mg TID on 07/23/22 titrate gabapentin in about 2-3 days; thus far tolerating the gabapentin has 2 neuropathies I believe - chronic diabetic neuropathy of both feet; also with numbness of the left leg - due to lumbar back issues/radicular pain?? cont tylenol 1gm TID due to refractory pain of L knee despite oxycodone 10's increased to 15mg q6h prn and pain better controlled LLE venous doppler to r/o DVT given prolonged immobility, multiple DVT risk factors, etc-NEGATIVE (3) Mobitz type II block: Plan: BRIEF (<20 sec) episode of mobitz 1 and mobitz 2 AV block on 07/25 had another episode on 07/26 in AM, brief otherwise NSR Did have Lyme IgM positive 03/01 but no IgG positive on 07/13, however has been on ceftriaxone which would also treat Lyme HOLD metoprolol but now with ST in low 100s cont to monitor -will consult cardiology for further eval (4) Hyponatremia: Plan: initially thought 2nd to chronic HCTZ use initial Urine Na early in stay was 10 c/w solute def had had slow improvement in serum Na from 126 to 130 with salt tablets as wlel as lasix but then the Na levels fell again he appears relatively euvolemic at this time but was volume overloaded previously urine studies suggest possible SIADH Dr Shaffer from nephrology saw patient in consult Has received multiple runs of 3% saline Na+ up to 129 Cont serial BMPs Cont NaCl tabs - 1gm BID -follow BMP, considering tolvaptan (5) ADAM (acute kidney injury): Plan: Cr was 2.1 at time of admission on 07/12/22 was sepsis-related from #1 above ADAM resolved follow BMP (6) Anemia: Plan: B12 and folate, TSH all normal Iron studies most c/w anemia of chronic disease and some blood loss from L knee surgery last transferrin saturation <20%; ferritin was high due to acute phase reactant Hemoglobin now <9 and slowly trending down -gave IV venofer follow CBC am (7) Rhabdomyolysis: Plan: Laid on floor for 12+ hours pre-hospital. CK 1164 at peak. Resolved with IVF. (8) Aortic stenosis: Plan: mild on echo this admission no issues (9) Alcohol use: Plan: Drinks about fifth of liquor q2d at home by report but never had signs/symptoms of withdrawal or DTs while here (10) Cellulitis: Plan: LLE - 2nd to #1 - resolved (11) Proteinuria due to type 2 diabetes mellitus: Plan: Most recent A1C: 7.8% Home meds include Mounjaro, Glipizide, Metformin, Insulin Sliding scale insulin with novolog + lantus control acceptable (12) HTN (hypertension): Plan: improved with lisinopril 20mg daily, amlodipine 5mg daily and metoprolol 50mg BID but now placed metoprolol on hold due to mobitz AV block cont to hold HCTZ due to persistent hyponatremia (13) Restless leg syndrome: Plan: Continue home Ropinirole IV venofer will help this (14) Hepatic steatosis: Plan: noted on previous CT scan, likely from alcohol use AST had been elevated early in stay - possibly from rhabdo (or etoh) - but AST normalized ALT wnl f/u PCP for this weight loss needed (15) CAD (coronary artery disease): Plan: hx PCI to LAD and RCI cont Statin cont asa 81mg BID (BID for DVT prophylaxis - previously was on daily dosing at home) unfortunately beta abraham to be placed on hold (see above) (16) Elevated LFTs: Plan: resolved either from rhabdomyolysis OR etoh OR both statin resumed (17) Abnormal foot finding: Plan: multiple ulcers of left foot poor cap refill cool foot as well arterial duplex early in stay only showed peroneal disease but distal circulation was intact Dr Jara performed LLE arteriogram today with the following findings - -Common iliac, external iliac, internal iliac widely patent -TARGET PROTECTION SPECIALIST, profunda widely patent -SFA widely patent -Popliteal luminal regularities -SHAWNA widely patent to the ankle with sluggish flow -GAS APPLIANCE SERVICER widely patent the ankle with sluggish flow, peroneal large caliber vessel, widely patent to the ankle -Very sluggish flow in DPA, plantar arteries. No significant obstructive disease noted Dr Jara started amlodipine 5mg daily to help with microcirculation & sluggish flow in the DPA and plantar arteries Left foot exam continues to show better perfusion with amlodipine Plan DVT prophylaxis - aspirin 81 mg BID x 6 weeks Constipation - senna; cont colace; cont miralax BID; consider lactulose or other agent if the other agents do not resolve the issue Disposition - SNF when available Admission and Anticipated Discharge Date Admission Date: July 12, 2022 Subjective Pain in knee better controlled.Was able to ambulate to bathroom today. No CP, SOB, nausea. Tele with one brief episode of 2nd deg heart block, otherwise SR, 1st deg AV block, ST rates 90-100s Physical Exam Constitutional: WD/WN, vitals as above + morbidly obese Eyes: + anicteric sclerae Neck: trachea midline, no thyromegaly Respiratory: normal respiratory effort Auscultation: lungs clear to auscultation bilaterally and + diminished lung sounds (Due to body habitus) Cardiovascular: Rate/Rhythm: regular rhythm and + tachycardic Heart Sounds: + murmur (2/6 AMNA at the RUSB as well as at the apex) Chest (Breasts): Chest: normal inspection of chest Gastrointestinal (Abdomen): normal bowel sounds, soft, nontender, no hepatosplenomegaly Musculoskeletal: Extremities: + extremities abnormal to inspection (Left knee jayashree in place,mild swelling), no cyanosis and no clubbing Neurologic: moves all extremities and awake; no focal motor deficits Psychiatric: A+Ox3, euthymic affect Results & Data Results & Data Vital Signs (Past 12 Hours) Vital Signs Temp Pulse Pulse Resp BP BP Pulse Ox 07/26/22 11:30 36.4 C L 108 H 18 131/68 93 07/26/22 10:25 07/26/22 07:00 93 H 07/26/22 07:30 36.9 C 91 H 18 136/78 94 07/26/22 07:28 36.9 C 91 H 18 136/78 94 07/26/22 03:08 36.4 C L 86 20 123/68 94 O2 Del Method 07/26/22 11:30 Room Air 07/26/22 10:25 Room Air 07/26/22 07:00 07/26/22 07:30 Room Air 07/26/22 07:28 Room Air 07/26/22 03:08 Room Air Laboratory Results BMP, magnesium reviewed PG Care Time/CCT Total # of Minutes Spent Total Time Spent with Patient: Total time spent is greater than 50% in coordination of care (as documented) at patient's floor/unit and/or counseling patient: Coding Level of Care Code 64812 SUB INP/OBS CARE 2/35MIN Diagnoses Infected prosthetic knee joint T84.59XA; Z96.659 Left leg pain M79.605 Mobitz type II block I44.1 Hyponatremia E87.1 ADAM (acute kidney injury) N17.9 Anemia D64.9 Rhabdomyolysis M62.82 Aortic stenosis I35.0 Alcohol use Z78.9 Cellulitis L03.90 Proteinuria due to type 2 diabetes mellitus E11.29; R80.9 HTN (hypertension) I10 Restless leg syndrome G25.81 Hepatic steatosis K76.0 CAD (coronary artery disease) I25.10 Elevated LFTs R79.89 Abnormal foot finding R29.91
[2022-07-26] MEDS ORDERED: TOLVAPTAN 15 MG TABLET PO STA (17:55)
--- NOTE | 2022-07-26 17:57 | Cardiology Consultation ---
Date of Consultation July 26, 2022 Assessment & Plan (1) Heart block AV second degree: Doubt this represents underlying conduction disease, more likely competing atrial pacemakers given the abrupt change in rate post pause. These brief pauses are asymptomatic and infrequent. Given his coronary artery disease and the desire to avoid marked tachycardia, reasonable to continue some beta-abraham but could reduce the dose of his metoprolol tartrate from 50 mg twice daily to 25 mg twice daily (would continue to give twice daily dosing since this is the short acting version of metoprolol). Maintain on telemetry while hospitalized, further recommendations based upon further rhythm changes (if any). (2) CAD (coronary artery disease): Clinically quiescent status post stenting 2019. Continue aspirin, statin, and vasoactive medications for BP and heart rate control (see above regarding beta- abraham). (3) S/P coronary artery stent placement: No remaining occlusive disease at the time of stenting 2019. History of Present Illness Reason for Consultation: Second-degree heart block Requesting Physician: Lyly Rodriguez MD Attending Physician: Lyly Rodriguez MD History of Present Illness 56-year-old man with history of CAD (2019 AMIRAH of RCA and LAD), mild aortic stenosis, and peripheral arterial disease who was admitted 07/12/2022 for septic left knee replacement and over the past 24 hours has had several brief pauses on telemetry (2.0-2.5 seconds). He is followed by Dr. Bennett from a cardiac standpoint as an outpatient. After admission he underwent a left knee drainage and irrigation followed later by endovascular evaluation by Dr. Jara which showed vessel microvascular disease. The patient has been on telemetry and has shown sinus rhythm or mild sinus tachycardia throughout, twice yesterday and once today he had brief pauses as noted. Review of the rhythm strips shows a borderline tachycardic rhythm (80-90 bpm range) followed by the brief pause, with resumption of sinus rhythm at a slower rate (60-70 bpm). One of the strips is suggestive of Mobitz type I second-degree AV block, but the other does not show [place] prolongation prior to the dropped beat. The patient denies any symptoms whatsoever during the pauses and did not recall any specific activities at those times which might have prompted any change in his clinical status. He denied chest pain, dyspnea, subjective palpitations, lightheadedness, presyncope, or syncope. At the time of my evaluation, the patient was comfortable and had no complaints. Allergies Allergy/AdvReac Type Severity Reaction Status Date / Time No Known Drug Allergies Allergy . Verified 07/15/22 12:13 Home Medications Medication Instructions Recorded Confirmed Type cholecalciferol (vitamin D3) 50 50 mcg PO QAM 07/29/19 07/12/22 History mcg (2,000 unit) capsule aspirin 81 mg tablet,delayed 81 mg PO QAM 30 days #30 tabs 12/27/19 07/12/22 Rx release metformin 1,000 mg tablet 1,000 mg PO BID #180 tabs 08/06/21 07/12/22 Rx atorvastatin 80 mg tablet 80 mg PO QAM #90 tabs 12/17/21 07/12/22 Rx nitroglycerin 0.4 mg sublingual 0.4 mg sublingual UD PRN chest 02/23/22 07/12/22 Rx tablet (Nitrostat) pain 30 days #60 tabs lisinopril 20 mg tablet 20 mg PO DAILY 04/14/22 07/12/22 History fluticasone 100 mcg-salmeterol 50 1 inh inhalation BID shortness of 04/21/22 07/12/22 History mcg/dose blistr powdr for breath inhalation (Wixela Inhub) glipizide 5 mg tablet 5 mg PO QPM #90 tabs 04/21/22 07/12/22 Rx trazodone 50 mg tablet 100 mg PO HS insomnia #180 tabs 04/28/22 07/12/22 Rx duloxetine 60 mg capsule,delayed 60 mg PO QAM #90 caps 05/03/22 07/12/22 Rx release insulin glargine 100 unit/mL (3 15 unit (0.15 mL) subcut QAM #15 mL 05/03/22 07/12/22 Rx mL) subcutaneous pen (Lantus Solostar U-100 Insulin) famotidine 20 mg tablet 20 mg PO BID PRN heartburn 90 days 05/13/22 07/12/22 Rx #180 tabs tirzepatide 5 mg/0.5 mL 5 mg (0.5 mL) subcut WK #2 mL 05/16/22 07/12/22 Rx subcutaneous pen injector (Ramirez) oxycodone-acetaminophen 5 mg-325 1 tab PO BID PRN pain 30 days #60 06/02/22 07/12/22 Rx mg tablet tabs albuterol sulfate 90 mcg/actuation See Rx Instructions inhalation QID 07/02/22 07/12/22 Rx aerosol inhaler (Proventil HFA) PRN shortness of breath or wheezing #18 grams metoprolol tartrate 50 mg tablet 50 mg PO BID #180 tabs 07/04/22 07/12/22 Rx allopurinol 300 mg tablet 300 mg PO QAM 07/12/22 07/12/22 History hydrochlorothiazide 12.5 mg tablet 12.5 mg PO DAILY 07/12/22 07/12/22 History ropinirole 1 mg tablet 1 mg PO QPM 07/12/22 07/12/22 History Patient History Medical History (Updated 07/26/22 @ 17:54 by Dylan Pop MD) Aortic stenosis Asthma inhaler daily/prn CAD (coronary artery disease) Chronic lower back pain Diabetes mellitus, type 2 Diabetic neuropathy Exertional angina Gout HTN (hypertension) Hyperlipidemia Insomnia Morbid obesity with BMI of 40.0-44.9, adult Osteoarthritis Restless leg syndrome Sinus tachycardia Sleep apnea mild; no device SOB (shortness of breath) on exertion Vitamin D deficiency Surgical History (Updated 07/26/22 @ 17:54 by Dylan Pop MD) H/O hernia repair as a baby History of cardiac cath 12/26/19 @ [facility] with 2 stents placed History of colonoscopy 06/2021, poor prep per report History of ear surgery History of esophagogastroduodenoscopy (EGD) 07/2021 History of left hip replacement (~2017) History of total left knee replacement (TKR) History of total right knee replacement (TKR) History of wisdom tooth extraction S/P coronary artery stent placement (2019) 2 stents placed 12/26/19 @ [facility] Family History Father Heart disease Mother Heart disease Diabetes Grandfather No problems noted. Grandfather (Maternal) Lung cancer Grandmother (Maternal) Lung cancer Grandfather (Paternal) Myocardial infarction Grandmother (Paternal) Stroke Other No family history of adverse response to anesthesia Denies family history of Ovarian cancer Prostate cancer Breast cancer Colorectal cancer Social History Smoking Status: Never smoker Tobacco Type: Smokeless Tobacco (Dip or Chew) Cigarettes Per Day: 1 can a week; Second Hand Exposure: No; Do You Dip or Chew Tobacco: Yes; Hx Alcohol Use: Yes Alcohol type: beer, wine and hard liquor Alcohol type Comment: 1 drink 4-5 times weekly Hx Substance Use: No Preferred Language: Thai Communication Ability: Effective Visual Impairment: Limited Hearing Ability: Normal Tappet Adjuster Required: No Beliefs That Will Affect Care: None marital status: Current Living Situation: Family current occupational status: disabled 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 BP low normal. Pulse 100 bpm and regular without ectopy. Skin: no ecchymoses or generalized lesions. HEENT: unremarkable. Neck: JVP at the clavicle at 90 degrees, transmitted murmur to the carotids. Lungs: clear. Cardiac: regular, borderline tachycardic rhythm, mildly decreased aortic closure sound, 3/6 crescendo decrescendo systolic ejection murmur at the right upper sternal border rating to the carotids, left sternal border, and apex. No diastolic murmur or rub. Abdomen: benign. Extremities: no edema, right dorsalis pedis brisk, left nonpalpable. Neurologic: normal affect and conversation, nonfocal. Results & Data Diagnostic Findings Echocardiogram 07/16/2022 showed mild to moderately dilated right ventricle with normal systolic function, normal LV systolic function, mild aortic stenosis with mild mitral stenosis, mild pulmonary hypertension. ECG on admission shows sinus tachycardia 101 bpm, otherwise unremarkable. PG Care Time/CCT Total # of Minutes Spent Total Time Spent with Patient: Total time spent is greater than 50% in coordination of care (as documented) at patient's floor/unit and/or counseling patient: Coding Level of Care Code 10310 IN/OBS CONSULT LVL 3,45M Diagnoses Heart block AV second degree I44.1 CAD (coronary artery disease) I25.10 S/P coronary artery stent placement Z95.5
[2022-07-26] MEDS: traZODone HCL 100 MG TAB PO SCH (20:23)
[2022-07-26] MEDS: rOPINIRole HCL 1 MG TABLET PO SCH (20:24)
[2022-07-27] MEDS: oxyCODONE HCL IR 5 MG TAB (IMMEDIATE RELEASE) PO PRN ×3 (02:26→18:38)
[2022-07-27] MEDS: ACETAMINOPHEN 500 MG TAB PO SCH ×3 (06:02→22:42)
[2022-07-27 06:15] LABS: Basophils # (auto) 0.07 K/uL (0-0.2); Basophils % (auto) 1.1 %; Eosinophils # (auto) 0.08 K/uL (0-0.50); Eosinophils % (auto) 1.2 %; Hematocrit (blood only) 26.8 % (42.0-52.0); Hemoglobin 8.7 g/dl (14.0-18.0); Immature Granulocytes # (auto) 0.04 K/uL (0.01-0.20); Immature Granulocytes % (auto) 0.6 %; Lymphocytes % (auto) 22.6 %; Mean Corpuscular Hemoglobin 29.9 pg (25.0-34.0); Mean Corpuscular Hgb Conc 32.5 g/dL (32.0-36.0); Mean Corpuscular Volume 92.1 fL (80.0-100.0); Mean Platelet Volume 10.8 fL (9.4-12.4); Monocytes # (auto) 0.41 K/uL (0.11-0.59); Monocytes % (auto) 6.2 %; Neutrophils # (auto) 4.54 K/uL (1.40-6.50); Neutrophils % (auto) 68.3 %; Platelet Count 346 K/uL (130-400); RDW Coefficient of Variation 14.4 % (11.5-14.5); RDW Standard Deviation 48.7 fL (36.4-46.3); Red Blood Count 2.91 M/uL (4.70-6.10); White Blood Count 6.64 K/ul (4.8-10.8)
[2022-07-27 07:01] LABS: Calcium 9.4 mg/dl (8.6-10.3); Magnesium 1.8 mg/dl (1.7-2.4); Potassium 4.5 mmol/L (3.5-5.1)
[2022-07-27 07:07] LABS: Creatinine Clr Calc Pharmacy 110.4 ml/min; Est GFR (African American) 88.8 ml/min; Est GFR (Non-African American) 76.7 ml/min
[2022-07-27] MEDS: SENNA 8.6 MG TAB PO SCH (08:31)
[2022-07-27] MEDS: allopurinoL 100 MG TAB PO SCH (08:32)
[2022-07-27] MEDS: SODIUM CHLORIDE 1 GM TABLET PO SCH ×2 (08:32→20:41)
[2022-07-27] MEDS: amLODIPine BESYLATE 5 MG TAB PO SCH (08:32)
[2022-07-27] MEDS: FAMOTIDINE 20 MG TAB PO SCH ×2 (08:32→20:39)
[2022-07-27] MEDS: MULTIVITAMIN TAB PO SCH (08:32)
[2022-07-27] MEDS: MAGNESIUM OXIDE 400 MG TAB PO SCH (08:32)
[2022-07-27] MEDS: GABAPENTIN 100 MG CAP PO SCH ×3 (08:32→20:41)
[2022-07-27] MEDS: DOCUSATE SODIUM 100 MG CAP PO SCH ×2 (08:32→20:40)
[2022-07-27] MEDS: ASPIRIN 81 MG ECTAB PO SCH ×2 (08:32→20:39)
[2022-07-27] MEDS: DULoxetine HCL 60 MG CAP PO SCH (08:32)
[2022-07-27] MEDS: ATORVASTATIN 40 MG TAB PO SCH (08:33)
[2022-07-27] MEDS: THIAMINE HCL 100 MG TAB PO SCH (08:33)
[2022-07-27] MEDS: lisinopril 20 MG TAB PO SCH (08:33)
[2022-07-27] MEDS: FLUTICASONE/VILANTEROL 100/25MCG 14 PUFFS/INHALER INH SCH (08:35)
[2022-07-27] MEDS: ADVANCED PROBIOTIC 1250 MG CAPSULE PO SCH (08:36)
[2022-07-27] MEDS: LANTUS PER UNIT CHARGE SQ SCH ×2 (08:50→20:39)
[2022-07-27] MEDS: INSULIN ASPART PER UNIT CHARGE SC SCH ×4 (08:51→20:35)
[2022-07-27] MEDS: DOCUSATE SODIUM/SENNA 50/8.6MG TAB PO SCH (09:56)
[2022-07-27] MEDS: POLYETHYLENE (MIRALAX) 17 GM PACK PO SCH ×2 (09:56→20:36)
[2022-07-27] MEDS: METOPROLOL TARTRATE 25 MG TAB PO SCH ×2 (09:58→20:39)
[2022-07-27] MEDS: cefTRIAXone SODIUM 2,000 MG in DEXTROSE 5% 50 ML IV SCH (11:04)
--- NOTE | 2022-07-27 12:53 | Cardiology Progress Note ---
Date of Service July 27, 2022 Assessment & Plan (1) Heart block AV second degree: Plan: As noted, doubt this represents underlying conduction disease. Possibly, this is a vagal response to his intermittent severe leg pain. Continue reduced dose beta-abraham (metoprolol tartrate from 25 mg twice daily) given his tendency to tachycardia and known coronary artery disease Maintain on telemetry while hospitalized. (2) CAD (coronary artery disease): (3) S/P coronary artery stent placement: Admission and Anticipated Discharge Date Admission Date: July 12, 2022 Subjective Uneventful night. He continues to have left leg pain which can be severe at times. No cardiopulmonary symptoms. No further pauses on telemetry, remains in sinus rhythm or mild sinus tachycardia. Physical Exam Physical Exam: No distress. BP normotensive. Pulse 82 bpm and regular without ectopy. Skin: no ecchymoses or generalized lesions. HEENT: unremarkable. Neck: JVP at the clavicle at 90 degrees, transmitted murmur to the carotids. Lungs: clear. Cardiac: regular rhythm, mildly decreased aortic closure sound, 3/6 crescendo decrescendo systolic ejection murmur at the right upper sternal border rating to the carotids, left sternal border, and apex. No diastolic murmur or rub. Abdomen: benign. Extremities: no edema, right dorsalis pedis brisk, left nonpalpable. Neurologic: normal affect and conversation, nonfocal. Results & Data Vital Signs (Past 12 Hours) Vital Signs Temp Pulse Pulse Resp BP Pulse Ox O2 Del Method 07/27/22 11:00 98.1 F 83 18 132/87 93 Room Air 07/27/22 07:00 101 H 07/27/22 07:45 Room Air 07/27/22 07:00 98.2 F 92 H 19 143/87 H 96 Room Air 07/27/22 03:00 97.2 F L 19 144/81 H 95 Room Air Laboratory Results Sodium 131, otherwise normal electrolytes, BUN 16, creatinine 1.07. PG Care Time/CCT Total # of Minutes Spent Total Time Spent with Patient: Total time spent is greater than 50% in coordination of care (as documented) at patient's floor/unit and/or counseling patient: Coding Level of Care Code 98789 SUB INP/OBS CARE 1/25MIN Diagnoses Heart block AV second degree I44.1 CAD (coronary artery disease) I25.10 S/P coronary artery stent placement Z95.5
--- NOTE | 2022-07-27 16:33 | Communication Note ---
Date of Service: July 27, 2022 Patient seen this afternoon. Currently waiting for [facility] facility which may have been arranged at this time near [place]. Patient states he is feeling fairly well but having difficulty sleeping. Having pain with range of motion but overall the knee is feeling better. Examination of the left knee reveals the staple line to be well approximated. There is no erythema. Obvious decrease in swelling. Calves are soft and nontender. Neurovascular is intact. Patient is due for staple removal on Monday. If patient is able to be transferred to [facility] facility tomorrow, jayashree can be removed tomorrow and wound can be Steri-Stripped. Follow up with Dr. Valadez in 2 weeks.
[2022-07-27] MEDS ORDERED: TOLVAPTAN 15 MG TABLET PO STA (16:46)
--- NOTE | 2022-07-27 16:46 | Nephrology Progress Note ---
Date of Service July 27, 2022 Assessment & Plan (1) Hyponatremia: (2) Infected prosthetic knee joint: (3) ADAM (acute kidney injury): (4) HTN (hypertension): Plan 56-year-old male with morbid obesity, DMT2, CAD, PAD, peripheral neuropathy, KAMLESH, OA/DJD with bilateral TKA and L ABRAHAM, SHASHANK/MDD, admitted with left knee prosthetic joint infection/cellulitis now POD 8 s/p debridement/irrigation, cultures from the knee growing group A strep, on ceftriaxone. LLE arteriogram on 07/22 was unremarkable. Has decent renal function, b/l cr 0.7-0.8 but developed ADAM after admission with creatinine peaked to 2.0 which improved and creatinine back to close to baseline, has low grade Proteinuria. Longstanding h/o mild hyponatremia, Sodium ranging from 134-138 mmol/L since at least 2019, on HCTZ which likely contributes. Sodium on admission 123 mmol/L, HCTZ was stopped and Na improved appropriately to 130 mmol/L with salt tablets and a single dose of furosemide. Unfortunately, with continued oral NaCl, serum sodium dropped again from 130 to 126 mmol/L. Urine osmolality was 533 mOSm/kg, on 1500 ml daily fluid restriction. Has been on trazodone and duloxetine for SHASHANK. Denies nausea or vomiting. No diarrhea. Sodium improved to 131 this morning, but again dropping to 130 this afternoon, Could be some contribution from significant pain associated with knee surgery. -- tolvaptan x 1 dose now. --S Na and u osm in am -- continue on oral salt tablet 1 g twice a day, continue to keep off of thiazide diuretics. Will follow. Admission and Anticipated Discharge Date Admission Date: July 12, 2022 Maurice Joel was seen and evaluated this morning. Overall he feels well but continues to have significant pain in his left knee. sodium improved to 131 after 1 dose of tolvaptan yesterday however this afternoon again dropping to 130. Blood pressure acceptable. Review of Systems Review of Systems: A review of system was otherwise unremarkable. Physical Exam Constitutional: WD/WN, vitals as above no acute distress Eyes: + anicteric sclerae Neck: normal visual inspection Respiratory: Auscultation: lungs clear to auscultation bilaterally Cardiovascular: RRR, no murmur, no edema Musculoskeletal: left knee jayashree and incision Skin: no rashes, warm and dry Neurologic: no focal motor deficits Psychiatric: Orientation: alert and oriented x 3 Results & Data Vital Signs (Past 12 Hours) Vital Signs Temp Pulse Pulse Resp BP Pulse Ox O2 Del Method 07/27/22 11:00 36.7 C 83 18 132/87 93 Room Air 07/27/22 07:00 101 H 07/27/22 07:45 Room Air 07/27/22 07:00 36.8 C 92 H 19 143/87 H 96 Room Air PG Care Time/CCT Total # of Minutes Spent Total Time Spent with Patient: Total time spent is greater than 50% in coordination of care (as documented) at patient's floor/unit and/or counseling patient: Coding Level of Care Code 14511 SUB INP/OBS CARE 3/50MIN Diagnoses Hyponatremia E87.1 Infected prosthetic knee joint T84.59XA; Z96.659 ADAM (acute kidney injury) N17.9 HTN (hypertension) I10
--- NOTE | 2022-07-27 19:19 | Hospitalist Progress Note ---
Date of Service July 27, 2022 Assessment & Plan (1) Infected prosthetic knee joint: Plan: left septic knee - stable, improved s/p aspiration 07/[address] Valadez Arthrocentesis Culture - Group A beta strep s/pLeft knee incision and drainage, irrigation, debridement, synovectomy, tibial polyethylene exchange for septic left total knee arthroplasty and MARILEE and Acticoat superficial Wound VAC and placement of Stimulan antibiotic beads -- Dr Valadez OR culture - also Group A strep blood cultures negative plan: * cont IV Ceftriaxone + lactinex * RUE PICC in place * ID consulted --> recommend 6wks IV ceftriaxone through 08/26/22, followed by 1 year of suppressive antibiotics with either penicillin VK or amoxicillin * Follow-up with orthopedics after discharge * Continue oxycodone prn and Tylenol TID scheduled for pain * Continue PT/OT * Rehab placement post-d/c -- awaiting insurance auth for SNF pain control - see #2 below (2) Left leg pain: Plan: combination of neuropathic pain + left knee pain for neuropathic pain - started gabapentin 100mg TID on 07/23/22 titrate gabapentin in about 2-3 days; thus far tolerating the gabapentin has 2 neuropathies I believe - chronic diabetic neuropathy of both feet; also with numbness of the left leg - due to lumbar back issues/radicular pain?? cont tylenol 1gm TID due to refractory pain of L knee despite oxycodone 10's increased to 15mg q6h prn and pain better controlled LLE venous doppler to r/o DVT given prolonged immobility, multiple DVT risk factors, etc-NEGATIVE (3) Mobitz type II block: Plan: BRIEF (<20 sec) episode of mobitz 1 and mobitz 2 AV block on 07/25 had another episode on 07/26 in AM, brief otherwise NSR or SR w/ 1st degree AVB since holding metoprolol Did have Lyme IgM positive 03/01 but no IgG positive on 07/13, however has been on ceftriaxone which would also treat Lyme -appreciate cardiology for further eval-thinks vagally mediated from pain and ok to restart metoprolol 25mg po bid to avoid tachycardia w/ h/o CAD -monitor on tele (4) Hyponatremia: Plan: initially thought 2nd to chronic HCTZ use initial Urine Na early in stay was 10 c/w solute def had had slow improvement in serum Na from 126 to 130 with salt tablets as well as lasix but then the Na levels fell again he appears relatively euvolemic at this time but was volume overloaded previously urine studies suggest possible SIADH Suspect SIADH from pain nephrology saw patient in consult Has received multiple runs of 3% saline Na+ up to 129 and then given tolvaptan 15mg po on 07/26--> Na+ up to 131 today and then back to 130--> give another dose tolvaptan 15mg on 07/27 -Cont NaCl tabs - 1gm BID -follow BMP -continue to fluid restrict -liberalized sodium in diet (5) ADAM (acute kidney injury): Plan: Cr was 2.1 at time of admission on 07/12/22 was sepsis-related from #1 above ADAM resolved follow BMP (6) Anemia: Plan: B12 and folate, TSH all normal Iron studies most c/w anemia of chronic disease and some blood loss from L knee surgery last transferrin saturation <20%; ferritin was high due to acute phase reactant Hemoglobin now <9 and stable from previous -gave IV venofer follow CBC am (7) Rhabdomyolysis: Plan: Laid on floor for 12+ hours pre-hospital. CK 1164 at peak. Resolved with IVF. (8) Aortic stenosis: Plan: mild on echo this admission follow as outpt (9) Alcohol use: Plan: Drinks about fifth of liquor q2d at home by report but never had signs/symptoms of withdrawal or DTs while here (10) Cellulitis: Plan: LLE - 2nd to #1 - resolved (11) Proteinuria due to type 2 diabetes mellitus: Plan: Most recent A1C: 7.8% Home meds include Mounjaro, Glipizide, Metformin, Insulin Sliding scale insulin with novolog + lantus control acceptable (12) HTN (hypertension): Plan: improved with lisinopril 20mg daily, amlodipine 5mg daily and metoprolol cont to hold HCTZ due to persistent hyponatremia (13) Restless leg syndrome: Plan: Continue home Ropinirole IV venofer will help this (14) Hepatic steatosis: Plan: noted on previous CT scan, likely from alcohol use AST had been elevated early in stay - possibly from rhabdo (or etoh) - but AST normalized ALT wnl f/u PCP for this weight loss needed (15) CAD (coronary artery disease): Plan: hx PCI to LAD and RCI cont Statin cont asa 81mg BID (BID for DVT prophylaxis - previously was on daily dosing at home) continue metoprolol at lower dose due to 2nd deg AVB (16) Elevated LFTs: Plan: resolved either from rhabdomyolysis OR etoh OR both statin resumed (17) Abnormal foot finding: Plan: multiple ulcers of left foot poor cap refill cool foot as well arterial duplex early in stay only showed peroneal disease but distal circulation was intact Dr Jara performed LLE arteriogram with the following findings - -Common iliac, external iliac, internal iliac widely patent -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 No significant obstructive disease noted Dr Jara started amlodipine 5mg daily to help with microcirculation & sluggish flow in the DPA and plantar arteries Left foot exam continues to show better perfusion with amlodipine Plan DVT prophylaxis - aspirin 81 mg BID x 6 weeks Constipation - senna; cont colace; cont miralax BID; finally had BM on 07/27 Disposition - SNF hopefully tomorrow Admission and Anticipated Discharge Date Admission Date: July 12, 2022 Anticipated date of discharge: 07/28/22 Subjective Pain in knee is varied throughout the day. He did walk to the doorway and back today and was OOB to chair for first time in a while. Moved bowels for first time in 5 days. Tele with ,ST rates 80-90s, 1st deg AVB Discussed care with Cardio and Ortho PA Physical Exam Constitutional: WD/WN, vitals as above + morbidly obese Eyes: + anicteric sclerae Neck: trachea midline, no thyromegaly Respiratory: normal respiratory effort Auscultation: lungs clear to auscultation bilaterally and + diminished lung sounds (Due to body habitus) Cardiovascular: Rate/Rhythm: regular rate and regular rhythm Heart Sounds: + murmur (2/6 AMNA at the RUSB as well as at the apex) Chest (Breasts): Chest: normal inspection of chest Gastrointestinal (Abdomen): normal bowel sounds, soft, nontender, no hepatosplenomegaly Musculoskeletal: Extremities: + extremities abnormal to inspection (Left knee jayashree in place,mild swelling), no cyanosis and no clubbing Neurologic: moves all extremities and awake; no focal motor deficits Psychiatric: A+Ox3, euthymic affect Results & Data Results & Data Vital Signs (Past 12 Hours) Vital Signs Temp Pulse Pulse Resp BP Pulse Ox O2 Del Method 07/27/22 15:00 101 H 07/27/22 11:00 36.7 C 83 18 132/87 93 Room Air 07/27/22 07:45 Room Air Laboratory Results CBC, BMP reviewed PG Care Time/CCT Total # of Minutes Spent Total Time Spent with Patient: Total time spent is greater than 50% in coordination of care (as documented) at patient's floor/unit and/or counseling patient: Coding Level of Care Code 11322 SUB INP/OBS CARE 2/35MIN Diagnoses Infected prosthetic knee joint T84.59XA; Z96.659 Left leg pain M79.605 Mobitz type II block I44.1 Hyponatremia E87.1 ADAM (acute kidney injury) N17.9 Anemia D64.9 Rhabdomyolysis M62.82 Aortic stenosis I35.0 Alcohol use Z78.9 Cellulitis L03.90 Proteinuria due to type 2 diabetes mellitus E11.29; R80.9 HTN (hypertension) I10 Restless leg syndrome G25.81 Hepatic steatosis K76.0 CAD (coronary artery disease) I25.10 Elevated LFTs R79.89 Abnormal foot finding R29.91
[2022-07-27] MEDS: rOPINIRole HCL 1 MG TABLET PO SCH (20:39)
[2022-07-27] MEDS: traZODone HCL 100 MG TAB PO SCH (20:41)
[2022-07-28] MEDS: oxyCODONE HCL IR 5 MG TAB (IMMEDIATE RELEASE) PO PRN ×3 (03:09→17:49)
[2022-07-28] MEDS: ACETAMINOPHEN 500 MG TAB PO SCH ×2 (05:55→14:29)
[2022-07-28 06:49] LABS: Basophils # (auto) 0.07 K/uL (0-0.2); Eosinophils # (auto) 0.13 K/uL (0-0.50); Eosinophils % (auto) 1.9 %; Hematocrit (blood only) 29.4 % (42.0-52.0); Hemoglobin 9.4 g/dl (14.0-18.0); Immature Granulocytes # (auto) 0.04 K/uL (0.01-0.20); Immature Granulocytes % (auto) 0.6 %; Lymphocytes # (auto) 1.36 K/uL (1.2-3.4); Lymphocytes % (auto) 19.8 %; Mean Corpuscular Volume 93.9 fL (80.0-100.0); Mean Platelet Volume 10.9 fL (9.4-12.4); Monocytes # (auto) 0.51 K/uL (0.11-0.59); Monocytes % (auto) 7.4 %; Neutrophils # (auto) 4.75 K/uL (1.40-6.50); Neutrophils % (auto) 69.3 %; Platelet Count 376 K/uL (130-400); RDW Coefficient of Variation 14.4 % (11.5-14.5); RDW Standard Deviation 49.4 fL (36.4-46.3); Red Blood Count 3.13 M/uL (4.70-6.10); White Blood Count 6.86 K/ul (4.8-10.8)
[2022-07-28 06:58] LABS: BUN Creatinine Ratio 17.4 (10-20); Calcium 9.5 mg/dl (8.6-10.3); Est GFR (African American) 86.9 ml/min; Est GFR (Non-African American) 74.9 ml/min; Magnesium 1.7 mg/dl (1.7-2.4); Potassium 4.6 mmol/L (3.5-5.1)
[2022-07-28] MEDS: METOPROLOL TARTRATE 25 MG TAB PO SCH (08:16)
[2022-07-28] MEDS: FLUTICASONE/VILANTEROL 100/25MCG 14 PUFFS/INHALER INH SCH (08:16)
[2022-07-28] MEDS: DULoxetine HCL 60 MG CAP PO SCH (08:17)
[2022-07-28] MEDS: ASPIRIN 81 MG ECTAB PO SCH (08:18)
[2022-07-28] MEDS: amLODIPine BESYLATE 5 MG TAB PO SCH (08:18)
[2022-07-28] MEDS: FAMOTIDINE 20 MG TAB PO SCH (08:18)
[2022-07-28] MEDS: ADVANCED PROBIOTIC 1250 MG CAPSULE PO SCH (08:18)
[2022-07-28] MEDS: allopurinoL 100 MG TAB PO SCH (08:19)
[2022-07-28] MEDS: SENNA 8.6 MG TAB PO SCH (08:19)
[2022-07-28] MEDS: DOCUSATE SODIUM 100 MG CAP PO SCH (08:19)
[2022-07-28] MEDS: ATORVASTATIN 40 MG TAB PO SCH (08:20)
[2022-07-28] MEDS: MAGNESIUM OXIDE 400 MG TAB PO SCH (08:21)
[2022-07-28] MEDS: GABAPENTIN 100 MG CAP PO SCH ×2 (08:21→14:30)
[2022-07-28] MEDS: MULTIVITAMIN TAB PO SCH (08:21)
[2022-07-28] MEDS: lisinopril 20 MG TAB PO SCH (08:22)
[2022-07-28] MEDS: SODIUM CHLORIDE 1 GM TABLET PO SCH (08:22)
[2022-07-28] MEDS: THIAMINE HCL 100 MG TAB PO SCH (08:22)
[2022-07-28] MEDS: DOCUSATE SODIUM/SENNA 50/8.6MG TAB PO SCH (08:23)
[2022-07-28] MEDS: INSULIN ASPART PER UNIT CHARGE SC SCH ×3 (08:26→17:43)
[2022-07-28] MEDS: LANTUS PER UNIT CHARGE SQ SCH (08:26)
[2022-07-28] MEDS: POLYETHYLENE (MIRALAX) 17 GM PACK PO SCH (08:27)
[2022-07-28] MEDS: cefTRIAXone SODIUM 2,000 MG in DEXTROSE 5% 50 ML IV SCH (11:36)
--- NOTE | 2022-07-28 11:37 | Nephrology Progress Note ---
Date of Service July 28, 2022 Assessment & Plan (1) Hyponatremia: (2) Infected prosthetic knee joint: (3) ADAM (acute kidney injury): (4) HTN (hypertension): Plan 56-year-old male with morbid obesity, DMT2, CAD, PAD, peripheral neuropathy, KAMLESH, OA/DJD with bilateral TKA and L ABRAHAM, SHASHANK/MDD, admitted with left knee prosthetic joint infection/cellulitis now POD 8 s/p debridement/irrigation, cultures from the knee growing group A strep, on ceftriaxone. LLE arteriogram on 07/22 was unremarkable. Has decent renal function, b/l cr 0.7-0.8 but developed ADAM after admission with creatinine peaked to 2.0 which improved and creatinine back to close to baseline, has low grade Proteinuria. Longstanding h/o mild hyponatremia, Sodium ranging from 134-138 mmol/L since at least 2019, on HCTZ which likely contributes. Sodium on admission 123 mmol/L, HCTZ was stopped and Na improved appropriately to 130 mmol/L with salt tablets and a single dose of furosemide. Unfortunately, with continued oral NaCl, serum sodium dropped again from 130 to 126 mmol/L. Urine osmolality was 533 mOSm/kg, on 1500 ml daily fluid restriction. Has been on trazodone and duloxetine for SHASHANK. Denies nausea or vomiting. No diarrhea. Sodium improved to 134 this morning. Could be some contribution from significant pain associated with knee surgery. -- repeat sodium this afternoon -- continue on oral salt tablet 1 g twice a day, continue to keep off of thiazide diuretics. Will follow. Admission and Anticipated Discharge Date Admission Date: July 12, 2022 Maurice Joel was seen and evaluated this morning. Overall he feels well but continues to have significant pain in his left knee. Sodium improved to 134 . Blood pressure acceptable. Review of Systems Review of Systems: A review of system was otherwise unremarkable. Physical Exam Constitutional: WD/WN, vitals as above no acute distress Eyes: + anicteric sclerae Neck: normal visual inspection Respiratory: Auscultation: lungs clear to auscultation bilaterally Cardiovascular: RRR, no murmur, no edema Skin: no rashes, warm and dry Neurologic: no focal motor deficits Psychiatric: Orientation: alert and oriented x 3 Results & Data Vital Signs (Past 12 Hours) Vital Signs Temp Pulse Pulse Resp BP Pulse Ox O2 Del Method 07/28/22 08:00 Room Air 07/28/22 08:00 92 H 07/28/22 07:53 36.6 C 93 H 20 159/80 H 95 Room Air 07/28/22 03:00 36.6 C 77 19 130/83 96 Room Air PG Care Time/CCT Total # of Minutes Spent Total Time Spent with Patient: Total time spent is greater than 50% in coordination of care (as documented) at patient's floor/unit and/or counseling patient: Coding Level of Care Code 60086 SUB INP/OBS CARE 03/23MIN Diagnoses Hyponatremia E87.1 Infected prosthetic knee joint T84.59XA; Z96.659 ADAM (acute kidney injury) N17.9 HTN (hypertension) I10
--- NOTE | 2022-07-28 12:20 | Cardiology Progress Note ---
Date of Service July 28, 2022 Assessment & Plan (1) Heart block AV second degree: Plan: Response most likely vagal response to pain, upon discharge continue low-dose beta-abraham (either metoprolol tartrate 25 mg twice daily or metoprolol succinate 50 mg daily). (2) CAD (coronary artery disease): (3) S/P coronary artery stent placement: Admission and Anticipated Discharge Date Admission Date: July 12, 2022 Subjective Uneventful night. No change in left leg pain. No cardiopulmonary symptoms. Telemetry showed sinus rhythm with no pauses for the past 48 hours Physical Exam Physical Exam: No distress. BP normotensive. Pulse 82 bpm and regular without ectopy. Skin: no ecchymoses or generalized lesions. HEENT: unremarkable. Neck: JVP at the clavicle at 90 degrees, transmitted murmur to the carotids. Lungs: clear. Cardiac: regular rhythm, mildly decreased aortic closure sound, 3/6 crescendo decrescendo systolic ejection murmur at the right upper sternal border rating to the carotids, left sternal border, and apex. No diastolic murmur or rub. Abdomen: benign. Extremities: no edema, right dorsalis pedis brisk, left nonpalpable. Neurologic: normal affect and conversation, nonfocal. Results & Data Vital Signs (Past 12 Hours) Vital Signs Temp Pulse Pulse Resp BP Pulse Ox O2 Del Method 07/28/22 11:47 97.9 F 82 20 121/61 91 Room Air 07/28/22 08:00 Room Air 07/28/22 08:00 92 H 07/28/22 07:53 97.9 F 93 H 20 159/80 H 95 Room Air 07/28/22 03:00 97.9 F 77 19 130/83 96 Room Air Laboratory Results Sodium 134, potassium 4.6, BUN 19, creatinine 1.09 PG Care Time/CCT Total # of Minutes Spent Total Time Spent with Patient: Total time spent is greater than 50% in coordination of care (as documented) at patient's floor/unit and/or counseling patient: Coding Level of Care Code 79209 SUB INP/OBS CARE 1/25MIN Diagnoses Heart block AV second degree I44.1 CAD (coronary artery disease) I25.10 S/P coronary artery stent placement Z95.5
[2022-07-28 13:46] LABS: Estimated Average Glucose 146 mg/dl; Hemoglobin A1C 6.7 % (4.5-5.6)
--- NOTE | 2022-07-28 16:28 | Discharge Summary ---
Discharge Summary Date of Service July 28, 2022 Notes For Next Care Provider Needs once weekly CBC, CMP while on antibiotics Medication Changes From Visit Decreased metoprolol to 25mg po bid Added amlodipine 5mg po daily Ceftriaxone 2 gram IV q24 hrs through 08/26/22. Aspirin 81mg po bid x 4 weeks and then decrease back to 81mg po once daily Stopped HCTZ Added NaCl 1000mg po bid Admission HPI Per Admitting Provider Wisam Copeland is a 56 year old male with past medical history of T2DM, diabetic neuropathy, obesity, asthma, HTN, Alcohol Use Disorder, CAD, hepatic steatosis, left knee arthroplasty who presented to the ED with left knee pain and inability to ambulate. He tried to get out of his bed overnight to get a drink of water but was unable to stand up/get back into bed due to the knee pain. He sat on the floor for approximately 12 hours until his parents (whom he lives with) returned home. He recalls that about 1 week ago he started having redness and swelling around his face, neck, and eyelids (+inner eye discharge)- painful but denies itchiness. This lasted for several days but then improved. Around the time his facial symptoms started to resolve, he began having left knee pain, swelling and redness. The redness also extended to his left foot- he notes that about 2 weeks ago he slipped and cut the bottom of his left foot. Since that injury he has had some drainage (pus, blood), but does not feel pain in that area due to his diabetic neuropathy. He states that he has had "fluid drained" from his left knee in the past and feels that if the fluid decreased his pain would improve. Since the onset of his symptoms, Wisam has had a decreased appetite and is eating only about 1/3 of the volume of food he would typically eat. Due to his limited mobility secondary to his pain, he also has had decreased fluid intake. Patient endorses diarrhea x5 days as well, denies blood or change in stool color. He has a history of alcohol use disorder, typically drinks at least 2 "generous" glasses of whiskey/bourbon per night, although has been drinking "less" in the past few days due to his symptoms. States that his last drink was 2 days ago and denies any history of withdrawal. He denies any chest pain, shortness of breath, dizziness/lightheadedness. Principal Dx & Hospital Course #1 = Principal Diagnosis (1) Infected prosthetic knee joint: left septic knee - stable, improved s/p aspiration 07/[address] Valadez Arthrocentesis Culture - Group A beta strep s/pLeft knee incision and drainage, irrigation, debridement, synovectomy, tibial polyethylene exchange for septic left total knee arthroplasty and MARILEE and Acticoat superficial Wound VAC and placement of Stimulan antibiotic beads -- Dr Valadez OR culture - also Group A strep blood cultures negative plan: * cont IV Ceftriaxone + lactinex through 08/26/22 * RUE PICC in place * ID consulted --> recommend 6wks IV ceftriaxone through 08/26/22, followed by 1 year of suppressive antibiotics with either penicillin VK or amoxicillin * Follow-up with orthopedics after discharge in 2 weeks * Continue oxycodone prn and Tylenol TID scheduled for pain * Continue PT/OT * Rehab placement post-d/c pain control - see #2 below (2) Left leg pain: combination of neuropathic pain + left knee pain for neuropathic pain - started gabapentin 100mg TID on 07/23/22 titrate gabapentin in about 2-3 days; thus far tolerating the gabapentin has 2 neuropathies I believe - chronic diabetic neuropathy of both feet; also with numbness of the left leg - due to lumbar back issues/radicular pain?? cont tylenol 1gm TID due to refractory pain of L knee despite oxycodone 10's increased to 15mg q6h prn and pain better controlled LLE venous doppler to r/o DVT given prolonged immobility, multiple DVT risk factors, etc-NEGATIVE (3) Mobitz type II block: BRIEF (<20 sec) episode of mobitz 1 and mobitz 2 AV block on 07/25 had another episode on 07/26 in AM, brief otherwise NSR or SR w/ 1st degree AVB since holding/decreasing metoprolol Did have Lyme IgM positive 03/01 but no IgG positive on 07/13, however has been on ceftriaxone which would also treat Lyme -appreciate cardiology for further eval-thinks vagally mediated from pain and ok to restart metoprolol 25mg po bid to avoid tachycardia w/ h/o CAD (4) Hyponatremia: initially thought 2nd to chronic HCTZ use initial Urine Na early in stay was 10 c/w solute def had had slow improvement in serum Na from 126 to 130 with salt tablets as well as lasix but then the Na levels fell again he appears relatively euvolemic at this time but was volume overloaded previously urine studies suggest possible SIADH Suspect SIADH from pain nephrology saw patient in consult Received multiple runs of 3% saline Na+ up to 129 and then given tolvaptan 15mg po on 07/26--> Na+ up to 131 and then gave another dose tolvaptan 15mg on 07/27--> Na+ up to 134 on 07/28 -Cont NaCl tabs - 1gm BID -follow BMP in 1 week as outpt -continue to fluid restrict to 1500mL -liberalized sodium in diet (5) ADAM (acute kidney injury): Cr was 2.1 at time of admission on 07/12/22 was sepsis-related from #1 above ADAM resolved follow BMP (6) Anemia: B12 and folate, TSH all normal Iron studies most c/w anemia of chronic disease and some blood loss from L knee surgery last transferrin saturation <20%; ferritin was high due to acute phase reactant Hemoglobin now <9 and stable from previous -gave IV venofer follow CBC once weekly (7) Rhabdomyolysis: Laid on floor for 12+ hours pre-hospital. CK 1164 at peak. Resolved with IVF. (8) Aortic stenosis: mild on echo this admission follow as outpt with Cardiology (9) Alcohol use: Drinks about fifth of liquor q2d at home by report but never had signs/symptoms of withdrawal or DTs while here (10) Cellulitis: LLE - 2nd to #1 - resolved (11) Proteinuria due to type 2 diabetes mellitus: Most recent A1C: 7.8% Home meds include Mounjaro, Glipizide, Metformin, Insulin Sliding scale insulin with novolog + lantus control acceptable (12) HTN (hypertension): improved with lisinopril 20mg daily, amlodipine 5mg daily and metoprolol discontinued HCTZ due to persistent hyponatremia (13) Restless leg syndrome: Continue home Ropinirole IV venofer will help this (14) Hepatic steatosis: noted on previous CT scan, likely from alcohol use AST had been elevated early in stay - possibly from rhabdo (or etoh) - but AST normalized ALT wnl f/u PCP for this weight loss needed (15) CAD (coronary artery disease): hx PCI to LAD and RCI cont Statin cont asa 81mg BID (BID for DVT prophylaxis - previously was on daily dosing at home) continue metoprolol at lower dose due to 2nd deg AVB (16) Elevated LFTs: resolved either from rhabdomyolysis OR etoh OR both statin resumed (17) Abnormal foot finding: multiple ulcers of left foot poor cap refill cool foot as well arterial duplex early in stay only showed peroneal disease but distal circulation was intact Dr Jara performed LLE arteriogram with the following findings - -Common iliac, external iliac, internal iliac widely patent -PROGRAMMER ANALYST CONSULTANT, profunda widely patent -SFA widely patent -Popliteal luminal regularities -SHAWNA widely patent to the ankle with sluggish flow -AGED OR DISABLED CARER widely patent the ankle with sluggish flow, peroneal large caliber vessel, widely patent to the ankle -Very sluggish flow in DPA, plantar arteries. No significant obstructive disease noted Dr Jara started amlodipine 5mg daily to help with microcirculation & sluggish flow in the DPA and plantar arteries Left foot exam continues to show better perfusion with amlodipine Plan DVT prophylaxis - aspirin 81 mg BID x 6 weeks Constipation - senna; cont colace; cont miralax BID; finally had BM on 07/27 and again 07/28 Disposition - SNF today Discharge Exam Constitutional WD/WN, vitals as above + morbidly obese Eyes + anicteric sclerae Neck trachea midline, no thyromegaly Respiratory normal respiratory effort Auscultation: lungs clear to auscultation bilaterally and + diminished lung sounds (Due to body habitus) Cardiovascular Rate/Rhythm: regular rate, regular rhythm and + tachycardic Heart Sounds: + murmur (2/6 AMNA at the RUSB as well as at the apex) Chest (Breasts) Chest: normal inspection of chest Gastrointestinal (Abdomen) normal bowel sounds, soft, nontender, no hepatosplenomegaly Musculoskeletal Extremities: + extremities abnormal to inspection (Left knee jayashree in place,mild swelling), no cyanosis and no clubbing Neurologic moves all extremities and awake; no focal motor deficits Psychiatric A+Ox3, euthymic affect Updated Medication List Medication Instructions Recorded Confirmed Type cholecalciferol (vitamin D3) 50 50 mcg PO QAM 07/29/19 07/12/22 History mcg (2,000 unit) capsule aspirin 81 mg tablet,delayed 81 mg PO QAM 30 days #30 tabs 12/27/19 07/12/22 Rx release metformin 1,000 mg tablet 1,000 mg PO BID #180 tabs 08/06/21 07/12/22 Rx atorvastatin 80 mg tablet 80 mg PO QAM #90 tabs 12/17/21 07/12/22 Rx nitroglycerin 0.4 mg sublingual 0.4 mg sublingual UD PRN chest 02/23/22 07/12/22 Rx tablet (Nitrostat) pain 30 days #60 tabs lisinopril 20 mg tablet 20 mg PO DAILY 04/14/22 07/12/22 History fluticasone 100 mcg-salmeterol 50 1 inh inhalation BID shortness of 04/21/22 07/12/22 History mcg/dose blistr powdr for breath inhalation (Wixela Inhub) glipizide 5 mg tablet 5 mg PO QPM #90 tabs 04/21/22 07/12/22 Rx trazodone 50 mg tablet 100 mg PO HS insomnia #180 tabs 04/28/22 07/12/22 Rx duloxetine 60 mg capsule,delayed 60 mg PO QAM #90 caps 05/03/22 07/12/22 Rx release insulin glargine 100 unit/mL (3 15 unit (0.15 mL) subcut QAM #15 mL 05/03/22 07/12/22 Rx mL) subcutaneous pen (Lantus Solostar U-100 Insulin) famotidine 20 mg tablet 20 mg PO BID PRN heartburn 90 days 05/13/22 07/12/22 Rx #180 tabs tirzepatide 5 mg/0.5 mL 5 mg (0.5 mL) subcut WK #2 mL 05/16/22 07/12/22 Rx subcutaneous pen injector (Ramirez) oxycodone-acetaminophen 5 mg-325 1 tab PO BID PRN pain 30 days #60 06/02/22 07/12/22 Rx mg tablet tabs albuterol sulfate 90 mcg/actuation See Rx Instructions inhalation QID 07/02/22 07/12/22 Rx aerosol inhaler (Proventil HFA) PRN shortness of breath or wheezing #18 grams metoprolol tartrate 50 mg tablet 50 mg PO BID #180 tabs 07/04/22 07/12/22 Rx allopurinol 300 mg tablet 300 mg PO QAM 07/12/22 07/12/22 History hydrochlorothiazide 12.5 mg tablet 12.5 mg PO DAILY 07/12/22 07/12/22 History ropinirole 1 mg tablet 1 mg PO QPM 07/12/22 07/12/22 History L.acidop,casei,lactis,rham-B.lact,nancy 2 cap PO DAILY #60 caps 07/28/22 Rx 625 mg (10 billion cell) capsule (Advanced Probiotic) amlodipine 5 mg tablet (Norvasc) 5 mg PO QAM #30 tabs 07/28/22 Rx ammonium lactate 5 % lotion 1 applic EXT DAILY PRN dry skin 07/28/22 Rx (Lac-Hydrin Five) #226 grams aspirin 81 mg tablet,delayed 81 mg PO BID #60 tabs 07/28/22 Rx release ceftriaxone 2 gram solution for 2 g IV DAILY #30 ea 07/28/22 Rx injection docusate sodium 100 mg capsule 100 mg PO BID #60 caps 07/28/22 Rx gabapentin 100 mg capsule 100 mg PO TID #90 caps 07/28/22 Rx lisinopril 20 mg tablet 20 mg PO QAM #30 tabs 07/28/22 Rx magnesium oxide 400 mg (241.3 mg 400 mg PO QAM #30 tabs 07/28/22 Rx magnesium) tablet metoprolol tartrate 25 mg tablet 25 mg PO BID #60 tabs 07/28/22 Rx multivitamin with folic acid 400 1 tab PO QAM #30 tabs 07/28/22 Rx mcg tablet (Daily-Laney (with folic acid)) oxycodone 15 mg tablet 15 mg PO Q6H PRN pain #12 tabs 07/28/22 Rx polyethylene glycol 3350 17 gram 17 g PO BID #60 ea 07/28/22 Rx oral powder packet (Miralax) sennosides 8.6 mg tablet (Senokot) 8.6 mg PO QAM #30 tabs 07/28/22 Rx sennosides 8.6 mg-docusate sodium 1 tab PO QAM #30 tabs 07/28/22 Rx 50 mg tablet (Senokot-S) sodium chloride 1,000 mg soluble 1,000 mg PO BID #60 tabs 07/28/22 Rx tablet thiamine HCl (vitamin B1) 100 mg 100 mg PO QAM #30 tabs 07/28/22 Rx tablet Hospital Stay Data Consultations 07/12/22 18:17 ED Decision to Admit Stat 07/13/22 00:38 Consult Orthopedic Surgery Routine 07/14/22 15:32 Consult Infectious Diseases Routine 07/20/22 10:45 Consult Cardiology Routine 07/24/22 09:10 Consult Nephrology Routine 07/26/22 14:24 Consult Cardiology Routine Procedures Performed Operation Date: 07/22/22 10:00 Actual Procedures s Placement Art Occlusive Device - Benji Jara MD p Angio Extremity Unilateral - Benji Jara MD s Ultrasound Vascular Access - Benji Jara MD ECHO Diagnostic Imagining Performed 07/12/22 15:55 US venous duplex leg [US venous doppler LE LT] Stat 07/12/22 16:23 US arterial duplex LE LT Stat 07/12/22 21:19 CT head/brain wo con Urgent 07/15/22 07:43 US - OR guided needle placemen Routine 07/19/22 18:13 CT lumbar spine wo con Routine 07/22/22 06:31 CL Cath Imgs for PACS use only Routine 07/25/22 13:49 US venous doppler LE LT Urgent Pending Results Patient Have Any Pending Studies at Discharge: No Discharge Instructions Given to Patient (Per Discharging Provider) Continue on the salt tablets and fluid restriction for your low sodium. Have a CMP and CBC checked once weekly while on antibiotics. Continue on the IV ceftriaxone daily through 08/26/22 and then start amoxicillin 500mg twice a day for one year for prevention. Total Time Total Time Spent Total Time Spent (In Minutes): 40 min Coding Level of Care Code 53044 INP/OBS DISCH >30 MIN Diagnoses Infected prosthetic knee joint T84.59XA; Z96.659 Left leg pain M79.605 Mobitz type II block I44.1 Hyponatremia E87.1 ADAM (acute kidney injury) N17.9 Anemia D64.9 Rhabdomyolysis M62.82 Aortic stenosis I35.0 Alcohol use Z78.9 Cellulitis L03.90 Proteinuria due to type 2 diabetes mellitus E11.29; R80.9 HTN (hypertension) I10 Restless leg syndrome G25.81 Hepatic steatosis K76.0 CAD (coronary artery disease) I25.10 Elevated LFTs R79.89 Abnormal foot finding R29.91
[2022-07-28] MEDS ORDERED: TOLVAPTAN 15 MG TABLET PO STA (16:41)
== END 2022-07-28 18:40 | DRG 466 ==
LOC: ED 15:38 → 3W 21:24 → SUATTDRO 21:24 → 3W 07-13 00:22 → 4W 07-22 12:54
PROC: CLB.AEU (2022-07-22 10:00)